=== PATIENT | female | born 1945 | race Caucasian/White ===

== ENCOUNTER 2023-08-28 12:57 | Outpatient (OUT) | payer MEDICARE, OTHER, SELFPAY ==
[2023-08-28 13:40] LABS: Basophils Absolute Auto 0.1 10^3/uL (0.0-0.1); Basophils Percent Auto 0.8 % (0.2-2.0); Eosinophils Absolute Auto 0.2 10^3/uL (0.0-0.7); Hematocrit 43.8 % (36.0-48.0); Hemoglobin 14.2 g/dL (12.0-16.0); Immature Granulocytes Abs Auto 0.03 10^3/uL (0.00-0.03); Immature Granulocytes Pct Auto 0.4 % (0.0-0.5); Lymphocytes Absolute Auto 1.8 10^3/uL (1.2-3.8); Lymphocytes Percent Auto 23.3 % (20.5-60.0); Mean Corpuscular HGB Conc 32.4 g/dL (29.9-35.2); Mean Corpuscular Volume 98.6 fL (81.0-99.0); Mean Platelet Volume 9.5 fL (9.5-13.5); Monocytes Absolute Auto 0.7 10^3/uL (0.3-0.8); Monocytes Percent Auto 9.4 % (1.7-12.0); Neutrophils Absolute Auto 4.8 10^3/uL (1.4-6.5); Neutrophils Percent Auto 63.1 % (43.0-75.0); Platelet Count 233 10^3/uL (150-450); Red Blood Count 4.44 10^6/uL (4.20-5.40); Red Cell Distribution Width 12.3 % (11.0-15.0); White Blood Count 7.6 10^3/uL (4.0-11.0)
[2023-08-28 13:59] LABS: Alanine Aminotransferase 23 U/L (14-59); Albumin Level 3.7 g/dL (3.4-5.0); Alkaline Phosphatase 91 U/L (46-116); Anion Gap 11.7; Aspartate Amino Transferase 18 U/L (15-37); Bilirubin Total 0.9 mg/dL (0.2-1.0); Calcium 8.9 mg/dL (8.5-10.1); Carbon Dioxide 28.6 mmol/L (21.0-32.0); Chloride 103 mmol/L (98-107); Estimated GFR (African America >60 (>=60); Estimated GFR (Non-African Ame >60 (>=60); Glucose 103 mg/dL (74-106); Potassium 4.3 mmol/L (3.5-5.1); Sodium 139 mmol/L (136-145)
[2023-08-28 14:00] LABS: Albumin Globulin Ratio 1.1; Globulin 3.3 g/dL
== END 2023-08-28 12:58 | disposition home or self-care (01) ==
PROVIDERS: Visit Provider Registered Nurse
DX: M15.0 Primary generalized (osteo)arthritis (principal); Z79.899 Other long term (current) drug therapy
CPT/HCPCS: 36415; 80053; 85025

== ENCOUNTER 2024-02-19 11:21 | Outpatient (OUT) | payer MEDICARE, OTHER, SELFPAY ==
[2024-02-19 12:10] LABS: Basophils Absolute Auto 0.1 10^3/uL (0.0-0.1); Basophils Percent Auto 0.7 % (0.2-2.0); Eosinophils Absolute Auto 0.3 10^3/uL (0.0-0.7); Eosinophils Percent Auto 4.6 % (0.9-7.0); Hematocrit 41.8 % (36.0-48.0); Hemoglobin 13.8 g/dL (12.0-16.0); Immature Granulocytes Abs Auto 0.03 10^3/uL (0.00-0.03); Immature Granulocytes Pct Auto 0.4 % (0.0-0.5); Lymphocytes Absolute Auto 1.3 10^3/uL (1.2-3.8); Mean Corpuscular Hemoglobin 32.5 pg (26.7-34.0); Mean Corpuscular Volume 98.6 fL (81.0-99.0); Mean Platelet Volume 9.3 fL (9.5-13.5); Monocytes Absolute Auto 0.6 10^3/uL (0.3-0.8); Monocytes Percent Auto 9.3 % (1.7-12.0); Neutrophils Absolute Auto 4.4 10^3/uL (1.4-6.5); Platelet Count 215 10^3/uL (150-450); Red Blood Count 4.24 10^6/uL (4.20-5.40); Red Cell Distribution Width 12.5 % (11.0-15.0); White Blood Count 6.7 10^3/uL (4.0-11.0)
[2024-02-19 13:09] LABS: Alanine Aminotransferase 23 U/L (14-59); Albumin Level 3.2 g/dL (3.4-5.0); Alkaline Phosphatase 83 U/L (46-116); Anion Gap 12.4; Aspartate Amino Transferase 17 U/L (15-37); Bilirubin Total 1.1 mg/dL (0.2-1.0); Calcium 8.9 mg/dL (8.5-10.1); Carbon Dioxide 28.5 mmol/L (21.0-32.0); Chloride 103 mmol/L (98-107); Estimated GFR (African America >60 (>=60); Estimated GFR (Non-African Ame >60 (>=60); Globulin 3.3 g/dL; Glucose 142 mg/dL (74-106); Potassium 3.9 mmol/L (3.5-5.1); Sodium 140 mmol/L (136-145); Total Protein 6.5 g/dL (6.4-8.2)
== END 2024-02-19 11:22 | disposition home or self-care (01) ==
LOC: LAB 11:22
PROVIDERS: PCP Family Medicine; Visit Provider Internal Medicine Rheumatology
DX: M15.0 Primary generalized (osteo)arthritis (principal); Z79.899 Other long term (current) drug therapy
CPT/HCPCS: 36415; 80053; 85025

== ENCOUNTER 2024-09-03 10:27 | Outpatient (OUT) | payer MEDICARE, OTHER, SELFPAY ==
--- OUTSIDE RECORDS SUMMARY | 2024-09-03 10:49 | XMS_ITS | CCD ---
Author Organization [facility] Care Team Providers Care Manager Of Customer Billing Name Role Phone MD Jason Khan Attending Provider REQUEST, NONE LISTED Attending Unavaila ble REQUEST, NONE LISTED Consulting Unavaila ble REQUEST, NONE LISTED Primary Care Unavaila ble REQUEST, NONE LISTED Admitting Unavaila ble Irving Clemens. Primary Care Physician SHAYAN GAMINO Attending Unavailable KUMAR HKAN Referring Unavailable IRVING CLEMENS Referring Unavailable Irving Clemens. Referring Unavailable Irving Clemens. Admitting Unavailable Irving Clemens. Attending Unavailable Irving Clemens. Admitting Unavailable Irving Clemens. Attending Unavailable Irving Clemens. Attending Unavailable Irving Clemens. Attending Unavailable Irving Clemens. Attending Unavailable Irving Clemens. Attending Unavailable Irving Clemens. Attending Unavailable Irving lCemens. Attending Unavailable Irving Clemens. Attending Unavailable Allergies Allergy Classification Reported Allergen(s) Allergy Type Date of Onset Reaction(s) Facility (2 sources) Codeine; Translations: [codeine] Drug Allergy [facility] (1 source) Sulfonamides (Antibiotic) Drug allergy (disorder) [facility] (2 sources) Codeine; Translations: [codeine] Drug Allergy [facility] (3 sources) Sulfonamides (Antibiotic); Translations: [sulfa drugs] Propensity to adverse reactions to drug [facility] Medications Current Medications Medication Drug Class(es) Dates Sig (Normalized) Sig (Original) citalopram 40 mg oral tablet (2 sources) Serotonin Reuptake Inhibitor Start: 05-12-2024 take 1 tablet by mouth once daily citalopram 40 mg Tab 40 mg = 1 tab(s), Oral, Daily, # 90 tab(s), Refills(s) 4, Pharmacy: [id number], 161, cm, 03/05/24 13:06:00 EDT, Height/Length Dosing, 88.6, kg, 03/05/24 13:06:00 EDT, Weight Dosing Start Date: 05/12/24 Status: Ordered Start: 11-14-2023 take 1 tablet by jake th once daily citalopram 40 mg Tab 40 mg = 1 tab(s), Oral, Daily, # 90 tab(s), Refills(s) 1, Pharmacy: [facility] #[id number], 159.5, cm, 11/14/23 13:11:00 EST, Height/Length Dosing, 90.2, kg, 11/14/23 13:11:00 EST, Weight Dosing Start Date: 11/14/23 Status: Ordered gabapentin 300 mg oral capsule (1 source) Anti-epileptic Agent Start: 11-14-2023 take 1 capsule by mouth in the morning, then take 2 capsules by mouth at bedtime gabapentin 300 mg Cap See Instructions, 1 orally in the am and 2 at bedtime, Refills(s) 0 Start Date: 11/14/23 Status: Ordered hydroCHLOROthiazide 25 mg oral tablet (2 sources) Thiazide Diuretic Start: 11-14-2023 take 1 tablet by mouth once daily hydrochlorothiazide 25 mg Tab 25 mg = 1 tab(s), Oral, Daily, # 90 tab(s), Refills(s) 1, Pharmacy: [facility] #[id number], 159.5, cm, 11/14/23 13:11:00 EST, Height/Length Dosing, 90.2, kg, 11/14/23 13:11:00 EST, Weight Dosing Start Date: 11/14/23 Status: Ordered pregabalin 75 mg oral capsule (1 source) Start: 07-29-2024 take 1 capsule by mouth twice daily Lyrica 75 mg Cap 75 mg = 1 cap(s), Oral, BID, # 60 cap(s), Refills(s) 0, Pharmacy: [id number], 161, cm, 07/29/24 12:54:00 EDT, Height/Length Dosing, 90.6, kg, 07/29/24 12:54:00 EDT, Weight Dosing Start Date: 07/29/24 Status: Ordered verapamil hydrochloride 240 mg extended release oral tablet (2 sources) Calcium Channel Hero Start: 05-12-2024 take 1 tablet by mouth once daily verapamil 240 mg ER Tab 240 mg = 1 tab(s), Oral, Daily, # 90 tab(s), Refills(s) 4, Pharmacy: [id number], 161, cm, 03/05/24 13:06:00 EDT, Height/Length Dosing, 88.6, kg, 03/05/24 13:06:00 EDT, Weight Dosing Start Date: 05/12/24 Status: Ordered Start: 11-14-2023 take 1 tablet by jake th once daily verapamil 240 mg ER Tab 240 mg = 1 tab(s), Oral, Daily, # 90 tab(s), Refills(s) 1, Pharmacy: [facility] #[id number], 159.5, cm, 11/14/23 13:11:00 EST, Height/Length Dosing, 90.2, kg, 11/14/23 13:11:00 EST, Weight Dosing Start Date: 11/14/23 Status: Ordered Completed/Discontinued Medications Medication Drug Class(es) Dates Sig (Normalized) Sig (Original) etodolac 500 mg oral tablet (1 source) Nonsteroidal Anti-inflammatory Drug Start: 02-12-2024 take 1 tablet by mouth twice daily etodolac 500 mg Tab 500 mg = 1 tab(s), Oral, BID, take 1 tablet by mouth twice a day Start Date: 02/12/24 Status: Ordered Problems Problem Classification Problem Date Documented Date Episodic/Chronic Anxiety disorders (2 sources) Anxiety 11-14-2023 Chronic Disorders of lipid metabolism (2 sources) Hyperlipidemia 11-14-2023 Chronic Essential hypertension (2 sources) Hypertensive disorder 11-14-2023 Chronic Osteoarthritis (4 sources) Primary generalized (osteo)arthritis; Translations: [PRIMARY GENERALIZED OSTEOARTHRITIS] Onset: 10-31-2022 Chronic Other aftercare (1 source) Other custodial (current) drug therapy; Translations: [[facility] CURRENT DRUG THERAPY] Onset: 11-03-2022 Episodic Other nervous system disorders (2 sources) Neuropathy 11-14-2023 Chronic Other nutritional; endocrine; and metabolic disorders (1 source) Body mass index 30+ - obesity 02-12-2024 Chronic Unclassified (2 sources) Statin not tolerated (context-dependent category) 11-14-2023 Results Test Name Value Interpretation Reference Range Beka mcmanus Family Medicine Office/Clini c Noteon 07-29-2024 Family Medicine Office/Clinic Note Family Medicine Office/Clinic Note Chief Complaint The patient presents with significant burning and numbness in the feet and ankles. HPI Staff Jose Manuel is an 79 year old female presenting for acute vist Acute: feet bothering her from the neuropathy night swollen and burning and couldn't sleep. On gabapentin and doesn't want to increase the dose due to side effects so would like to discuss changing them. If doesn't get changed will need a refill flu: declined History of Present Illness The patient is an 79-year-old female presenting with severe burning pain and numbness in the feet and ankles. The patient reports that the sensation feels similar to the sensation of her feet falling asleep. The condition has been severe enough to disturb her sleep, with the patient describing one episode on a night as particularly terrible. These symptoms have progressed over time, and she additionally mentions swelling?though the swelling is not pitting. This presentation has led to a presumed diagnosis of lymphedema, though the patient states that this irritation in her feet and ankles has not been an issue previously, with only neuropathy being documented historically. The patient expresses concerns about her current medication management, specifically gabapentin, which she believes may be contributing to the swelling of her ankles. Attempts to manage the symptoms with gabapentin have fostered discussions of potential side effects, but no immediate resolution of her symptoms. She is considering switching to Lyrica as an alternative to better manage her neuralgia. Peripheral artery disease has been ruled out through prior investigations which have returned normal results. The patient possesses a history of nicotine dependence but is now a former smoker. Her Ongoing health concerns include exogenous obesity and a BMI of 34.0-34.9. Her blood pressure is actively managed with daily blood pressure medication. Cardiovascular risks have been acknowledged due to her age, with particular heed given to coronary artery disease, congestive heart failure, and the potential for stroke. Review of Systems PHQ Score Initial Depression Screen Score: 0 SCORE Physical Exam Vitals & Measurements T: 36.9 ?C(Temporal Artery) HR: 66(Peripheral) RR: 16 BP: 132/78 SpO2: 96% HT: 63 in HT: 161 cm WT: 90.6 kg WT: 199.32 lb BMI: 34.95 General: alert, no acute distress ENMT: oral mucosa moist Cardiovascular:, normal peripheral perfusion Respiratory: respirations non labored Extremities: no deformity, no trauma, swelling in ankles noted, non-pitting edema observed Neurological: oriented x 4, level of consciousness appropriate for age, CN II-XII intact, motor strength equal & normal bilaterally, speech normal Assessment/Plan 1. BMI 34.0-34.9,adult (Z68.34: Body mass index [BMI] 34.0-34.9, adult) BMI education added Ordered: Body Mass Index (BMI) documented 3008F Current tobacco non-user 1036F Depression Screening Negative 3352F EMG Bilateral Lower Extremity (BLE) Influenza immunization status assessed 1030F Most recent diastolic blood pressure <80 mm Hg 3078F Patient screen for fall risk: no falls in last year or 1 fall with no injury in last year 1101F Systolic BP 130-139 mm Hg (Most Recent) 3075F 2. 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 Management includes continued monitoring of her BMI and exploration of weight-reduction strategies, emphasizing dietary management and physical activity suitable for her age and concurrent conditions. Ordered: Body Mass Index (BMI) documented 3008F Current tobacco non-user 1036F Depression Screening Negative 3352F EMG Bilateral Lower Extremity (BLE) Influenza immunization status assessed 1030F Most recent diastolic blood pressure <80 mm Hg 3078F Patient screen for fall risk: no falls in last year or 1 fall with no injury in last year 1101F Systolic BP 130-139 mm Hg (Most Recent) 3075F 3. Former smoker (Z87.891: Personal history of nicotine dependence) The patient's prior history of nicotine dependence poses a residual factor in elevated cardiovascular risks. While she is now a former smoker, emphasizing the cessation continuity and addressing any residual health impacts remain important within her preventative care strategy. Ordered: Body Mass Index (BMI) documented 3008F Current tobacco non-user 1036F Depression Screening Negative 3352F EMG Bilateral Lower Extremity (BLE) Influenza immunization status assessed 1030F Most recent diastolic blood pressure <80 mm Hg 3078F Patient screen for fall risk: no falls in last year or 1 fall with no injury in last year 1101F Systolic BP 130-139 mm Hg (Most Recent) 3075F 4. Polyneuropathy, unspecified (G62.9) The primary concern in this visit is the patient's neuropathy c (more content not included)... Normal [facility] Comment on above: Result Comment: Elec tronically Signed By: Irving Clemens MD\.br\Date and Time Signed: 07/29/24 13:42 EDT Ambulatory Visit Summaryon 0 03-05-2024 Ambulatory Visit Summary JOSE MANUEL CHICAS :1945 Visit Date:03/05/2024 Ambulatory Visit Instructions Your Diagnosis HTN (hypertension) BMI 34.0-34.9,adult Class 1 obesity due to excess calories in adult Nonsmoker Your Care Team Attending Physician - Irving Clemens MD Primary Care Physician - Irving Clemens MD This Is Your Medications List citalopram (citalopram 40 mg Tab) etodolac (etodolac 500 mg Tab) gabapentin (gabapentin 300 mg Cap) hydrochlorothiazide (hydrochlorothiazide 25 mg Tab) verapamil (verapamil 240 mg ER Tab) Procedures Performed Acoustic neuroma, Biopsy of breast, Hysterectomy. Discharge Vitals Temperature (Temporal Artery) 37.5 ?C Heart Rate (Peripheral) 72 Respiratory Rate 16 Blood Pressure 150/84 Height 161 cm Height 63 in Weight 88.6 kg Weight 194.92 lb BMI 34.18 What to do next Scheduled Follow-Up Appointments 2023 1:00 PM EST With: Irving Clemens MD Where: [facility] [address] [place] [address]- \.br\ Medications\.br\ What How Much When Instructions\.br\ Unchanged citalopram (citalopram 40 mg Tab) 1 Tablets By Mouth Every day\.br\ Unchanged etodolac (etodolac 500 mg Tab) 1 Tablets By Mouth 2 times a day take 1 tablet by mouth twice a day \.br\ Unchanged gabapentin (gabapentin 300 mg Cap) See instructions 1 orally in the am and 2 at bedtime \.br\ Unchanged hydrochlorothiazide (hydrochlorothiazide 25 mg Tab) 1 Tablets By Mouth Every day\.br\ Unchanged verapamil (verapamil 240 mg ER Tab) 1 Tablets By Mouth Every day\.br\ Allergies\.br\ codeine\.br\ sulfa drugs\.br\ Problems\.br\ Ongoing - Any problem that you are currently receiving treatment for.\.br\ Anxiety\.br\ BMI 34.0-34.9,adult\.br\ HLD (hyperlipidemia)\.br \ HTN (hypertension)\.br\ Neuropathy\.br\ Statin intolerance\.br\ Patient Survey\.br\ You may receive a survey via text or e-mail asking about your office visit. Please share your experience with us by completing your survey. We appreciate your feedback and thank you for choosing us for your care.\.br\ \.br\ [facility] Family Medicine Office/Clini c Noteon 03-05-2024 Family Medicine Office/Clinic Note HPI Staff Jose Manuel is a 78 year old female presenting for follow up htn Patient is here for follow up on hypertension. How often are you checking your blood pressure? Daily What are your average readings? all over the place, worse in the morning then after takes her pill it gets better _ Yearly BMP: 11/14/23 History of Present Illness - Here for follow up. - No issues at this time. - Reviewed Bp logs. - Elevated in the AM. Takes meds at noon and then improves with time. - NO other issues at this time. Review of Systems PHQ Score Initial Depression Screen Score: 0 SCORE Physical Exam Vitals & Measurements T: 37.5 ?C(Temporal Artery) HR: 72(Peripheral) RR: 16 BP: 138/88 SpO2: 95% HT: 63 in HT: 161 cm WT: 88.6 kg WT: 194.92 lb BMI: 34.18 General: alert, no acute distress ENMT: oral mucosa moist, Cardiovascular: regular rate and rhythm, normal peripheral perfusion Respiratory: Lungs CTA, respirations non labored Extremities: no deformity, no trauma Neurological: oriented x 4, LOC appropriate for age, CN II-XII intact, motor strength equal & normal bilaterally, speech normal Abdomen: Soft, Nontender, Non-distended, + BS Assessment/Plan 1. HTN (hypertension) (I10: Essential (primary) hypertension) - Bp improved on recheck. No issues at this time. 2. BMI 34.0-34.9,adult (Z68.34: Body mass index [BMI] 34.0-34.9, adult) - BMI education uploaded 3. Class 1 obesity due to excess calories in adult (E66.09: Other obesity due to excess calories) - Diet and exercise advised 4. Nonsmoker (Z78.9: Other specified health status) - Please continue to not smoke. Follow-up No qualifying data available Problem List/Past Medical History Ongoing Anxiety BMI 34.0-34.9,adult HLD (hyperlipidemia) HTN (hypertension) Neuropathy Statin intolerance Historical No qualifying data Procedure/Surgical History Acoustic neuroma, Biopsy of breast, Hysterectomy. Medications citalopram 40 mg Tab, 40 mg= 1 tab(s), Oral, Daily, 1 refills etodolac 500 mg Tab, 500 mg= 1 tab(s), Oral, BID gabapentin 300 mg Cap, See Instructions, 3 refills hydrochlorothiazide 25 mg Tab, 25 mg= 1 tab(s), Oral, Daily, 1 refills verapamil 240 mg ER Tab, 240 mg= 1 tab(s), Oral, Daily, 1 refills Allergies codeine sulfa drugs Social History Alcohol - Medium Risk, 02/12/2024 Current, Wine, 3-5 times per week, 1 drinks/episode average. 2.00 drinks/episode maximum. Previous treatment: None. Alcohol use interferes with work or home: No. Drinks more than intended: No. Others hurt by drinking: No. Ready to change: No. Household alcohol concerns: No., 02/12/2024 Substance Abuse - Denies Substance Abuse, 02/12/2024 Tobacco Former smoker, quit more than 30 days ago Tobacco Use:. Never Smokeless Tobacco Use:. Cigarettes, 0.25 per day. 31 year(s). Total pack years: 8. Started age 17.0 Years. Stopped age 49 Years., 03/05/2024 Family History Acute myocardial infarction: Father. Hypertension: Brother. Stroke: Mother. Immunizations Vaccine Date Status pneumococcal 13-valent vaccine 09/09/2021 Recorded influenza virus vaccine, inactivated 10/05/2019 Recorded pneumococcal 23-valent vaccine 08/26/2014 Recorded pneumococcal 23-valent vaccine 08/23/2001 Recorded Normal [facility] Comment on above: Result Comment: Elec tronically Signed By: Roberto Carlos MART, Irving Rutledge.br\Date and Time Signed: 03/05/24 13:36 EDT Living Will/POAon 03-05-2024 Living Will/POA [id number] #1.00TIFF Normal [facility] Family Medicine Office/Clini c Noteon 02-13-2024 Family Medicine Office/Clinic Note Chief Complaint Medicare Wellness Visit Subsequent History of Present Illness I was in the office and available for consultation and to provide direct supervision at the time of this visit. I have provided supervision of the care team and have reviewed this chart and office note and agree with the plan of care. Covid-19, MERS, Ebola Screen *Contact With Person With Highly Contagious Disease Like Ebola/MERS/COVID-19 AND Have One or More of the Symptoms Below : No *Travel to a Country With Wide-Spread Ebola/MERS/COVID-19 in the Past 21 Days AND Have One or More of the Symptoms Below : No Patient Reported Covid-19 Testing : No *Verify Droplet, Contact Precautions for Ebola (Reference for CDC) : N/A *Verify Airborne, Droplet Precautions for MERS/COVID-19 : N/A Marilyn Jose LPN L - 02/12/2024 12:58 EDT Medicare/Medicaid Summary Height/Length Measured : 161 cm(Converted to: 5 ft 3 in, 63.39 in) Weight Measured : 90.2 kg(Converted to: 198 lb 14 Ounces, 198.857 lb) Body Mass Index Measured : 34.8 kg/m2 Height in Inches : 63 in Weight in Pounds : 198.44 lb Systolic Blood Pressure : 170 mmHg (HI) Diastolic Blood Pressure : 100 mmHg (HI) Peripheral Pulse Rate : 58 bpm (LOW) Respiratory Rate : 16 br/min SpO2 : 96 % Jose MAKER UP FOLDINGMarilyn Ward L - 02/12/2024 14:22 EDT Chief Complaint : Medicare Wellness Visit Subsequent Damon KIANMarilyn L 02/12/2024 15:44 EDT Patient Counseled : Nutrition, Physical activity, Elevated BMI Blood Pressure Location : Right arm Blood Pressure Position : Sitting O2 Sat Resting/Exertion Alpha : Resting Pain Present : No actual or suspected pain Marilyn Jose LPN - 02/12/2024 12:58 EDT Hearing and Vision Screening FT FT Whisper Test Comments : 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 Vision Screen Comments : Wears glasses, follows up with [facility] for eye exams. Marilyn Jose LPN - 02/12/2024 14:22 EDT Advance Directive FT Advance Directive : Yes Patient Wishes to Receive Further Information on Advance Directives : No Organ Donation Consent : Yes Marilyn Jose LPN - 02/12/2024 14:22 EDT Procedures / Surgeries FT - Procedure History (As Of: 02/12/2024 15:46:17 EDT) Anesthesia Minutes: 0 ; Procedure Name: Acoustic neuroma ; Procedure Minutes: 0 ; Comments: 11/14/2023 13:07 Laly Velasquez LPN [facility] 1995 ; Last Reviewed Dt/Tm: 02/12/2024 15:45:32 EDT Anesthesia Minutes: 0 ; Procedure Name: Hysterectomy ; Procedure Minutes: 0 ; Last Reviewed Dt/Tm: 02/12/2024 15:45:32 EDT Anesthesia Minutes: 0 ; Procedure Name: Biopsy of breast ; Procedure Minutes: 0 ; Comments: 11/14/2023 13:08 Laly Velasquez LPN several biopsies, has dense breasts ; Last Reviewed Dt/Tm: 02/12/2024 15:45:32 EDT Family History Family History (As Of: 02/12/2024 15:46:17 EDT) Father: Relation: Father ; Gender: Male ; Nomenclature: Acute myocardial infarction ; Value: Positive Mother: Relation: Mother ; Gender: Female ; Nomenclature: Stroke ; Value: Positive Brother: Relation: Brother ; Gender: Male ; Nomenclature: Hypertension ; Value: Positive Medicare/Medicaid Social History FT Social History (As Of: 02/12/2024 15:46:17 EDT) Alcohol: Medium Risk Current, Wine, 3-5 times per week, 1 drinks/episode average. 2.00 drinks/episode maximum. Previous treatment: None. Alcohol use interferes with work or home: No. Drinks more than intended: No. Others hurt by drinking: No. Ready to change: No. Household alcohol concerns: No. (Last Updated: 02/12/2024 14:26:18 EDT by Marilyn Jose LPN) Tobacco: Former smoker, quit more than 30 days ago Tobacco Use:. Never Smokeless Tobacco Use:. Cigarettes, 0.25 per day. 32 year(s). Total pack years: 8. Started age 17.0 Years. Stopped age 49 Years. (Last Updated: 02/12/2024 14:26:56 EDT by Marilyn Jose LPN) Substance Abuse: Denies Substance Abuse (Last Updated: 02/12/2024 14:25:57 EDT by Marilyn Jose LPN ) Health Risk Assessment FT Overall mood for past four weeks : Pretty well General health rating : Very Good Someone avail. to help if needed? : Yes, as much as I wanted Phys. & emotional health limit social act? : Not at all Confident you control health problems : Very confident Difficulties driving your car? : No Seatbelts : I always fasten my seat belt Marilyn Jose LPN - 02/12/2024 14:22 EDT HRA little interest or pleasure? : No HRA down, depressed, or hopeless? : No Hazards in your house? : No Fall Risk Past Year : No Worried About Falling : No Use a Cane or Walker? : No Someone Helps You in the Morning : No Fallen or felt dizzy standing up? : No Assistance with personal care? : No Trouble taking meds correctly? : No HRA Pain Present : No Able to walk without help? : Yes Ability to shop w/out help : Yes Prepare your own meals? : Yes Housework without help? : Yes Handle money without help : (more content not included)... Normal [facility] Comment on above: Result Comment: Elec tronically Signed By: Irving Clemens MD\.br\Date and Time Signed: 02/13/24 08:33 EDT\.br\Electronically Co-Signed By: Marilyn Jose LPN\.br\Date and Time Co-Signed: 02/12/24 16:35 EDT [place] 02-13-2024 Screens [id number] #[id number] Normal [facility] Ambulatory Visit Summaryon 0 02-12-2024 Ambulatory Visit Summary JOSE MANUEL CHICAS :1945 Visit Date:02/12/2024 Ambulatory Visit Instructions Your Diagnosis Annual visit for general adult medical examination with abnormal findings Anxiety HLD (hyperlipidemia) HTN (hypertension) Neuropathy Obesity due to excess calories Your Care Team Attending Physician - Irving Clemens MD Primary Care Physician - Irving Clemens MD This Is Your Medications List citalopram (citalopram 40 mg Tab) etodolac (etodolac 500 mg Tab) gabapentin (gabapentin 300 mg Cap) hydrochlorothiazide (hydrochlorothiazide 25 mg Tab) verapamil (verapamil 240 mg ER Tab) Procedures Performed Acoustic neuroma, Biopsy of breast, Hysterectomy. Discharge Vitals Heart Rate (Peripheral) 58 Respiratory Rate 16 Blood Pressure 178/98 Height 63 in Height 161 cm Weight 198.44 lb Weight 90.2 kg BMI 34.8 What to do next Scheduled Follow-Up Appointments Monday 2:30 PM EDT With: Irving Clemens MD Where: [facility] Normal [address] [place] [address] \.br\ Medications\.br\ What How Much When Instructions\.br\ Unchanged citalopram (citalopram 40 mg Tab) 1 Tablets By Mouth Every day\.br\ Unchanged etodolac (etodolac 500 mg Tab) 1 Tablets By Mouth 2 times a day take 1 tablet by mouth twice a day \.br\ Unchanged gabapentin (gabapentin 300 mg Cap) See instructions 1 orally in the am and 2 at bedtime \.br\ Unchanged hydrochlorothiazide (hydrochlorothiazide 25 mg Tab) 1 Tablets By Mouth Every day\.br\ Unchanged verapamil (verapamil 240 mg ER Tab) 1 Tablets By Mouth Every day\.br\ Allergies\.br\ codeine\.br\ sulfa drugs\.br\ Problems\.br\ Ongoing - Any problem that you are currently receiving treatment for.\.br\ Anxiety\.br\ BMI 34.0-34.9,adult\.br\ HLD (hyperlipidemia)\.br \ HTN (hypertension)\.br\ Neuropathy\.br\ Statin intolerance\.br\ Patient Survey\.br\ You may receive a survey via text or e-mail asking about your office visit. Please share your experience with us by completing your survey. We appreciate your feedback and thank you for choosing us for your care.\.br\ Education Materials\.br\ Managing Anxiety, Adult\.br\ After being diagnosed with anxiety, you may be relieved to know why you have felt or behaved a certain way. You may also feel overwhelmed about the treatment ahead and what it will mean for your life. With care and support, you can manage this condition.\.br\ How to manage lifestyle changes\.br\ Managing stress and anxiety\.br\ \.br\ Stress is your body's reaction to life changes and events, both good and bad. Most stress will last just a few hours, but stress can be ongoing and can lead to more than just stress. Although stress can play a major role in anxiety, it is not the same as anxiety. Stress is usually caused by something external, such as a deadline, test, or competition. Stress normally passes after the triggering event has ended.\.br\ Anxiety is caused by something internal, such as imagining a terrible outcome or worrying that something will go wrong that will devastate you. Anxiety often does not go away even after the triggering event is over, and it can become long-term (chronic) worry. It is important to understand the differences between stress and anxiety and to manage your stress effectively so that it does not lead to an anxious response.\.br\ Talk with your health care provider or a counselor to learn more about reducing anxiety and stress. He or she may suggest tension reduction techniques, such as:\.br\ ? \.br\ Music therapy. Spend time creating or listening to music that you enjoy and that inspires you.\.br\ ? \.br\ Mindfulness-based meditation. Practice being aware of your normal breaths while not trying to control your breathing. It can be done while sitting or walking.\.br\ ? \.br\ Centering prayer. This involves focusing on a word, phrase, or sacred image that means something to you and brings you peace.\.br\ ? \.br\ Deep breathing. To do this, expand your stomach and inhale slowly through your nose. Hold your breath for 3?5 seconds. Then exhale slowly, letting your stomach muscles relax.\.br\ ? \.br\ Self-talk. Learn to notice and identify thought patterns that lead to anxiety reactions and change those patterns to thoughts that feel peaceful.\.br\ ? \.br\ Muscle relaxation. Taking time to tense muscles and then relax them.\.br\ Choose a tension reduction technique that fits your lifestyle and personality. These techniques take time and practice. Set aside 5?15 minutes a day to do them. Therapists can offer counseling and training in these techniques. The training to help with anxiety may be covered by some insurance plans.\.br\ Other things you can do to manage stress and anxiety include:\.br\ ? \.br\ Keeping a stress diary. This can help you learn what triggers your reaction and then learn ways to manage your response.\.br\ ? \.br\ Thinking about how you react to certain situations. You may not be able to control everything, but you can control your response.\.br\ ? \.br\ Making time for activities that help you relax and not feeling guilty about spending your time in this way.\.br\ ? \.br\ Doing visual imagery. This involves imagining or creating mental pictures to help you relax.\.br\ ? \.br\ Practicing yoga. Through yoga poses, you can lower tension and promote relaxation.\.br\ Medicines\.br\ Medicines can help ease symptoms. Medicines for anxiety include:\.br\ ? \.br\ Antidepressant medicines. These are usually prescribed for long-term daily control.\.br\ ? \.br\ Anti-anxiety medicines. These may be added in severe cases, especially when panic attacks occur.\.br\ Medicines will be prescribed by a health care provider. When used together, medicines, psychotherapy, and tension reduction techniques may be the most effective treatment.\.br\ Relationships\.br\ Relationships can play a big part in helping you recover. Try to spend more time connecting with trusted friends and family members.\.br\ ? \.br\ Consider going to couples counseling if you have a partner, taking family education classes, or going to family therapy.\.br\ ? \.br\ Therapy can help you and others better understand your condition.\.br\ How to recognize changes in your anxiety\.br\ Everyone responds differently to treatment for anxiety. Recovery from anxiety happens when symptoms decrease and stop interfering with your daily activities at home or work. This may mean that you will start to:\.br\ ? \.br\ Have better concentration and focus. Worry will interfere less in your daily thinking.\.br\ ? \.br\ Sleep better.\.br\ ? \.br\ Be less irritable.\.br\ ? \.br\ Have more energy.\.br\ ? \.br\ Have improved memory.\.br\ It is also important to recognize when your condition is getting worse. Contact your health care provider if your symptoms interfere with home or work and you feel like your condition is not improving.\.br\ Follow these instructions at home:\.br\ Activity\.br\ ? \.br\ Exercise. Adults should do the following:\.br\ ? \.br\ Exercise for at least 150 minutes each week. The exercise should increase your heart rate and make you sweat (moderate-intensity exercise).\.br\ ? \.br\ Strengthening exercises at least twice a week.\.br\ ? \.br\ Get the right amount and quality of sleep. Most adults need 7?9 hours of sleep each night.\.br\ Lifestyle\.br\ \.br\ ? \.br\ Eat a healthy diet that includes plenty of vegetables, fruits, whole grains, low-fat dairy products, and lean protein.\.br\ ? \.br\ Do not eat a lot of foods that are high in fats, added sugars, or salt (sodium).\.br\ ? \.br\ Make choices that simplify your life.\.br\ ? \.br\ Do not use any products that contain nicotine or tobacco. These products include cigarettes, chewing tobacco, and vaping devices, such as e-cigarettes. If you need help quitting, ask your health care provider.\.br\ ? \.br\ Avoid caffeine, alcohol, and certain cyeh-sbf-qplsxdy cold medicines. These may make you feel worse. Ask your pharmacist which medicines to avoid.\.br\ General instructions\.br\ ? \.br\ Take iubr-jpy-oyeqtsj and prescription medicines only as told by your health care provider.\.br\ ? \.br\ Keep all follow-up visits. This is important.\.br\ Where to find support\.br\ You can get help and support from these sources:\.br\ ? \.br\ Self-help groups.\.br\ ? \.br\ Online and community organizations.\.br\ ? \.br\ A trusted spiritual leader.\.br\ ? \.br\ [facility] Dexa Scanson 02-12-2025 Dexa Scans [phone] [id number] #1.00TIFF Normal [facility] Patient Educationon 02-12-20 Patient Education Cardiovascular Hypertension, Adult High blood pressure (hypertension) is when the force of blood pumping through the arteries is too strong. The arteries are the blood vessels that carry blood from the heart throughout the body. Hypertension forces the heart to work harder to pump blood and may cause arteries to become narrow or stiff. Untreated or uncontrolled hypertension can lead to a heart attack, heart failure, a stroke, kidney disease, and other problems. A blood pressure reading consists of a higher number over a lower number. Ideally, your blood pressure should be below 120/80. The first ( top ) number is called the systolic pressure. It is a measure of the pressure in your arteries as your heart beats. The second ( bottom ) number is called the diastolic pressure. It is a measure of the pressure in your arteries as the heart relaxes. What are the causes? The exact cause of this condition is not known. There are some conditions that result in high blood pressure. What increases the risk? Certain factors may make you more likely to develop high blood pressure. Some of these risk factors are under your control, including: ? Smoking. ? Not getting enough exercise or physical activity. ? Being overweight. ? Having too much fat, sugar, calories, or salt (sodium) in your diet. ? Drinking too much alcohol. Other risk factors include: ? Having a personal history of heart disease, diabetes, high cholesterol, or kidney disease. ? Stress. ? Having a family history of high blood pressure and high cholesterol. ? Having obstructive sleep apnea. ? Age. The risk increases with age. What are the signs or symptoms? High blood pressure may not cause symptoms. Very high blood pressure (hypertensive crisis) may cause: ? Headache. ? Fast or irregular heartbeats (palpitations). ? Shortness of breath. ? Nosebleed. ? Nausea and vomiting. ? Vision changes. ? Severe chest pain, dizziness, and seizures. How is this diagnosed? This condition is diagnosed by measuring your blood pressure while you are seated, with your arm resting on a flat surface, your legs uncrossed, and your feet flat on the floor. The cuff of the blood pressure monitor will be placed directly against the skin of your upper arm at the level of your heart. Blood pressure should be measured at least twice using the same arm. Certain conditions can cause a difference in blood pressure between your right and left arms. If you have a high blood pressure reading during one visit or you have normal blood pressure with other risk factors, you may be asked to: ? Return on a different day to have your blood pressure checked again. ? Monitor your blood pressure at home for 1 week or longer. If you are diagnosed with hypertension, you may have other blood or imaging tests to help your health care provider understand your overall risk for other conditions. How is this treated? This condition is treated by making healthy lifestyle changes, such as eating healthy foods, exercising more, and reducing your alcohol intake. You may be referred for counseling on a healthy diet and physical activity. Your health care provider may prescribe medicine if lifestyle changes are not enough to get your blood pressure under control and if: ? Your systolic blood pressure is above 130. ? Your diastolic blood pressure is above 80. Your personal target blood pressure may vary depending on your medical conditions, your age, and other factors. Follow these instructions at home: Eating and drinking ? Eat a diet that is high in fiber and potassium, and low in sodium, added sugar, and fat. An example of this eating plan is called the DASH diet. DASH stands for Dietary Approaches to Stop Hypertension. To eat this way: ? Eat plenty of fresh fruits and vegetables. Try to fill one half of your plate at each meal with fruits and vegetables. ? Eat whole grains, such as whole-wheat pasta, brown rice, or whole-grain bread. Fill about one fourth of your plate with whole grains. ? Eat or drink low-fat dairy products, such as skim milk or low-fat yogurt. ? Avoid fatty cuts of meat, processed or cured meats, and poultry with skin. Fill about one fourth of your plate with lean proteins, such as fish, chicken without skin, beans, eggs, or tofu. ? Avoid pre-made and processed foods. These tend to be higher in sodium, added sugar, and fat. ? Reduce your daily sodium intake. Many people with hypertension should eat less than 1,500 mg of sodium a day. ? Do not drink alcohol if: ? Your health care provider tells you not to drink. ? You are , may be , or are planning to become . ? If you drink alcohol: ? Limit how much you have to: ? 0?1 drink a day for women. ? 0?2 drinks a day for men. ? Know how much alcohol is in your drink. In the [place] one drink equals one 12 oz bottle of beer (355 mL), one 5 oz glass of wine (148 mL), or one 1? oz glass (more content not included)... [facility] Outside Mammographyon 2023 Outside Mammography [id number] #1.00TIFF Normal [facility] BI MAMMOGRAM SCREENING TOMOS YNTHESIS BILATERALon 01-04-2024 BI MAMMOGRAM SCREENING TOMOSYNTHESIS BILATERAL This is a summary report. The complete report is available in the patient's medical record. If you cannot access the medical record, please contact the sending organization for a detailed fax or copy. EXAMINATION: BI MAMMOGRAM SCREENING TOMOSYNTHESIS BILATERAL CLINICAL HISTORY:screening COMPARISON: December 01, 2022 . RESULT: Digital mammography and 3D tomosynthesis of bilateral breasts was performed. Density: Heterogeneously dense [3] There is no suspicious mass, asymmetry, architectural distortion, or calcification. Typically benign calcifications. Overall appearance stable. IMPRESSION: BIRADS 2 - Benign Follow-up: Routine Screening Mamm COMMENT: Given dense breast tissue, recommend close correlation with self-breast and clinical exam findings. If any new symptoms or signs present clinically, recommend ultrasound to complement mammography. Board Certified Radiologists. Accredited by the ACR and FDA. MAMMOGRAPHY IS VERY IMPORTANT TO YOUR HEALTH. THE [place] [employer] GUIDELINES RECOMMEND THAT WOMEN 40 YEARS OF AGE AND OLDER SHOULD HAVE A MAMMOGRAM EVERY YEAR. A REMINDER LETTER WILL BE SENT AT THE APPROPRIATE TIME. THIS FACILITY UTILIZES A REMINDER SYSTEM TO ENSURE ALL PATIENTS RECEIVE REMINDER NOTIFICATIONS AT THE APPROPRIATE TIME BASED ON THE RECOMMENDATIONS OF THIS EXAM. THIS INCLUDES REMINDERS FOR ROUTINE SCREENING MAMMOGRAMS, DIAGNOSTIC MAMMOGRAMS IN WHICH THE PATIENT IS ASKED TO RETURN FOR ADDITIONAL VIEWS, OR OTHER BREAST IMAGING INTERVENTIONS WHEN APPROPRIATE. THE PATIENT WILL BE PLACED IN THE APPROPRIATE REMINDER SYSTEM INCLUDING A REMINDER AT THE APPROPRIATE TIME FOR ANY PENDING ADDITIONAL VIEWS. TRANSCRIBED BY: ELECTRONICALLY SIGNED BY: Andrae Ewing MD Normal Not Available DEXA BONE DENSITYon 01-04-20 DEXA BONE DENSITY DEXA BONE DENSITY : 01/04/2024 1:01 PM CLINICAL HISTORY: Screening for Osteoporosis. COMPARISON: December 28, 2021 TECHNIQUE: The lumbar spine and both hips were scanned. FINDINGS: The mean bone mineral density from L1 through L4 is 1.173, and the T-score is 1.1, which is the standard deviation below the standard reference value for young adult. Densitometry trend: L1-L4: 0.8% BMD change versus previous. Bone mineral density of the left femoral neck is 0.593, and the T-score is -2.3, which is the standard deviation below the standard reference value for young adult. Bone mineral density of the right femoral neck is 0.641, and the T-score is -1.9, which is the standard deviation below the standard reference value for young adult. Densitometry trend: Total mean: -0.1% BMD change versus previous. These values meet WHO criteria for osteopenia. 10 year probability (FRAX) of major osteoporotic fracture based on the left femoral neck bone mineral density is: 29 %, and hip fracture 19 %. IMPRESSION: OSTEOPENIA. ELECTRONICALLY SIGNED BY: Silvia Lo DO Normal Not Available Ambulatory Visit Summaryon 0 11-14-2023 Ambulatory Visit Summary JOSE MANUEL CHICAS :1945 Visit Date:11/14/2023 Ambulatory Visit Instructions Your Diagnosis HTN (hypertension) HLD (hyperlipidemia) Neuropathy BMI 35.0-35.9,adult Class 1 obesity due to excess calories in adult Nonsmoker Anxiety Your Care Team Attending Physician - Irving Clemens MD Primary Care Physician - Irving Clemens MD This Is Your Medications List citalopram (citalopram 40 mg Tab) hydrochlorothiazide (hydrochlorothiazide 25 mg Tab) verapamil (verapamil 240 mg ER Tab) Contact prescribing physician if questions or concerns gabapentin (gabapentin 300 mg Cap) Procedures Performed Acoustic neuroma, Biopsy of breast, Hysterectomy. Discharge Vitals Temperature (Temporal Artery) 37.2 ?C Heart Rate (Peripheral) 58 Respiratory Rate 14 Blood Pressure 160/100 Height 63 in Height 159.5 cm Weight 198.44 lb Weight 90.2 kg BMI 35.46 Medications What How Much When Instructions Changed citalopram (citalopram 40 mg Tab) 1 Tablets By Mouth Every day Pickup at [facility] #[id number] Changed hydrochlorothiazide (hydrochlorothiazide 25 mg Tab) 1 Tablets By Mouth Every day Pickup at [facility] #[id number] Changed verapamil (verapamil 240 mg ER Tab) 1 Tablets By Mouth Every day Pickup at [facility] #[id number] Unchanged gabapentin (gabapentin 300 mg Cap) See instructions 1 orally in the am and 2 at bedtime Contact prescribing physician if questions or concerns Pharmacy Information [facility] #[id number]: [address] [place], [place] [id number] [phone] Allergies codeine sulfa drugs Problems Ongoing - Any problem that you are currently receiving treatment for. Anxiety HLD (hyperlipidemia) HTN (hypertension) Neuropathy Statin intolerance Patient Survey You may receive a survey via text or e-mail asking about your office visit. Please share your experience with us by completing your survey. We appreciate your feedback and thank you for choosing us for your care. Education Materials BMI for Adults What is BMI? Body mass index (BMI) is a number that is calculated from a person's weight and height. BMI can help estimate how much of a person's weight is composed of fat. BMI does not measure body fat directly. Rather, it is an alternative to procedures that directly measure body fat, which can be difficult and expensive. BMI can help identify people who may be at higher risk for certain medical problems. What are BMI measurements used for? BMI is used as a screening tool to identify possible weight problems. It helps determine whether a person is obese, overweight, a healthy weight, or underweight. BMI is useful for: ? Identifying a weight problem that may be related to a medical condition or may increase the risk for medical problems. ? Promoting changes, such as changes in diet and exercise, to help reach a healthy weight. BMI screening can be repeated to see if these changes are working. How is BMI calculated? BMI involves measuring your weight in relation to your height. Both height and weight are measured, and the BMI is calculated from those numbers. This can be done either in [place] or metric measurements. Note that charts and online BMI calculators are available to help you find your BMI quickly and easily without having to do these calculations yourself. To calculate your BMI in [place] measurements: 1. Measure your weight in pounds (lb). 2. Multiply the number of pounds by 703. ? For example, for a person who weighs 180 lb, multiply that number by 703, which equals 126,540. 3. Measure your height in inches. Then multiply that number by itself to get a measurement called inches squared. ? For example, for a person who is 70 inches tall, the inches squared measurement is 70 inches x 70 inches, which equals 4,900 inches squared. 4. Divide the total from step 2 (number of lb x 703) by the total from step 3 (inches squared): 126,540 ? 4,900 = 25.8. This is your BMI. To calculate your BMI in metric measurements: 1. Measure your weight in kilograms (kg). 2. Measure your height in meters (m). Then multiply that number by itself to get a measurement called meters squared. ? For example, for a person who is 1.75 m tall, the meters squared measurement is 1.75 m x 1.75 m, which is equal to 3.1 meters squared. 3. Divide the number of kilograms (your weight) by the meters squared number. In this example: 70 ? 3.1 = 22.6. This is your BMI. What do the results mean? BMI charts are used to identify whether you are underweight, normal weight, overweight, or obese. The following guidelines will be used: ? Underweight: BMI less than 18.5. ? Normal weight: BMI between 18.5 and 24.9. ? Overweight: BMI between 25 and 29.9. ? Obese: BMI of 30 or above. Keep these notes in mind: ? Weight includes both fat and muscle, so someone with a muscular build, such as an athle (more content not included)... Normal [facility] CBC w/ Auto Diffon 4 Basophil Absolute 0.0 E9/L Normal 0.0-0.2 [facility] Comment on above: Performed By: #### 2 [id number], [id number], 5737082, [id number] ####[place] [id number] Basophils/100 WBC (Bld) 0.5 % Normal 0.0-2.0 [facility] Comment on above: Performed By: #### 2 945611, 9068884, 3880312, [id number] ####[place] [id number] Eos Absolute 0.2 E9/L Normal 0.0-0.5 [facility] Comment on above: Performed By: #### 2 244469, 3200433, 7086231, [id number] ####[place] [address] Eosinophils/100 WBC (Bld) 3.6 % Normal 0.0-8.0 [facility] Comment on above: Performed By: #### 2 322976, 9411884, 7565895, [id number] ####[place] [address] Erythrocyte distribution width (RBC) [Ratio] 12.9 % Normal 10.9-14.2 [facility] Comment on above: Performed By: #### 2 135435, 0347345, 9067374, [id number] ####[place] [address] Hematocrit (Bld) [Volume fraction] 43.0 % Normal 34.0-46.0 [facility] Comment on above: Performed By: #### 2 175783, 4116302, 9145839, [id number] ####[place] [address] Hemoglobin (Bld) [Mass/Vol] 14.3 g/dL Normal 12.0-16.0 [facility] Comment on above: Performed By: #### 2 213200, 0547579, 2396002, [id number] ####[address] [place] [address] Lymph Absolute 1.6 E9/L Normal 1.0-4.0 [facility] Comment on above: Performed By: #### 2 486966, 2395322, 4239408, 67412644 ####[address] [address] Lymphocytes/100 WBC (Bld) 24.6 % Normal 14.0-50.0 [facility] Comment on above: Performed By: #### 2 268036, 1766849, 5859787, [id number] ####[address] [address] MCH (RBC) [Entitic mass] 32.2 pg Normal 27.0-34.0 [facility] Comment on above: Performed By: #### 2 293390, 7405719, 1816126, [id number] ####[place] [address] MCHC (RBC) [Mass/Vol] 33.3 g/dL Normal 31.4-36.0 [facility] Comment on above: Performed By: #### 2 131882, 3549260, 8236508, [id number] ####[address] [address] MCV (RBC) [Entitic vol] 96.7 fL Normal 80.0-100.0 [facility] Comment on above: Performed By: #### 2 949327, 5313718, 8400471, 10464960 ####[address] [address] Ward Absolute 0.7 E9/L Normal 0.2-1.0 [facility] Comment on above: Performed By: #### 2 957447, 2425459, 6801582, [id number] ####[address] [address] Monocytes/100 WBC (Bld) 10.8 % Normal 4.0-14.0 [facility] Comment on above: Performed By: #### 2 219758, 1452395, 5266931, [id number] ####[facility] [address] [place] [address] Neutro Absolute 3.9 E9/L Normal 2.0-7.5 [facility] Comment on above: Performed By: #### 2 341340, 1000501, 9062238, [id number] ####[facility] [address] [place] [address] Neutro Auto 60.5 % Normal 36.0-75.0 [facility] Comment on above: Performed By: #### 2 699369, 0682197, 1065062, [id number] ####[address] [address] Platelet 218.0 E9/L Normal 150.0-500.0 [facility] Comment on above: Performed By: #### 2 499463, 7920444, 4750459, 55175884 ####[facility] [address] [place] [address] Platelet mean volume (Bld) [Entitic vol] 8.4 fL Normal 6.4-10.8 [facility] Comment on above: Performed By: #### 2 573518, 8926256, 7656141, 84975041 ####[place] [address] [place] [address] RBC 4.4 E12/L Normal 4.3-5.9 [facility] Comment on above: Performed By: #### 2 389905, 8066990, 4703068, [id number] ####[facility] [address] [place] [address] WBC 6.4 E9/L Normal 4.0-11.0 [facility] Comment on above: Performed By: #### 2 439478, 2806316, 6194973, [id number] ####[facility] [address] [place] [address] CHEMISTRYOrdered By: SYSTEM SYSTEM on 11-14-2023 Albumin [Mass/Vol] 3.9 g/dL Normal 3.3 - 5.0 gm/dL R emisol Chem Albumin/Globulin [Mass ratio] 1.7 {ratio} Normal 1.1 - 2.2 Remisol Chem Alk Phos 72 [iU]/d Normal 21 - 98 Int._Unit/L Remis ol Chem ALT 19 [iU]/d Normal 6 - 46 Int._Unit/L Remiso l Chem Anion gap [Moles/Vol] 10 mmol/L Normal 6 - 16 mEq/L Remisol Chem AST 19 [iU]/d Normal 5 - 43 Int._Unit/L Remiso l Chem Bili Total 0.9 mg/dL Normal 0.0 - 1.1 mg/dL Remisol Chem Calcium [Mass/Vol] 8.6 mg/dL Low 8.9 - 11.1 mg/dL Remisol Chem Chloride [Moles/Vol] 106 mmol/L Normal 101 - 111 mmol/L Remisol Chem Cholesterol [Mass/Vol] 254 mg/dL High 120 - 200 mg/dL Remisol Chem Cholesterol in HDL [Mass/Vol] 57 mg/dL Invalid Interpretation Code Remisol Chem Comment on above: Result Comment: '>= 60 LOW RISK' '<= 40 HIGH RISK' Cholesterol in LDL [Mass/Vol] 176 mg/dL High <=129mg/dL Remisol Chem Cholesterol in VLDL [Mass/Vol] 32 mg/dL Normal 7 - 40 mg/dL Remisol Chem CO2 [Moles/Vol] 26 mmol/L Normal 21 - 31 mmol/L Remis ol Chem Creatinine [Mass/Vol] 0.8 mg/dL Normal 0.5 - 1.3 mg/dL Remisol Chem eGFR 75 mL/min/1.73 m2 Normal >=59mL/min/1.73 m2 Remisol Chem Globulin (S) [Mass/Vol] 2.3 g/dL Normal 1.4 - 4.0 gm/dL Remisol Chem Glucose [Mass/Vol] 98 mg/dL Normal 55 - 199 mg/dL Re misol Chem Potassium [Moles/Vol] 4.3 mmol/L Normal 3.5 - 5.3 mmol/L Remisol Chem Protein [Mass/Vol] 6.2 g/dL Normal 6.0 - 7.8 gm/dL R emisol Chem Sodium [Moles/Vol] 138 mmol/L Normal 135 - 145 mmol/L Remisol Chem Triglyceride [Mass/Vol] 162 mg/dL High <=149mg/dL Remisol Chem Urea nitrogen [Mass/Vol] 15 mg/dL Normal 5 - 21 mg/dL Remisol Chem Urea nitrogen/Creatinine [Mass ratio] 19 mg/mg Normal 10 - 20 Remisol Chem CMPon 11-14-2023 Albumin [Mass/Vol] 3.9 g/dL Normal 3.3-5.0 [facility] Comment on above: Performed By: #### 2 [id number], 8875041, 8738025, [id number] ####[facility] [address] [place] [address] Albumin/Globulin [Mass ratio] 1.7 {ratio} Normal 1.1-2.2 [facility] Comment on above: Performed By: #### 2 088151, 6824114, 4842139, [id number] ####[address] [address] Alk Phos 72 Int._Unit/L Normal 21-98 [facility] Comment on above: Performed By: #### 2 779851, 4565549, 3418485, [id number] ####[address] [place] [address] ALT 19 Int._Unit/L Normal 6-46 [facility] Comment on above: Performed By: #### 2 717561, 7978411, 5630996, [id number] ####[facility] [address] [place] [address] Anion gap [Moles/Vol] 10 mmol/L Normal 6-16 [facility] Comment on above: Performed By: #### 2 551717, 4477254, 6721718, [id number] ####[address] [place] [address] AST 19 Int._Unit/L Normal 5-43 [facility] Comment on above: Performed By: #### 2 941204, 0434190, 3639363, [id number] ####[facility] [address] [place] [address] Bili Total 0.9 mg/dL Normal 0.0-1.1 [facility] Comment on above: Performed By: #### 2 256409, 2402610, 3486848, 89534582 ####[facility] [address] [place] [address] BUN/Creat Ratio 19 No Units Normal 10-20 [facility] Comment on above: Performed By: #### 2 807800, 3142804, 5709558, [id number] ####[facility] [address] [place] [address] Calcium [Mass/Vol] 8.6 mg/dL Low 8.9-11.1 [facility] Comment on above: Performed By: #### 2 788448, 5675635, 5371356, [id number] ####[facility] [address] [place] [address] Chloride [Moles/Vol] 106 mmol/L Normal 101-111 [facility] Comment on above: Performed By: #### 2 688401, 0682750, 9752976, 81457799 ####[facility] [address] [place] [address] CO2 [Moles/Vol] 26 mmol/L Normal 21-31 [facility] Comment on above: Performed By: #### 2 274485, 4108800, 9249042, [id number] ####[facility] [address] [place] [address] Creatinine [Mass/Vol] 0.8 mg/dL Normal 0.5-1.3 [facility] Comment on above: Performed By: #### 2 332562, 2436087, 0588772, [id number] ####[facility] [address] [place] [address] Globulin (S) [Mass/Vol] 2.3 g/dL Normal 1.4-4.0 [facility] Comment on above: Performed By: #### 2 725812, 6394404, 1449058, [id number] ####[facility] [address] [place] [address] Glucose [Mass/Vol] 98 mg/dL Normal 55-199 [facility] Comment on above: Performed By: #### 2 212531, 4891501, 1477321, 24591763 ####[facility] [address] [facility] [place] [address] Potassium [Moles/Vol] 4.3 mmol/L Normal 3.5-5.3 [facility] Comment on above: Performed By: #### 2 982648, 9306246, 7210461, [id number] ####[facility] [address] [place] [address] Protein [Mass/Vol] 6.2 g/dL Normal 6.0-7.8 [facility] Comment on above: Performed By: #### 2 941922, 7727044, 4310837, 44550568 ####[facility] [address] [facility] [place] [address] Sodium [Moles/Vol] 138 mmol/L Normal 135-145 [facility] Comment on above: Performed By: #### 2 565869, 2766830, 1143947, 87129653 ####[facility] [address] [facility] [place] [address] Urea nitrogen [Mass/Vol] 15 mg/dL Normal 5-21 [facility] Comment on above: Performed By: #### 2 337477, 0151092, 2313550, 69180444 ####[facility] [address] [facility] [place] [address] Family Medicine Office/Clini c Noteon 11-14-2023 Family Medicine Office/Clinic Note HPI Staff Jose Manuel is a 78 year old female presenting to [facility] care Establish Care: History:HTN, anxiety, neuropathy Any previous diagnosis: History of seeing any specialist: Dr hKan ( rxs her gabapentin) When was your last doctors visit: 2019 Last provider: Dr Jhony Gamino ( [place], she moved on) and saw Dr Clemens when 1st in [place] Any recent labs: [facility] ( dr Khan) Aug 2023 and PCP did labs showing high cholesterol Health Maintenance UTD: Colonoscopy: has done cologard Mammogram: UTD due December 2023 Pelvic/Pap: no longer does these flu: refused Acute: Current issues/complaints: cannot take the rosuvastatin muscles hurt and then discuss her neuropathy that she gets the gabapentin for. History of Present Illness - Here to establish care. - No needs at this time other than refills. - No other issues. Review of Systems PHQ Score Initial Depression Screen Score: 1 SCORE Physical Exam Vitals & Measurements T: 37.2 ?C(Temporal Artery) HR: 58(Peripheral) RR: 14 BP: 160/100 SpO2: 95% HT: 63 in HT: 159.5 cm WT: 90.2 kg WT: 198.44 lb BMI: 35.46 General: alert, no acute distress ENMT: oral mucosa moist, Cardiovascular: regular rate and rhythm, normal peripheral perfusion Respiratory: Lungs CTA, respirations non labored Extremities: no deformity, no trauma Neurological: oriented x 4, LOC appropriate for age, CN II-XII intact, motor strength equal & normal bilaterally, speech normal Abdomen: Soft, Nontender, Non-distended, + BS Assessment/Plan 1. HTN (hypertension) (I10: Essential (primary) hypertension) - Not at goal. - Will recheck before adjusting meds. - Follow up in 1-2 months - Pt has not had uncontrolled BPs before. Ordered: CBC w/ Auto Diff Comprehensive Metabolic Panel Lipid Panel 2. HLD (hyperlipidemia) (E78.5: Hyperlipidemia, unspecified) Will hold on statins - Diet and exercise advised Ordered: CBC w/ Auto Diff Comprehensive Metabolic Panel Lipid Panel 3. Neuropathy (G62.9: Polyneuropathy, unspecified) - Continue seeing pain management Ordered: CBC w/ Auto Diff Comprehensive Metabolic Panel Lipid Panel 4. BMI 35.0-35.9,adult (Z68.35: Body mass index [BMI] 35.0-35.9, adult) - BMI education given Ordered: Body Mass Index (BMI) documented 3008F CBC w/ Auto Diff Comprehensive Metabolic Panel Current tobacco non-user 1036F Depression Screening Negative 3352F Influenza immunization status assessed 1030F Lipid Panel Most recent diastolic blood pressure 80-89 mm Hg 3079F Most recent systolic blood pressure >= 140 mm Hg 3077F Patient screen for fall risk: no falls in last year or 1 fall with no injury in last year 1101F 5. Class 1 obesity due to excess calories in adult (E66.09: Other obesity due to excess calories) - Diet and exercise advised Ordered: Body Mass Index (BMI) documented 3008F CBC w/ Auto Diff Comprehensive Metabolic Panel Current tobacco non-user 1036F Depression Screening Negative 3352F Influenza immunization status assessed 1030F Lipid Panel Most recent diastolic blood pressure 80-89 mm Hg 3079F Most recent systolic blood pressure >= 140 mm Hg 3077F Patient screen for fall risk: no falls in last year or 1 fall with no injury in last year 1101F 6. Nonsmoker (Z78.9: Other specified health status) - Please continue to not smoke Ordered: Body Mass Index (BMI) documented 3008F CBC w/ Auto Diff Comprehensive Metabolic Panel Current tobacco non-user 1036F Depression Screening Negative 3352F Influenza immunization status assessed 1030F Lipid Panel Most recent diastolic blood pressure 80-89 mm Hg 3079F Most recent systolic blood pressure >= 140 mm Hg 3077F Patient screen for fall risk: no falls in last year or 1 fall with no injury in last year 1101F 7. Anxiety (F41.9: Anxiety disorder, unspecified) - Continue on meds - Follow up PRN Ordered: CBC w/ Auto Diff Comprehensive Metabolic Panel Lipid Panel Orders: citalopram, 40 mg = 1 tab(s), Oral, Daily, # 90 tab(s), Refills(s) 1, Pharmacy: [facility] #[id number], 159.5, cm, 11/14/23 13:11:00 EST, Height/Length Dosing, 90.2, kg, 11/14/23 13:11:00 EST, Weight Dosing hydrochlorothiazide, 25 mg = 1 tab(s), Oral, Daily, # 90 tab(s), Refills(s) 1, Pharmacy: [facility] #[id number], 159.5, cm, 11/14/23 13:11:00 EST, Height/Length Dosing, 90.2, kg, 11/14/23 13:11:00 EST, Weight Dosing verapamil, 240 mg = 1 tab(s), Oral, Daily, # 90 tab(s), Refills(s) 1, Pharmacy: [facility] #[id number], 159.5, cm, 11/14/23 13:11:00 EST, Height/Length Dosing, 90.2, kg, 11/14/23 13:11:00 EST, Weight Dosing Follow-up No qualifying data available Patient Education BMI for Adults Problem List/Past Medical History Ongoing Anxiety HLD (hyperlipidemia) HTN (hypertension) Neuropathy Statin intolerance Historical No qualifying data Procedure/Surgical History Acoustic neuroma, Biopsy of breast, Hysterectomy. Medications citalopram 40 mg Tab, (more content not included)... Normal [facility] Comment on above: Result Comment: Elec tronically Signed By: Roberto Carlos MART, Irving Small\.br\Date and Time Signed: 11/14/23 14:06 EST HEMATOLOGYOrdered By: SYSTEM SYSTEM on 11-14-2023 Basophil Absolute 0.0 E9/L Normal 0.0 - 0.2 E9/L Rem isol Heme Basophils/100 WBC (Bld) 0.5 % Normal 0.0 - 2.0 % Remisol Heme Eos Absolute 0.2 E9/L Normal 0.0 - 0.5 E9/L Remisol Heme Eosinophils/100 WBC (Bld) 3.6 % Normal 0.0 - 8.0 % Remisol Heme Erythrocyte distribution width (RBC) [Ratio] 12.9 % Normal 10.9 - 14.2 % Remisol Heme Hematocrit (Bld) [Volume fraction] 43.0 % Normal 34.0 - 46.0 % Remisol Heme Hemoglobin (Bld) [Mass/Vol] 14.3 g/dL Normal 12.0 - 16.0 gm/dL Remisol Heme Lymph Absolute 1.6 E9/L Normal 1.0 - 4.0 E9/L Remiso l Heme Lymphocytes/100 WBC (Bld) 24.6 % Normal 14.0 - 50.0 % Remisol Heme MCH (RBC) [Entitic mass] 32.2 pg Normal 27.0 - 34.0 pg Remisol Heme MCHC (RBC) [Mass/Vol] 33.3 g/dL Normal 31.4 - 36.0 gm/dL Remisol Heme MCV (RBC) [Entitic vol] 96.7 fL Normal 80.0 - 100.0 fL Remisol Heme Ward Absolute 0.7 E9/L Normal 0.2 - 1.0 E9/L Remisol Heme Monocytes/100 WBC (Bld) 10.8 % Normal 4.0 - 14.0 % Remisol Heme Neutro Absolute 3.9 E9/L Normal 2.0 - 7.5 E9/L Remis ol Heme Neutro Auto 60.5 % Normal 36.0 - 75.0 % Remisol Heme Platelet 218.0 E9/L Normal 150.0 - 500.0 E9/L Remiso l Heme Platelet mean volume (Bld) [Entitic vol] 8.4 fL Normal 6.4 - 10.8 fL Remisol Heme RBC 4.4 E12/L Normal 4.3 - 5.9 E12/L Remisol Heme WBC 6.4 E9/L Normal 4.0 - 11.0 E9/L Remisol Heme Lipid Panelon 11-14-2023 Cholesterol [Mass/Vol] 254 mg/dL High 120-200 [facility] Comment on above: Performed By: #### 2 875892, 6041872, 6550018, [id number] ####[facility] [address] [facility] [place] [address] Cholesterol in HDL [Mass/Vol] 57 mg/dL Invalid Interpretation Code [facility] Comment on above: Result Comment: '>= 60 LOW RISK' '<= 40 HIGH RISK' Performed By: #### 2 654005, 5217637, 6226022, [id number] ####[facility] [address] [address] Cholesterol in LDL [Mass/Vol] 176 mg/dL High <=129 [facility] Comment on above: Performed By: #### 2 785518, 3288206, 5418573, 71241787 ####[facility] [address] [place] [address] Cholesterol in VLDL [Mass/Vol] 32 mg/dL Normal 7-40 [facility] Comment on above: Performed By: #### 2 050885, 7314353, 9377956, 67211638 ####[facility] [address] [place] [address] Triglyceride [Mass/Vol] 162 mg/dL High <=149 [facility] Comment on above: Performed By: #### 2 194291, 8273588, 8480472, 24341895 ####[facility] [address] [place] [address] Patient Educationon 11-14-19 Patient Education Nutrition BMI for Adults What is BMI? Body mass index (BMI) is a number that is calculated from a person's weight and height. BMI can help estimate how much of a person's weight is composed of fat. BMI does not measure body fat directly. Rather, it is an alternative to procedures that directly measure body fat, which can be difficult and expensive. BMI can help identify people who may be at higher risk for certain medical problems. What are BMI measurements used for? BMI is used as a screening tool to identify possible weight problems. It helps determine whether a person is obese, overweight, a healthy weight, or underweight. BMI is useful for: ? Identifying a weight problem that may be related to a medical condition or may increase the risk for medical problems. ? Promoting changes, such as changes in diet and exercise, to help reach a healthy weight. BMI screening can be repeated to see if these changes are working. How is BMI calculated? BMI involves measuring your weight in relation to your height. Both height and weight are measured, and the BMI is calculated from those numbers. This can be done either in [place] or metric measurements. Note that charts and online BMI calculators are available to help you find your BMI quickly and easily without having to do these calculations yourself. To calculate your BMI in [place] measurements: 1. Measure your weight in pounds (lb). 2. Multiply the number of pounds by 703. ? For example, for a person who weighs 180 lb, multiply that number by 703, which equals 126,540. 3. Measure your height in inches. Then multiply that number by itself to get a measurement called inches squared. ? For example, for a person who is 70 inches tall, the inches squared measurement is 70 inches x 70 inches, which equals 4,900 inches squared. 4. Divide the total from step 2 (number of lb x 703) by the total from step 3 (inches squared): 126,540 ? 4,900 = 25.8. This is your BMI. To calculate your BMI in metric measurements: 1. Measure your weight in kilograms (kg). 2. Measure your height in meters (m). Then multiply that number by itself to get a measurement called meters squared. ? For example, for a person who is 1.75 m tall, the meters squared measurement is 1.75 m x 1.75 m, which is equal to 3.1 meters squared. 3. Divide the number of kilograms (your weight) by the meters squared number. In this example: 70 ? 3.1 = 22.6. This is your BMI. What do the results mean? BMI charts are used to identify whether you are underweight, normal weight, overweight, or obese. The following guidelines will be used: ? Underweight: BMI less than 18.5. ? Normal weight: BMI between 18.5 and 24.9. ? Overweight: BMI between 25 and 29.9. ? Obese: BMI of 30 or above. Keep these notes in mind: ? Weight includes both fat and muscle, so someone with a muscular build, such as an athlete, may have a BMI that is higher than 24.9. In cases like these, BMI is not an accurate measure of body fat. ? To determine if excess body fat is the cause of a BMI of 25 or higher, further assessments may need to be done by a health care provider. ? BMI is usually interpreted in the same way for men and women. Where to find more information For more information about BMI, including tools to quickly calculate your BMI, go to these websites: ? Centers for Disease Control and Prevention: www.cdc.gov ? [place] [employer]: www.heart.org ? National Heart, Lung, and Blood [place]: www.nhlbi.nih.gov Summary ? Body mass index (BMI) is a number that is calculated from a person's weight and height. ? BMI may help estimate how much of a person's weight is composed of fat. BMI can help identify those who may be at higher risk for certain medical problems. ? BMI can be measured using [place] measurements or metric measurements. ? BMI charts are used to identify whether you are underweight, normal weight, overweight, or obese. This information is not intended to replace advice given to you by your health care provider. Make sure you discuss any questions you have with your health care provider. Document Revised: 07/01/2020 Document Reviewed: 05/08/2020 Elsevier Patient Education ? 2022 [employer] Normal [facility] eGFRon 11-14-2023 eGFR 75 mL/min/1.73 m2 Normal >=59 [facility] Comment on above: Order Comment: Order added by Discern Expert. Performed By: #### 2 474367, 0866813, 6591630, [id number] ####[facility] [address] [place] [address] CBC AUTO DIFFon 10-31-2022 BASO # 0.1 103/ul Normal 0.0-0.1 [facility] Comment on above: Performed By: #### C BC #### [facility] [address] [place] [address] Dr. Ernestina Peters Basophils/100 WBC (Bld) 0.8 % Normal 0.2-2.0 [facility] Comment on above: Performed By: #### C BC #### [facility] [address] [place] [address] Dr. Ernestina Peters EO # 0.3 103/ul Normal 0.0-0.7 [facility] Comment on above: Performed By: #### C BC #### [facility] [address] [place] [address] Dr. Ernestina Peters Eosinophils/100 WBC (Bld) 3.7 % Normal 0.9-7.0 [facility] Comment on above: Performed By: #### C BC #### [facility] [address] [place] [address] Dr. Ernestina Peters Erythrocyte distribution width (RBC) [Ratio] 12.3 % Normal 11.0-15.0 [facility] Comment on above: Performed By: #### C BC #### [facility] [address] [place] [address] Dr. Ernestina Peters Hematocrit (Bld) [Volume fraction] 41.8 % Normal 36.0-48.0 [facility] Comment on above: Performed By: #### C BC #### [facility] [address] [place] [address] Dr. Ernestina Peters Hemoglobin (Bld) [Mass/Vol] 14.9 g/dL Normal 12.0-16.0 [facility] Comment on above: Performed By: #### C BC #### [facility] [address] [place] [address] Dr. Ernestina Peters IG # 0.03 10e3/ul Normal 0.00-0.03 [facility] Comment on above: Performed By: #### C BC #### [facility] [address] [place] [address] Dr. Ernestina Peters IG % 0.4 % Normal 0.0-0.5 [facility] Comment on above: Performed By: #### C BC #### [facility] [address] [place] [address] Dr. Ernestina Peters LYMPH # 1.4 103/ul Normal 1.2-3.8 [facility] Comment on above: Performed By: #### C BC #### [facility] [address] [place] [address] Dr. Ernestina Peters Lymphocytes/100 WBC (Bld) 19.8 % Critically low 20.5-60.0 [facility] Comment on above: Performed By: #### C BC #### [facility] [address] [place] [address] Dr. Ernestina Peters MANUAL DIFF REQ NO Normal [facility] Comment on above: Performed By: #### C BC #### [facility] [address] [place] [address] Dr. rEnestina Peters MCH (RBC) [Entitic mass] 31.5 pg Normal 26.7-34.0 [facility] Comment on above: Performed By: #### C BC #### [facility] [address] [place] [address] Dr. Ernestina Peters MCHC (RBC) [Mass/Vol] 35.6 g/dL Critically high 29.9-35.2 [facility] Comment on above: Performed By: #### C BC #### [facility] [address] [place] [address] Dr. Ernestina Peters MCV (RBC) [Entitic vol] 88.4 fL Normal 81.0-99.0 [facility] Comment on above: Performed By: #### C BC #### [facility] [address] [place] [address] Dr. Ernestina Peters MONO # 0.6 103/ul Normal 0.3-0.8 [facility] Comment on above: Performed By: #### C BC #### [facility] [address] [place] [address] Dr. Ernestina Peters Monocytes/100 WBC (Bld) 8.1 % Normal 1.7-12.0 [facility] Comment on above: Performed By: #### C BC #### [facility] [address] [place] [address] Dr. Ernestina Peters NEUT # 4.8 103/ul Normal 1.4-6.5 [facility] Comment on above: Performed By: #### C BC #### [facility] [address] [place] [address] Dr. Ernestina Peters Neutrophils/100 WBC (Bld) 67.2 % Normal 43.0-75.0 [facility] Comment on above: Performed By: #### C BC #### [facility] [address] [place] [address] Dr. Ernestina Peters Platelet mean volume (Bld) [Entitic vol] 8.9 fL Critically low 9.5-13.5 [facility] Comment on above: Performed By: #### C BC #### [facility] [address] [place] [address] Dr. Ernestina Peters PLT 242 103/ul Normal 150-450 [facility] Comment on above: Performed By: #### C BC #### [facility] [address] [place] [address] Dr. Ernestina Peters RBC 4.73 106/ul Normal 4.20-5.40 [facility] Comment on above: Performed By: #### C BC #### [facility] [address] [place] [address] Dr. Ernestina Peters WBC 7.1 103/ul Normal 4.0-11.0 [facility] Comment on above: Performed By: #### C BC #### [facility] [address] [place] [address] Dr. Ernestina Peters PROF 14(COMP METB)on 023 Albumin [Mass/Vol] 3.5 g/dL Normal 3.4-5.0 [facility] Comment on above: Performed By: #### C MP #### [facility] [address] [place] [address] Dr. Ernestina Peters Albumin/Globulin [Mass ratio] 1.2 {ratio} Normal [facility] Comment on above: Performed By: #### C MP #### [facility] [address] [place] [address] Dr. Ernestina Peters ALP [Catalytic activity/Vol] 88 U/L Normal 46-116 [facility] Comment on above: Performed By: #### C MP #### [facility] [address] [place] [address] Dr. Ernestina Peters ALT [Catalytic activity/Vol] 19 U/L Normal 14-59 [facility] Comment on above: Performed By: #### C MP #### [facility] [address] [place] [address] Dr. Ernestina Peters Anion gap [Moles/Vol] 11.0 mmol/L Normal [facility] Comment on above: Performed By: #### C MP #### [facility] [address] [place] [address] Dr. Ernestina Peters AST [Catalytic activity/Vol] 18 U/L Normal 15-37 [facility] Comment on above: Performed By: #### C MP #### [facility] [address] [place] [address] Dr. Ernestina Peters Bilirubin [Mass/Vol] 1.0 mg/dL Normal 0.2-1.0 [facility] Comment on above: Performed By: #### C MP #### [facility] [address] [place] [address] Dr. Ernestina Peters Calcium [Mass/Vol] 9.2 mg/dL Normal 8.5-10.1 [facility] Comment on above: Performed By: #### C MP #### [facility] [address] [address] [address] Ernestina Peters Chloride [Moles/Vol] 104 mmol/L Normal 98-107 [facility] Comment on above: Performed By: #### C MP #### [facility] [address] [place] [address] Dr. Ernestina Peters CO2 [Moles/Vol] 30.0 mmol/L Normal 21.0-32.0 [facility] Comment on above: Performed By: #### C MP #### [facility] [address] [place] [address] Dr. Ernestina Peters Creatinine [Mass/Vol] 0.76 mg/dL Normal 0.55-1.02 [facility] Comment on above: Performed By: #### C MP #### [facility] [address] [place] [address] Dr. Ernestina Peters EGFR-AF VIETNAMESE >60 Normal >=60 [facility] Comment on above: Performed By: #### C MP #### [facility] [address] [place] [address] Dr. Ernestina Peters EGFR-NON AF VIETNAMESE >60 Normal >=60 [facility] Comment on above: Performed By: #### C MP #### [facility] [address] [place] [address] Dr. Ernestina Peters Globulin (S) [Mass/Vol] 3.0 g/dL Normal [facility] Comment on above: Performed By: #### C MP #### [facility] [address] [place] [address] Dr. Ernestina Peters Glucose [Mass/Vol] 133 mg/dL Critically high 74-106 T [facility] Comment on above: Performed By: #### C MP #### [facility] [address] [place] [address] Dr. Ernestina Peters Potassium [Moles/Vol] 4.0 mmol/L Normal 3.5-5.1 [facility] Comment on above: Performed By: #### C MP #### [facility] [address] [place] [address] Dr. Ernestina Peters Protein [Mass/Vol] 6.5 g/dL Normal 6.4-8.2 [facility] Comment on above: Performed By: #### C MP #### [facility] [address] [address] [address] Ernestina Peters Sodium [Moles/Vol] 141 mmol/L Normal 136-145 [facility] Comment on above: Performed By: #### C MP #### [facility] [address] [address] [address] Ernestina Peters Urea nitrogen [Mass/Vol] 17.0 mg/dL Normal 7.0-18.0 [facility] Comment on above: Performed By: #### C MP #### [facility] [address] [address] [address] Ernestina Peters Urea nitrogen/Creatinine [Mass ratio] 22.4 mg/mg Normal [facility] Comment on above: Performed By: #### C MP #### [facility] [address] [place] [address] Dr. Ernestina Peters SABRINA Antinuclear Antibodieson 01-31-2022 Antinuclear Abs, IFA Negative Normal . [facility] Comment on above: Result Comment: Nega tive <1:80 Borderline 1:80 Positive >1:80 ICAP nomenclature: AC-0 For more information about Hep-2 cell patterns use ANApatterns.org, the official website for the International Consensus on Antinuclear Antibody (SABRINA) Patterns (ICAP). Performed at: - [facility] [address] [id number] Interactive Media Director: Chu Dewey PhD, Phone: [phone] Performed By: #### T SH3, CBC, ESR, ADDONUAPLUS, CK, T4F, CRP, CMP, LDH, PTH #### [place] [address] [place] #### JEWEL,URINE, JEWEL SERUM, MYOG, SABRINA, UPE RAND, SPE #### [facility] , Albumin [Mass/volume] in Ser um or PlasmaOrdered By: Kumar Khan on 01-31-2022 Albumin [Mass/Vol] 4.2 g/dL 3.2-5.5 [facility] Aldolaseon 01-31-2022 Aldolase 3.8 U/L Normal 3.3-10.3 [facility] Comment on above: Result Comment: Perf ormed at: CB - [facility] [id number] [place], [place] [id number] Interactive Media Director: Chu Dewey PhD, Phone: [phone] PERFORMED BY: [place] [address] PATHOLOGIST SENIOR TAX ANALYST SAE GOMEZ M.D. Performed By: #### T SH3, CBC, ESR, ADDONUAPLUS, CK, T4F, CRP, CMP, LDH, PTH #### [address] #### JEWEL,URINE, JEWEL SERUM, MYOG, SABRINA, UPE RAND, SPE #### [facility] , Automated erythrocytes count in urine sediment (number/area)Ordered By: Kumar Khan on 01-31-2022 RBC Auto (Urine sed) [#/Area] None seen [HPF] [facility] Automated leukocytes count i n urine sediment (number/area)Ordered By: Kumar Khan on 01-31-2022 WBC Auto (Urine sed) [#/Area] 3-4 [HPF] [facility] Basophils Auto (Bld) [#/Vol] Ordered By: Kumar Khan on 01-31-2022 Basophils (Bld) [#/Vol] 0.1 10*3/uL 0.0-0.2 [facility] Basophils/100 WBC Auto (Bld) Ordered By: Kumar Khan on 01-31-2022 Basophils/100 WBC (Bld) 0.9 % [facility] Bilirubin Test strip Ql (U)O rdered By: Kumar Khan on 01-31-2022 Bilirubin Ql (U) Negative Negative [facility] Blood hemoglobin measurement (mass/volume)Ordered By: Kumar Khan on 01-31-2022 Hemoglobin (Bld) [Mass/Vol] 15.8 g/dL 11.8-15.4 [facility] Blood leukocytes automated c ount (number/volume)Ordered By: Kumar Khan on 01-31-2022 WBC (Bld) [#/Vol] 8.3 10*3/uL 4.5-11.0 [facility] C-Reactive Proteinon 022 C-Reactive Protein 0.8 mg/dL Normal 0.0-1.0 [facility] Comment on above: Performed By: #### T SH3, CBC, ESR, ADDONUAPLUS, CK, T4F, CRP, CMP, LDH, PTH #### [address] #### JEWEL,URINE, JEWEL SERUM, MYOG, SABRINA, UPE RAND, SPE #### [facility] , Color Auto (U)Ordered By: John jayedel Khan on 01-31-2022 Color (U) Dark yellow Yellow [facility] Complete Blood Count Auto Di ffon 01-31-2022 Basophils (Bld) [#/Vol] 0.1 10*3/uL Normal 0.0-0.2 [facility] Comment on above: Performed By: #### T SH3, CBC, ESR, ADDONUAPLUS, CK, T4F, CRP, CMP, LDH, PTH #### [facility] [address] [place] [address] #### JEWEL,URINE, JEWEL SERUM, MYOG, SABRINA, UPE RAND, SPE #### [facility] , Basophils/100 WBC (Bld) 0.9 % Normal . [facility] Comment on above: Performed By: #### T SH3, CBC, ESR, ADDONUAPLUS, CK, T4F, CRP, CMP, LDH, PTH #### [facility] [address] [place] [address] [place] #### JEWEL,URINE, JEWEL SERUM, MYOG, SABRINA, UPE RAND, SPE #### [facility] , Eosinophils (Bld) [#/Vol] 0.2 10*3/uL Normal 0.0-0.45 [facility] Comment on above: Performed By: #### T SH3, CBC, ESR, ADDONUAPLUS, CK, T4F, CRP, CMP, LDH, PTH #### [address] #### JEWEL,URINE, JEWEL SERUM, MYOG, SABRINA, UPE RAND, SPE #### [facility] , Eosinophils/100 WBC (Bld) 2.0 % Normal . [facility] Comment on above: Performed By: #### T SH3, CBC, ESR, ADDONUAPLUS, CK, T4F, CRP, CMP, LDH, PTH #### [address] #### JEWEL,URINE, JEWEL SERUM, MYOG, SABRINA, UPE RAND, SPE #### [facility] , Erythrocyte distribution width (RBC) [Ratio] 12.8 % Normal 11.9-15.3 [facility] Comment on above: Performed By: #### T SH3, CBC, ESR, ADDONUAPLUS, CK, T4F, CRP, CMP, LDH, PTH #### [address] #### JEWEL,URINE, JEWEL SERUM, MYOG, SABRINA, UPE RAND, SPE #### [facility] , Hematocrit (Bld) [Volume fraction] 46.2 % Normal 34.0-46.4 [facility] Comment on above: Performed By: #### T SH3, CBC, ESR, ADDONUAPLUS, CK, T4F, CRP, CMP, LDH, PTH #### [address] #### JEWEL,URINE, JEWEL SERUM, MYOG, SABRINA, UPE RAND, SPE #### [facility] , Hemoglobin (Bld) [Mass/Vol] 15.8 g/dL High 11.8-15.4 [facility] Comment on above: Performed By: #### T SH3, CBC, ESR, ADDONUAPLUS, CK, T4F, CRP, CMP, LDH, PTH #### [address] #### JEWEL,URINE, JEWEL SERUM, MYOG, SABRINA, UPE RAND, SPE #### [facility] , Lymphocytes (Bld) [#/Vol] 1.6 10*3/uL Normal 1.00-4.8 [facility] Comment on above: Performed By: #### T SH3, CBC, ESR, ADDONUAPLUS, CK, T4F, CRP, CMP, LDH, PTH #### [address] #### JEWEL,URINE, JEWEL SERUM, MYOG, SABRINA, UPE RAND, SPE #### [facility] , Lymphocytes/100 WBC (Bld) 19.6 % Normal . [facility] Comment on above: Performed By: #### T SH3, CBC, ESR, ADDONUAPLUS, CK, T4F, CRP, CMP, LDH, PTH #### [address] #### JEWEL,URINE, JEWEL SERUM, MYOG, SABRINA, UPE RAND, SPE #### [facility] , MCH (RBC) [Entitic mass] 32.4 pg Normal 24.7-34.3 [facility] Comment on above: Performed By: #### T SH3, CBC, ESR, ADDONUAPLUS, CK, T4F, CRP, CMP, LDH, PTH #### [place] [address] [place] #### JEWEL,URINE, JEWEL SERUM, MYOG, SABRINA, UPE RAND, SPE #### [facility] , MCV (RBC) [Entitic vol] 94.7 fL Normal 80-100 [facility] Comment on above: Performed By: #### T SH3, CBC, ESR, ADDONUAPLUS, CK, T4F, CRP, CMP, LDH, PTH #### [place] [address] [place] #### JEWEL,URINE, JEWEL SERUM, MYOG, SABRINA, UPE RAND, SPE #### [facility] , Mean Corpuscular HGB Conc 34.2 g/dL Normal 32.0-35.0 [facility] Comment on above: Performed By: #### T SH3, CBC, ESR, ADDONUAPLUS, CK, T4F, CRP, CMP, LDH, PTH #### [facility] [address] [place] [address] #### JEWEL,URINE, JEWEL SERUM, MYOG, SABRINA, UPE RAND, SPE #### [facility] , Monocytes (Bld) [#/Vol] 0.7 10*3/uL Normal 0.0-0.8 [facility] Comment on above: Performed By: #### T SH3, CBC, ESR, ADDONUAPLUS, CK, T4F, CRP, CMP, LDH, PTH #### [address] #### JEWEL,URINE, JEWEL SERUM, MYOG, SABRINA, UPE RAND, SPE #### [facility] , Monocytes/100 WBC (Bld) 8.9 % Normal . [facility] Comment on above: Performed By: #### T SH3, CBC, ESR, ADDONUAPLUS, CK, T4F, CRP, CMP, LDH, PTH #### [place] [address] [place] #### JEWEL,URINE, JEWEL SERUM, MYOG, SABRINA, UPE RAND, SPE #### [facility] , Neutrophils (Bld) [#/Vol] 5.7 10*3/uL Normal 1.8-7.7 [facility] Comment on above: Performed By: #### T SH3, CBC, ESR, ADDONUAPLUS, CK, T4F, CRP, CMP, LDH, PTH #### [address] #### JEWEL,URINE, JEWEL SERUM, MYOG, SABRINA, UPE RAND, SPE #### [facility] , Neutrophils/100 WBC (Bld) 68.6 % Normal . [facility] Comment on above: Performed By: #### T SH3, CBC, ESR, ADDONUAPLUS, CK, T4F, CRP, CMP, LDH, PTH #### [address] #### JEWEL,URINE, JEWEL SERUM, MYOG, SABRINA, UPE RAND, SPE #### [facility] , Nucleated RBC/100 WBC (Bld) [Ratio] 0.1 % Normal 0-0.5 [facility] Comment on above: Performed By: #### T SH3, CBC, ESR, ADDONUAPLUS, CK, T4F, CRP, CMP, LDH, PTH #### [address] #### JEWEL,URINE, JEWEL SERUM, MYOG, SABRINA, UPE RAND, SPE #### [facility] , Platelet mean volume (Bld) [Entitic vol] 8.0 fL Normal 6.3-10.7 [facility] Comment on above: Performed By: #### T SH3, CBC, ESR, ADDONUAPLUS, CK, T4F, CRP, CMP, LDH, PTH #### [address] #### JEWEL,URINE, JEWEL SERUM, MYOG, SABRINA, UPE RAND, SPE #### [facility] , Platelets (Bld) [#/Vol] 293 10*3/uL Normal 150-450 [facility] Comment on above: Performed By: #### T SH3, CBC, ESR, ADDONUAPLUS, CK, T4F, CRP, CMP, LDH, PTH #### [facility] [address] [place] [address] [place] #### JEWEL,URINE, JEWEL SERUM, MYOG, SABRINA, UPE RAND, SPE #### [facility] , RBC (Bld) [#/Vol] 4.88 10*6/uL Normal 3.60-5.00 [facility] Comment on above: Performed By: #### T SH3, CBC, ESR, ADDONUAPLUS, CK, T4F, CRP, CMP, LDH, PTH #### [address] #### JEWEL,URINE, JEWEL SERUM, MYOG, SABRINA, UPE RAND, SPE #### [facility] , WBC (Bld) [#/Vol] 8.3 10*3/uL Normal 4.5-11.0 [facility] Comment on above: Performed By: #### T SH3, CBC, ESR, ADDONUAPLUS, CK, T4F, CRP, CMP, LDH, PTH #### [address] #### JEWEL,URINE, JEWEL SERUM, MYOG, SABRINA, UPE RAND, SPE #### [facility] , Comprehensive Metabolic Pane anum 01-31-2022 Albumin [Mass/Vol] 4.2 g/dL Normal 3.2-5.5 [facility] Comment on above: Performed By: #### T SH3, CBC, ESR, ADDONUAPLUS, CK, T4F, CRP, CMP, LDH, PTH #### [address] #### JEWEL,URINE, JEWEL SERUM, MYOG, SABRINA, UPE RAND, SPE #### [facility] , Albumin/Globulin [Mass ratio] 1.8 {ratio} Normal [facility] Comment on above: Performed By: #### T SH3, CBC, ESR, ADDONUAPLUS, CK, T4F, CRP, CMP, LDH, PTH #### [facility] [address] [place] [address] [place] #### JEWEL,URINE, JEWEL SERUM, MYOG, SABRINA, UPE RAND, SPE #### [facility] , ALP [Catalytic activity/Vol] 75 U/L Normal 32-92 [facility] Comment on above: Performed By: #### T SH3, CBC, ESR, ADDONUAPLUS, CK, T4F, CRP, CMP, LDH, PTH #### [address] #### JEWEL,URINE, JEWEL SERUM, MYOG, SABRINA, UPE RAND, SPE #### [facility] , ALT [Catalytic activity/Vol] 27 U/L Normal 10-60 [facility] Comment on above: Performed By: #### T SH3, CBC, ESR, ADDONUAPLUS, CK, T4F, CRP, CMP, LDH, PTH #### [address] #### JEWEL,URINE, JEWEL SERUM, MYOG, SABRINA, UPE RAND, SPE #### [facility] , AST [Catalytic activity/Vol] 26 U/L Normal 10- [facility] Comment on above: Performed By: #### T SH3, CBC, ESR, ADDONUAPLUS, CK, T4F, CRP, CMP, LDH, PTH #### [address] #### JEWEL,URINE, JEWEL SERUM, MYOG, SABRINA, UPE RAND, SPE #### [facility] , Bilirubin [Mass/Vol] 0.9 mg/dL Normal 0.3-1.2 [facility] Comment on above: Performed By: #### T SH3, CBC, ESR, ADDONUAPLUS, CK, T4F, CRP, CMP, LDH, PTH #### [address] #### JEWEL,URINE, JEWEL SERUM, MYOG, SABRINA, UPE RAND, SPE #### [facility] , Calcium [Mass/Vol] 9.7 mg/dL Normal 8.2-10.2 [facility] Comment on above: Performed By: #### T SH3, CBC, ESR, ADDONUAPLUS, CK, T4F, CRP, CMP, LDH, PTH #### [address] #### JEWEL,URINE, JEWEL SERUM, MYOG, SABRINA, UPE RAND, SPE #### [facility] , Chloride [Moles/Vol] 101 mmol/L Normal 95-114 [facility] Comment on above: Performed By: #### T SH3, CBC, ESR, ADDONUAPLUS, CK, T4F, CRP, CMP, LDH, PTH #### [facility] [address] [place] [address] #### JEWEL,URINE, JEWEL SERUM, MYOG, SABRINA, UPE RAND, SPE #### [facility] , CO2 [Moles/Vol] 24.9 mmol/L Normal 22.0-30.0 [facility] Comment on above: Performed By: #### T SH3, CBC, ESR, ADDONUAPLUS, CK, T4F, CRP, CMP, LDH, PTH #### [address] #### JEWEL,URINE, JEWEL SERUM, MYOG, SABRINA, UPE RAND, SPE #### [facility] , Creatinine [Mass/Vol] 0.84 mg/dL Normal 0.44-1.03 [facility] Comment on above: Performed By: #### T SH3, CBC, ESR, ADDONUAPLUS, CK, T4F, CRP, CMP, LDH, PTH #### [address] #### JEWEL,URINE, JEWEL SERUM, MYOG, SABRINA, UPE RAND, SPE #### [facility] , Estimated GFR ( Manisha > 60 Normal [facility] Comment on above: Result Comment: GFR estimated reference range: According to KDOQI guidelines, <60 ml/min/1.73m2 is sufficient to diagnose a patient with chronic kidney disease. Performed By: #### T SH3, CBC, ESR, ADDONUAPLUS, CK, T4F, CRP, CMP, LDH, PTH #### [place] [address] [place] #### JEWEL,URINE, JEWEL SERUM, MYOG, SABRINA, UPE RAND, SPE #### [facility] , Estimated GFR (Non- Am > 60 Normal [facility] Comment on above: Performed By: #### T SH3, CBC, ESR, ADDONUAPLUS, CK, T4F, CRP, CMP, LDH, PTH #### [address] #### JEWEL,URINE, JEWEL SERUM, MYOG, SABRINA, UPE RAND, SPE #### [facility] , Globulin (S) [Mass/Vol] 2.4 g/dL Normal [facility] Comment on above: Performed By: #### T SH3, CBC, ESR, ADDONUAPLUS, CK, T4F, CRP, CMP, LDH, PTH #### [address] #### JEWEL,URINE, JEWEL SERUM, MYOG, SABRINA, UPE RAND, SPE #### [facility] , Glucose [Mass/Vol] 97 mg/dL Normal 70-100 [facility] Comment on above: Result Comment: [facility] [place] Glucose Reference Range is dependent on time and content of last meal. Glucose of more than 200 mg/dL in a nonstressed, ambulatory subject supports the diagnosis of Diabetes Mellitus. ADA recommended reference range Performed By: #### T SH3, CBC, ESR, ADDONUAPLUS, CK, T4F, CRP, CMP, LDH, PTH #### [place] [address] [place] #### JEWEL,URINE, JEWEL SERUM, MYOG, SABRINA, UPE RAND, SPE #### [facility] , Potassium [Moles/Vol] 4.0 mmol/L Normal 3.5-5.1 [facility] Comment on above: Performed By: #### T SH3, CBC, ESR, ADDONUAPLUS, CK, T4F, CRP, CMP, LDH, PTH #### [address] #### JEWEL,URINE, JEWEL SERUM, MYOG, SABRINA, UPE RAND, SPE #### [facility] , Protein [Mass/Vol] 6.6 g/dL Normal 6.1-7.9 [facility] Comment on above: Performed By: #### T SH3, CBC, ESR, ADDONUAPLUS, CK, T4F, CRP, CMP, LDH, PTH #### [address] #### JEWEL,URINE, JEWEL SERUM, MYOG, SABRINA, UPE RAND, SPE #### [facility] , Sodium [Moles/Vol] 137 mmol/L Normal 136-146 [facility] Comment on above: Performed By: #### T SH3, CBC, ESR, ADDONUAPLUS, CK, T4F, CRP, CMP, LDH, PTH #### [address] #### JEWEL,URINE, JEWEL SERUM, MYOG, SABRINA, UPE RAND, SPE #### [facility] , Urea nitrogen [Mass/Vol] 14 mg/dL Normal 9-23 [facility] Comment on above: Performed By: #### T SH3, CBC, ESR, ADDONUAPLUS, CK, T4F, CRP, CMP, LDH, PTH #### [address] #### JEWEL,URINE, JEWEL SERUM, MYOG, SABRINA, UPE RAND, SPE #### [facility] , Creatine Kinaseon 01-31-2022 CK [Catalytic activity/Vol] 26 U/L Normal 22-269 [facility] Comment on above: Result Comment: PERF ORMED BY: [place] [address] PATHOLOGIST SENIOR TAX ANALYST SAE GOMEZ M.D. Performed By: #### T SH3, CBC, ESR, ADDONUAPLUS, CK, T4F, CRP, CMP, LDH, PTH #### [facility] [address] [place] [address] [place] #### JEWEL,URINE, JEWEL SERUM, MYOG, SABRINA, UPE RAND, SPE #### [facility] , Creatine kinase [Enzymatic a ctivity/volume] in Serum or PlasmaOrdered By: Kumar Khan on 01-31-2022 CK [Catalytic activity/Vol] 26 U/L 22-269 [facility] Creatinine and Glomerular fi ltration rate.predicted panel (S/P/Bld)Ordered By: Kumar Khan on 01-31-2022 Creatinine [Mass/Vol] 0.84 mg/dL 0.44-1.03 [facility] Dipstick and Microscopicon 0 01-31-2022 Appearance (U) Clear Normal Clear [facility] Comment on above: Order Comment: Name Collection Type:: Clean-Voided Midstream Performed By: #### T SH3, CBC, ESR, ADDONUAPLUS, CK, T4F, CRP, CMP, LDH, PTH #### [address] #### JEWEL,URINE, JEWEL SERUM, MYOG, SABRINA, UPE RAND, SPE #### [facility] , Bacteria,Urine 2+ High None Seen [facility] Comment on above: Order Comment: Name Collection Type:: Clean-Voided Midstream Performed By: #### T SH3, CBC, ESR, ADDONUAPLUS, CK, T4F, CRP, CMP, LDH, PTH #### [address] #### JEWEL,URINE, JEWEL SERUM, MYOG, SABRINA, UPE RAND, SPE #### [facility] , Bilirubin,Urine Negative Normal Negative [facility] Comment on above: Order Comment: Name Collection Type:: Clean-Voided Midstream Performed By: #### T SH3, CBC, ESR, ADDONUAPLUS, CK, T4F, CRP, CMP, LDH, PTH #### [address] #### JEWEL,URINE, JEWEL SERUM, MYOG, SABRINA, UPE RAND, SPE #### [facility] , Color (U) Dark Yellow Critically abnormal Yellow [facility] Comment on above: Order Comment: Name Collection Type:: Clean-Voided Midstream Performed By: #### T SH3, CBC, ESR, ADDONUAPLUS, CK, T4F, CRP, CMP, LDH, PTH #### [address] #### JEWEL,URINE, JEWEL SERUM, MYOG, SABRINA, UPE RAND, SPE #### [facility] , Glucose Ql (U) Normal Normal Normal [facility] Comment on above: Order Comment: Name Collection Type:: Clean-Voided Midstream Performed By: #### T SH3, CBC, ESR, ADDONUAPLUS, CK, T4F, CRP, CMP, LDH, PTH #### [address] #### JEWEL,URINE, JEWEL SERUM, MYOG, SABRINA, UPE RAND, SPE #### [facility] , Hyaline Casts,Urine 0-8 Normal 0-8 [facility] Comment on above: Order Comment: Name Collection Type:: Clean-Voided Midstream Performed By: #### T SH3, CBC, ESR, ADDONUAPLUS, CK, T4F, CRP, CMP, LDH, PTH #### [address] #### JEWEL,URINE, JEWEL SERUM, MYOG, SABRINA, UPE RAND, SPE #### [facility] , Ketones Ql (U) Trace High Negative [facility] Comment on above: Order Comment: Name Collection Type:: Clean-Voided Midstream Performed By: #### T SH3, CBC, ESR, ADDONUAPLUS, CK, T4F, CRP, CMP, LDH, PTH #### [address] #### JEWEL,URINE, JEWEL SERUM, MYOG, SABRINA, UPE RAND, SPE #### [facility] , Leukocyte esterase Test strip Ql (U) 1+ High Negative [facility] Comment on above: Order Comment: Name Collection Type:: Clean-Voided Midstream Performed By: #### T SH3, CBC, ESR, ADDONUAPLUS, CK, T4F, CRP, CMP, LDH, PTH #### [facility] [address] [place] [address] #### JEWEL,URINE, JEWEL SERUM, MYOG, SABRINA, UPE RAND, SPE #### [facility] , Mucus,Urine 2+ Critically abnormal [facility] Comment on above: Order Comment: Name Collection Type:: Clean-Voided Midstream Result Comment: PERF ORMED BY: [place] [address] PATHOLOGIST SENIOR TAX ANALYST SAE GOMEZ M.D. Performed By: #### T SH3, CBC, ESR, ADDONUAPLUS, CK, T4F, CRP, CMP, LDH, PTH #### [address] #### JEWEL,URINE, JEWEL SERUM, MYOG, SABRINA, UPE RAND, SPE #### [facility] , Nitrite,Urine Negative Normal Negative [facility] Comment on above: Order Comment: Name Collection Type:: Clean-Voided Midstream Performed By: #### T SH3, CBC, ESR, ADDONUAPLUS, CK, T4F, CRP, CMP, LDH, PTH #### [address] #### JEWEL,URINE, JEWEL SERUM, MYOG, SABRINA, UPE RAND, SPE #### [facility] , Occult Blood,Urine Negative Normal Negative [facility] Comment on above: Order Comment: Name Collection Type:: Clean-Voided Midstream Performed By: #### T SH3, CBC, ESR, ADDONUAPLUS, CK, T4F, CRP, CMP, LDH, PTH #### [address] #### JEWEL,URINE, JEWEL SERUM, MYOG, SABRINA, UPE RAND, SPE #### [facility] , pH (U) 7.5 [pH] Normal 5.0-9.0 [facility] Comment on above: Order Comment: Name Collection Type:: Clean-Voided Midstream Performed By: #### T SH3, CBC, ESR, ADDONUAPLUS, CK, T4F, CRP, CMP, LDH, PTH #### [address] #### JEWEL,URINE, JEWEL SERUM, MYOG, SABRINA, UPE RAND, SPE #### [facility] , Protein,Urine Trace High Negative [facility] Comment on above: Order Comment: Name Collection Type:: Clean-Voided Midstream Performed By: #### T SH3, CBC, ESR, ADDONUAPLUS, CK, T4F, CRP, CMP, LDH, PTH #### [address] #### JEWEL,URINE, JEWEL SERUM, MYOG, SABRINA, UPE RAND, SPE #### [facility] , RBC,Urine None Seen Normal 0-4 [facility] Comment on above: Order Comment: Name Collection Type:: Clean-Voided Midstream Performed By: #### T SH3, CBC, ESR, ADDONUAPLUS, CK, T4F, CRP, CMP, LDH, PTH #### [address] #### JEWEL,URINE, JEWEL SERUM, MYOG, SABRINA, UPE RAND, SPE #### [facility] , Specificy Malott,Urine 1.024 Normal 1.001-1.030 [facility] Comment on above: Order Comment: Name Collection Type:: Clean-Voided Midstream Performed By: #### T SH3, CBC, ESR, ADDONUAPLUS, CK, T4F, CRP, CMP, LDH, PTH #### [address] #### JEWEL,URINE, JEWEL SERUM, MYOG, SABRINA, UPE RAND, SPE #### [facility] , Squamous Epithelial Cell,Urine 5-9 High 0-2 [facility] Comment on above: Order Comment: Name Collection Type:: Clean-Voided Midstream Performed By: #### T SH3, CBC, ESR, ADDONUAPLUS, CK, T4F, CRP, CMP, LDH, PTH #### [address] #### JEWEL,URINE, JEWEL SERUM, MYOG, SABRINA, UPE RAND, SPE #### [facility] , Urobilinogen,Urine Normal Normal Normal [facility] Comment on above: Order Comment: Name Collection Type:: Clean-Voided Midstream Performed By: #### T SH3, CBC, ESR, ADDONUAPLUS, CK, T4F, CRP, CMP, LDH, PTH #### [address] #### JEWEL,URINE, JEWEL SERUM, MYOG, SABRINA, UPE RAND, SPE #### [facility] , WBC,Urine 3-4 Normal 0-4 [facility] Comment on above: Order Comment: Name Collection Type:: Clean-Voided Midstream Performed By: #### T SH3, CBC, ESR, ADDONUAPLUS, CK, T4F, CRP, CMP, LDH, PTH #### [address] #### JEWEL,URINE, JEWEL SERUM, MYOG, SABRINA, UPE RAND, SPE #### [facility] , Eosinophils Auto (Bld) [#/Vo l]Ordered By: Kumar Khan on 01-31-2022 Eosinophils (Bld) [#/Vol] 0.2 10*3/uL 0.0-0.45 [facility] Eosinophils/100 WBC Auto (Bl d)Ordered By: Kumar Khan on 04-11-2022 Eosinophils/100 WBC (Bld) 2.0 % [facility] Erythrocyte Sedimentation Ra anthony 01-31-2022 ESR (Bld) [Velocity] 15 mm/h Normal 0-29 [facility] Comment on above: Result Comment: PERF ORMED BY: [place] [address] PATHOLOGIST [employer]IOR [employer] ANALYST SAE GOMEZ M.D. Performed By: #### T SH3, CBC, ESR, ADDONUAPLUS, CK, T4F, CRP, CMP, LDH, PTH #### [facility] [address] [place] [address] #### JEWEL,URINE, JEWEL SERUM, MYOG, SABRINA, UPE RAND, SPE #### [facility] , Erythrocyte distribution wid th Auto (RBC) [Ratio]Ordered By: Kumar Khan on 01-31-2022 Erythrocyte distribution width (RBC) [Ratio] 12.8 % 11.9-15.3 [facility] Erythrocyte sedimentation ra te by Photometric methodOrdered By: Kumar Khan on 01-31-2022 ESR Photometric method (Bld) [Velocity] 15 mm/hr 0-29 [facility] Estimated glomerular filtrat ion rate (GFR) non- AmericanOrdered By: Kumar Khan on 01-31-2022 GFR/1.73 sq M.predicted among non-blacks MDRD (S/P/Bld) [Vol rate/Area] > 60 mL/Min [facility] Free T4 (Free Thyroxine)on 0 01-31-2022 Free T4 [Mass/Vol] 0.87 ng/dL Normal 0.61-1.12 [facility] Comment on above: Performed By: #### T SH3, CBC, ESR, ADDONUAPLUS, CK, T4F, CRP, CMP, LDH, PTH #### [facility] [address] [place] [address] [place] #### JEWEL,URINE, JEWEL SERUM, MYOG, SABRINA, UPE RAND, SPE #### [facility] , Globulin Calc (S) [Mass/Vol] Ordered By: Kumar Khan on 01-31-2022 Globulin (S) [Mass/Vol] 2.4 g/dL [facility] Hematocrit Auto (Bld) [Volum e fraction]Ordered By: Kumar Khan on 01-31-2022 Hematocrit (Bld) [Volume fraction] 46.2 % 34.0-46.4 [facility] Immunofixation, (JEWEL), Urine on 01-31-2022 Immunofixation, (JEWEL), Urine Normal . [facility] Comment on above: Result Comment: No m onoclonality detected. Performed at: - [facility] [id number] Interactive Media Director: Chu Dewey PhD, Phone: [phone] Performed By: #### T SH3, CBC, ESR, ADDONUAPLUS, CK, T4F, CRP, CMP, LDH, PTH #### [address] #### JEWEL,URINE, JEWEL SERUM, MYOG, SABRINA, UPE RAND, SPE #### [facility] , Immunofixation,Serumon 01-31 Immunofixation, Serum Normal . [facility] Comment on above: Result Comment: No m onoclonality detected. Performed By: #### T SH3, CBC, ESR, ADDONUAPLUS, CK, T4F, CRP, CMP, LDH, PTH #### [facility] [address] [place] [address] [place] #### JEWEL,URINE, JEWEL SERUM, MYOG, SABRINA, UPE RAND, SPE #### [facility] , Immunoglobulin A, Serum 125 mg/dL Normal 64-422 [facility] Comment on above: Performed By: #### T SH3, CBC, ESR, ADDONUAPLUS, CK, T4F, CRP, CMP, LDH, PTH #### [facility] [address] [place] [address] [place] #### JEWEL,URINE, JEWEL SERUM, MYOG, SABRINA, UPE RAND, SPE #### [facility] , Immunoglobulin G 941 mg/dL Normal 586-1602 [facility] Comment on above: Performed By: #### T SH3, CBC, ESR, ADDONUAPLUS, CK, T4F, CRP, CMP, LDH, PTH #### [address] #### JEWEL,URINE, JEWEL SERUM, MYOG, SABRINA, UPE RAND, SPE #### [facility] , Immunoglobulin M, Serum 88 mg/dL Normal 26-217 [facility] Comment on above: Result Comment: Perf ormed at: - [facility] [address] [id number] Interactive Media Director: Chu Dewey PhD, Phone: [phone] Performed By: #### T SH3, CBC, ESR, ADDONUAPLUS, CK, T4F, CRP, CMP, LDH, PTH #### [place] [address] [place] #### JEWEL,URINE, JEWEL SERUM, MYOG, SABRINA, UPE RAND, SPE #### [facility] , Ketones Auto test strip (U) [Mass/Vol]Ordered By: Kumar Khan on 01-31-2022 Ketones (U) [Mass/Vol] Trace Negative [facility] LDH Lactate Dehydrogenaseon 01-31-2022 LDH Lactate Dehydrogenase 135 U/L Normal 45-190 [facility] Comment on above: Performed By: #### T SH3, CBC, ESR, ADDONUAPLUS, CK, T4F, CRP, CMP, LDH, PTH #### [address] #### JEWEL,URINE, JEWEL SERUM, MYOG, SABRINA, UPE RAND, SPE #### [facility] , Laboratory - Hematology and Cell countsOrdered By: Kumar Khan on 01-31-2022 Nucleated RBC/100 WBC (Bld) [Ratio] 0.1 % 0-0.5 [facility] Laboratory - UrinalysisOrder ed By: Kumar Khan on 04-11-2022 Hyaline casts LM Ql (Urine sed) 0-8 [LPF] [facility] Lactate dehydrogenase measur ement (enzymatic activity/volume)Ordered By: Kumar Khan on 01-31-2022 LDH (Unsp spec) [Catalytic activity/Vol] 135 U/L 45-190 [facility] Lymphocytes Auto (Bld) [#/Vo l]Ordered By: Kumar Khan on 01-31-2022 Lymphocytes (Bld) [#/Vol] 1.6 10*3/uL 1.00-4.8 [facility] Lymphocytes/100 WBC Auto (Bl d)Ordered By: Kumar Khan on 01-31-2022 Lymphocytes/100 WBC (Bld) 19.6 % [facility] MCH Auto (RBC) [Entitic mass ]Ordered By: Kumar Khan on 01-31-2022 MCH (RBC) [Entitic mass] 32.4 pg 24.7-34.3 [facility] MCHC Auto (RBC) [Mass/Vol]Or dered By: Kumar Khan on 01-31-2022 MCHC (RBC) [Mass/Vol] 34.2 g/dL 32.0-35.0 [facility] MCV Auto (RBC) [Entitic vol] Ordered By: Kumar Khan on 01-31-2022 MCV (RBC) [Entitic vol] 94.7 fL 80-100 [facility] Monocytes Auto (Bld) [#/Vol] Ordered By: Kumar Khan on 01-31-2022 Monocytes (Bld) [#/Vol] 0.7 10*3/uL 0.0-0.8 [facility] Monocytes/100 WBC Auto (Bld) Ordered By: Kumar Khan on 01-31-2022 Monocytes/100 WBC (Bld) 8.9 % [facility] Mucus LM Ql (Urine sed)Order ed By: Kumar Khan on 01-31-2022 Mucus Ql (Urine sed) 2+ [LPF] [facility] Myoglobinon 01-31-2022 Myoglobin [Mass/Vol] ng/mL Low 25-58 [facility] Comment on above: Result Comment: Perf ormed at: - [facility] [address] [id number] Interactive Media Director: Chu Dewey PhD, Phone: [phone] Performed By: #### T SH3, CBC, ESR, ADDONUAPLUS, CK, T4F, CRP, CMP, LDH, PTH #### [facility] [address] #### JEWEL,URINE, JEWEL SERUM, MYOG, SABRINA, UPE RAND, SPE #### [facility] , Neutrophils Auto (Bld) [#/Vo l]Ordered By: Kumar Khan on 01-31-2022 Neutrophils (Bld) [#/Vol] 5.7 10*3/uL 1.8-7.7 [facility] Neutrophils/100 WBC Auto (Bl d)Ordered By: Kumar Khan on 01-31-2022 Neutrophils/100 WBC (Bld) 68.6 % [facility] Nitrite Test strip Ql (U)Ord ered By: Kumar Khan on 01-31-2022 Nitrite Ql (U) Negative Negative [facility] No Panel InformationOrdered By: Kumar Khan on 01-31-2022 Estimated GFR () > 60 mL/Min [facility] Comment on above: GFR estimated refere nce range: According to KDOQI guidelines, <60 ml/min/1.73m2 is sufficient to diagnose a patient with chronic kidney disease. Pharmacy Creatinine Clearance (Chem N/A [facility] Parathyroid Hormone Intacton 01-31-2022 Parathyroid Hormone Intact 87.4 pg/mL Normal 12-88 [facility] Comment on above: Result Comment: PERF ORMED BY: [place] [address] PATHOLOGIST SENIOR TAX ANALYST SAE GOMEZ M.D. Performed By: #### T SH3, CBC, ESR, ADDONUAPLUS, CK, T4F, CRP, CMP, LDH, PTH #### [facility] [address] [place] [address] #### JEWEL,URINE, JEWEL SERUM, MYOG, SABRINA, UPE RAND, SPE #### [facility] , Platelet mean volume Auto (B ld) [Entitic vol]Ordered By: Kumar Khan on 01-31-2022 Platelet mean volume (Bld) [Entitic vol] 8.0 fL 6.3-10.7 [facility] Platelets Auto (Bld) [#/Vol] Ordered By: Kumar Khan on 01-31-2022 Platelets (Bld) [#/Vol] 293 10*3/uL 150-450 [facility] Protein Auto test strip (U) [Mass/Vol]Ordered By: Kumar Khan on 01-31-2022 Protein (U) [Mass/Vol] Trace mg/dL Negative [facility] Protein Electro, Random Urin abbey 01-31-2022 Albumin, Urine 29.3 % Normal . [facility] Comment on above: Performed By: #### T SH3, CBC, ESR, ADDONUAPLUS, CK, T4F, CRP, CMP, LDH, PTH #### [facility] [address] [place] [address] #### JEWEL,URINE, JEWEL SERUM, MYOG, SABRINA, UPE RAND, SPE #### [facility] , Hjwxl-8-Ozblwckk, Urine 4.8 % Normal . [facility] Comment on above: Performed By: #### T SH3, CBC, ESR, ADDONUAPLUS, CK, T4F, CRP, CMP, LDH, PTH #### [facility] [address] [place] [address] #### JEWEL,URINE, JEWEL SERUM, MYOG, SABRINA, UPE RAND, SPE #### [facility] , Osscd-8-Bjbrbfto, Urine 20.1 % Normal . [facility] Comment on above: Performed By: #### T SH3, CBC, ESR, ADDONUAPLUS, CK, T4F, CRP, CMP, LDH, PTH #### [facility] [address] [place] [address] [place] #### JEWEL,URINE, JEWEL SERUM, MYOG, SABRINA, UPE RAND, SPE #### [facility] , Beta Globulin, Urine 35.6 % Normal . [facility] Comment on above: Performed By: #### T SH3, CBC, ESR, ADDONUAPLUS, CK, T4F, CRP, CMP, LDH, PTH #### [address] #### JEWEL,URINE, JEWEL SERUM, MYOG, SABRINA, UPE RAND, SPE #### [facility] , Gamma Globulin, Urine 10.2 % Normal . [facility] Comment on above: Performed By: #### T SH3, CBC, ESR, ADDONUAPLUS, CK, T4F, CRP, CMP, LDH, PTH #### [address] #### JEWEL,URINE, JEWEL SERUM, MYOG, SABRINA, UPE RAND, SPE #### [facility] , M-Sonny % Not Observed Normal Not Observed [facility] Comment on above: Performed By: #### T SH3, CBC, ESR, ADDONUAPLUS, CK, T4F, CRP, CMP, LDH, PTH #### [address] #### JEWEL,URINE, JEWEL SERUM, MYOG, SABRINA, UPE RAND, SPE #### [facility] , Please Note: Normal . [facility] Comment on above: Result Comment: Prot ein electrophoresis scan will follow via computer, mail, or top edge beveler delivery. PERFORMED BY: [place] [address] PATHOLOGIST SENIOR TAX ANALYST SAE GOMEZ M.D. Performed By: #### T SH3, CBC, ESR, ADDONUAPLUS, CK, T4F, CRP, CMP, LDH, PTH #### [address] #### JEWEL,URINE, JEWEL SERUM, MYOG, SABRINA, UPE RAND, SPE #### [facility] , Protein (U) [Mass/Vol] 17.4 mg/dL Normal Not Estab. [facility] Comment on above: Performed By: #### T SH3, CBC, ESR, ADDONUAPLUS, CK, T4F, CRP, CMP, LDH, PTH #### [facility] [address] [place] [address] #### JEWEL,URINE, JEWEL SERUM, MYOG, SABRINA, UPE RAND, SPE #### [facility] , Protein Electrophoresis, Ser umon 01-31-2022 Albumin [Mass/Vol] 3.8 g/dL Normal 2.9-4.4 [facility] Comment on above: Performed By: #### T SH3, CBC, ESR, ADDONUAPLUS, CK, T4F, CRP, CMP, LDH, PTH #### [address] #### JEWEL,URINE, JEWEL SERUM, MYOG, SABRINA, UPE RAND, SPE #### [facility] , Albumin/Globulin [Mass ratio] 1.2 {ratio} Normal 0.7-1.7 [facility] Comment on above: Performed By: #### T SH3, CBC, ESR, ADDONUAPLUS, CK, T4F, CRP, CMP, LDH, PTH #### [address] #### JEWEL,URINE, JEWEL SERUM, MYOG, SABRINA, UPE RAND, SPE #### [facility] , Qpdug-2-Kavaocpb 0.3 g/dL Normal 0.0-0.4 [facility] Comment on above: Performed By: #### T SH3, CBC, ESR, ADDONUAPLUS, CK, T4F, CRP, CMP, LDH, PTH #### [facility] [address] [place] [address] #### JEWEL,URINE, JEWEL SERUM, MYOG, SABRINA, UPE RAND, SPE #### [facility] , Lpsch-1-Zwvujpwy 0.8 g/dL Normal 0.4-1.0 [facility] Comment on above: Performed By: #### T SH3, CBC, ESR, ADDONUAPLUS, CK, T4F, CRP, CMP, LDH, PTH #### [address] #### JEWEL,URINE, JEWEL SERUM, MYOG, SABRINA, UPE RAND, SPE #### [facility] , Beta Globulin 1.1 g/dL Normal 0.7-1.3 [facility] Comment on above: Performed By: #### T SH3, CBC, ESR, ADDONUAPLUS, CK, T4F, CRP, CMP, LDH, PTH #### [address] #### JEWEL,URINE, JEWEL SERUM, MYOG, SABRINA, UPE RAND, SPE #### [facility] , Gamma Globulin 0.9 g/dL Normal 0.4-1.8 [facility] Comment on above: Performed By: #### T SH3, CBC, ESR, ADDONUAPLUS, CK, T4F, CRP, CMP, LDH, PTH #### [address] #### JEWEL,URINE, JEWEL SERUM, MYOG, SABRINA, UPE RAND, SPE #### [facility] , Globulin (S) [Mass/Vol] 3.1 g/dL Normal 2.2-3.9 [facility] Comment on above: Performed By: #### T SH3, CBC, ESR, ADDONUAPLUS, CK, T4F, CRP, CMP, LDH, PTH #### [place] [address] [place] #### JEWEL,URINE, JEWEL SERUM, MYOG, SABRINA, UPE RAND, SPE #### [facility] , M-Sonny Not Observed Normal Not Observed [facility] Comment on above: Performed By: #### T SH3, CBC, ESR, ADDONUAPLUS, CK, T4F, CRP, CMP, LDH, PTH #### [place] [address] [place] #### JEWEL,URINE, JEWEL SERUM, MYOG, SABRINA, UPE RAND, SPE #### [facility] , Protein [Mass/Vol] 6.9 g/dL Normal 6.0-8.5 [facility] Comment on above: Performed By: #### T SH3, CBC, ESR, ADDONUAPLUS, CK, T4F, CRP, CMP, LDH, PTH #### [facility] [address] [place] [address] [place] #### JEWEL,URINE, JEWEL SERUM, MYOG, SABRINA, UPE RAND, SPE #### [facility] , SPE-Note Normal . [facility] Comment on above: Result Comment: Prot ein electrophoresis scan will follow via computer, mail, or top edge beveler delivery. PERFORMED BY: [place] [address] PATHOLOGIST SENIOR TAX ANALYST SAE GOMEZ M.D. Performed By: #### T SH3, CBC, ESR, ADDONUAPLUS, CK, T4F, CRP, CMP, LDH, PTH #### [facility] [address] [place] [address] #### JEWEL,URINE, JEWEL SERUM, MYOG, SABRINA, UPE RAND, SPE #### [facility] , Protein [Mass/volume] in Ser um or PlasmaOrdered By: Kumar Khan on 01-31-2022 Protein [Mass/Vol] 6.6 g/dL 6.1-7.9 [facility] RBC Auto (Bld) [#/Vol]Ordere d By: Kumar Khan on 01-31-2022 RBC (Bld) [#/Vol] 4.88 10*6/uL 3.60-5.00 [facility] Serum or plasma C reactive p rotein measurement (mass/volume)Ordered By: Kumar Khan on 01-31-2022 CRP [Mass/Vol] 0.8 mg/dL 0.0-1.0 [facility] Serum or plasma alanine meyers otransferase measurement without P-5'-P (enzymatic activiOrdered By: Kumar Khan on 01-31-2022 ALT No additional P-5'-P [Catalytic activity/Vol] 27 U/L 10-60 [facility] Serum or plasma albumin/glob ulin mass ratioOrdered By: Kumar Khan on 01-31-2022 Albumin/Globulin [Mass ratio] 1.8 {ratio} [facility] Serum or plasma alkaline milo sphatase measurement (enzymatic activity/volume)Ordered By: Kumar Khan on 01-31-2022 ALP [Catalytic activity/Vol] 75 U/L 32-92 [facility] Serum or plasma aspartate am inotransferase measurement (enzymatic activity/volume)Ordered By: Kumar Khan on 01-31-2022 AST [Catalytic activity/Vol] 26 U/L 10-42 [facility] Serum or plasma calcium miriam urement (mass/volume)Ordered By: Kumar Khan on 01-31-2022 Calcium [Mass/Vol] 9.7 mg/dL 8.2-10.2 [facility] Serum or plasma chloride ray surement (moles/volume)Ordered By: Kumar Khan on 01-31-2022 Chloride [Moles/Vol] 101 mmol/L 95-114 [facility] Serum or plasma glucose miriam urement (mass/volume)Ordered By: Kumar Khan on 01-31-2022 Glucose [Mass/Vol] 97 mg/dL 70-100 [facility] Comment on above: ADA recommended refe rence rangeRandom Glucose Reference Range is dependent on time and content of last meal. Glucose of more than 200 mg/dL in a nonstressed, ambulatory subject supports the diagnosis of Diabetes Mellitus. Serum or plasma intact parat hyroid hormone measurement (mass/volume)Ordered By: Kumar Khan on 01-31-2022 Parathyrin.intact [Mass/Vol] 87.4 pg/mL 12 [facility] Serum or plasma potassium me asurement (moles/volume)Ordered By: Kumar Khan on 01-31-2022 Potassium [Moles/Vol] 4.0 mmol/L 3.5-5.1 [facility] Serum or plasma sodium measu rement (moles/volume)Ordered By: Kumar Khan on 01-31-2022 Sodium [Moles/Vol] 137 mmol/L 136-146 [facility] Serum or plasma total biliru bin measurement (mass/volume)Ordered By: Kumar Juarezrow on 01-31-2022 Bilirubin [Mass/Vol] 0.9 mg/dL 0.3-1.2 [facility] Serum or plasma total carbon dioxide measurement (moles/volume)Ordered By: Kumar Juarezrow on 01-31-2022 CO2 [Moles/Vol] 24.9 mmol/L 22.0-30.0 [facility] Serum or plasma urea nitroge n measurement (mass/volume)Ordered By: Kumar Juarezrow on 01-31-2022 Urea nitrogen [Mass/Vol] 14 mg/dL 9- [facility] Specific gravity Auto test s trip (U) [Rel density]Ordered By: Kumar Juarezrow on 01-31-2022 Specific gravity (U) [Rel density] 1.024 1.001-1.030 [facility] Squamous epithelial cells de tection in urine sediment by light microscopyOrdered By: Kumar Juarezrow on 01-31-2022 Epithelial cells.squamous LM Ql (Urine sed) 5-9 [HPF] [facility] TSH DL <= 0.005 mIU/L QnOrde red By: Kumar Juarezrow on 01-31-2022 TSH Qn 2.89 m[IU]/L 0.45-5.33 [facility] Thyroid Stimulating Hormoneo n 01-31-2022 TSH Qn 2.89 m[IU]/L Normal 0.45-5.33 [facility] Comment on above: Performed By: #### T SH3, CBC, ESR, ADDONUAPLUS, CK, T4F, CRP, CMP, LDH, PTH #### [facility] [address] #### JEWEL,URINE, JEWEL SERUM, MYOG, SABRINA, UPE RAND, SPE #### [facility] , Thyroxine (T4) free [Mass/vo lume] in Serum or PlasmaOrdered By: Kumar Juarezrow on 01-31-2022 Free T4 [Mass/Vol] 0.87 ng/dL 0.61-1.12 [facility] Urine bacteria detection by automated methodOrdered By: Kumar Khan on 01-31-2022 Bacteria Auto Ql (U) 2+ None Seen [facility] Urine clarity by refractomet ry automatedOrdered By: Kumar Khan on 01-31-2022 Clarity Refractometry automated (U) Clear Clear [facility] Urine glucose measurement by automated test strip (mass/volume)Ordered By: Kumar Khan on 01-31-2022 Glucose Auto test strip (U) [Mass/Vol] Normal mg/dL Normal [facility] Urine hemoglobin detection b y automated test stripOrdered By: Kumar Khan on 01-31-2022 Hemoglobin Auto test strip Ql (U) Negative Negative [facility] Urine leukocyte esterase det ection by automated test stripOrdered By: Kumar Khan on 01-31-2022 Leukocyte esterase Auto test strip Ql (U) 1+ Negative [facility] Urobilinogen Auto test strip (U) [Mass/Vol]Ordered By: Kumar Khan on 01-31-2022 Urobilinogen (U) [Mass/Vol] Normal mg/dL Normal [facility] pH Auto test strip (U)Ordere d By: Kumar Khan on 01-31-2022 pH (U) 7.5 [pH] 5.0-9.0 [facility] XR Bone Density (DEXA)on XR Bone Density (DEXA) RegionBMDYoung-Adult Age-Matched Total(g/cm2)(%)T-Sco re(%)Z-Score Femur.12988-7.2990.0 Impression: The mean BMD and corresponding T-score indicated above indicate Low Bone Mass (Osteopenia) and places the patient at a mild to moderate increased risk for fracture. There may be a future risk of developing osteoporosis. Recommend follow-up exam in 1 year, sooner as clinically necessary. RegionBMDYoung-Adult Age-Matched Total(g/cm2)(%)T-Sco re(%)Z-Score L1-[id number]+1.1152 +3.6 Impression: The mean BMD and corresponding T-score indicated above indicate Normal Bone Mass and places the patient no significant risk for fracture. This information can serve as a baseline with which to compare future studies. Recommend follow-up exam in 2 years, sooner as clinically necessary. Comment: The T-score is the primary focus of the interpretation of a patient???s bone mineral density measurement. The T-score is the number of standard deviations an individual is above or below the mean value for a young female having normal bone mass. The WHO defines osteoporosis based on the T-score value??? +1.0 to ???0.9 : Normal bone mass -1.0 to -2.5 : Osteopenia and thus may be at future risk of fracture -2.6 to ???5 : Osteoporosis and ???at significantly increased risk of fracture??? A Z-Score of -2.0 or lower is defined as ???below the expected range for age??? and a Z-Score above -2.0 is ???within the expected range for age.??? Osteoporosis cannot be diagnosed in men under the age of 50 on the basis of BMD alone. Per 2019 ISCD guidelines, Z-Scores (not T-Scores) are preferred when reporting data in premenopausal females and males less than 50 years of age. Report reported and signed by Andrae Ewing on 12/28/2021 1342 Normal [facility] Specialist SCREENING MAMMOGRAM W/SUZI, BILATERAL*on 11-08-2021 SCREENING MAMMOGRAM W/SUZI, BILATERAL* CLINICAL HISTORY: Screening Mammogram COMPARISON: Dating back to October 08, 2020, October 21, 2019, September 03, 2018 TECHNIQUE: 2D and 3D Tomosynthesis of the right and left breasts was performed. FINDINGS: Breast composition demonstrates heterogeneously dense parenchyma. Typically benign calcifications. Overall appearance is stable. No suspicious microcalcifications, asymmetry, architectural distortion, or associated features are present. IMPRESSION: BIRADS 2: BENIGN MAMMOGRAM COMMENT: Given dense breast tissue, recommend close correlation with self-breast and clinical exam findings. If any new symptoms or signs present clinically, recommend ultrasound to complement mammography. Board Certified Radiologist. Accredited by the ACR and FDA. MAMMOGRAPHY IS VERY IMPORTANT TO YOUR HEALTH. THE CURRENT [place] [employer] GUIDELINES RECOMMENDS ANNUAL MAMMOGRAPHY BEGINNING AT AGE 40 THIS FACILITY USES A REMINDER SYSTEM TO ENSURE ALL PATIENTS RECEIVE REMINDER NOTIFICATIONS AT THE APPROPRIATE TIME BASED ON THE RECOMMENDATIONS OF THIS EXAM. 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 Encounter Date Encounter Type Care Provider Facility Start: 08-05-2024 End: 08-05-2024 ambulatory Irving CifuentesLucita Clemens [place] Start: 08-05-2024 End: 08-05-2024 Patient encounter procedure Irving Clemens [facility] Start: 07-29-2024 End: 07-29-2024 ambulatory Irving CifuentesLucita Clemens Facility:[facility] Start: 03-05-2024 End: 03-05-2024 ambulatory Irving Clemens Facility:[facility] Start: 02-12-2024 End: 02-12-2024 ambulatory Irving Clemens Facility: [facility] Start: 01-04-2024 End: 01-05-2024 ambulatory KUMAR KHAN Not Available Start: 11-14-2023 End: 11-14-2023 ambulatory Irving Clemens Facility[place] Start: 11-14-2023 End: 11-14-2023 Lab Drop off Irving VaneLucita Roberto Carlos [facility] Start: 11-14-2023 End: 11-14-2023 ambulatory Irving CifuentesLucita Clemens Facility:[facility] Holder Start: 10-24-2023 ambulatory Irving Clemens Facility :[facility] Start: 10-17-2023 ambulatory Irving Clemens Facility: [facility] Start: 09-05-2023 End: 09-05-2023 ambulatory SHAYAN GAMINO Not Available Start: 10-31-2022 End: 11-01-[address] NONE LISTED REQUEST Facility: Start: 01-31-2022 End: 01-31-2022 Patient encounter procedure MD Jason Khan Work Phone: [facility] [address] Procedures Date Procedure Procedure Detail Performing Clinician Acoustic neuroma (disorder) Irving Clemens Comment on above: [facility] 1994 Biopsy of breast Irving Clemens Comment on above: several biopsies, eaton s dense breasts Hysterectomy Irving Clemens Plan of Treatment Date Care Activity Detail Author Start: 02-17-2025 ambulatory Ambulatory Facility:[facility] [place] Start: 09-05-2024 ambulatory Ambulatory Facility:[facility] 24 hour urine measurement Fi relands [facility] Work Phone: Albumin [Mass/volume ] in Serum or Plasma [facility] Work Phone: Albumin/Globulin [facility] Work Phone: Aldolase measurement [facility] Work Phone: Electrophoresis: [id number] [facility] Work Phone: Electrophoresis: [id number] [facility] Work Phone: Electrophoresis: beta-globulin [facility] Work Phone: Electrophoresis: gamma globulin [facility] Work Phone: Globulin [Mass/volume] in Serum [facility] Work Phone: Homogenous nuclear A b pattern [Titer] in Serum [facility] Work Phone: IgA [Mass/volume] in Serum or Plasma [facility] Work Phone: IgG [Mass/volume] in Serum or Plasma [facility] Work Phone: IgM [Mass/volume] in Serum or Plasma [facility] [facility]tr Work Phone: Immunofixation for Urine [facility] Work Phone: Measurement of monoc lonal protein concentration [facility] Work Phone: Myoglobin [Mass/volu me] in Serum or Plasma [facility] Work Phone: Nuclear Ab [Titer] in Serum [facility] Work Phone: Protein [Mass/volume ] in Serum or Plasma [facility] Work Phone: Protein [Mass/volume] in Urine [facility] Work Phone: Serum immunofixation [facility] Work Phone: Immunizations Immunization Date Immunization Notes Care Provider Fa cili 09-09-2021 pneumococcal conjuga te vaccine, 13 valent Irving Clemens [facility] 10-05-2019 influenza virus vaccine, unspecified formulation Irving Clemens [facility] 08-26-2014 pneumococcal polysaccharide vaccine, 23 valent Irving Clemens [facility] 08-23-2001 pneumococcal polysaccharide vaccine, 23 valent Irving Roberto Carlos [facility] NEGATED: Highlighted row has not occurred!07-29-2024 influenza virus vaccine, unspecified formulation Irving Clemens [facility] Payers Date Payer Category Payer Unknown [id number] 1960 Medicare [id number] 1960 Unknown [id number] 1945 Unknown [id number] 2.16.84 [id number] 1945 Unknown [id number] 2.16.84 [id number] 1945 Unknown [id number] 2.16.84 0.1.633778.3.579.2.1259 1944 Unknown [id number] 2.16.840. 1.865850.3.579.2.1259 1944 Unknown [id number] 2.16.8 40.1.030357.3.579.2.727 1944 Unknown [id number] 2.16.8 40.1.174658.3.579.2.727 1944 Unknown [id number] 2.16.8 40.1.361233.3.579.2.727 1944 Unknown [id number] 2.16.8 40.1.715939.3.579.2.727 1944 Unknown [id number] 2.16.8 40.1.644089.3.579.2.72 1944 Unknown [id number] 2.16.8 40.1.613153.3.579.2.72 1944 Unknown [id number] 2.16.8 40.1.780155.3.579.2.727 1944 Unknown [id number] 2.16.8 40.1.726208.3.579.2.727 1945 Unknown [id number] 2.16.8 [id number] Self-pay Self Pay [id number] Social History Date Type Detail [facility] Work Phone: Start: 1945 Sex Assigned At Female Sherri [facility] Start: 11-14-2023 End: 07-29-2024 Tobacco smoking status Ex-smoker (finding) [facility] Tobacco smoking status Never [facility] Sex Assigned At Female [facility] Clinical Note 12-06-2021 Note Date & Type Note Facility 12-06-2021 Note HISTORY: Pain, lifti ng injury (several months) PROCEDURE: [employer] HDXT 1.5. Sagittal T1, T2, STIR and axial T1 and T2 contiguous and cone down images through the lumbar spine were performed without contrast administration. FINDINGS: Normal vertebral body alignment. Mild to moderate inferior compression fracture of T12 with edematous signal occupying the majority of the vertebral body. No extension into the pedicle or underlying mass. Epicenter is located within the anterior central aspect of the inferior end plate (Schmorl Node). Minimal arthritic signal intensity changes underlie this region, superior end plate of L1. Normal conus medullaris and filum terminale. Unremarkable paravertebral soft tissues. T11/12: Normal. T12/L1: Minimal central disc bulging, 2 mm retrolisthesis of the posterior inferior end plate of T12. No significant spinal canal or neural foraminal stenosis. Bilateral facet arthropathy. L1/2 - L3/4: Severe disc space loss (greatest involvement within the concavity of the curvature, right). Diffuse disc bulging into the spinal canal. Bilateral facet arthropathy and ligamentum flavum hypertrophy. No significant spinal canal or neural foraminal stenosis. L4/5: Normal disc volume. Mild disc bulging within both neural foraminal zones. Bilateral facet arthropathy. No spinal canal stenosis. Mild left mid neural foraminal stenosis. L5/S1: Moderate disc space loss. Mild disc bulging within the left neural foraminal zone. Bilateral facet arthropathy. No spinal canal or neural foraminal stenosis. IMPRESSION: 1. Subacute appearing T12 inferior plate compression fracture (Schmorl Node), likely osteoporotic insufficiency etiology. No underlying mass. 2. No significant spinal canal or neural foraminal stenosis. Report reported and signed by Andrae Ewing on 12/06/2021 [id number] [facility] Specialist Clinical Note 08-20-2021 Note Date & Type Note Facility 08-20-2021 Note Patient Education Ma terials Name: Jose Manuel Chicasan Current Date: 08/20/2021 14:09:26 [place] : 1945 The following sheet(s) are the Patient Education Leaflets for [facility] Breast Health: Breast Self-Awareness What is breast self-awareness? Breast self-awareness is knowing how your breasts normally look and feel. Your breasts change as you go through different stages of your life. So it's important to learn what is normal for your breasts. Breast self-awareness helps you notice any changes in your breasts right away. Report any changes to your healthcare provider. Why is breast self-awareness important? Many experts now say that women should focus on breast self-awareness instead of doing a breast self-examination (BSE). These experts include the [place] [employer], the U.[place]. Preventive Services Task Force, and the [place] [employer]. Some experts even advise not teaching women to do a BSE. That's because research hasn't shown a clear benefit to doing BSEs. Breast self-awareness is different than a BSE. Breast self-awareness isn't about following a certain method and schedule. It's about knowing what's normal for your breasts. That way you can notice even small changes right away. If you see any changes, report them to your healthcare provider. Changes to look for Call your healthcare provider if you find any changes in your breasts that concern you. These changes may include: ? A lump ? Nipple discharge other than breastmilk, especially a bloody discharge ? Swelling ? A change in size or shape ? Skin irritation, such as redness, thickening, or dimpling of the skin ? Swollen lymph nodes in the armpit ? Nipple problems, such as pain or redness If you find a lump Contact your provider if you find lumpiness in one breast, feel something different in the tissue, or feel a definite lump. Sometimes lumpiness may be due to menstrual changes. But there may be reason for concern. Your provider may want to see you right away if you have: ? Nipple discharge that is bloody ? Skin changes on your breast, such as dimpling or puckering It's normal to be upset if you find a lump. But it's important to contact your provider right away. Remember that most breast lumps are benign. This means they are not cancer. ? [id number] [employer]. [address] [place] [address], [place] [address]. All rights reserved. This information is not intended as a substitute for professional medical care. Always follow your healthcare professional's instructions. [facility] Evaluation + Plan note Note Date & Type Note Facility Evaluation + Plan note No data available for this section [facility] Evaluation + Plan note Note Date & Type Note Facility Evaluation + Plan note Future Appointments Appointment Date:09/05/2024 01:00:00 PM Scheduled Provider:Irving Clemens MD Location:[facility] Appointment Type:FM Open Appointment Date:02/17/2025 02:30:00 PM Scheduled Provider: Location:[facility] Appointment Type:FM Medicare Wellness Subsequent [facility] Evaluation note Note Date & Type Note Facility Evaluation note No assessment information availa [facility] Work Phone: Hospital Discharge instructions Note Date & Type Note Facility Hospital Discharge instructions No data available for this section [facility] Progress note Note Date & Type Note Facility Progress note No data available for this section [facility] Summary Purpose Family History No Family History Records FoundNo Family History Records FoundNo Family History Records FoundNo Family History Records Found No data available for this section No Family History Records Found No data available for this section No Family History Records Found Advance Directives No Advanced Directives Records FoundNo Advanced Directives Records FoundNo Advanced Directives Records FoundNo Advanced Directives Records FoundNo Advanced Directives Records FoundNo Advanced Directives Records Found Additional Source Comments INFORMATION SOURCE (unrecogn ized section and content) DATE CREATED AUTHOR 08/27/2021 [facility] DATE CREATED AUTHOR AUTHOR'S ORGANIZ ATION 12/30/2021 [facility] dical Specialist DATE CREATED AUTHOR AUTHOR'S ORGANIZ ATION 02/17/2022 [facility] DATE CREATED AUTHOR AUTHOR'S ORGANIZ ATION 11/03/2022 [facility] DATE CREATED AUTHOR AUTHOR'S ORGANIZ ATION 01/07/2024 [facility] d[facility] Specialists EPIC DATE CREATED AUTHOR AUTHOR'S ORGANIZ ATION 09/02/2024 [facility] Care Teams (unrecognized sec tion and content) Team Status: Inactive Member Role Status Dates Jason Khan MD Attending Provider Active Goals (unrecognized section and content) Goals may be documented in a n alternate section No data available for this section No data available for this section FOR RECORDS PERTAINING TO PATIENTS WHO ARE OR HAVE BEEN ENROLLED IN A CHEMICAL DEPENDENCY/SUBSTANCEABUSE PROGRAM, SOME INFORMATION MAY BE OMITTED. This clinical summary was aggregated from multiple sources. Caution should be exercised in using it in the provision of clinical care. This summary normalizes information from multiple sources, and as a consequence, information in this document may materially change the coding, format and clinical context of patient data. In addition, data may be omitted in some cases. CLINICAL DECISIONS SHOULD BE BASED ON THE PRIMARY CLINICAL RECORDS. [facility] [employer] [facility]. provides no warranty or guarantee of the accuracy or completeness of information in this document.
[2024-09-03 11:06] LABS: Basophils Absolute Auto 0.1 10^3/uL (0.0-0.1); Basophils Percent Auto 0.5 % (0.2-2.0); Eosinophils Absolute Auto 0.1 10^3/uL (0.0-0.7); Eosinophils Percent Auto 0.9 % (0.9-7.0); Hematocrit 47.2 % (36.0-48.0); Immature Granulocytes Abs Auto 0.05 10^3/uL (0.00-0.03); Immature Granulocytes Pct Auto 0.5 % (0.0-0.5); Lymphocytes Percent Auto 18.4 % (20.5-60.0); Mean Corpuscular HGB Conc 33.9 g/dL (29.9-35.2); Mean Corpuscular Hemoglobin 32.4 pg (26.7-34.0); Mean Corpuscular Volume 95.5 fL (81.0-99.0); Mean Platelet Volume 9.4 fL (9.5-13.5); Monocytes Percent Auto 8.8 % (1.7-12.0); Neutrophils Absolute Auto 7.8 10^3/uL (1.4-6.5); Neutrophils Percent Auto 70.9 % (43.0-75.0); Platelet Count 248 10^3/uL (150-450); Red Blood Count 4.94 10^6/uL (4.20-5.40); Red Cell Distribution Width 11.9 % (11.0-15.0)
[2024-09-03 11:51] LABS: Alanine Aminotransferase 28 U/L (14-59); Albumin Globulin Ratio 1.1; Albumin Level 3.8 g/dL (3.4-5.0); Alkaline Phosphatase 89 U/L (46-116); Anion Gap 17.8; Aspartate Amino Transferase 15 U/L (15-37); BUN Creatinine Ratio 13.7; Bilirubin Total 1.3 mg/dL (0.2-1.0); Calcium 9.5 mg/dL (8.5-10.1); Carbon Dioxide 24.7 mmol/L (21.0-32.0); Chloride 105 mmol/L (98-107); Estimated GFR (African America 54 (>=60 mL/min/1.73m^2); Estimated GFR (Non-African Ame 45 (>=60 mL/min/1.73m^2); Globulin 3.6 g/dL; Glucose 114 mg/dL (74-106); Potassium 3.5 mmol/L (3.5-5.1); Sodium 144 mmol/L (136-145); Total Protein 7.4 g/dL (6.4-8.2)
== END 2024-09-03 10:28 | disposition home or self-care (01) ==
LOC: LAB 10:27
PROVIDERS: PCP Family Medicine; Visit Provider Internal Medicine Rheumatology
DX: M15.0 Primary generalized (osteo)arthritis (principal); Z79.899 Other long term (current) drug therapy
CPT/HCPCS: 36415; 80053; 85025

== ENCOUNTER 2024-10-20 12:09 | Emergency (ER) | payer MEDICARE, OTHER, SELFPAY ==
[2024-10-20 12:17] VITALS: BP 168/100; PULSE 64; TEMP 36.7; O2SAT 96; BMI 31.5
--- OUTSIDE RECORDS SUMMARY | 2024-10-20 12:22 | XMS_ITS | CCD ---
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 Primary Care Physician SHAYAN GAMINO Attending Unavailable KUMAR KHAN Referring Unavailable IRVING CLEMENS Referring Unavailable Irving Clemens Attending Unavailable Irving Clemens. Attending Unavailable Irving Clemens. Attending Unavailable Irving Clemens. Attending Unavailable Irving Clemens. Attending Unavailable Irving Clemens. Attending Unavailable Irving Clemens. Attending Unavailable Irving Clemens. Attending Unavailable Irving Clemens. Referring Unavailable Irving Clemens. Admitting Unavailable Irving Clemens. Attending Unavailable Irving Clemens Admitting Unavailable Irving Clemens Attending Unavailable Allergies Allergy Classification Reported Allergen(s) Allergy Type Date of Onset Reaction(s) Facility (2 sources) Codeine; Translations: [codeine] Drug Allergy [facility] (1 source) Sulfonamides (Antibiotic) Drug allergy (disorder) [facility] (2 sources) Codeine; Translations: [codeine] Drug Allergy [facility] (3 sources) Sulfonamides (Antibiotic); Translations: [sulfa drugs] Propensity to adverse reactions to drug [facility] Medications Current Medications Medication Drug Class(es) Dates Sig (Normalized) Sig (Original) citalopram 40 mg oral tablet (2 sources) Serotonin Reuptake Inhibitor Start: 05-12-2024 take 1 tablet by mouth once daily citalopram 40 mg Tab 40 mg = 1 tab(s), Oral, Daily, # 90 tab(s), Refills(s) 4, Pharmacy: [facility], 161, cm, 03/05/24 13:06:00 EDT, Height/Length Dosing, 88.6, kg, 03/05/24 13:06:00 EDT, Weight Dosing Start Date: 05/12/24 Status: Ordered Start: 11-14-2023 take 1 tablet by [facility] once daily citalopram 40 mg Tab 40 mg = 1 tab(s), Oral, Daily, # 90 tab(s), Refills(s) 1, Pharmacy: [facility] #[id number], 159.5, cm, 11/14/23 13:11:00 EST, Height/Length Dosing, [...] Daily, # 90 tab(s), Refills(s) 1, Pharmacy: [facility] #[id number], 159.5, cm, 11/14/23 13:11:00 EST, Height/Length Dosing, 90.2, kg, 11/14/23 13:11:00 EST, Weight Dosing Start Date: 11/14/23 Status: Ordered pregabalin 75 mg oral capsule (1 source) Start: 07-29-2024 take 1 capsule by mouth twice daily Lyrica 75 mg Cap 75 mg = 1 cap(s), Oral, BID, # 60 cap(s), Refills(s) 0, Pharmacy: [facility], 161, cm, 07/29/24 12:54:00 EDT, Height/Length Dosing, 90.6, kg, 07/29/24 12:54:00 EDT, Weight Dosing Start Date: 07/29/24 Status: Ordered verapamil hydrochloride 240 mg extended release oral tablet (2 sources) Calcium Channel Hero Start: 05-12-2024 take 1 tablet by mouth once daily verapamil 240 mg ER Tab 240 mg = 1 tab(s), Oral, Daily, # 90 tab(s), Refills(s) 4, Pharmacy: [facility], 161, cm, 03/05/24 13:06:00 EDT, Height/Length Dosing, 88.6, kg, 03/05/24 13:06:00 EDT, Weight Dosing Start Date: 05/12/24 Status: Ordered Start: 11-14-2023 take 1 tablet by jake th once daily verapamil 240 mg ER Tab 240 mg = 1 tab(s), Oral, Daily, # 90 tab(s), Refills(s) 1, Pharmacy: [facility] #[id number], 159.5, cm, 11/14/23 13:11:00 EST, Height/Length Dosing, [...] 10-31-2022 Chronic Other aftercare (1 source) Other halfway (current) drug therapy; Translations: [OTH GROUP HOME CURRENT DRUG THERAPY] Onset: 11-03-2022 Episodic Other nervous system disorders (2 sources) Neuropathy 11-14-2023 Chronic Other nutritional; endocrine; and metabolic disorders (1 source) Body mass index 30+ - obesity 02-12-2024 Chronic Unclassified (2 sources) Statin not tolerated (context-dependent category) 11-14-2023 Results Test Name Value Interpretation Reference Range Facil ity Ambulatory Visit Summaryon 1 11-05-2023 Ambulatory Visit Summary Ambulatory Visit Summary JOSE MANUEL CHICAS :1945 Visit Date:09/05/2024 Ambulatory Visit Instructions Your Diagnosis Anxiety Neuropathy HTN (hypertension) BMI 34.0-34.9,adult Nonsmoker Obesity due to excess calories Your Care Team Attending Physician - Irving Clemens MD Primary Care Physician - Irving Clemens MD This Is Your Medications List citalopram (citalopram 40 mg Tab) etodolac (etodolac 500 mg Tab) hydrochlorothiazide (hydrochlorothiazide 25 mg Tab) pregabalin (Lyrica 75 mg Cap) pregabalin (Lyrica 75 mg Cap) verapamil (verapamil 240 mg ER Tab) Procedures Performed Acoustic neuroma, Biopsy of breast, Hysterectomy. Discharge Vitals Temperature (Oral) 36.7 ???C Heart Rate (Peripheral) 63 Respiratory Rate 18 Blood Pressure 130/78 Height 161 cm Height 63 in Weight 89.1 kg Weight 196.432 lb BMI 34.37 What to do next Scheduled Follow-Up Appointments Monday 1:15 PM EDT With: Irving Clemens MD Where: [address] [address]- Monday 2:30 PM EDT With: Where: [address] [id number]- Medications What How Much When Instructions Unchanged citalopram (citalopram 40 mg Tab) 1 Tablets By Mouth Every day Unchanged etodolac (etodolac 500 mg Tab) 1 Tablets By Mouth 2 times a day take 1 tablet by mouth twice a day Unchanged hydrochlorothiazide (hydrochlorothiazide 25 mg Tab) 1 Tablets By Mouth Every day Unchanged pregabalin (Lyrica 75 mg Cap) 1 Capsules By Mouth 2 times a day Unchanged pregabalin (Lyrica 75 mg Cap) 1 Capsules By Mouth 2 times a day Unchanged verapamil (verapamil 240 mg ER Tab) 1 Tablets By Mouth Every day Allergies codeine sulfa drugs Problems Ongoing - Any problem that you are currently receiving treatment for. Anxiety BMI 34.0-34.9,adult HLD (hyperlipidemia) HTN (hypertension) Neuropathy Statin intolerance Patient Survey You may receive a survey via text or e-mail asking about your office visit. Please share your experience with us by completing your survey. We appreciate your feedback and thank you for choosing us for your care. Normal [facility] Family Medicine Office/Clini c Noteon 09-05-2024 Family Medicine Office/Clinic Note Family Medicine Office/Clinic Note Chief Complaint 6m follow up to HTN Concerns of burning and tingling sensations in the feet and anxiety management. HPI Staff Jose Manuel is an 79 year old female presenting for 6 month follow up htn, anxiety Patient is here for follow up on hypertension. How often are you checking your blood pressure? Couple times a week What are your average readings? _130/80 Yearly BMP:11/14/23_ FANNY: 6 History of Present Illness The patient is an 79-year-old female presenting with neuropathy. She reports burning and tingling sensations in the feet, which could indicate the onset of neuropathy. The symptoms were discussed, and it was noted they are potentially nerve-related. The use of Lyrica has been instituted to manage nerve pain symptoms. The patient also presents with anxiety, which appears to be well-managed currently. Review of Systems PHQ Score Initial Depression Screen Score: 0 SCORE - Neurological: Reports burning and tingling sensations in feet. Physical Exam Vitals & Measurements T: 36.7 ???C(Oral) HR: 63(Peripheral) RR: 18 BP: 130/78 SpO2: 96% HT: 63 in HT: 161 cm WT: 89.1 kg WT: 196.432 lb BMI: 34.37 General: alert, no acute distress ENMT: oral mucosa moist Cardiovascular: Regular rate and rhythm, normal peripheral perfusion Respiratory: Lungs clear to auscultation, respirations non labored Extremities: no deformity, no trauma Neurological: oriented x 4, level of consciousness appropriate for age, CN II-XII intact, motor strength equal & normal bilaterally, speech normal Abdomen: Soft, Non-tender, Non-distended, + Bowel sounds Assessment/Plan 1. Anxiety (F41.9: Anxiety disorder, unspecified) Anxiety management is ongoing, and the patient reports it as stable. No additional medication changes are needed at this time, and regular monitoring will continue. 2. Neuropathy (G62.9: Polyneuropathy, unspecified) The symptoms described suggest the onset of neuropathy. Lyrica has been prescribed to help manage the nerve pain, as it is effective for nerve-related conditions. The effectiveness of Lyrica in managing these symptoms will be evaluated, and the patient has been scheduled for follow-up visits every six months to monitor progress. 3. HTN (hypertension) (I10: Essential (primary) hypertension) Patient's blood pressure is reportedly stable, and current management seems satisfactory. Continue monitoring blood pressure readings regularly. 4. BMI 34.0-34.9,adult (Z68.34: Body mass index [BMI] 34.0-34.9, adult) BMI education given 5. Nonsmoker (Z78.9: Other specified health status) Please continue not to smoke 6. Obesity due to excess calories (E66.09: Other obesity due to excess calories) Encourage lifestyle modifications and dietary changes to help manage weight. Regular follow-up will be important to monitor progress and provide additional support if necessary. Orders: pregabalin, 75 mg = 1 cap(s), Oral, BID, # 180 cap(s), Refills(s) 1, Pharmacy: [facility], 161, cm, 09/05/24 13:07:00 EST, Height/Length Dosing, 89.1, kg, 09/05/24 13:07:00 EST, Weight Dosing 79-year-old female with history of neuropathy and anxiety, presenting with symptoms of neuropathic pain characterized by burning and tingling sensations in her feet. Follow-up No qualifying data available Problem List/Past Medical History Ongoing Anxiety BMI 34.0-34.9,adult HLD (hyperlipidemia) HTN (hypertension) Neuropathy Statin intolerance Historical No qualifying data Procedure/Surgical History Acoustic neuroma, Biopsy of breast, Hysterectomy. Medications citalopram 40 mg Tab, 40 mg= 1 tab(s), Oral, Daily, 4 refills etodolac 500 mg Tab, 500 mg= 1 tab(s), Oral, BID hydrochlorothiazide 25 mg Tab, 25 mg= 1 tab(s), Oral, Daily, 1 refills Lyrica 75 mg Cap, 75 mg= 1 cap(s), Oral, BID, 1 refills verapamil 240 mg ER Tab, 240 mg= 1 tab(s), Oral, Daily, 4 refills Allergies codeine sulfa drugs Social History Alcohol - Medium Risk, 02/12/2024 Current. Wine. 3-5 times per week., 08/31/2024 Substance Abuse - Denies Substance Abuse, 02/12/2024 Never., 08/31/2024 Tobacco Former smoker, quit more than 30 days ago Tobacco Use:. Never Smokeless Tobacco Use:., 09/05/2024 Family History Acute myocardial infarction: Father. Hypertension: Brother. Stroke: Mother. Immunizations Vaccine Date Status Comments influenza virus vaccine, inactivated - Not Given Patient Refuses pneumococcal 13-valent vaccine 09/09/2021 Recorded influenza virus vaccine, inactivated 10/05/2019 Recorded pneumococcal 23-valent vaccine 08/26/2014 Recorded pneumococcal 23-valent vaccine 08/23/2001 Recorded Normal [facility] Comment on above: Result Comment: Elec tronically Signed By: Roberto Carlos MART, Irving Rutledge.br\Date and Time Signed: 09/05/24 13:55 EST Family Medicine Office/Clini c Noteon 07-29-2024 Family [...] neuropathy c (more content not included)... Normal [facility] Comment on above: Result Comment: Elec tronically Signed By: Irvnig Clemens MD\.br\Date and Time Signed: 07/29/24 13:42 [...] Follow-Up Appointments 2023 1:00 PM EST With: Roberto Carlos MART, Irving Small Where: [facility] Medicine [place] Normal [address] [id number]- \.br\ Medications\.br\ What How Much When Instructions\.br\ [...] for choosing us for your care.\.br\ \.br\ [facility] Family Medicine Office/Clini c Noteon [...] Recorded pneumococcal 23-valent vaccine 08/23/2001 Recorded Normal [facility] Comment on above: Result Comment: Elec tronically Signed By: Roberto Carlos MART, Irving Small\.br\Date and Time Signed: 03/05/24 13:36 EDT Living Will/Navdeep 03-05-2024 Living Will/ANITA [id number] #1.00TIFF Normal [facility] Family Medicine Office/Clini c Noteon [...] for MERS/COVID-19 : N/A Marilyn Jose LPN - 02/12/2024 12:58 EDT Medicare/Medicaid Summary Height/Length [...] : 16 br/min SpO2 : 96 % Marilyn Jose LPN - 02/12/2024 14:22 EDT Chief Complaint : Medicare Wellness Visit Subsequent Marilyn Jose LPN - 02/12/2024 15:44 EDT Patient Counseled : Nutrition, [...] ; Comments: 11/14/2023 13:07 Laly Velasquez LPN [facility] 1995 ; Last Reviewed Dt/Tm: 02/12/2024 [...] help : (more content not included)... Normal [facility] Comment on above: Result Comment: Elec tronically Signed By: Irving Clemens MD\.br\Date and Time Signed: 02/13/24 08:33 EDT\.br\Electronically Co-Signed By: Marilyn Jose LPN\.br\Date and Time Co-Signed: 02/12/24 16:35 EDT [place] 02-13-2024 Screens [id number] #1.00TIFF Normal [facility] Ambulatory Visit Summaryon 0 02-12-2024 [...] PM EDT With: Irving Clemens MD Where: [facility] [place] Normal [address] [place] [address]- \.br\ Medications\.br\ What How Much When Instructions\.br\ [...] ? \.br\ Avoid caffeine, alcohol, and certain cigq-gzw-cweztid cold medicines. These may make you feel worse. Ask your pharmacist which medicines to avoid.\.br\ General instructions\.br\ ? \.br\ Take gevg-yyl-qmivrvv and prescription medicines only as told by your health care provider.\.br\ ? \.br\ Keep all follow-up visits. This is important.\.br\ Where to find support\.br\ You can get help and support from these sources:\.br\ ? \.br\ Self-help groups.\.br\ ? \.br\ Online and community organizations.\.br\ ? \.br\ A trusted spiritual leader.\.br\ ? \.br\ [facility] Dexa Scanson 02-12-2024 Dexa Scans [id number] #1.00TIFF Normal [facility] Patient Educationon 02-12-20 24 Patient Education Cardiovascular Hypertension, Adult High blood [...] 1? oz glass (more content not included)... Normal [facility] Outside Mammographyon 2023 Outside Mammography [id number] #1.00TIFF Normal [facility] BI MAMMOGRAM SCREENING TOMOS YNTHESIS [...] IS VERY IMPORTANT TO YOUR HEALTH. THE [employer] GUIDELINES RECOMMEND THAT WOMEN 40 [...] VIEWS. TRANSCRIBED BY: ELECTRONICALLY SIGNED BY: Andrae Ewign MD Normal Not Available DEXA BONE DENSITYon [...] Care Team Attending Physician - Irving Clemens MD. Primary Care Physician - Irving Clemens MD. This Is Your Medications List citalopram (citalopram [...] Mouth Every day Pickup at [facility] #[id number] Changed hydrochlorothiazide (hydrochlorothiazide 25 mg Tab) 1 Tablets By Mouth Every day Pickup at [facility] #[id number] Changed verapamil (verapamil 240 mg ER Tab) 1 Tablets By Mouth Every day Pickup at [facility] #[id number] Unchanged gabapentin (gabapentin 300 mg Cap) See instructions 1 orally in the am and 2 at bedtime Contact prescribing physician if questions or concerns Pharmacy Information [facility] #[id number]: [address], [place] [id number] [phone] Allergies codeine sulfa drugs Problems Ongoing - [...] numbers. This can be done either in [place] ([place] or metric measurements. Note that charts and online BMI calculators are available to help you find your BMI quickly and easily without having to do these calculations yourself. To calculate your BMI in [place] ([place] measurements: 1. Measure your weight in [...] an athle (more content not included)... Normal [facility] CBC w/ Auto Diffon 4 Basophil Absolute 0.0 E9/L Normal 0.0-0.2 [facility] Comment on above: Performed By: #### 2 822322, 5170790, 7223528, [id number] ####[facility] [address] [place] [address] Basophils/100 WBC (Bld) 0.5 % Normal 0.0-2.0 [facility] Comment on above: Performed By: #### 2 631190, 4722283, 4911651, 05276672 ####[facility] [address] [place] [address] Eos Absolute 0.2 E9/L Normal 0.0-0.5 [facility] Comment on above: Performed By: #### 2 298027, 6342721, 2343339, 81701969 ####[address] [place] [address] Eosinophils/100 WBC (Bld) 3.6 % Normal 0.0-8.0 [facility] Comment on above: Performed By: #### 2 002574, 1524919, 0424027, [id number] ####[address] [address] Erythrocyte distribution width (RBC) [Ratio] 12.9 % Normal 10.9-14.2 [facility] Comment on above: Performed By: #### 2 482288, 8383645, 6396055, 42866764 ####[address] [address] Hematocrit (Bld) [Volume fraction] 43.0 % Normal 34.0-46.0 [facility] Comment on above: Performed By: #### 2 817628, 6073662, 1441336, 85522366 ####[address] [address] Hemoglobin (Bld) [Mass/Vol] 14.3 g/dL Normal 12.0-16.0 [facility] Comment on above: Performed By: #### 2 846377, 9444573, 3623021, 08633045 ####[address] [address] Lymph Absolute 1.6 E9/L Normal 1.0-4.0 [facility] Comment on above: Performed By: #### 2 407538, 3117818, 1784054, 81104126 ####[address] [address] Lymphocytes/100 WBC (Bld) 24.6 % Normal 14.0-50.0 [facility] Comment on above: Performed By: #### 2 013773, 6077866, 5828065, 76331585 ####[address] [address] MCH (RBC) [Entitic mass] 32.2 pg Normal 27.0-34.0 [facility] Comment on above: Performed By: #### 2 774693, 3704748, 2065587, 51986054 ####[address] [address] MCHC (RBC) [Mass/Vol] 33.3 g/dL Normal 31.4-36.0 [facility] Comment on above: Performed By: #### 2 973151, 0130214, 9967523, 17527672 ####[address] [address] MCV (RBC) [Entitic vol] 96.7 fL Normal 80.0-100.0 [facility] Comment on above: Performed By: #### 2 481709, 4874951, 7620992, 15913817 ####[address] [address] Gallia Absolute 0.7 E9/L Normal 0.2-1.0 [facility] Comment on above: Performed By: #### 2 620592, 8091745, 3666099, 55885892 ####[address] [address] Monocytes/100 WBC (Bld) 10.8 % Normal 4.0-14.0 [facility] Comment on above: Performed By: #### 2 293891, 6143052, 4240344, 17025513 ####[address] [address] Neutro Absolute 3.9 E9/L Normal 2.0-7.5 [facility] Comment on above: Performed By: #### 2 657922, 1180504, 2949005, 88977144 ####[address] [address] Neutro Auto 60.5 % Normal 36.0-75.0 [facility] Comment on above: Performed By: #### 2 755276, 5012414, 3878719, 60918129 ####[address] [address] Platelet 218.0 E9/L Normal 150.0-500.0 [facility] Comment on above: Performed By: #### 2 841734, 8758102, 7455992, 97103441 ####[address] [address] Platelet mean volume (Bld) [Entitic vol] 8.4 fL Normal 6.4-10.8 [facility] Comment on above: Performed By: #### 2 334005, 4237697, 0609298, 23683675 ####[facility] [address] [place] [address] RBC 4.4 E12/L Normal 4.3-5.9 [facility] Comment on above: Performed By: #### 2 759260, 7952051, 4693123, 16754789 ####[facility] [address] [place] [address] WBC 6.4 E9/L Normal 4.0-11.0 [facility] Comment on above: Performed By: #### 2 772854, 7990086, 9633454, 98563950 ####[facility] [address] [place] [address] CHEMISTRYOrdered By: SYSTEM SYSTEM on 11-14-2023 Albumin [...] 11-14-2023 Albumin [Mass/Vol] 3.9 g/dL Normal 3.3-5.0 [facility] Comment on above: Performed By: #### 2 513668, 3682932, 3854571, 22831992 ####[facility] [address] [place] [address] Albumin/Globulin [Mass ratio] 1.7 {ratio} Normal 1.1-2.2 [facility] Comment on above: Performed By: #### 2 836762, 1571874, 2004176, 42732968 ####[facility] [address] [place] [address] Alk Phos 72 Int._Unit/L Normal 21-98 [facility] Comment on above: Performed By: #### 2 103476, 8684213, 1537957, 85001385 ####[facility] [address] [place] [address] ALT 19 Int._Unit/L Normal 6-46 [facility] Comment on above: Performed By: #### 2 812212, 6976249, 5084323, 82942238 ####[facility] [address] [place] [address] Anion gap [Moles/Vol] 10 mmol/L Normal 6-16 [facility] Comment on above: Performed By: #### 2 113348, 3235785, 3612008, 40562437 ####[address] [address] AST 19 Int._Unit/L Normal 5-43 [facility] Comment on above: Performed By: #### 2 074368, 5284554, 4007229, 02547499 ####[facility] [address] [place] [address] Bili Total 0.9 mg/dL Normal 0.0-1.1 [facility] Comment on above: Performed By: #### 2 401715, 7089988, 1323960, 26134721 ####[facility] [address] [place] [address] BUN/Creat Ratio 19 No Units Normal 10-20 [facility] Comment on above: Performed By: #### 2 458898, 1114612, 2970649, 33871548 ####[facility] [address] [place] [address] Calcium [Mass/Vol] 8.6 mg/dL Low 8.9-11.1 [facility] Comment on above: Performed By: #### 2 609784, 3392535, 4143032, 13029645 ####[facility] [address] [place] [address] Chloride [Moles/Vol] 106 mmol/L Normal 101-111 [facility] Comment on above: Performed By: #### 2 131662, 8513139, 0840602, 49727598 ####[facility] [address] [place] [address] CO2 [Moles/Vol] 26 mmol/L Normal 21-31 [facility] Comment on above: Performed By: #### 2 586772, 4710549, 0378791, 43952848 ####[facility] [address] [place] [address] Creatinine [Mass/Vol] 0.8 mg/dL Normal 0.5-1.3 [facility] Comment on above: Performed By: #### 2 135363, 7895711, 5772633, 14939985 ####[facility] [address] [place] [address] Globulin (S) [Mass/Vol] 2.3 g/dL Normal 1.4-4.0 [facility] Comment on above: Performed By: #### 2 614609, 7977318, 6518490, 50523975 ####[facility] [address] [place] [address] Glucose [Mass/Vol] 98 mg/dL Normal 55-199 [facility] Comment on above: Performed By: #### 2 605914, 7534189, 9260258, 70113307 ####[facility] [address] [place] [address] Potassium [Moles/Vol] 4.3 mmol/L Normal 3.5-5.3 [facility] Comment on above: Performed By: #### 2 111799, 0915050, 3516482, 09379259 ####[facility] [address] [place] [address] Protein [Mass/Vol] 6.2 g/dL Normal 6.0-7.8 [facility] Comment on above: Performed By: #### 2 101707, 4228510, 0335390, 36703212 ####[facility] [address] [place] [address] Sodium [Moles/Vol] 138 mmol/L Normal 135-145 [facility] Comment on above: Performed By: #### 2 399863, 5441207, 8470291, 53211013 ####[facility] [address] [place] [address] Urea nitrogen [Mass/Vol] 15 mg/dL Normal 5-21 [facility] Comment on above: Performed By: #### 2 917438, 8176856, 4283555, 85027974 ####[facility] [id number] [place] [address] Family Medicine Office/Clini c Noteon 11-14-2023 Family Medicine Office/Clinic Note HPI Staff Jose Manuel is a 78 year old female presenting to re-establish care Establish Care: History:HTN, anxiety, neuropathy Any previous diagnosis: History of seeing any specialist: Dr Khan ( rxs her gabapentin) When was your last doctors visit: 2019 Last provider: Dr Jhony Gamino ( gravel switch, she moved on) and saw Dr Clemens when 1st in [place] Any recent labs: [facility] ( dr Khan) Aug 2023 and PCP [...] 90 tab(s), Refills(s) 1, Pharmacy: [facility] #[id number], 159.5, cm, 11/14/23 13:11:00 EST, Height/Length Dosing, 90.2, kg, 11/14/23 13:11:00 EST, Weight Dosing hydrochlorothiazide, 25 mg = 1 tab(s), Oral, Daily, # 90 tab(s), Refills(s) 1, Pharmacy: [facility] #[id number], 159.5, cm, 11/14/23 13:11:00 EST, Height/Length Dosing, 90.2, kg, 11/14/23 13:11:00 EST, Weight Dosing verapamil, 240 mg = 1 tab(s), Oral, Daily, # 90 tab(s), Refills(s) 1, Pharmacy: [facility] #[id number], 159.5, cm, 11/14/23 13:11:00 EST, Height/Length Dosing, 90.2, kg, 11/14/23 13:11:00 EST, Weight Dosing Follow-up No qualifying data available Patient Education BMI for Adults Problem List/Past Medical History Ongoing Anxiety HLD (hyperlipidemia) HTN (hypertension) Neuropathy Statin intolerance Historical No qualifying data Procedure/Surgical History Acoustic neuroma, Biopsy of breast, Hysterectomy. Medications citalopram 40 mg Tab, (more content not included)... Normal [facility] Comment on above: Result Comment: Elec tronically Signed By: Roberto Carlos MART, Irving Rutledge.br\Date and Time Signed: 11/14/23 14:06 EST HEMATOLOGYOrdered [...] Normal 80.0 - 100.0 fL Remisol Heme Gallia Absolute 0.7 E9/L Normal 0.2 - 1.0 [...] 11-14-2023 Cholesterol [Mass/Vol] 254 mg/dL High 120-200 [facility] Comment on above: Performed By: #### 2 [id number], [id number], [id number], [id number] ####[facility] [address] [place] [address] Cholesterol in HDL [Mass/Vol] 57 mg/dL Invalid Interpretation Code [facility] Comment on above: Result Comment: '>= 60 LOW RISK' '<= 40 HIGH RISK' Performed By: #### 2 [id number], [id number], [id number], [id number] ####[facility] [address] [place] [address] Cholesterol in LDL [Mass/Vol] 176 mg/dL High <=129 [facility] Comment on above: Performed By: #### 2 [id number], [id number], [id number], [id number] ####[facility] [address] [place] [address] Cholesterol in VLDL [Mass/Vol] 32 mg/dL Normal 7-40 [facility] Comment on above: Performed By: #### 2 [id number], [id number], [id number], [id number] ####[facility] [address] [place] [address] Triglyceride [Mass/Vol] 162 mg/dL High <=149 [facility] Comment on above: Performed By: #### 2 [id number], [id number], [id number], [id number] ####[facility] [address] [place] [address] Patient Educationon 11-14-19 Patient Education Nutrition BMI [...] numbers. This can be done either in [place] ([place] or metric measurements. Note that charts and online BMI calculators are available to help you find your BMI quickly and easily without having to do these calculations yourself. To calculate your BMI in Romanian (U.S.) measurements: 1. Measure your weight in [...] for Disease Control and Prevention: www.cdc.gov ? [place] [employer]: www.heart.org ? National Heart, Lung, and Blood [place]: www.nhlbi.nih.gov Summary ? Body mass index (BMI) is a number that is calculated from a person's weight and height. ? BMI may help estimate how much of a person's weight is composed of fat. BMI can help identify those who may be at higher risk for certain medical problems. ? BMI can be measured using Romanian measurements or metric measurements. ? BMI charts are used to identify whether you are underweight, normal weight, overweight, or obese. This information is not intended to replace advice given to you by your health care provider. Make sure you discuss any questions you have with your health care provider. Document Revised: 07/01/2020 Document Reviewed: 05/08/2020 [employer] Patient Education ? 2022 [employer] Normal [facility] eGFRon 11-14-2023 eGFR 75 mL/min/1.73 m2 Normal >=59 [facility] Comment on above: Order Comment: Order added by Discern Expert. Performed By: #### 2 [id number], [id number], [id number], [id number] ####[facility] [address] [place] [address] CBC AUTO DIFFon 10-31-2022 BASO # 0.1 103/ul Normal 0.0-0.1 [facility] Comment on above: Performed By: #### C BC #### [facility] [address] [place], [place] [address] Dr. Ernestina Peters Basophils/100 WBC (Bld) 0.8 % Normal 0.2-2.0 [facility] Comment on above: Performed By: #### C BC #### [facility] [address] [place] [address] [address] Ernestina Peters EO # 0.3 103/ul Normal 0.0-0.7 [facility] Comment on above: Performed By: #### C BC #### [facility] [address] [place] [address] Dr. Ernestina Peters Eosinophils/100 WBC (Bld) 3.7 % Normal 0.9-7.0 [facility] Comment on above: Performed By: #### C BC #### [facility] [address] [place] [address] Dr. Ernestina Peters Erythrocyte distribution width (RBC) [Ratio] 12.3 % Normal 11.0-15.0 [facility] Comment on above: Performed By: #### C BC #### [facility] [address] [place] [address] Dr. Ernestina Peters Hematocrit (Bld) [Volume fraction] 41.8 % Normal 36.0-48.0 [facility] Comment on above: Performed By: #### C BC #### [facility] [address] [place] [address] Dr. Ernestina Peters Hemoglobin (Bld) [Mass/Vol] 14.9 g/dL Normal 12.0-16.0 [facility] Comment on above: Performed By: #### C BC #### [facility] [address] [place] [address] Dr. Ernestina Peters IG # 0.03 10e3/ul Normal 0.00-0.03 [facility] Comment on above: Performed By: #### C BC #### [facility] [address] [place] [address] Dr. Ernestina Peters IG % 0.4 % Normal 0.0-0.5 [facility] Comment on above: Performed By: #### C BC #### [facility] [address] [place] [address] Dr. Ernestina Peters LYMPH # 1.4 103/ul Normal 1.2-3.8 [facility] Comment on above: Performed By: #### C BC #### [facility] [address] [place] [address] Dr. Ernestina Peters Lymphocytes/100 WBC (Bld) 19.8 % Critically low 20.5-60.0 [facility] Comment on above: Performed By: #### C BC #### [facility] [address] [place] [address] Dr. Ernestina Peters MANUAL DIFF REQ NO Normal [facility] Comment on above: Performed By: #### C BC #### [facility] [address] [place] [address] Dr. Ernestina Peters MCH (RBC) [Entitic mass] 31.5 pg Normal 26.7-34.0 [facility] Comment on above: Performed By: #### C BC #### [facility] [address] [place] [address] Dr. Ernestina Peters MCHC (RBC) [Mass/Vol] 35.6 g/dL Critically high 29.9-35.2 [facility] Comment on above: Performed By: #### C BC #### [facility] [address] [place] [address] Dr. Ernestina Peters MCV (RBC) [Entitic vol] 88.4 fL Normal 81.0-99.0 [facility] Comment on above: Performed By: #### C BC #### [facility] [address] [place] [address] Dr. Ernestina Peters MONO # 0.6 103/ul Normal 0.3-0.8 [facility] Comment on above: Performed By: #### C BC #### [facility] [address] [place] [address] Dr. Ernestina Peters Monocytes/100 WBC (Bld) 8.1 % Normal 1.7-12.0 [facility] Comment on above: Performed By: #### C BC #### [facility] [address] [place] [address] Dr. Ernestina Peters NEUT # 4.8 103/ul Normal 1.4-6.5 [facility] Comment on above: Performed By: #### C BC #### [facility] [address] [place] [address] Dr. Ernestina Peters Neutrophils/100 WBC (Bld) 67.2 % Normal 43.0-75.0 [facility] Comment on above: Performed By: #### C BC #### [facility] [address] [place] [address] [address] Ernestina Peters Platelet mean volume (Bld) [Entitic vol] 8.9 fL Critically low 9.5-13.5 [facility] Comment on above: Performed By: #### C BC #### [facility] [address] [place] [address] Dr. Ernestina Peters PLT 242 103/ul Normal 150-450 [facility] Comment on above: Performed By: #### C BC #### [facility] [address] [place] [address] Dr. Ernestina Peters RBC 4.73 106/ul Normal 4.20-5.40 [facility] Comment on above: Performed By: #### C BC #### [facility] [address] [place] [address] Dr. Ernestina Peters WBC 7.1 103/ul Normal 4.0-11.0 [facility] Comment on above: Performed By: #### C BC #### [facility] [address] [place] [address] Dr. Ernestina Peters PROF 14(COMP METB)on 023 Albumin [Mass/Vol] 3.5 g/dL Normal 3.4-5.0 [facility] Comment on above: Performed By: #### C MP #### [facility] [address] [place] [address] Dr. Ernestina Peters Albumin/Globulin [Mass ratio] 1.2 {ratio} Normal [facility] Comment on above: Performed By: #### C MP #### [facility] [address] [place] [address] Dr. Ernestina Peters ALP [Catalytic activity/Vol] 88 U/L Normal 46-116 [facility] Comment on above: Performed By: #### C MP #### [facility] [address] [place] [address] Dr. Ernestina Peters ALT [Catalytic activity/Vol] 19 U/L Normal 14-59 [facility] Comment on above: Performed By: #### C MP #### [facility] [address] [place] [address] [address] Ernestina Peters Anion gap [Moles/Vol] 11.0 mmol/L Normal [facility] Comment on above: Performed By: #### C MP #### [facility] [address] [place] [address] Dr. Ernestina Peters AST [Catalytic activity/Vol] 18 U/L Normal 15-37 [facility] Comment on above: Performed By: #### C MP #### [facility] [address] [place] [address] Dr. Ernestina Peters Bilirubin [Mass/Vol] 1.0 mg/dL Normal 0.2-1.0 [facility] Comment on above: Performed By: #### C MP #### [facility] [address] [place] [address] Dr. Ernestina Peters Calcium [Mass/Vol] 9.2 mg/dL Normal 8.5-10.1 [facility] Comment on above: Performed By: #### C MP #### [facility] [address] [place] [address] Dr. Ernestina Peters Chloride [Moles/Vol] 104 mmol/L Normal 98-107 [facility] Comment on above: Performed By: #### C MP #### [facility] [address] [place] [address] Dr. Ernestina Peters CO2 [Moles/Vol] 30.0 mmol/L Normal 21.0-32.0 [facility] Comment on above: Performed By: #### C MP #### [facility] [address] [place] [address] Dr. Ernestina Peters Creatinine [Mass/Vol] 0.76 mg/dL Normal 0.55-1.02 [facility] Comment on above: Performed By: #### C MP #### [facility] [address] [place] [address] Dr. Ernestina Peters EGFR-AF FAROESE >60 Normal >=60 [facility] Comment on above: Performed By: #### C MP #### [facility] [address] [place] [address] Dr. Ernestina Peters EGFR-NON AF FAROESE >60 Normal >=60 [facility] Comment on above: Performed By: #### C MP #### [facility] [address] [place] [address] Dr. Ernestina Peters Globulin (S) [Mass/Vol] 3.0 g/dL Normal [facility] Comment on above: Performed By: #### C MP #### [facility] [address] [place] [address] [address] Ernestina Peters Glucose [Mass/Vol] 133 mg/dL Critically high 74-106 [facility] Comment on above: Performed By: #### C MP #### [facility] [address] [place] [address] [address] Ernestina Peters Potassium [Moles/Vol] 4.0 mmol/L Normal 3.5-5.1 [facility] Comment on above: Performed By: #### C MP #### [facility] [address] [place] [address] Dr. Ernestina Peters Protein [Mass/Vol] 6.5 g/dL Normal 6.4-8.2 [facility] Comment on above: Performed By: #### C MP #### [facility] [address] [place] [address] Dr. Ernestina Peters Sodium [Moles/Vol] 141 mmol/L Normal 136-145 [facility] Comment on above: Performed By: #### C MP #### [facility] [address] [place] [address] [address] Ernestina Peters Urea nitrogen [Mass/Vol] 17.0 mg/dL Normal 7.0-18.0 [facility] Comment on above: Performed By: #### C MP #### [facility] [address] [place] [address] [address] Ernestina Peters Urea nitrogen/Creatinine [Mass ratio] 22.4 mg/mg Normal [facility] Comment on above: Performed By: #### C MP #### [facility] [address] [place] [address] Dr. Ernestina Peters SABRINA Antinuclear Antibodieson 01-31-2022 Antinuclear Abs, IFA Negative Normal . [facility] Comment on above: Result Comment: Nega tive <1:80 Borderline 1:80 Positive >1:80 ICAP nomenclature: AC-0 For more information about Hep-2 cell patterns use ANApatterns.org, the official website for the International Consensus on Antinuclear Antibody (SABRINA) Patterns (ICAP). Performed at: [address] [id number] [employer]: Chu Dewey PhD, Phone: [phone] Performed By: #### T SH3, CBC, ESR, ADDONUAPLUS, CK, T4F, CRP, CMP, LDH, PTH #### [address] #### JEWEL,URINE, JEWEL SERUM, MYOG, SABRINA, UPE RAND, SPE #### [facility] , Albumin [Mass/volume] in Ser um or PlasmaOrdered By: Kumar Khan on 01-31-2022 Albumin [Mass/Vol] 4.2 g/dL 3.2-5.5 [facility] Aldolaseon 01-31-2022 Aldolase 3.8 U/L Normal 3.3-10.3 [facility] Comment on above: Result Comment: Perf ormed at: [place] [id number] [employer]: Chu Dewey PhD, Phone: [phone] PERFORMED BY: [address] [place] [address] PATHOLOGIST [employer] JOURNEYMAN SAE GOMEZ M.D. Performed By: #### T SH3, CBC, ESR, ADDONUAPLUS, CK, T4F, CRP, CMP, LDH, PTH #### [address] #### JEWEL,URINE, JEWEL SERUM, MYOG, SABRINA, UPE RAND, SPE #### [facility] , Automated erythrocytes count in urine sediment (number/area)Ordered By: Kumar Khan on 01-31-2022 RBC Auto (Urine sed) [#/Area] None seen [HPF] [facility] Automated leukocytes count i n urine sediment (number/area)Ordered By: Kumar Khan on 01-31-2022 WBC Auto (Urine sed) [#/Area] 3-4 [HPF] [facility] Basophils Auto (Bld) [#/Vol] Ordered By: Kumar Juarezrow on 01-31-2022 Basophils (Bld) [#/Vol] 0.1 10*3/uL 0.0-0.2 [facility] Basophils/100 WBC Auto (Bld) Ordered By: Kumar Juarezrow on 01-31-2022 Basophils/100 WBC (Bld) 0.9 % [facility] Bilirubin Test strip Ql (U)O rdered By: Kumar Juarezrow on 01-31-2022 Bilirubin Ql (U) Negative Negative [facility] Blood hemoglobin measurement (mass/volume)Ordered By: Kumar Juarezrow on 01-31-2022 Hemoglobin (Bld) [Mass/Vol] 15.8 g/dL 11.8-15.4 [facility] Blood leukocytes automated c ount (number/volume)Ordered By: Kumar Juarezrow on 01-31-2022 WBC (Bld) [#/Vol] 8.3 10*3/uL 4.5-11.0 [facility] C-Reactive Proteinon 022 C-Reactive Protein 0.8 mg/dL Normal 0.0-1.0 [facility] Comment on above: Performed By: #### T SH3, CBC, ESR, ADDONUAPLUS, CK, T4F, CRP, CMP, LDH, PTH #### [facility] [address] #### JEWEL,URINE, JEWEL SERUM, MYOG, SABRINA, UPE RAND, SPE #### [facility] , Color Auto (U)Ordered By: John Khan on 01-31-2022 Color (U) Dark yellow Yellow [facility] Complete Blood Count Auto Di ffon 01-31-2022 Basophils (Bld) [#/Vol] 0.1 10*3/uL Normal 0.0-0.2 [facility] Comment on above: Performed By: #### T SH3, CBC, ESR, ADDONUAPLUS, CK, T4F, CRP, CMP, LDH, PTH #### [facility] [address] [place] [address] #### JEWEL,URINE, JEWEL SERUM, MYOG, SABRINA, UPE RAND, SPE #### [facility] , Basophils/100 WBC (Bld) 0.9 % Normal . [facility] Comment on above: Performed By: #### T SH3, CBC, ESR, ADDONUAPLUS, CK, T4F, CRP, CMP, LDH, PTH #### [facility] [address] [place] [address] #### JEWEL,URINE, JEWEL SERUM, MYOG, SABRINA, UPE RAND, SPE #### [facility] , Eosinophils (Bld) [#/Vol] 0.2 10*3/uL Normal 0.0-0.45 [facility] Comment on above: Performed By: #### T SH3, CBC, ESR, ADDONUAPLUS, CK, T4F, CRP, CMP, LDH, PTH #### [address] #### JEWEL,URINE, JEWEL SERUM, MYOG, SABRINA, UPE RAND, SPE #### [facility] , Eosinophils/100 WBC (Bld) 2.0 % Normal . [facility] Comment on above: Performed By: #### T SH3, CBC, ESR, ADDONUAPLUS, CK, T4F, CRP, CMP, LDH, PTH #### [facility] [address] [place] [address] #### JEWEL,URINE, JEWEL SERUM, MYOG, SABRINA, UPE RAND, SPE #### [facility] , Erythrocyte distribution width (RBC) [Ratio] 12.8 % Normal 11.9-15.3 [facility] Comment on above: Performed By: #### T SH3, CBC, ESR, ADDONUAPLUS, CK, T4F, CRP, CMP, LDH, PTH #### [address] #### JEWEL,URINE, JEWEL SERUM, MYOG, SABRINA, UPE RAND, SPE #### [facility] , Hematocrit (Bld) [Volume fraction] 46.2 % Normal 34.0-46.4 [facility] Comment on above: Performed By: #### T SH3, CBC, ESR, ADDONUAPLUS, CK, T4F, CRP, CMP, LDH, PTH #### [address] #### JEWEL,URINE, JEWEL SERUM, MYOG, SABRINA, UPE RAND, SPE #### [facility] , Hemoglobin (Bld) [Mass/Vol] 15.8 g/dL High 11.8-15.4 [facility] Comment on above: Performed By: #### T SH3, CBC, ESR, ADDONUAPLUS, CK, T4F, CRP, CMP, LDH, PTH #### [address] #### JEWEL,URINE, JEWEL SERUM, MYOG, SABRINA, UPE RAND, SPE #### [facility] , Lymphocytes (Bld) [#/Vol] 1.6 10*3/uL Normal 1.00-4.8 [facility] Comment on above: Performed By: #### T SH3, CBC, ESR, ADDONUAPLUS, CK, T4F, CRP, CMP, LDH, PTH #### [place] [address] [place] #### JEWEL,URINE, JEWEL SERUM, MYOG, SABRINA, UPE RAND, SPE #### [facility] , Lymphocytes/100 WBC (Bld) 19.6 % Normal . [facility] Comment on above: Performed By: #### T SH3, CBC, ESR, ADDONUAPLUS, CK, T4F, CRP, CMP, LDH, PTH #### [place] [address] [place] #### JEWEL,URINE, JEWEL SERUM, MYOG, SABRINA, UPE RAND, SPE #### [facility] , MCH (RBC) [Entitic mass] 32.4 pg Normal 24.7-34.3 [facility] Comment on above: Performed By: #### T SH3, CBC, ESR, ADDONUAPLUS, CK, T4F, CRP, CMP, LDH, PTH #### [address] #### JEWEL,URINE, JEWEL SERUM, MYOG, SABRINA, UPE RAND, SPE #### [facility] , MCV (RBC) [Entitic vol] 94.7 fL Normal 80-100 [facility] Comment on above: Performed By: #### T SH3, CBC, ESR, ADDONUAPLUS, CK, T4F, CRP, CMP, LDH, PTH #### [address] #### JEWEL,URINE, JEWEL SERUM, MYOG, SABRINA, UPE RAND, SPE #### [facility] , Mean Corpuscular HGB Conc 34.2 g/dL Normal 32.0-35.0 [facility] Comment on above: Performed By: #### T SH3, CBC, ESR, ADDONUAPLUS, CK, T4F, CRP, CMP, LDH, PTH #### [address] #### JEWEL,URINE, JEWEL SERUM, MYOG, SABRINA, UPE RAND, SPE #### [facility] , Monocytes (Bld) [#/Vol] 0.7 10*3/uL Normal 0.0-0.8 [facility] Comment on above: Performed By: #### T SH3, CBC, ESR, ADDONUAPLUS, CK, T4F, CRP, CMP, LDH, PTH #### [address] #### JEWEL,URINE, JEWEL SERUM, MYOG, SABRINA, UPE RAND, SPE #### [facility] , Monocytes/100 WBC (Bld) 8.9 % Normal . [facility] Comment on above: Performed By: #### T SH3, CBC, ESR, ADDONUAPLUS, CK, T4F, CRP, CMP, LDH, PTH #### [facility] [address] [place] [address] #### JEWEL,URINE, JEWEL SERUM, MYOG, SABRINA, UPE RAND, SPE #### [facility] , Neutrophils (Bld) [#/Vol] 5.7 10*3/uL Normal 1.8-7.7 [facility] Comment on above: Performed By: #### T SH3, CBC, ESR, ADDONUAPLUS, CK, T4F, CRP, CMP, LDH, PTH #### [facility] [address] [place] [address] #### JEWEL,URINE, JEWEL SERUM, MYOG, SABRINA, UPE RAND, SPE #### [facility] , Neutrophils/100 WBC (Bld) 68.6 % Normal . [facility] Comment on above: Performed By: #### T SH3, CBC, ESR, ADDONUAPLUS, CK, T4F, CRP, CMP, LDH, PTH #### [facility] [address] [place] [address] #### JEWEL,URINE, JEWEL SERUM, MYOG, SABRINA, UPE RAND, SPE #### [facility] , Nucleated RBC/100 WBC (Bld) [Ratio] 0.1 % Normal 0-0.5 [facility] Comment on above: Performed By: #### T SH3, CBC, ESR, ADDONUAPLUS, CK, T4F, CRP, CMP, LDH, PTH #### [facility] [address] [place] [address] [place] #### JEWEL,URINE, JEWEL SERUM, MYOG, SABRINA, UPE RAND, SPE #### [facility] , Platelet mean volume (Bld) [Entitic vol] 8.0 fL Normal 6.3-10.7 [facility] Comment on above: Performed By: #### T SH3, CBC, ESR, ADDONUAPLUS, CK, T4F, CRP, CMP, LDH, PTH #### [facility] [address] [place] [address] #### JEWEL,URINE, JEWEL SERUM, MYOG, SABRINA, UPE RAND, SPE #### [facility] , Platelets (Bld) [#/Vol] 293 10*3/uL Normal 150-450 [facility] Comment on above: Performed By: #### T SH3, CBC, ESR, ADDONUAPLUS, CK, T4F, CRP, CMP, LDH, PTH #### [address] #### JEWEL,URINE, JEWEL SERUM, MYOG, SABRINA, UPE RAND, SPE #### [facility] , RBC (Bld) [#/Vol] 4.88 10*6/uL Normal 3.60-5.00 [facility] Comment on above: Performed By: #### T SH3, CBC, ESR, ADDONUAPLUS, CK, T4F, CRP, CMP, LDH, PTH #### [address] #### JEWEL,URINE, JEWEL SERUM, MYOG, SABRINA, UPE RAND, SPE #### [facility] , WBC (Bld) [#/Vol] 8.3 10*3/uL Normal 4.5-11.0 [facility] Comment on above: Performed By: #### T SH3, CBC, ESR, ADDONUAPLUS, CK, T4F, CRP, CMP, LDH, PTH #### [facility] [address] [place] [address] [place] #### JEWEL,URINE, JEWEL SERUM, MYOG, SABRINA, UPE RAND, SPE #### [facility] , Comprehensive Metabolic Pane anum 01-31-2022 Albumin [Mass/Vol] 4.2 g/dL Normal 3.2-5.5 [facility] Comment on above: Performed By: #### T SH3, CBC, ESR, ADDONUAPLUS, CK, T4F, CRP, CMP, LDH, PTH #### [address] #### JEWEL,URINE, JEWEL SERUM, MYOG, SABRINA, UPE RAND, SPE #### [facility] , Albumin/Globulin [Mass ratio] 1.8 {ratio} Normal [facility] Comment on above: Performed By: #### T SH3, CBC, ESR, ADDONUAPLUS, CK, T4F, CRP, CMP, LDH, PTH #### [address] #### JEWEL,URINE, JEWEL SERUM, MYOG, SABRINA, UPE RAND, SPE #### [facility] , ALP [Catalytic activity/Vol] 75 U/L Normal 32-92 [facility] Comment on above: Performed By: #### T SH3, CBC, ESR, ADDONUAPLUS, CK, T4F, CRP, CMP, LDH, PTH #### [facility] [address] [place] [address] #### JEWEL,URINE, JEWEL SERUM, MYOG, SABRINA, UPE RAND, SPE #### [facility] , ALT [Catalytic activity/Vol] 27 U/L Normal 10-60 [facility] Comment on above: Performed By: #### T SH3, CBC, ESR, ADDONUAPLUS, CK, T4F, CRP, CMP, LDH, PTH #### [address] #### JEWEL,URINE, JEWEL SERUM, MYOG, SABRINA, UPE RAND, SPE #### [facility] , AST [Catalytic activity/Vol] 26 U/L Normal 10-42 [facility] Comment on above: Performed By: #### T SH3, CBC, ESR, ADDONUAPLUS, CK, T4F, CRP, CMP, LDH, PTH #### [address] #### JEWEL,URINE, JEWEL SERUM, MYOG, SABRINA, UPE RAND, SPE #### [facility] , Bilirubin [Mass/Vol] 0.9 mg/dL Normal 0.3-1.2 [facility] Comment on above: Performed By: #### T SH3, CBC, ESR, ADDONUAPLUS, CK, T4F, CRP, CMP, LDH, PTH #### [address] #### JEWEL,URINE, JEWEL SERUM, MYOG, SABRINA, UPE RAND, SPE #### [facility] , Calcium [Mass/Vol] 9.7 mg/dL Normal 8.2-10.2 [facility] Comment on above: Performed By: #### T SH3, CBC, ESR, ADDONUAPLUS, CK, T4F, CRP, CMP, LDH, PTH #### [address] #### JEWEL,URINE, JEWEL SERUM, MYOG, SABRINA, UPE RAND, SPE #### [facility] , Chloride [Moles/Vol] 101 mmol/L Normal 95-114 [facility] Comment on above: Performed By: #### T SH3, CBC, ESR, ADDONUAPLUS, CK, T4F, CRP, CMP, LDH, PTH #### [place] [address] [place] #### JEWEL,URINE, JEWEL SERUM, MYOG, SABRINA, UPE RAND, SPE #### [facility] , CO2 [Moles/Vol] 24.9 mmol/L Normal 22.0-30.0 [facility] Comment on above: Performed By: #### T SH3, CBC, ESR, ADDONUAPLUS, CK, T4F, CRP, CMP, LDH, PTH #### [place] [address] [place] #### JEWEL,URINE, JEWEL SERUM, MYOG, SABRINA, UPE RAND, SPE #### [facility] , Creatinine [Mass/Vol] 0.84 mg/dL Normal 0.44-1.03 [facility] Comment on above: Performed By: #### T SH3, CBC, ESR, ADDONUAPLUS, CK, T4F, CRP, CMP, LDH, PTH #### [address] #### JEWEL,URINE, JEWEL SERUM, MYOG, SABRINA, UPE RAND, SPE #### [facility] , Estimated GFR ( Manisha > 60 Normal [facility] Comment on above: Result Comment: GFR estimated reference range: According to KDOQI guidelines, <60 ml/min/1.73m2 is sufficient to diagnose a patient with chronic kidney disease. Performed By: #### T SH3, CBC, ESR, ADDONUAPLUS, CK, T4F, CRP, CMP, LDH, PTH #### [place] [address] [place] #### JEWEL,URINE, JEWEL SERUM, MYOG, SABRINA, UPE RAND, SPE #### [facility] , Estimated GFR (Non- Am > 60 Normal [facility] Comment on above: Performed By: #### T SH3, CBC, ESR, ADDONUAPLUS, CK, T4F, CRP, CMP, LDH, PTH #### [place] [address] [place] #### JEWEL,URINE, JEWEL SERUM, MYOG, SABRINA, UPE RAND, SPE #### [facility] , Globulin (S) [Mass/Vol] 2.4 g/dL Normal [facility] Comment on above: Performed By: #### T SH3, CBC, ESR, ADDONUAPLUS, CK, T4F, CRP, CMP, LDH, PTH #### [address] #### JEWEL,URINE, JEWEL SERUM, MYOG, SABRINA, UPE RAND, SPE #### [facility] , Glucose [Mass/Vol] 97 mg/dL Normal 70-100 [facility] Comment on above: Result Comment: [facility] Glucose Reference Range is dependent on time and content of last meal. Glucose of more than 200 mg/dL in a nonstressed, ambulatory subject supports the diagnosis of Diabetes Mellitus. ADA recommended reference range Performed By: #### T SH3, CBC, ESR, ADDONUAPLUS, CK, T4F, CRP, CMP, LDH, PTH #### [facility] [address] [place] [address] #### JEWEL,URINE, JEWEL SERUM, MYOG, SABRINA, UPE RAND, SPE #### [facility] , Potassium [Moles/Vol] 4.0 mmol/L Normal 3.5-5.1 [facility] Comment on above: Performed By: #### T SH3, CBC, ESR, ADDONUAPLUS, CK, T4F, CRP, CMP, LDH, PTH #### [place] [address] [place] #### JEWEL,URINE, JEWEL SERUM, MYOG, SABRINA, UPE RAND, SPE #### [facility] , Protein [Mass/Vol] 6.6 g/dL Normal 6.1-7.9 [facility] Comment on above: Performed By: #### T SH3, CBC, ESR, ADDONUAPLUS, CK, T4F, CRP, CMP, LDH, PTH #### [place] [address] [place] #### JEWEL,URINE, JEWEL SERUM, MYOG, SABRINA, UPE RAND, SPE #### [facility] , Sodium [Moles/Vol] 137 mmol/L Normal 136-146 [facility] Comment on above: Performed By: #### T SH3, CBC, ESR, ADDONUAPLUS, CK, T4F, CRP, CMP, LDH, PTH #### [place] [address] [place] #### JEWEL,URINE, JEWEL SERUM, MYOG, SABRINA, UPE RAND, SPE #### [facility] , Urea nitrogen [Mass/Vol] 14 mg/dL Normal 9-23 [facility] Comment on above: Performed By: #### T SH3, CBC, ESR, ADDONUAPLUS, CK, T4F, CRP, CMP, LDH, PTH #### [facility] [address] [place] [address] #### JEWEL,URINE, JEWEL SERUM, MYOG, SABRINA, UPE RAND, SPE #### [facility] , Creatine Kinaseon 01-31-2022 CK [Catalytic activity/Vol] 26 U/L Normal 22 [facility] Comment on above: Result Comment: PERF ORMED BY: [place] [address] PATHOLOGIST [employer] JOURNEYMAN SAE GOMEZ M.D. Performed By: #### T SH3, CBC, ESR, ADDONUAPLUS, CK, T4F, CRP, CMP, LDH, PTH #### [address] #### JEWEL,URINE, JEWEL SERUM, MYOG, SABRINA, UPE RAND, SPE #### [facility] , Creatine kinase [Enzymatic a ctivity/volume] in Serum or PlasmaOrdered By: Kumar Khan on 01-31-2022 CK [Catalytic activity/Vol] 26 U/L [facility] Creatinine and Glomerular fi ltration rate.predicted panel (S/P/Bld)Ordered By: Kumar Khan on 01-31-2022 Creatinine [Mass/Vol] 0.84 mg/dL 0.44-1.03 [facility] Dipstick and Microscopicon 0 01-31-2022 Appearance (U) Clear Normal Clear [facility] Comment on above: Order Comment: Name Collection Type:: Clean-Voided Midstream Performed By: #### T SH3, CBC, ESR, ADDONUAPLUS, CK, T4F, CRP, CMP, LDH, PTH #### [address] #### JEWEL,URINE, JEWEL SERUM, MYOG, SABRINA, UPE RAND, SPE #### [facility] , Bacteria,Urine 2+ High None Seen [facility] Comment on above: Order Comment: Name Collection Type:: Clean-Voided Midstream Performed By: #### T SH3, CBC, ESR, ADDONUAPLUS, CK, T4F, CRP, CMP, LDH, PTH #### [address] #### JEWEL,URINE, JEWEL SERUM, MYOG, SABRINA, UPE RAND, SPE #### [facility] , Bilirubin,Urine Negative Normal Negative [facility] Comment on above: Order Comment: Name Collection Type:: Clean-Voided Midstream Performed By: #### T SH3, CBC, ESR, ADDONUAPLUS, CK, T4F, CRP, CMP, LDH, PTH #### [address] #### JEWEL,URINE, JEWEL SERUM, MYOG, SABRINA, UPE RAND, SPE #### [facility] , Color (U) Dark Yellow Critically abnormal Yellow [facility] Comment on above: Order Comment: Name Collection Type:: Clean-Voided Midstream Performed By: #### T SH3, CBC, ESR, ADDONUAPLUS, CK, T4F, CRP, CMP, LDH, PTH #### [address] #### JEWEL,URINE, JEWEL SERUM, MYOG, SABRINA, UPE RAND, SPE #### [facility] , Glucose Ql (U) Normal Normal Normal [facility] Comment on above: Order Comment: Name Collection Type:: Clean-Voided Midstream Performed By: #### T SH3, CBC, ESR, ADDONUAPLUS, CK, T4F, CRP, CMP, LDH, PTH #### [address] #### JEWEL,URINE, JEWEL SERUM, MYOG, SABRINA, UPE RAND, SPE #### [facility] , Hyaline Casts,Urine 0-8 Normal 0-8 [facility] Comment on above: Order Comment: Name Collection Type:: Clean-Voided Midstream Performed By: #### T SH3, CBC, ESR, ADDONUAPLUS, CK, T4F, CRP, CMP, LDH, PTH #### [facility] [address] #### JEWEL,URINE, JEWEL SERUM, MYOG, SABRINA, UPE RAND, SPE #### [facility] , Ketones Ql (U) Trace High Negative [facility] Comment on above: Order Comment: Name Collection Type:: Clean-Voided Midstream Performed By: #### T SH3, CBC, ESR, ADDONUAPLUS, CK, T4F, CRP, CMP, LDH, PTH #### [address] #### JEWEL,URINE, JEWEL SERUM, MYOG, SABRINA, UPE RAND, SPE #### [facility] , Leukocyte esterase Test strip Ql (U) 1+ High Negative [facility] Comment on above: Order Comment: Name Collection Type:: Clean-Voided Midstream Performed By: #### T SH3, CBC, ESR, ADDONUAPLUS, CK, T4F, CRP, CMP, LDH, PTH #### [facility] [address] [place] [address] #### JEWEL,URINE, JEWEL SERUM, MYOG, SABRINA, UPE RAND, SPE #### [facility] , Mucus,Urine 2+ Critically abnormal [facility] Comment on above: Order Comment: Name Collection Type:: Clean-Voided Midstream Result Comment: PERF ORMED BY: [place] [address] PATHOLOGIST [employer] JOURNEYMAN SAE GOMEZ M.D. Performed By: #### T SH3, CBC, ESR, ADDONUAPLUS, CK, T4F, CRP, CMP, LDH, PTH #### [address] #### JEWEL,URINE, JEWEL SERUM, MYOG, SABRINA, UPE RAND, SPE #### [facility] , Nitrite,Urine Negative Normal Negative [facility] Comment on above: Order Comment: Name Collection Type:: Clean-Voided Midstream Performed By: #### T SH3, CBC, ESR, ADDONUAPLUS, CK, T4F, CRP, CMP, LDH, PTH #### [address] #### JEWEL,URINE, JEWEL SERUM, MYOG, SABRINA, UPE RAND, SPE #### [facility] , Occult Blood,Urine Negative Normal Negative [facility] Comment on above: Order Comment: Name Collection Type:: Clean-Voided Midstream Performed By: #### T SH3, CBC, ESR, ADDONUAPLUS, CK, T4F, CRP, CMP, LDH, PTH #### [address] #### JEWEL,URINE, JEWEL SERUM, MYOG, SABRINA, UPE RAND, SPE #### [facility] , pH (U) 7.5 [pH] Normal 5.0-9.0 [facility] Comment on above: Order Comment: Name Collection Type:: Clean-Voided Midstream Performed By: #### T SH3, CBC, ESR, ADDONUAPLUS, CK, T4F, CRP, CMP, LDH, PTH #### [address] #### JEWEL,URINE, JEWEL SERUM, MYOG, SABRINA, UPE RAND, SPE #### [facility] , Protein,Urine Trace High Negative [facility] Comment on above: Order Comment: Name Collection Type:: Clean-Voided Midstream Performed By: #### T SH3, CBC, ESR, ADDONUAPLUS, CK, T4F, CRP, CMP, LDH, PTH #### [place] [address] [place] #### JEWEL,URINE, JEWEL SERUM, MYOG, SABRINA, UPE RAND, SPE #### [facility] , RBC,Urine None Seen Normal 0-4 [facility] Comment on above: Order Comment: Name Collection Type:: Clean-Voided Midstream Performed By: #### T SH3, CBC, ESR, ADDONUAPLUS, CK, T4F, CRP, CMP, LDH, PTH #### [address] #### JEWEL,URINE, JEWEL SERUM, MYOG, SABRINA, UPE RAND, SPE #### [facility] , Specificy [place],Urine 1.024 Normal 1.001-1.030 [facility] Comment on above: Order Comment: Name Collection Type:: Clean-Voided Midstream Performed By: #### T SH3, CBC, ESR, ADDONUAPLUS, CK, T4F, CRP, CMP, LDH, PTH #### [address] #### JEWEL,URINE, JEWEL SERUM, MYOG, SABRINA, UPE RAND, SPE #### [facility] , Squamous Epithelial Cell,Urine 5-9 High 0-2 [facility] Comment on above: Order Comment: Name Collection Type:: Clean-Voided Midstream Performed By: #### T SH3, CBC, ESR, ADDONUAPLUS, CK, T4F, CRP, CMP, LDH, PTH #### [address] #### JEWEL,URINE, JEWEL SERUM, MYOG, SABRINA, UPE RAND, SPE #### [facility] , Urobilinogen,Urine Normal Normal Normal [facility] Comment on above: Order Comment: Name Collection Type:: Clean-Voided Midstream Performed By: #### T SH3, CBC, ESR, ADDONUAPLUS, CK, T4F, CRP, CMP, LDH, PTH #### [place] [address] [place] #### JEWEL,URINE, JEWEL SERUM, MYOG, SABRINA, UPE RAND, SPE #### [facility] , WBC,Urine 3-4 Normal 0-4 [facility] Comment on above: Order Comment: Name Collection Type:: Clean-Voided Midstream Performed By: #### T SH3, CBC, ESR, ADDONUAPLUS, CK, T4F, CRP, CMP, LDH, PTH #### [address] #### JEWEL,URINE, JEWEL SERUM, MYOG, SABRINA, UPE RAND, SPE #### [facility] , Eosinophils Auto (Bld) [#/Vo l]Ordered By: Kumar Khan on 01-31-2022 Eosinophils (Bld) [#/Vol] 0.2 10*3/uL 0.0-0.45 [facility] Eosinophils/100 WBC Auto (Bl d)Ordered By: Kumar Khan on 01-31-2022 Eosinophils/100 WBC (Bld) 2.0 % [facility] Erythrocyte Sedimentation Ra anthony 01-31-2022 ESR (Bld) [Velocity] 15 mm/h Normal 0-29 [facility] Comment on above: Result Comment: PERF ORMED BY: [place] [address] PATHOLOGIST [employer] JOURNEYMAN SAE GOMEZ M.D. Performed By: #### T SH3, CBC, ESR, ADDONUAPLUS, CK, T4F, CRP, CMP, LDH, PTH #### [address] #### JEWEL,URINE, JEWEL SERUM, MYOG, SABRINA, UPE RAND, SPE #### [facility] , Erythrocyte distribution wid th Auto (RBC) [Ratio]Ordered By: Kumar Khan on 01-31-2022 Erythrocyte distribution width (RBC) [Ratio] 12.8 % 11.9-15.3 [facility] Erythrocyte sedimentation ra te by Photometric methodOrdered By: Kumar Khan on 01-31-2022 ESR Photometric method (Bld) [Velocity] 15 mm/hr 0-29 [facility] Estimated glomerular filtrat ion rate (GFR) non- AmericanOrdered By: Kumar Khan on 01-31-2022 GFR/1.73 sq M.predicted among non-blacks MDRD (S/P/Bld) [Vol rate/Area] > 60 mL/Min [facility] Free T4 (Free Thyroxine)on 0 01-31-2022 Free T4 [Mass/Vol] 0.87 ng/dL Normal 0.61-1.12 [facility] Comment on above: Performed By: #### T SH3, CBC, ESR, ADDONUAPLUS, CK, T4F, CRP, CMP, LDH, PTH #### [facility] [address] [place] [address] #### JEWEL,URINE, JEWEL SERUM, MYOG, SABRINA, UPE RAND, SPE #### [facility] , Globulin Calc (S) [Mass/Vol] Ordered By: Kumar Khan on 01-31-2022 Globulin (S) [Mass/Vol] 2.4 g/dL [facility] Hematocrit Auto (Bld) [Volum e fraction]Ordered By: Kumar Khan on 01-31-2022 Hematocrit (Bld) [Volume fraction] 46.2 % 34.0-46.4 [facility] Immunofixation, (JEWEL), Urine on 01-31-2022 Immunofixation, (JEWEL), Urine Normal . [facility] Comment on above: Result Comment: No m onoclonality detected. Performed at: - [facility] [address] [id number] [employer]: Chu Dewey PhD, Phone: [phone] Performed By: #### T SH3, CBC, ESR, ADDONUAPLUS, CK, T4F, CRP, CMP, LDH, PTH #### [facility] [address] [place] [address] [place] #### JEWEL,URINE, JEWEL SERUM, MYOG, SABRINA, UPE RAND, SPE #### [facility] , Immunofixation,Serumon 01-31 Immunofixation, Serum Normal . [facility] Comment on above: Result Comment: No m onoclonality detected. Performed By: #### T SH3, CBC, ESR, ADDONUAPLUS, CK, T4F, CRP, CMP, LDH, PTH #### [address] #### JEWEL,URINE, JEWEL SERUM, MYOG, SABRINA, UPE RAND, SPE #### [facility] , Immunoglobulin A, Serum 125 mg/dL Normal 64-422 [facility] Comment on above: Performed By: #### T SH3, CBC, ESR, ADDONUAPLUS, CK, T4F, CRP, CMP, LDH, PTH #### [address] #### JEWEL,URINE, JEWEL SERUM, MYOG, SABRINA, UPE RAND, SPE #### [facility] , Immunoglobulin G 941 mg/dL Normal 586-1602 [facility] Comment on above: Performed By: #### T SH3, CBC, ESR, ADDONUAPLUS, CK, T4F, CRP, CMP, LDH, PTH #### [address] #### JEWEL,URINE, JEWEL SERUM, MYOG, SABRINA, UPE RAND, SPE #### [facility] , Immunoglobulin M, Serum 88 mg/dL Normal 26-217 [facility] Comment on above: Result Comment: Perf ormed at: - [facility] [address] [id number] [employer]: Chu Dewey PhD, Phone: [phone] Performed By: #### T SH3, CBC, ESR, ADDONUAPLUS, CK, T4F, CRP, CMP, LDH, PTH #### [place] [address] [place] #### JEWEL,URINE, JEWEL SERUM, MYOG, SABRINA, UPE RAND, SPE #### [facility] , Ketones Auto test strip (U) [Mass/Vol]Ordered By: Kumar Khan on 01-31-2022 Ketones (U) [Mass/Vol] Trace Negative [facility] LDH Lactate Dehydrogenaseon 01-31-2022 LDH Lactate Dehydrogenase 135 U/L Normal 45-190 [facility] Comment on above: Performed By: #### T SH3, CBC, ESR, ADDONUAPLUS, CK, T4F, CRP, CMP, LDH, PTH #### [facility] [address] #### JEWEL,URINE, JEWEL SERUM, MYOG, SABRINA, UPE RAND, SPE #### [facility] , Laboratory - Hematology and Cell countsOrdered By: Kumar Khan on 01-31-2022 Nucleated RBC/100 WBC (Bld) [Ratio] 0.1 % 0-0.5 [facility] Laboratory - UrinalysisOrder ed By: Kumar Khan on 01-31-2022 Hyaline casts LM Ql (Urine sed) 0-8 [LPF] [facility] Lactate dehydrogenase measur ement (enzymatic activity/volume)Ordered By: Kumar Khan on 01-31-2022 LDH (Unsp spec) [Catalytic activity/Vol] 135 U/L 45-190 [facility] Lymphocytes Auto (Bld) [#/Vo l]Ordered By: Kumar Khan on 01-31-2022 Lymphocytes (Bld) [#/Vol] 1.6 10*3/uL 1.00-4.8 [facility] Lymphocytes/100 WBC Auto (Bl d)Ordered By: Kumar Khan on 01-31-2022 Lymphocytes/100 WBC (Bld) 19.6 % [facility] MCH Auto (RBC) [Entitic mass ]Ordered By: Kumar Khan on 01-31-2022 MCH (RBC) [Entitic mass] 32.4 pg 24.7-34.3 [facility] MCHC Auto (RBC) [Mass/Vol]Or dered By: Kumar Khan on 01-31-2022 MCHC (RBC) [Mass/Vol] 34.2 g/dL 32.0-35.0 [facility] MCV Auto (RBC) [Entitic vol] Ordered By: Kumar Khan on 01-31-2022 MCV (RBC) [Entitic vol] 94.7 fL 80-100 [facility] Monocytes Auto (Bld) [#/Vol] Ordered By: Kumar Khan on 01-31-2022 Monocytes (Bld) [#/Vol] 0.7 10*3/uL 0.0-0.8 [facility] Monocytes/100 WBC Auto (Bld) Ordered By: Kumar Khan on 01-31-2022 Monocytes/100 WBC (Bld) 8.9 % [facility] Mucus LM Ql (Urine sed)Order ed By: Kumar Khan on 01-31-2022 Mucus Ql (Urine sed) 2+ [LPF] [facility] Myoglobinon 01-31-2022 Myoglobin [Mass/Vol] ng/mL Low 25-58 [facility] Comment on above: Result Comment: Perf ormed at: CB - [facility] [place] [address] [employer]: Chu Dewey PhD, Phone: [phone] Performed By: #### T SH3, CBC, ESR, ADDONUAPLUS, CK, T4F, CRP, CMP, LDH, PTH #### [facility] [address] [place] [address] #### JEWEL,URINE, JEWEL SERUM, MYOG, SABRINA, UPE RAND, SPE #### [facility] , Neutrophils Auto (Bld) [#/Vo l]Ordered By: Kumar Khan on 01-31-2022 Neutrophils (Bld) [#/Vol] 5.7 10*3/uL 1.8-7.7 [facility] Neutrophils/100 WBC Auto (Bl d)Ordered By: Kumar Khan on 01-31-2022 Neutrophils/100 WBC (Bld) 68.6 % [facility] Nitrite Test strip Ql (U)Ord ered By: Kumar Khan on 01-31-2022 Nitrite Ql (U) Negative Negative [facility] No Panel InformationOrdered By: Kumar Kahn on 01-31-2022 Estimated GFR () > 60 mL/Min [facility] Comment on above: GFR estimated refere nce range: According to KDOQI guidelines, <60 ml/min/1.73m2 is sufficient to diagnose a patient with chronic kidney disease. Pharmacy Creatinine Clearance (Chem N/A [facility] Parathyroid Hormone Intacton 01-31-2022 Parathyroid Hormone Intact 87.4 pg/mL Normal 12-88 [facility] Comment on above: Result Comment: PERF ORMED BY: [place] [address] PATHOLOGIST [employer] JOURNEYMAN SAE GOMEZ M.D. Performed By: #### T SH3, CBC, ESR, ADDONUAPLUS, CK, T4F, CRP, CMP, LDH, PTH #### [facility] [address] [place] [address] #### JEWEL,URINE, JEWEL SERUM, MYOG, SABRINA, UPE RAND, SPE #### [facility] , Platelet mean volume Auto (B ld) [Entitic vol]Ordered By: Kumar Khan on 01-31-2022 Platelet mean volume (Bld) [Entitic vol] 8.0 fL 6.3-10.7 [facility] Platelets Auto (Bld) [#/Vol] Ordered By: Kumar Khan on 01-31-2022 Platelets (Bld) [#/Vol] 293 10*3/uL 150-450 [facility] Protein Auto test strip (U) [Mass/Vol]Ordered By: Kumar Juarezrow on 01-31-2022 Protein (U) [Mass/Vol] Trace mg/dL Negative [facility] Protein Electro, Random Urin abbey 01-31-2022 Albumin, Urine 29.3 % Normal . [facility] Comment on above: Performed By: #### T SH3, CBC, ESR, ADDONUAPLUS, CK, T4F, CRP, CMP, LDH, PTH #### [facility] [address] [place] [address] [place] #### JEWEL,URINE, JEWEL SERUM, MYOG, SABRINA, UPE RAND, SPE #### [facility] , [id number], Urine 4.8 % Normal . [facility] Comment on above: Performed By: #### T SH3, CBC, ESR, ADDONUAPLUS, CK, T4F, CRP, CMP, LDH, PTH #### [address] #### JEWEL,URINE, JEWEL SERUM, MYOG, SABRINA, UPE RAND, SPE #### [facility] , [id number], Urine 20.1 % Normal . [facility] Comment on above: Performed By: #### T SH3, CBC, ESR, ADDONUAPLUS, CK, T4F, CRP, CMP, LDH, PTH #### [address] #### JEWEL,URINE, JEWEL SERUM, MYOG, SABRINA, UPE RAND, SPE #### [facility] , Beta Globulin, Urine 35.6 % Normal . [facility] Comment on above: Performed By: #### T SH3, CBC, ESR, ADDONUAPLUS, CK, T4F, CRP, CMP, LDH, PTH #### [address] #### JEWEL,URINE, JEWEL SERUM, MYOG, SABRINA, UPE RAND, SPE #### [facility] , Gamma Globulin, Urine 10.2 % Normal . [facility] Comment on above: Performed By: #### T SH3, CBC, ESR, ADDONUAPLUS, CK, T4F, CRP, CMP, LDH, PTH #### [place] [address] [place] #### JEWEL,URINE, JEWEL SERUM, MYOG, SABRINA, UPE RAND, SPE #### [facility] , M-Sonny % Not Observed Normal Not Observed [facility] Comment on above: Performed By: #### T SH3, CBC, ESR, ADDONUAPLUS, CK, T4F, CRP, CMP, LDH, PTH #### [address] #### JEWEL,URINE, JEWEL SERUM, MYOG, SABRINA, UPE RAND, SPE #### [facility] , Please Note: Normal . [facility] Comment on above: Result Comment: Prot ein electrophoresis scan will follow via computer, mail, or boatwright delivery. PERFORMED BY: [place] [address] PATHOLOGIST [employer] JOURNEYMAN SAE GOMEZ M.D. Performed By: #### T SH3, CBC, ESR, ADDONUAPLUS, CK, T4F, CRP, CMP, LDH, PTH #### [address] #### JEWEL,URINE, JEWEL SERUM, MYOG, SABRINA, UPE RAND, SPE #### [facility] , Protein (U) [Mass/Vol] 17.4 mg/dL Normal Not Estab. [facility] Comment on above: Performed By: #### T SH3, CBC, ESR, ADDONUAPLUS, CK, T4F, CRP, CMP, LDH, PTH #### [address] #### JEWEL,URINE, JEWEL SERUM, MYOG, SABRINA, UPE RAND, SPE #### [facility] , Protein Electrophoresis, Ser umon 01-31-2022 Albumin [Mass/Vol] 3.8 g/dL Normal 2.9-4.4 [facility] Comment on above: Performed By: #### T SH3, CBC, ESR, ADDONUAPLUS, CK, T4F, CRP, CMP, LDH, PTH #### [address] #### JEWEL,URINE, JEWEL SERUM, MYOG, SABRINA, UPE RAND, SPE #### [facility] , Albumin/Globulin [Mass ratio] 1.2 {ratio} Normal 0.7-1.7 [facility] Comment on above: Performed By: #### T SH3, CBC, ESR, ADDONUAPLUS, CK, T4F, CRP, CMP, LDH, PTH #### [facility] [address] [place] [address] #### JEWEL,URINE, JEWEL SERUM, MYOG, SABRINA, UPE RAND, SPE #### [facility] , Pdwaj-7-Bmqpiybs 0.3 g/dL Normal 0.0-0.4 [facility] Comment on above: Performed By: #### T SH3, CBC, ESR, ADDONUAPLUS, CK, T4F, CRP, CMP, LDH, PTH #### [facility] [address] [place] [address] #### JEWEL,URINE, JEWEL SERUM, MYOG, SABRINA, UPE RAND, SPE #### [facility] , Rxtdi-7-Nglygmji 0.8 g/dL Normal 0.4-1.0 [facility] Comment on above: Performed By: #### T SH3, CBC, ESR, ADDONUAPLUS, CK, T4F, CRP, CMP, LDH, PTH #### [facility] [address] [place] [address] #### JEWEL,URINE, JEWEL SERUM, MYOG, SABRINA, UPE RAND, SPE #### [facility] , Beta Globulin 1.1 g/dL Normal 0.7-1.3 [facility] Comment on above: Performed By: #### T SH3, CBC, ESR, ADDONUAPLUS, CK, T4F, CRP, CMP, LDH, PTH #### [facility] [address] [place] [address] #### JEWEL,URINE, JEWEL SERUM, MYOG, SABRINA, UPE RAND, SPE #### [facility] , Gamma Globulin 0.9 g/dL Normal 0.4-1.8 [facility] [place] Comment on above: Performed By: #### T SH3, CBC, ESR, ADDONUAPLUS, CK, T4F, CRP, CMP, LDH, PTH #### [address] #### JEWEL,URINE, JEWEL SERUM, MYOG, SABRINA, UPE RAND, SPE #### [facility] , Globulin (S) [Mass/Vol] 3.1 g/dL Normal 2.2-3.9 [facility] [place] Comment on above: Performed By: #### T SH3, CBC, ESR, ADDONUAPLUS, CK, T4F, CRP, CMP, LDH, PTH #### [address] #### JEWEL,URINE, JEWEL SERUM, MYOG, SABRINA, UPE RAND, SPE #### [facility] , M-Sonny Not Observed Normal Not Observed [facility] [place] Comment on above: Performed By: #### T SH3, CBC, ESR, ADDONUAPLUS, CK, T4F, CRP, CMP, LDH, PTH #### [address] #### JEWEL,URINE, JEWEL SERUM, MYOG, SABRINA, UPE RAND, SPE #### [facility] , Protein [Mass/Vol] 6.9 g/dL Normal 6.0-8.5 [facility] Comment on above: Performed By: #### T SH3, CBC, ESR, ADDONUAPLUS, CK, T4F, CRP, CMP, LDH, PTH #### [address] #### JEWEL,URINE, JEWEL SERUM, MYOG, SABRINA, UPE RAND, SPE #### [facility] , SPE-Note Normal . [facility] [place] Comment on above: Result Comment: Prot ein electrophoresis scan will follow via computer, mail, or boatwright delivery. PERFORMED BY: [place] [address] PATHOLOGIST [employer] JOURNEYMAN SAE GOMEZ M.D. Performed By: #### T SH3, CBC, ESR, ADDONUAPLUS, CK, T4F, CRP, CMP, LDH, PTH #### [facility] [address] #### JEWEL,URINE, JEWEL SERUM, MYOG, SABRINA, UPE RAND, SPE #### [facility] , Protein [Mass/volume] in Ser um or PlasmaOrdered By: Kumar Khan on 01-31-2022 Protein [Mass/Vol] 6.6 g/dL 6.1-7.9 [facility] RBC Auto (Bld) [#/Vol]Ordere d By: Kumar Khan on 01-31-2022 RBC (Bld) [#/Vol] 4.88 10*6/uL 3.60-5.00 [facility] Serum or plasma C reactive p rotein measurement (mass/volume)Ordered By: Kumar Khan on 01-31-2022 CRP [Mass/Vol] 0.8 mg/dL 0.0-1.0 [facility] [place] Serum or plasma alanine meyers otransferase measurement without P-5'-P (enzymatic activiOrdered By: Kumar Khan on 01-31-2022 ALT No additional P-5'-P [Catalytic activity/Vol] 27 U/L 10-60 [facility] [place] Serum or plasma albumin/glob ulin mass ratioOrdered By: Kumar Khan on 01-31-2022 Albumin/Globulin [Mass ratio] 1.8 {ratio} [facility] [place] Serum or plasma alkaline milo sphatase measurement (enzymatic activity/volume)Ordered By: Kumar Khan on 01-31-2022 ALP [Catalytic activity/Vol] 75 U/L 32-92 [facility] [place] Serum or plasma aspartate am inotransferase measurement (enzymatic activity/volume)Ordered By: Kumar Khan on 01-31-2022 AST [Catalytic activity/Vol] 26 U/L 10-42 [facility] [place] Serum or plasma calcium miriam urement (mass/volume)Ordered By: Kumar Khan on 01-31-2022 Calcium [Mass/Vol] 9.7 mg/dL 8.2-10.2 [facility] Serum or plasma chloride ray surement (moles/volume)Ordered By: Kumar Khan on 01-31-2022 Chloride [Moles/Vol] 101 mmol/L 95-114 [facility] [place] Serum or plasma glucose miriam urement (mass/volume)Ordered By: Kumar Khan on 01-31-2022 Glucose [Mass/Vol] 97 mg/dL 70-100 [facility] Comment on above: ADA recommended refe rence rangeRandom Glucose Reference Range is dependent on time and content of last meal. Glucose of more than 200 mg/dL in a nonstressed, ambulatory subject supports the diagnosis of Diabetes Mellitus. Serum or plasma intact parat hyroid hormone measurement (mass/volume)Ordered By: Kumar Khan on 01-31-2022 Parathyrin.intact [Mass/Vol] 87.4 pg/mL [facility] [place] Serum or plasma potassium me asurement (moles/volume)Ordered By: Kumar Khan on 01-31-2022 Potassium [Moles/Vol] 4.0 mmol/L 3.5-5.1 [facility] [place] Serum or plasma sodium measu rement (moles/volume)Ordered By: Kumar Khan on 01-31-2022 Sodium [Moles/Vol] 137 mmol/L 136-146 [facility] Serum or plasma total biliru bin measurement (mass/volume)Ordered By: Kumar Khan on 01-31-2022 Bilirubin [Mass/Vol] 0.9 mg/dL 0.3-1.2 [facility] [place] Serum or plasma total carbon dioxide measurement (moles/volume)Ordered By: Kumar Khan on 01-31-2022 CO2 [Moles/Vol] 24.9 mmol/L 22.0-30.0 [facility] Serum or plasma urea nitroge n measurement (mass/volume)Ordered By: Kumar Khan on 01-31-2022 Urea nitrogen [Mass/Vol] 14 mg/dL 9-23 [facility] [place] Specific gravity Auto test s trip (U) [Rel density]Ordered By: Kumar Khan on 01-31-2022 Specific gravity (U) [Rel density] 1.024 1.001-1.030 [facility] [place] Squamous epithelial cells de tection in urine sediment by light microscopyOrdered By: Kumar Khan on 04-11-2022 Epithelial cells.squamous LM Ql (Urine sed) 5-9 [HPF] [facility] [place] TSH DL <= 0.005 mIU/L QnOrde red By: Kumar Khan on 01-31-2022 TSH Qn 2.89 m[IU]/L 0.45-5.33 [facility] [place] Thyroid Stimulating Hormoneo n 01-31-2022 TSH Qn 2.89 m[IU]/L Normal 0.45-5.33 [facility] [place] Comment on above: Performed By: #### T SH3, CBC, ESR, ADDONUAPLUS, CK, T4F, CRP, CMP, LDH, PTH #### [facility] [address] #### JEWEL,URINE, JEWEL SERUM, MYOG, SABRINA, UPE RAND, SPE #### [facility] , Thyroxine (T4) free [Mass/vo lume] in Serum or PlasmaOrdered By: Kumar Khan on 01-31-2022 Free T4 [Mass/Vol] 0.87 ng/dL 0.61-1.12 [facility] Urine bacteria detection by automated methodOrdered By: Kumar Khan on 01-31-2022 Bacteria Auto Ql (U) 2+ None Seen [facility] [place] Urine clarity by refractomet ry automatedOrdered By: Kumar Khan on 01-31-2022 Clarity Refractometry automated (U) Clear Clear [facility] [place] Urine glucose measurement by automated test strip (mass/volume)Ordered By: Kumar Khan on 01-31-2022 Glucose Auto test strip (U) [Mass/Vol] Normal mg/dL Normal [facility] [place] Urine hemoglobin detection b y automated test stripOrdered By: Kumar Khan on 01-31-2022 Hemoglobin Auto test strip Ql (U) Negative Negative [facility] [place] Urine leukocyte esterase det ection by automated test stripOrdered By: Kumar Khan on 01-31-2022 Leukocyte esterase Auto test strip Ql (U) 1+ Negative [facility] [place] Urobilinogen Auto test strip (U) [Mass/Vol]Ordered By: Kumar Khan on 01-31-2022 Urobilinogen (U) [Mass/Vol] Normal mg/dL Normal [facility] [place] pH Auto test strip (U)Ordere d By: Kumar Khan on 01-31-2022 pH (U) 7.5 [pH] 5.0-9.0 [facility] [place] XR Bone Density (DEXA)on XR Bone Density (DEXA) RegionBMDYoung-Adult Age-Matched Total(g/cm2)(%)T-Sco re(%)Z-Score Femur.40124-0.2990.0 Impression: The mean BMD and corresponding T-score indicated above indicate Low Bone Mass (Osteopenia) and places the patient at a mild to moderate increased risk for fracture. There may be a future risk of developing osteoporosis. Recommend follow-up exam in 1 year, sooner as clinically necessary. RegionBMDYoung-Adult Age-Matched Total(g/cm2)(%)T-Sco re(%)Z-Score L1-L41.878009+1.1152 +3.6 Impression: The mean BMD and corresponding [...] by Andrae Ewing on 12/28/[address] [facility] SCREENING MAMMOGRAM W/SUZI, BILATERAL*on 11-08-2021 SCREENING MAMMOGRAM [...] VERY IMPORTANT TO YOUR HEALTH. THE CURRENT [place] [employer]WORK GUIDELINES RECOMMENDS ANNUAL MAMMOGRAPHY BEGINNING AT AGE 40 THIS FACILITY USES A REMINDER SYSTEM TO ENSURE ALL PATIENTS RECEIVE REMINDER NOTIFICATIONS AT THE APPROPRIATE TIME BASED ON THE RECOMMENDATIONS OF THIS EXAM. Report reported and signed by Andrae Ewing on 11/08/[address] [facility] Encounters Encounter Date Encounter Type Care Provider Facility Start: 02-17-2025 ambulatory Irving Clemens Facility :[facility] [place] Start: 02-17-2025 ambulatory Irving Clemens Facility :[facility] [place] Start: 09-05-2024 End: 09-05-2024 ambulatory Irving Clemens Facility:[facility] [place] Start: 08-05-2024 End: 08-05-2024 ambulatory [place] [place]: 08-05-2024 End: 08-05-2024 Patient encounter procedure Irving Clemens [facility] Start: 07-29-2024 End: 07-29-2024 ambulatory Irving Clemens Facility:[facility] [place] Start: 03-05-2024 End: 03-05-2024 ambulatory Irving Clemens Facility:[facility] [place] Start: 02-12-2024 End: 02-12-2024 ambulatory Irving Clemens Facility:[facility] [place] Start: 01-04-2024 End: 01-05-2024 ambulatory KUMAR KHAN Not Available Start: 11-14-2023 End: 11-14-2023 ambulatory Irving ELucita Clemens [place] Start: 11-14-2023 End: 11-14-2023 Lab Drop off Irving Clemens [facility] Start: 11-14-2023 End: 11-14-2023 ambulatory Irving CifuentesLucita Roberto Carlos Facility: [facility] [place] Start: 10-24-2023 ambulatory Irving CifuentesuLcita Roberto Carlos Facility : [facility] [place] Start: 10-17-2023 ambulatory Irving Clemens Facility:[facility] [place] Start: 09-05-2023 End: 09-05-2023 ambulatory SHAYAN GAMINO Not Available Start: 10-31-2022 End: 11-01-[address] NONE LISTED REQUEST Facility: Start: 01-31-2022 End: 01-31-2022 Patient encounter procedure MD Jason Khan Work Phone: [facility] [address] Procedures Date Procedure Procedure Detail Performing Clinician Acoustic neuroma (disorder) Irvingmarta Clemens Comment on above: [facility] Biopsy of breast Irving Clemens Comment on above: several biopsies, [place] dense breasts Hysterectomy Irving Clemens Plan of Treatment Date Care Activity Detail Author 24 hour urine measurement [facility] Work Phone: Albumin [Mass/volume] in Serum or Plasma [facility] Work Phone: Albumin/Globulin ratio [facility] Work Phone: Aldolase measurement [facility] Work Phone: Electrophoresis: [id number] [facility] Work Phone: Electrophoresis: [id number] [facility] Work Phone: Electrophoresis: beta-globulin [facility] Work Phone: Electrophoresis: gamma globulin [facility] Work Phone: Globulin [Mass/volume] in Serum [facility] Work Phone: Homogenous nuclear A b pattern [Titer] in Serum [facility] Work Phone: IgA [Mass/volume] in Serum or Plasma [facility] Work Phone: IgG [Mass/volume] in Serum or Plasma [facility] Work Phone: IgM [Mass/volume] in Serum or Plasma [facility] Work Phone: Immunofixation for Urine [facility] Work Phone: Measurement of monoc lonal protein concentration [facility] tr Work Phone: Myoglobin [Mass/volume] in Serum or Plasm a [facility] Work Phone: Nuclear Ab [Titer] in Serum [facility] Work Phone: Protein [Mass/volume] in Serum or Plasma [facility] Work Phone: Protein [Mass/volume] in Urine [facility] Work Phone: Serum immunofixation [facility] Work Phone: Immunizations Immunization Date Immunization Notes Care Provider [facility] 09-09-2021 pneumococcal conjuga te vaccine, 13 valent Irving Clemens [facility] 10-05-2019 influenza virus vaccine, unspecified formulation Irving Clemens [facility] 08-26-2014 pneumococcal polysaccharide vaccine, 23 valdakotah Clemens [facility] 08-23-2001 pneumococcal polysaccharide vaccine, 23 valdakotah Clemens [facility] NEGATED: Highlighted row has not occurred!07-29-2024 influenza virus vaccine, unspecified formulation Irving Clemens [facility] Payers Date Payer Category Payer Unknown [id number] 1960 Medicare [id number] 1960 Unknown [id number] 1945 Unknown [id number] 2.16.84 [id number] 1945 Unknown [id number] 2.16.84 [id number] 1945 Unknown [id number] 2.16.84 [id number] 1945 Unknown [id number] 2.16.840. [id number] 1945 Unknown [id number] 2.16.8 [id number] 1945 Unknown [id number] 2.16.8 [id number] 1945 Unknown [id number] 2.16.8 [id number] 1945 Unknown [id number] 2.16.8 [id number] 1945 Unknown [id number] 2.16.8 [id number] 1945 Unknown [id number] 2.16.8 [id number] 1944 Unknown [id number] 2.16.8 [id number] 1944 Unknown [id number] 2.16.8 [id number] 1945 Unknown [id number] 2.16.8 [id number] 1945 Unknown [id number] 2.16.8 [id number] Self-pay Self Pay [id number] Social History Date Type Detail Facility Tobacco smoking stat [facility] Unknown if ever smoked [facility] Work Phone: Start: 1945 Sex Assigned At Female Sherri [facility] Start: 11-14-2023 End: 07-29-2024 Tobacco smoking status Ex-smoker (finding) [facility] Sex Assigned At Female [facility] Clinical Note 12-06-2021 Note Date & Type Note Facility 12-06-2021 Note HISTORY: Pain, lifti ng injury (several months) PROCEDURE: [employer] HDXT 1.5. Sagittal T1, T2, STIR and [...] signed by Andrae Ewing on 12/06/[address] [facility] Clinical Note 08-20-2021 Note Date & Type Note Facility 08-20-2021 Note Patient Education Ma terials Name: Jose Manuel Chicas Current Date: 08/20/2021 14:09:26 [facility] : 1945 The following sheet(s) are the Patient Education Leaflets for Jose Manuel Chicas Oncology Breast Health: Breast Self-Awareness What is [...] breast self-examination (BSE). These experts include the [employer], the U.S. Preventive Services Task Force, and the [place] [employer] of Obstetricians and Gynecologists. Some experts [...] This means they are not cancer. ? [id number] [employer]. [address] [place] [address]. All rights reserved. This information is not intended as a substitute for professional medical care. Always follow your healthcare professional's instructions. [facility] Evaluation + Plan note Note Date & Type Note Facility Evaluation + Plan note No data available for this section [facility] Evaluation + Plan note Note Date & Type Note Facility Evaluation + Plan note Future Appointments Appointment Date:09/05/2024 01:00:00 PM Scheduled Provider:Irving Clemens MD Location:[facility] Appointment Type: Open Appointment Date:02/17/2025 02:30:00 PM Scheduled Provider: Location:[facility] Appointment Type:FM Medicare Wellness Subsequent [facility] Evaluation note Note Date & Type Note Facility Evaluation note No assessment information availa [facility] Work Phone: Hospital Discharge instructions Note Date & Type Note Facility Hospital Discharge instructions No data available for this section [facility] Progress note Note Date & Type Note Facility Progress note No data available for this section [facility] Summary Purpose Family History No Family History [...] section and content) DATE CREATED AUTHOR 08/27/2021 [facility] DATE CREATED AUTHOR AUTHOR'S ORGANIZ ATION 12/30/2021 [facility] dical Specialist DATE CREATED AUTHOR AUTHOR'S ORGANIZ ATION 02/17/[address] [facility] DATE CREATED AUTHOR AUTHOR'S ORGANIZ ATION 11/03/2022 [facility] DATE CREATED AUTHOR AUTHOR'S ORGANIZ ATION 01/07/2024 [facility] dical Specialists EPIC DATE CREATED AUTHOR AUTHOR'S ORGANIZ ATION 09/07/2024 [facility] Care Teams (unrecognized sec tion and content) [...] BE BASED ON THE PRIMARY CLINICAL RECORDS. [facility] [employer] [facility]. provides no warranty or guarantee of the accuracy or completeness of information in this document.
[2024-10-20 12:40] VITALS: O2SAT 96
--- NOTE | 2024-10-20 12:50 | XR_ITS ---
The [address] [address] Patient Name: JOSE MANUEL CHICAS MRN: [id number] date: 1945 Sex: F Assigned Patient Location: ER Current Patient Location: Accession/Order Number: [id number] Exam Date: 10/20/2024 13:10 Report Date: 10/20/2024 15:10 At the request of: MU NASCIMENTO Procedure: XR ribs LT 2V EXAM: XR ribs LT 2V HISTORY: pain after fall COMPARISON: None. TECHNIQUE: Upright PA chest. AP oblique views left RIBS. FINDINGS: Chest x-ray demonstrates cardiomegaly. Minimal linear scar left lung no consolidation or contusion or other acute process. No pleural effusion or pneumothorax. No displaced fracture seen. Left rib films demonstrate multiple size ribs. Cortical margins are intact with no displaced fracture. Normal mineralization without focal bone lesion. XR/XR ribs LT 2V IMPRESSION: 1. Chest x-ray demonstrates cardiomegaly. No lung injury or acute process. 2. Left ribs unremarkable without fracture or focal bone lesion. Electronically authenticated by: MIRIAN CHAN Date: 10/20/2024 15:10
--- NOTE | 2024-10-20 13:02 | ED_ITS ---
HPI HPI - Fall General Chief Complaint: Fall Stated Complaint: RIB PAIN - FALL 10/18 Time Seen by Provider: 10/20/24 13:02 Source: patient Mode of arrival: walk-in History of Present Illness HPI Narrative: This patient drove herself here for dilation of left posterior rib pain. She states a couple days ago she fell while getting in the tub. She also hit her left tricep area on the hamper. She did not hit her head or neck and has no discomfort in those areas. There is no loss of consciousness. She is not on any blood thinners or aspirin products. She says it hurts to take a deep breath. She came here by herself and in fact drove. Is not have any other complaints or discomfort in her abdomen middle of her back or lower extremities. She was seen by x-ray with imaging ordered. Related Data Home Medications ?Medication ?Instructions ?Recorded ?Confirmed citalopram 40 mg tablet 40 mg PO DAILY 10/20/24 10/20/24 etodolac 300 mg capsule 300 mg PO BID 10/20/24 10/20/24 pregabalin 75 mg capsule 75 mg PO BID 10/20/24 10/20/24 verapamil 240 mg tablet,extended 240 mg PO DAILY 10/20/24 10/20/24 release Allergies Allergy/AdvReac Type Severity Reaction Status Date / Time codeine Allergy Severe Nausea Verified 10/20/24 12:25 Sulfa (Sulfonamide Allergy Severe Nausea Verified 10/20/24 12:25 Antibiotics) Opioid HPI Opioid Management Most Recent Pain and Opioid Data: Last Pain Scale 6 10/20/24 12:40 10/20/24 Exam Narrative Exam Narrative: Awake alert pleasant here alone. Vital signs are stable. She moves about with discomfort. Examining the back there is no tenderness to palpation in the midline. Her only discomfort is over the area medial scapula ribs 4 5 and 6 were tender. There is no subcutaneous emphysema or open wound. She has minor bruising to the tricep area but no pain in the shoulder joint the elbow forearm or wrist are all completely normal. She has no abdominal pain she has no restriction of cervical range of motion and her cognition and mental status are normal. I agree with imaging to the chest only at this time and were awaiting imaging studies Constitutional Vital Signs, click to edit/add: Last Vital Signs Temp 98.1 F 10/20/24 12:17 Pulse 57 L 10/20/24 14:10 Resp 14 10/20/24 14:10 BP 210/92 H 10/20/24 14:10 Pulse Ox 92 L 10/20/24 14:10 O2 Del Method Room Air 10/20/24 14:10 Course Vital Signs Vital signs: Vital Signs Temperature 98.1 F 10/20/24 12:17 Pulse Rate 64 10/20/24 12:17 Respiratory Rate 18 10/20/24 12:17 Blood Pressure 168/100 H 10/20/24 12:17 Pulse Oximetry 96 10/20/24 12:17 Oxygen Delivery Method Room Air 10/20/24 12:17 Temperature 98.1 F 10/20/24 12:17 Pulse Rate 57 L 10/20/24 14:10 Respiratory Rate 14 10/20/24 14:10 Blood Pressure 210/92 H 10/20/24 14:10 Pulse Oximetry 92 L 10/20/24 14:10 Oxygen Delivery Method Room Air 10/20/24 14:10 MDM - Fall MDM Narrative Medical decision making narrative: X-rays of the left ribs were done and evaluated by myself. I do not see a pneumothorax evidence of hemothorax or obvious displaced rib fracture. It will be read by the radiologist. I will treat her symptomatically for pain relief. Discharge Plan Discharge Chief Complaint: Fall Clinical Impression: Chest wall contusion Patient Disposition: Home, Self-Care Time of Disposition Decision: 14:15 Prescriptions / Home Meds: No Action citalopram 40 mg tablet 40 mg PO DAILY etodolac 300 mg capsule 300 mg PO BID pregabalin 75 mg capsule 75 mg PO BID verapamil 240 mg tablet extended release 240 mg PO DAILY Print Language: Chinese Additional Instructions: [place] at nighttime as needed Referrals: IRVING CLEMENS [Primary Care Provider] - 1 week
[2024-10-20 14:10] VITALS: BP 210/92; PULSE 57; O2SAT 92
[2024-10-20] MEDS: KETOROLAC TROMETHAMINE 10 MG TABLET PO (14:29)
[2024-10-20 14:32] VITALS: BP 194/81; PULSE 57; O2SAT 92
== END 2024-10-20 14:35 | disposition home or self-care (01) ==
PROVIDERS: Emergency Provider Emergency Medicine Emergency Medical Services; PCP Family Medicine
DX: S20.212A Contusion of left front wall of thorax, initial encounter (principal); W18.2XXA Fall in (into) shower or empty bathtub, initial encounter
CPT/HCPCS: 71100; 99283

== ENCOUNTER 2025-01-21 15:18 | Outpatient (OUT) | payer MEDICARE, OTHER, SELFPAY ==
[2025-01-21 15:34] LABS: Basophils Absolute Auto 0.1 10^3/uL (0.0-0.1); Basophils Percent Auto 0.7 % (0.2-2.0); Eosinophils Absolute Auto 0.3 10^3/uL (0.0-0.7); Eosinophils Percent Auto 3.5 % (0.9-7.0); Hematocrit 43.2 % (36.0-48.0); Hemoglobin 14.5 g/dL (12.0-16.0); Immature Granulocytes Abs Auto 0.03 10^3/uL (0.00-0.03); Immature Granulocytes Pct Auto 0.4 % (0.0-0.5); Lymphocytes Absolute Auto 1.8 10^3/uL (1.2-3.8); Mean Corpuscular HGB Conc 33.6 g/dL (29.9-35.2); Mean Corpuscular Hemoglobin 32.5 pg (26.7-34.0); Mean Corpuscular Volume 96.9 fL (81.0-99.0); Mean Platelet Volume 9.4 fL (9.5-13.5); Monocytes Absolute Auto 0.8 10^3/uL (0.3-0.8); Monocytes Percent Auto 10.4 % (1.7-12.0); Neutrophils Absolute Auto 4.4 10^3/uL (1.4-6.5); Platelet Count 217 10^3/uL (150-450); Red Blood Count 4.46 10^6/uL (4.20-5.40); Red Cell Distribution Width 12.5 % (11.0-15.0); White Blood Count 7.2 10^3/uL (4.0-11.0)
--- OUTSIDE RECORDS SUMMARY | 2025-01-21 15:40 | XMS_ITS | CCD ---
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 Primary Care Physician [phone] SHAYAN GAMINO Attending Unavailable KUMAR KHAN Referring Unavailable IRVING CLEMENS Referring Unavailable Irving Clemens Attending Unavailable Irving Clemens. Attending Unavailable Irving Clemens. Attending Unavailable Irving Clemens. Attending Unavailable Irving Clemens Attending Unavailable Irving Clemens. Attending Unavailable Johanna Mata Attending Unavailable Irving Clemens Attending Unavailable Irving Clemens Referring Unavailable Irving Clemens Admitting Unavailable Irving Clemens Attending Unavailable Irving Clemens Admitting Unavailable Irvign Clemens Attending Unavailable Allergies Allergy Classification Reported Allergen(s) Allergy Type Date of Onset Reaction(s) Facility (2 sources) Codeine; Translations: [codeine] Drug Allergy [facility] (1 source) Sulfonamides (Antibiotic) Drug allergy (disorder) [facility] (2 sources) Codeine; Translations: [codeine] Drug Allergy [facility] (3 sources) Sulfonamides (Antibiotic); Translations: [sulfa drugs] Propensity to adverse reactions to drug [facility] Medications Current Medications Medication Drug Class(es) Dates Sig (Normalized) Sig (Original) citalopram 40 mg oral tablet (2 sources) Serotonin Reuptake Inhibitor Start: 05-12-2024 take 1 tablet by mouth once daily citalopram 40 mg Tab 40 mg = 1 tab(s), Oral, Daily, # 90 tab(s), Refills(s) 4, Pharmacy: [facility] #[facility], 161, cm, 03/05/24 13:06:00 EDT, Height/Length Dosing, 88.6, kg, 03/05/24 13:06:00 EDT, Weight Dosing Start Date: 05/12/24 Status: Ordered Start: 11-14-2023 take 1 tablet by [facility] once daily citalopram 40 mg Tab 40 mg = 1 tab(s), Oral, Daily, # 90 tab(s), Refills(s) 1, Pharmacy: [facility] #[id number], 159.5, cm, 11/14/23 13:11:00 EST, Height/Length Dosing, [...] Daily, # 90 tab(s), Refills(s) 1, Pharmacy: [facility] #[id number], 159.5, cm, 11/14/23 13:11:00 EST, Height/Length Dosing, 90.2, kg, 11/14/23 13:11:00 EST, Weight Dosing Start Date: 11/14/23 Status: Ordered pregabalin 75 mg oral capsule (1 source) Start: 07-29-2024 take 1 capsule by mouth twice daily Lyrica 75 mg Cap 75 mg = 1 cap(s), Oral, BID, # 60 cap(s), Refills(s) 0, Pharmacy: [facility] #[facility], 161, cm, 07/29/24 12:54:00 EDT, Height/Length Dosing, 90.6, kg, 07/29/24 12:54:00 EDT, Weight Dosing Start Date: 07/29/24 Status: Ordered verapamil hydrochloride 240 mg extended release oral tablet (2 sources) Calcium Channel Hero Start: 05-12-2024 take 1 tablet by mouth once daily verapamil 240 mg ER Tab 240 mg = 1 tab(s), Oral, Daily, # 90 tab(s), Refills(s) 4, Pharmacy: [facility] #72, 161, cm, 03/05/24 13:06:00 EDT, Height/Length Dosing, 88.6, kg, 03/05/24 13:06:00 EDT, Weight Dosing Start Date: 05/12/24 Status: Ordered Start: 11-14-2023 take 1 tablet by jake th once daily verapamil 240 mg ER Tab 240 mg = 1 tab(s), Oral, Daily, # 90 tab(s), Refills(s) 1, Pharmacy: [facility] #[id number], 159.5, cm, 11/14/23 13:11:00 EST, Height/Length Dosing, [...] 10-31-2022 Chronic Other aftercare (1 source) Other jail (current) drug therapy; Translations: [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] Onset: 11-03-2022 Episodic Other nervous system disorders (2 sources) Neuropathy 11-14-2023 Chronic Other nutritional; endocrine; and metabolic disorders (1 source) Body mass index 30+ - obesity 02-12-2024 Chronic Unclassified (2 sources) Statin not tolerated (context-dependent category) 11-14-2023 Results Test Name Value Interpretation Reference Range Facil ity Ambulatory Visit Summaryon 0 10-24-2024 Ambulatory Visit Summary Ambulatory Visit Summary JOSE MANUEL CHICAS :1945 Visit Date:10/24/2024 Ambulatory Visit Instructions Your Diagnosis Former smoker BMI 34.0-34.9,adult Exogenous obesity Your Care Team Attending Physician - Johanna Floyd Primary Care Physician - Roberto Carlos MART, Irving Small This Is Your Medications List citalopram (citalopram 40 mg Tab) etodolac (etodolac 500 mg Tab) hydrochlorothiazide (hydrochlorothiazide 25 mg Tab) pregabalin (Lyrica 75 mg Cap) verapamil (verapamil 240 mg ER Tab) Procedures Performed Acoustic neuroma, Biopsy of breast, Hysterectomy. Discharge Vitals Temperature (Oral) 37.1 ???C Heart Rate (Peripheral) 64 Respiratory Rate 20 Blood Pressure 144/88 Height 161.0 cm Height 63 in Weight 89.9 kg Weight 198.195 lb BMI 34.68 What to do next Scheduled Follow-Up Appointments Monday 1:15 PM EDT With: Irving Clemens MD Where: [address] [id number]- Monday 2:30 PM EDT With: Where: [address] [address]- Medications What How Much When Instructions Unchanged [...] choosing us for your care. Normal [facility] Family Medicine Office/Clini c Noteon 10-24-2024 Family Medicine Office/Clinic Note Family Medicine Office/Clinic Note HPI Staff Jose Manuel is a 79 year old female presenting with ER followup: Hospital: [facility] Visit date: 10/20/24 Symptoms the patient presented with: fall at home Current concerns: Hydrocodone from ER- she got very sick of these so she only took 1 She said she is feeling a lot better than when it was, she still has to hold on to a pillow on her stomach when she sneezes or coughs, this helps her a lot History of Present Illness pt presents today for ER follow up Review of Systems PHQ Score Initial Depression Screen Score: 0 SCORE Physical Exam Vitals & Measurements T: 37.1 ???C(Oral) HR: 64(Peripheral) RR: 20 BP: 144/88 SpO2: 95% HT: 63 in HT: 161.0 cm WT: 89.9 kg WT: 198.195 lb BMI: 34.68 General: alert, no acute distress ENMT: oral mucosa moist, no pharyngeal erythema or exudate Cardiovascular: regular rate and rhythm, normal peripheral perfusion Respiratory: Lungs CTA, respirations non labored Extremities: no deformity, no trauma Neurological: oriented x 4, LOC appropriate for age, CN II-XII intact, motor strength equal & normal bilaterally, speech normal left rib bruising, left upper arm bruising Assessment/Plan 1. Hospital discharge follow-up (Z09: Encounter for follow-up examination after completed treatment for conditions other than malignant neoplasm) pt presents today for ER follow up. Fell a week ago went to ER a couple days after fall. x rays were negative. was given narcotic for pain but it made her sick. will order 800mg ibuprofen. pt states she is feeling much better. the pain gets a little less with each day. but when she coughs or sneezes, it hurts really bad. she has been using a pillow to support her when she coughs. RTC as needed Ordered: ibuprofen, 800 mg = 1 tab(s), Oral, q8hr, # 30 tab(s), Refills(s) 0, Pharmacy: [facility], 161, cm, 10/24/24 10:46:00 EST, Height/Length Dosing, 89.9, kg, 10/24/24 10:46:00 EST, Weight Dosing 2. History of recent fall (Z91.81: History of falling) see above Ordered: ibuprofen, 800 mg = 1 tab(s), Oral, q8hr, # 30 tab(s), Refills(s) 0, Pharmacy: [facility], 161, cm, 10/24/24 10:46:00 EST, Height/Length Dosing, 89.9, kg, 10/24/24 10:46:00 EST, Weight Dosing 3. Rib pain on left side (R07.81: Pleurodynia) see above Ordered: ibuprofen, 800 mg = 1 tab(s), Oral, q8hr, # 30 tab(s), Refills(s) 0, Pharmacy: [facility] #[facility], 161, cm, 10/24/24 10:46:00 EST, Height/Length Dosing, 89.9, kg, 10/24/24 10:46:00 EST, Weight Dosing 4. Former smoker (Z87.891: Personal history of nicotine dependence) consider not smoking Ordered: ibuprofen, 800 mg = 1 tab(s), Oral, q8hr, # 30 tab(s), Refills(s) 0, Pharmacy: [facility], 161, cm, 10/24/24 10:46:00 EST, Height/Length Dosing, 89.9, kg, 10/24/24 10:46:00 EST, Weight Dosing 5. BMI 34.0-34.9,adult (Z68.34: Body mass index [BMI] 34.0-34.9, adult) BMI education given Ordered: ibuprofen, 800 mg = 1 tab(s), Oral, q8hr, # 30 tab(s), Refills(s) 0, Pharmacy: [facility] #[facility], 161, cm, 10/24/24 10:46:00 EST, Height/Length Dosing, 89.9, kg, 10/24/24 10:46:00 EST, Weight Dosing 6. Exogenous obesity (E66.09: Other obesity due to excess calories) see above Ordered: ibuprofen, 800 mg = 1 tab(s), Oral, q8hr, # 30 tab(s), Refills(s) 0, Pharmacy: [facility], 161, cm, 10/24/24 10:46:00 EST, Height/Length Dosing, 89.9, kg, 10/24/24 10:46:00 EST, Weight Dosing Follow-up No qualifying data available Problem List/Past Medical History Ongoing Anxiety BMI 34.0-34.9,adult History of recent fall HLD (hyperlipidemia) Hospital discharge follow-up HTN (hypertension) Neuropathy Rib pain on left side Statin intolerance Historical No qualifying data Procedure/Surgical History Acoustic neuroma, Biopsy of breast, Hysterectomy. Medications citalopram 40 mg Tab, 40 mg= 1 tab(s), Oral, Daily, 4 refills etodolac 500 mg Tab, 500 mg= 1 tab(s), Oral, BID hydrochlorothiazide 25 mg Tab, 25 mg= 1 tab(s), Oral, Daily, 1 refills ibuprofen 800 mg Tab, 800 mg= 1 tab(s), Oral, q8hr Lyrica 75 mg Cap, 75 mg= 1 [...] ago Tobacco Use:. Never Smokeless Tobacco Use:., 10/24/2024 Family History Acute myocardial infarction: Father. Hypertension: Brother. Stroke: Mother. Immunizations Vaccine Date Status Comments influenza virus vaccine, inactivated - Not Given Patient Refuses pneumococcal 13-valent vaccine 09/09/2021 Recorded influenza virus vaccine, inactivated 10/05/2019 Recorded pneumococcal 23-valent vaccine 08/26/2014 Recorded pneumococcal 23-ju (more content not included)... Normal [facility] Comment on above: Result Comment: Elec tronically Signed By: Johanna Floyd\.kingston\Date and Time Signed: 10/24/24 10:59 EST Ambulatory Visit Summaryon 1 11-05-2023 Ambulatory Visit [...] PM EDT With: Irving Clemens MD Where: [address] [address]- Monday 2:30 PM EDT With: Where: [address] [address]- Medications What How Much When Instructions Unchanged [...] choosing us for your care. Normal [facility] Family Medicine Office/Clini c Noteon 09-05-2024 Family [...] BID, # 180 cap(s), Refills(s) 1, Pharmacy: [facility], 161, cm, 09/05/24 13:07:00 EST, Height/Length [...] Recorded pneumococcal 23-valent vaccine 08/23/2001 Recorded Normal [facility] Comment on above: Result Comment: Elec tronically [...] neuropathy c (more content not included)... Normal [facility] Comment on above: Result Comment: Elec tronically [...] With: Roberto Carlos MART, Irving Small Where: [facility] Medicine Hundred Normal [address] [id number]- \.br\ Medications\.br\ What How Much When Instructions\.br\ [...] for choosing us for your care.\.br\ \.br\ [facility] Family Medicine Office/Clini c Noteon 03-05-2024 Family [...] Recorded pneumococcal 23-valent vaccine 08/23/2001 Recorded Normal [facility] Comment on above: Result Comment: Elec tronically Signed By: Roberto Carlos MART, Irving Small\.br\Date and Time Signed: 03/05/24 13:36 EDT Living Will/POColt 03-05-2024 Living Will/POCarmella [id number] #1.00TIFF Normal [facility] Family Medicine Office/Clini c Noteon 02-13-2024 Family [...] ; Comments: 11/14/2023 13:07 Laly Velasquez LPN [facility] 1995 ; Last Reviewed Dt/Tm: 02/12/2024 [...] help : (more content not included)... Normal [facility] Comment on above: Result Comment: Elec tronically Signed By: Irving Clemens MD\.br\Date and Time Signed: 02/13/24 08:33 EDT\.br\Electronically Co-Signed By: Marilyn Jsoe LPN\.br\Date and Time Co-Signed: 02/12/24 16:35 EDT [place] 02-13-2024 Screens [id number] #1.00TIFF [facility] Ambulatory Visit Summaryon 0 02-12-2024 Ambulatory Visit [...] PM EDT With: Irving Clemens MD Where: [facility] Normal [address] [place] [address]- \.br\ Medications\.br\ What How Much When Instructions\.br\ [...] ? \.br\ Avoid caffeine, alcohol, and certain waut-xai-qhfivug cold medicines. These may make you feel worse. Ask your pharmacist which medicines to avoid.\.br\ General instructions\.br\ ? \.br\ Take xoig-nun-ylxiumu and prescription medicines only as told by your health care provider.\.br\ ? \.br\ Keep all follow-up visits. This is important.\.br\ Where to find support\.br\ You can get help and support from these sources:\.br\ ? \.br\ Self-help groups.\.br\ ? \.br\ Online and community organizations.\.br\ ? \.br\ A trusted spiritual leader.\.br\ ? \.br\ [facility] Dexa Scanson 02-12-2024 Dexa Scans [id number] #1.00TIFF Normal [facility] Patient Educationon 02-12-20 24 Patient Education Cardiovascular [...] oz glass (more content not included)... Normal [facility] Outside Mammographyon 2023 Outside Mammography [id number] #1.00TIFF Normal [facility] BI MAMMOGRAM SCREENING TOMOS YNTHESIS BILATERALon 01-04-2024 [...] IS VERY IMPORTANT TO YOUR HEALTH. THE [employer] GUIDELINES RECOMMEND THAT WOMEN 40 [...] Anxiety Your Care Team Attending Physician - Irvnig Clemens MD. Primary Care Physician - Irving [...] Mouth Every day Pickup at [facility] #[id number] Changed hydrochlorothiazide (hydrochlorothiazide 25 mg Tab) 1 Tablets By Mouth Every day Pickup at [facility] #[id number] Changed verapamil (verapamil 240 mg ER Tab) 1 Tablets By Mouth Every day Pickup at [facility] #[id number] Unchanged gabapentin (gabapentin 300 mg Cap) See instructions 1 orally in the am and 2 at bedtime Contact prescribing physician if questions or concerns Pharmacy Information [facility] #[id number]: [address], [place] [id number] [phone] Allergies codeine sulfa drugs Problems Ongoing - [...] numbers. This can be done either in [place] ([place] or metric measurements. Note that charts and online BMI calculators are available to help you find your BMI quickly and easily without having to do these calculations yourself. To calculate your BMI in [place] ([place] measurements: 1. Measure your weight in [...] an athle (more content not included)... Normal [facility] CBC w/ Auto Diffon 4 Basophil Absolute 0.0 E9/L Normal 0.0-0.2 [facility] Comment on above: Performed By: #### 2 096372, 1158566, 8454878, [id number] ####[facility] [address] [place] [address] Basophils/100 WBC (Bld) 0.5 % Normal 0.0-2.0 [facility] Comment on above: Performed By: #### 2 646246, 7034540, 9072547, 10382481 ####[facility] [address] [place] [address] Eos Absolute 0.2 E9/L Normal 0.0-0.5 [facility] Comment on above: Performed By: #### 2 612673, 6440530, 8541304, 24999276 ####[address] [place] [address] Eosinophils/100 WBC (Bld) 3.6 % Normal 0.0-8.0 [facility] Comment on above: Performed By: #### 2 544707, 5678156, 4609581, 44830388 ####[address] [address] Erythrocyte distribution width (RBC) [Ratio] 12.9 % Normal 10.9-14.2 [facility] Comment on above: Performed By: #### 2 116951, 7537115, 5310240, 56449010 ####[address] [address] Hematocrit (Bld) [Volume fraction] 43.0 % Normal 34.0-46.0 [facility] Comment on above: Performed By: #### 2 034272, 7363026, 6906015, 81145923 ####[address] [address] Hemoglobin (Bld) [Mass/Vol] 14.3 g/dL Normal 12.0-16.0 [facility] Comment on above: Performed By: #### 2 820112, 3637854, 3681794, 67318287 ####[address] [address] Lymph Absolute 1.6 E9/L Normal 1.0-4.0 [facility] Comment on above: Performed By: #### 2 641990, 1845832, 6055028, 17316895 ####[address] [address] Lymphocytes/100 WBC (Bld) 24.6 % Normal 14.0-50.0 [facility] Comment on above: Performed By: #### 2 661648, 9825266, 3298698, 11888915 ####[address] [address] MCH (RBC) [Entitic mass] 32.2 pg Normal 27.0-34.0 [facility] Comment on above: Performed By: #### 2 569329, 1274358, 7305366, 36222605 ####[address] [address] MCHC (RBC) [Mass/Vol] 33.3 g/dL Normal 31.4-36.0 [facility] Comment on above: Performed By: #### 2 873847, 7594369, 6471728, 28684985 ####[address] [address] MCV (RBC) [Entitic vol] 96.7 fL Normal 80.0-100.0 [facility] Comment on above: Performed By: #### 2 808999, 1178642, 6120407, 62749924 ####[address] [address] Wright Absolute 0.7 E9/L Normal 0.2-1.0 [facility] Comment on above: Performed By: #### 2 986267, 4355447, 5468323, 63790348 ####[address] [address] Monocytes/100 WBC (Bld) 10.8 % Normal 4.0-14.0 [facility] Comment on above: Performed By: #### 2 533105, 6371631, 7498313, 18273183 ####[address] [address] Neutro Absolute 3.9 E9/L Normal 2.0-7.5 [facility] Comment on above: Performed By: #### 2 779825, 4235562, 3831163, 94352583 ####[address] [address] Neutro Auto 60.5 % Normal 36.0-75.0 [facility] Comment on above: Performed By: #### 2 288851, 9095093, 5153274, 65278476 ####[address] [address] Platelet 218.0 E9/L Normal 150.0-500.0 [facility] Comment on above: Performed By: #### 2 286938, 1080279, 1556496, 39726566 ####[address] [address] Platelet mean volume (Bld) [Entitic vol] 8.4 fL Normal 6.4-10.8 [facility] Comment on above: Performed By: #### 2 194891, 3277268, 5914054, 06155579 ####[facility] [address] [place] [address] RBC 4.4 E12/L Normal 4.3-5.9 [facility] Comment on above: Performed By: #### 2 122758, 9348850, 1472488, 54365012 ####[facility] [address] [place] [address] WBC 6.4 E9/L Normal 4.0-11.0 [facility] Comment on above: Performed By: #### 2 851357, 3292577, 3740345, 66070993 ####[facility] [address] [place] [address] CHEMISTRYOrdered By: SYSTEM SYSTEM on 11-14-2023 Albumin [...] 11-14-2023 Albumin [Mass/Vol] 3.9 g/dL Normal 3.3-5.0 [facility] Comment on above: Performed By: #### 2 337697, 4682821, 8834284, 84488376 ####[facility] [address] [place] [address] Albumin/Globulin [Mass ratio] 1.7 {ratio} Normal 1.1-2.2 [facility] Comment on above: Performed By: #### 2 037999, 9536919, 0509126, 10006192 ####[facility] [address] [place] [address] Alk Phos 72 Int._Unit/L Normal 21-98 [facility] Comment on above: Performed By: #### 2 890634, 7726244, 9641831, 51342321 ####[facility] [address] [place] [address] ALT 19 Int._Unit/L Normal 6-46 [facility] Comment on above: Performed By: #### 2 725515, 3173164, 4787543, 89058389 ####[facility] [address] [place] [address] Anion gap [Moles/Vol] 10 mmol/L Normal 6-16 [facility] Comment on above: Performed By: #### 2 871963, 2703393, 6957694, 62014550 ####[facility] [address] [place] [address] AST 19 Int._Unit/L Normal 5-43 [facility] Comment on above: Performed By: #### 2 801274, 4915873, 1377422, 85015098 ####[facility] [address] [place] [address] Bili Total 0.9 mg/dL Normal 0.0-1.1 [facility] Comment on above: Performed By: #### 2 051006, 0490761, 9233856, 93710250 ####[facility] [address] [place] [address] BUN/Creat Ratio 19 No Units Normal 10-20 [facility] Comment on above: Performed By: #### 2 355345, 3597224, 0968790, 05334170 ####[facility] [address] [place] [address] Calcium [Mass/Vol] 8.6 mg/dL Low 8.9-11.1 [facility] Comment on above: Performed By: #### 2 729932, 1932518, 2000318, 08676387 ####[facility] [address] [place] [address] Chloride [Moles/Vol] 106 mmol/L Normal 101-111 [facility] Comment on above: Performed By: #### 2 080604, 5030585, 6658226, 80956271 ####[facility] [address] [place] [address] CO2 [Moles/Vol] 26 mmol/L Normal 21-31 [facility] Comment on above: Performed By: #### 2 128941, 0308469, 7767860, 87694870 ####[facility] [address] [place] [address] Creatinine [Mass/Vol] 0.8 mg/dL Normal 0.5-1.3 [facility] Comment on above: Performed By: #### 2 521355, 0105383, 9269795, 50139899 ####[facility] [address] [place] [address] Globulin (S) [Mass/Vol] 2.3 g/dL Normal 1.4-4.0 [facility] Comment on above: Performed By: #### 2 315611, 7019656, 4159207, 51976658 ####[facility] [address] [place] [address] Glucose [Mass/Vol] 98 mg/dL Normal 55-199 [facility] Comment on above: Performed By: #### 2 166692, 1741973, 6146705, 59818913 ####[facility] [address] [place] [address] Potassium [Moles/Vol] 4.3 mmol/L Normal 3.5-5.3 [facility] Comment on above: Performed By: #### 2 736682, 7965570, 3669753, 57923296 ####[facility] [address] [place] [address] Protein [Mass/Vol] 6.2 g/dL Normal 6.0-7.8 [facility] Comment on above: Performed By: #### 2 994153, 6075747, 4713396, 93813784 ####[facility] [address] [place] [address] Sodium [Moles/Vol] 138 mmol/L Normal 135-145 [facility] Comment on above: Performed By: #### 2 013008, 0281534, 3700507, 63432775 ####[facility] [address] [place] [address] Urea nitrogen [Mass/Vol] 15 mg/dL Normal 5-21 [facility] Comment on above: Performed By: #### 2 195770, 6671649, 1870484, 88213290 ####[facility] [address] [place] [address] Family Medicine Office/Clini c Noteon 11-14-2023 Family Medicine Office/Clinic Note HPI Staff Jose Manuel is a 78 year old female presenting to re-establish care Establish Care: History:HTN, anxiety, neuropathy Any previous diagnosis: History of seeing any specialist: Dr Khan ( rxs her gabapentin) When was your last doctors visit: 2019 Last provider: Dr Jhony Gamino ( [place], she moved on) and saw Dr Clemens when 1st in [place] Any recent labs: [facility] ( dr Kahn) Aug 2023 and PCP did labs showing [...] 90 tab(s), Refills(s) 1, Pharmacy: [facility] #[id number], 159.5, cm, 11/14/23 13:11:00 EST, Height/Length Dosing, 90.2, kg, 11/14/23 13:11:00 EST, Weight Dosing hydrochlorothiazide, 25 mg = 1 tab(s), Oral, Daily, # 90 tab(s), Refills(s) 1, Pharmacy: [facility] #[id number], 159.5, cm, 11/14/23 13:11:00 EST, Height/Length Dosing, 90.2, kg, 11/14/23 13:11:00 EST, Weight Dosing verapamil, 240 mg = 1 tab(s), Oral, Daily, # 90 tab(s), Refills(s) 1, Pharmacy: [facility] #[id number], 159.5, cm, 11/14/23 13:11:00 EST, Height/Length Dosing, 90.2, kg, 11/14/23 13:11:00 EST, Weight Dosing Follow-up No qualifying data available Patient Education BMI for Adults Problem List/Past Medical History Ongoing Anxiety HLD (hyperlipidemia) HTN (hypertension) Neuropathy Statin intolerance Historical No qualifying data Procedure/Surgical History Acoustic neuroma, Biopsy of breast, Hysterectomy. Medications citalopram 40 mg Tab, (more content not included)... Normal [facility] Comment on above: Result Comment: Elec tronically [...] Normal 80.0 - 100.0 fL Remisol Heme Wright Absolute 0.7 E9/L Normal 0.2 - 1.0 [...] 11-14-2023 Cholesterol [Mass/Vol] 254 mg/dL High 120-200 [facility] Comment on above: Performed By: #### 2 191079, 5777603, 9649132, 47757890 ####[facility] [address] [place] [address] Cholesterol in HDL [Mass/Vol] 57 mg/dL Invalid Interpretation Code [facility] Comment on above: Result Comment: '>= 60 LOW RISK' '<= 40 HIGH RISK' Performed By: #### 2 894706, 3140636, 6272946, [id number] ####[facility] [id number] [place] [address] Cholesterol in LDL [Mass/Vol] 176 mg/dL High <=129 [facility] Comment on above: Performed By: #### 2 [id number], [id number], [id number], [id number] ####[facility] [address] [place] [address] Cholesterol in VLDL [Mass/Vol] 32 mg/dL Normal 7-40 [facility] Comment on above: Performed By: #### 2 [id number], [id number], [id number], [id number] ####[facility] [address] [place] [address] Triglyceride [Mass/Vol] 162 mg/dL High <=149 [facility] Comment on above: Performed By: #### 2 [id number], [id number], [id number], [id number] ####[facility] [id number] [place] [address] Patient Educationon 11-14-19 Patient Education Nutrition BMI [...] numbers. This can be done either in [place] ([place] or metric measurements. Note that charts and online BMI calculators are available to help you find your BMI quickly and easily without having to do these calculations yourself. To calculate your BMI in [place] ([place] measurements: 1. Measure your weight in [...] for Disease Control and Prevention: www.cdc.gov ? [place] Heart Association: www.heart.org ? National Heart, Lung, and Blood [place]: www.nhlbi.nih.gov Summary ? Body mass index (BMI) is a number that is calculated from a person's weight and height. ? BMI may help estimate how much of a person's weight is composed of fat. BMI can help identify those who may be at higher risk for certain medical problems. ? BMI can be measured using Guatemalan measurements or metric measurements. ? BMI charts are used to identify whether you are underweight, normal weight, overweight, or obese. This information is not intended to replace advice given to you by your health care provider. Make sure you discuss any questions you have with your health care provider. Document Revised: 07/01/2020 Document Reviewed: 05/08/2020 [employer] Patient Education ? 2022 [employer] Normal [facility] eGFRon 11-14-2023 eGFR 75 mL/min/1.73 m2 Normal >=59 [facility] Comment on above: Order Comment: Order added by Discern Expert. Performed By: #### 2 [id number], [id number], [id number], [id number] ####[facility] [address] [place] [address] CBC AUTO DIFFon 10-31-2022 BASO # 0.1 103/ul Normal 0.0-0.1 Comment on above: Performed By: #### C BC #### [facility] [address] [address] [address] Ernestina Peters Basophils/100 WBC (Bld) 0.8 % Normal 0.2-2.0 Comment on above: Performed By: #### C BC #### [facility] [address] [address] [address] Ernestina Peters EO # 0.3 103/ul Normal 0.0-0.7 Comment on above: Performed By: #### C BC #### [facility] [address] [place] [address] Dr. Ernestina Peters Eosinophils/100 WBC (Bld) 3.7 % Normal 0.9-7.0 Comment on above: Performed By: #### C BC #### [facility] [address] [place] [address] Dr. Ernestina Peters Erythrocyte distribution width (RBC) [Ratio] 12.3 % Normal 11.0-15.0 Comment on above: Performed By: #### C BC #### [facility] [address] [place] [address] Dr. Ernestina Peters Hematocrit (Bld) [Volume fraction] 41.8 % Normal 36.0-48.0 Comment on above: Performed By: #### C BC #### [facility] [address] [place] [address] Dr. Ernestina Peters Hemoglobin (Bld) [Mass/Vol] 14.9 g/dL Normal 12.0-16.0 Comment on above: Performed By: #### C BC #### [facility] [address] [place] [address] Dr. Ernestina Peters IG # 0.03 10e3/ul Normal 0.00-0.03 Comment on above: Performed By: #### C BC #### [facility] [address] [place] [address] Dr. Ernestina Peters IG % 0.4 % Normal 0.0-0.5 Comment on above: Performed By: #### C BC #### [facility] [address] [place] [address] Dr. Ernestina Peters LYMPH # 1.4 103/ul Normal 1.2-3.8 [facility] Comment on above: Performed By: #### C BC #### [facility] [address] [place] [address] Dr. Ernestina Peters Lymphocytes/100 WBC (Bld) 19.8 % Critically low 20.5-60.0 Comment on above: Performed By: #### C BC #### [facility] [address] [place] [address] Dr. Ernestina Peters MANUAL DIFF REQ NO Normal Comment on above: Performed By: #### C BC #### [facility] [address] [place] [address] Dr. Ernestina Peters MCH (RBC) [Entitic mass] 31.5 pg Normal 26.7-34.0 Comment on above: Performed By: #### C BC #### [facility] [address] [place] [address] Dr. Ernestina Peters MCHC (RBC) [Mass/Vol] 35.6 g/dL Critically high 29.9-35.2 Comment on above: Performed By: #### C BC #### [facility] [address] [place] [address] Dr. Ernestina Peters MCV (RBC) [Entitic vol] 88.4 fL Normal 81.0-99.0 Comment on above: Performed By: #### C BC #### [facility] [address] [place] [address] Dr. Ernestina Peters MONO # 0.6 103/ul Normal 0.3-0.8 Comment on above: Performed By: #### C BC #### [facility] [address] [place] [address] Dr. Ernestina Peters Monocytes/100 WBC (Bld) 8.1 % Normal 1.7-12.0 Comment on above: Performed By: #### C BC #### [facility] [address] [place] [address] Dr. Ernestina Peters NEUT # 4.8 103/ul Normal 1.4-6.5 [facility] Comment on above: Performed By: #### C BC #### [facility] [address] [place] [address] Dr. Ernestina Peters Neutrophils/100 WBC (Bld) 67.2 % Normal 43.0-75.0 Comment on above: Performed By: #### C BC #### [facility] [address] [address] [address] Ernestina Peters Platelet mean volume (Bld) [Entitic vol] 8.9 fL Critically low 9.5-13.5 Comment on above: Performed By: #### C BC #### [facility] [address] [address] [address] Ernestina Peters PLT 242 103/ul Normal 150-450 [facility] Comment on above: Performed By: #### C BC #### [facility] [address] [address] [address] Ernestina Peters RBC 4.73 106/ul Normal 4.20-5.40 Comment on above: Performed By: #### C BC #### [facility] [address] [place] [address] Dr. Ernestina Peters WBC 7.1 103/ul Normal 4.0-11.0 [facility] Comment on above: Performed By: #### C BC #### [facility] [address] [place] [address] Dr. Ernestina Peters PROF 14(COMP METB)on 023 Albumin [Mass/Vol] 3.5 g/dL Normal 3.4-5.0 Comment on above: Performed By: #### C MP #### [facility] [address] [place] [address] Dr. Ernestina Peters Albumin/Globulin [Mass ratio] 1.2 {ratio} Normal [facility] Comment on above: Performed By: #### C MP #### [facility] [address] [place] [address] Dr. Ernestina Peters ALP [Catalytic activity/Vol] 88 U/L Normal 46-116 [facility] Comment on above: Performed By: #### C MP #### [facility] [address] [place] [address] Dr. Ernestina Peters ALT [Catalytic activity/Vol] 19 U/L Normal 14-59 [facility] Comment on above: Performed By: #### C MP #### [facility] [address] [address] [address] Ernestina Peters Anion gap [Moles/Vol] 11.0 mmol/L Normal Comment on above: Performed By: #### C MP #### [facility] [address] [place] [address] Dr. Ernestina Peters AST [Catalytic activity/Vol] 18 U/L Normal 15-37 [facility] Comment on above: Performed By: #### C MP #### [facility] [address] [place] [address] Dr. Ernestina Peters Bilirubin [Mass/Vol] 1.0 mg/dL Normal 0.2-1.0 [facility] Comment on above: Performed By: #### C MP #### [facility] [address] [place] [address] Dr. Ernestina Peters Calcium [Mass/Vol] 9.2 mg/dL Normal 8.5-10.1 [facility] Comment on above: Performed By: #### C MP #### [facility] [address] [place] [address] Dr. Ernetsina Peters Chloride [Moles/Vol] 104 mmol/L Normal 98-107 [facility] Comment on above: Performed By: #### C MP #### [facility] [address] [place] [address] Dr. Ernestina Peters CO2 [Moles/Vol] 30.0 mmol/L Normal 21.0-32.0 [facility] Comment on above: Performed By: #### C MP #### [facility] [address] [place] [address] Dr. Ernestina Peters Creatinine [Mass/Vol] 0.76 mg/dL Normal 0.55-1.02 [facility] Comment on above: Performed By: #### C MP #### [facility] [address] [place] [address] Dr. Ernestina Peters EGFR-AF GABONESE >60 Normal >=60 [facility] Comment on above: Performed By: #### C MP #### [facility] [address] [place] [address] Dr. Ernestina Peters EGFR-NON AF GABONESE >60 Normal >=60 Comment on above: Performed By: #### C MP #### [facility] [address] [place] [address] Dr. Ernestina Peters Globulin (S) [Mass/Vol] 3.0 g/dL Normal Comment on above: Performed By: #### C MP #### [facility] [address] [address] [address] Ernestina Peters Glucose [Mass/Vol] 133 mg/dL Critically high 74-106 [facility] Comment on above: Performed By: #### C MP #### [facility] [address] [address] [address] Ernestina Peters Potassium [Moles/Vol] 4.0 mmol/L Normal 3.5-5.1 Comment on above: Performed By: #### C MP #### [facility] [address] [place] [address] Dr. Ernestina Peters Protein [Mass/Vol] 6.5 g/dL Normal 6.4-8.2 Comment on above: Performed By: #### C MP #### [facility] [address] [place] [address] Dr. Ernestina Peters Sodium [Moles/Vol] 141 mmol/L Normal 136-145 Comment on above: Performed By: #### C MP #### [facility] [address] [place] [address] Dr. Ernestina Peters Urea nitrogen [Mass/Vol] 17.0 mg/dL Normal 7.0-18.0 Comment on above: Performed By: #### C MP #### [facility] [address] [address] [address] Ernestina Peters Urea nitrogen/Creatinine [Mass ratio] 22.4 mg/mg Normal Comment on above: Performed By: #### C MP #### [facility] [address] [place] [address] Dr. Ernestina Peters SABRINA Antinuclear Antibodieson 01-31-2022 Antinuclear Abs, IFA Negative Normal . [facility] Comment on above: Result Comment: Nega tive <1:80 Borderline 1:80 Positive >1:80 ICAP nomenclature: AC-0 For more information about Hep-2 cell patterns use ANApatterns.org, the official website for the International Consensus on Antinuclear Antibody (SABRINA) Patterns (ICAP). Performed at: [address] [id number] Solution Engineer: Chu Dewey PhD, Phone: [phone] Performed By: #### T SH3, CBC, ESR, ADDONUAPLUS, CK, T4F, CRP, CMP, LDH, PTH #### [address] #### JEWEL,URINE, JEWEL SERUM, MYOG, SABRINA, UPE RAND, SPE #### [facility] , Albumin [Mass/volume] in Ser um or PlasmaOrdered By: Kumar Khan on 01-31-2022 Albumin [Mass/Vol] 4.2 g/dL 3.2-5.5 [facility] Aldolaseon 01-31-2022 Aldolase 3.8 U/L Normal 3.3-10.3 [facility] Comment on above: Result Comment: Perf ormed at: [address] [place] [address] Solution Engineer: Chu Dewey PhD, Phone: [phone] PERFORMED BY: [address] [place] [address] PATHOLOGIST BIT TAPPER SAE GOMEZ M.D. Performed By: #### T SH3, CBC, ESR, ADDONUAPLUS, CK, T4F, CRP, CMP, LDH, PTH #### [address] #### JEWEL,URINE, JEWEL SERUM, MYOG, SABRINA, UPE RAND, SPE #### [facility] , Automated erythrocytes count in urine sediment (number/area)Ordered By: Kumar Khan on 01-31-2022 RBC Auto (Urine sed) [#/Area] None seen [HPF] [facility] Automated leukocytes count i n urine sediment (number/area)Ordered By: Kumar Khan on 01-31-2022 WBC Auto (Urine sed) [#/Area] 3-4 [HPF] [facility] Basophils Auto (Bld) [#/Vol] Ordered By: Kumar Juarezrow on 01-31-2022 Basophils (Bld) [#/Vol] 0.1 10*3/uL 0.0-0.2 [facility] Basophils/100 WBC Auto (Bld) Ordered By: Kumar Juarezrow on 01-31-2022 Basophils/100 WBC (Bld) 0.9 % [facility] Bilirubin Test strip Ql (U)O rdered By: Kumar Juarezrow on 01-31-2022 Bilirubin Ql (U) Negative Negative [facility] Blood hemoglobin measurement (mass/volume)Ordered By: Kumar Juarezrow on 01-31-2022 Hemoglobin (Bld) [Mass/Vol] 15.8 g/dL 11.8-15.4 [facility] Blood leukocytes automated c ount (number/volume)Ordered By: Kumar Khan on 01-31-2022 WBC (Bld) [#/Vol] 8.3 10*3/uL 4.5-11.0 [facility] C-Reactive Proteinon 022 C-Reactive Protein 0.8 mg/dL Normal 0.0-1.0 [facility] Comment on above: Performed By: #### T SH3, CBC, ESR, ADDONUAPLUS, CK, T4F, CRP, CMP, LDH, PTH #### [facility] [address] #### JEWEL,URINE, JEWEL SERUM, MYOG, SABRINA, UPE RAND, SPE #### [facility] , Color Auto (U)Ordered By: John Khan on 01-31-2022 Color (U) Dark yellow Yellow [facility] Complete Blood Count Auto Di ffon 01-31-2022 Basophils (Bld) [#/Vol] 0.1 10*3/uL Normal 0.0-0.2 [facility] Comment on above: Performed By: #### T SH3, CBC, ESR, ADDONUAPLUS, CK, T4F, CRP, CMP, LDH, PTH #### [facility] [address] [place] [address] #### JEWEL,URINE, JEWEL SERUM, MYOG, SABRINA, UPE RAND, SPE #### [facility] , Basophils/100 WBC (Bld) 0.9 % Normal . [facility] Comment on above: Performed By: #### T SH3, CBC, ESR, ADDONUAPLUS, CK, T4F, CRP, CMP, LDH, PTH #### [address] #### JEWEL,URINE, JEWEL SERUM, MYOG, SABRINA, UPE RAND, SPE #### [facility] , Eosinophils (Bld) [#/Vol] 0.2 10*3/uL Normal 0.0-0.45 [facility] Comment on above: Performed By: #### T SH3, CBC, ESR, ADDONUAPLUS, CK, T4F, CRP, CMP, LDH, PTH #### [address] #### JEWEL,URINE, JEWEL SERUM, MYOG, SABRINA, UPE RAND, SPE #### [facility] , Eosinophils/100 WBC (Bld) 2.0 % Normal . [facility] Comment on above: Performed By: #### T SH3, CBC, ESR, ADDONUAPLUS, CK, T4F, CRP, CMP, LDH, PTH #### [address] #### JEWEL,URINE, JEWEL SERUM, MYOG, SABRINA, UPE RAND, SPE #### [facility] , Erythrocyte distribution width (RBC) [Ratio] 12.8 % Normal 11.9-15.3 [facility] Comment on above: Performed By: #### T SH3, CBC, ESR, ADDONUAPLUS, CK, T4F, CRP, CMP, LDH, PTH #### [address] #### JEWEL,URINE, JEWEL SERUM, MYOG, SABRINA, UPE RAND, SPE #### [facility] , Hematocrit (Bld) [Volume fraction] 46.2 % Normal 34.0-46.4 [facility] Comment on above: Performed By: #### T SH3, CBC, ESR, ADDONUAPLUS, CK, T4F, CRP, CMP, LDH, PTH #### [address] #### JEWEL,URINE, JEWEL SERUM, MYOG, SABRINA, UPE RAND, SPE #### [facility] , Hemoglobin (Bld) [Mass/Vol] 15.8 g/dL High 11.8-15.4 [facility] Comment on above: Performed By: #### T SH3, CBC, ESR, ADDONUAPLUS, CK, T4F, CRP, CMP, LDH, PTH #### [address] #### JEWEL,URINE, JEWEL SERUM, MYOG, SABRINA, UPE RAND, SPE #### [facility] , Lymphocytes (Bld) [#/Vol] 1.6 10*3/uL Normal 1.00-4.8 [facility] Comment on above: Performed By: #### T SH3, CBC, ESR, ADDONUAPLUS, CK, T4F, CRP, CMP, LDH, PTH #### [place] [address] [place] #### JEWEL,URINE, JEWEL SERUM, MYOG, SABRINA, UPE RAND, SPE #### [facility] , Lymphocytes/100 WBC (Bld) 19.6 % Normal . [facility] Comment on above: Performed By: #### T SH3, CBC, ESR, ADDONUAPLUS, CK, T4F, CRP, CMP, LDH, PTH #### [place] [address] [place] #### JEWEL,URINE, JEWEL SERUM, MYOG, SABRINA, UPE RAND, SPE #### [facility] , MCH (RBC) [Entitic mass] 32.4 pg Normal 24.7-34.3 [facility] Comment on above: Performed By: #### T SH3, CBC, ESR, ADDONUAPLUS, CK, T4F, CRP, CMP, LDH, PTH #### [address] #### JEWEL,URINE, JEWEL SERUM, MYOG, SABRINA, UPE RAND, SPE #### [facility] , MCV (RBC) [Entitic vol] 94.7 fL Normal 80-100 [facility] Comment on above: Performed By: #### T SH3, CBC, ESR, ADDONUAPLUS, CK, T4F, CRP, CMP, LDH, PTH #### [address] #### JEWEL,URINE, JEWEL SERUM, MYOG, SABRINA, UPE RAND, SPE #### [facility] , Mean Corpuscular HGB Conc 34.2 g/dL Normal 32.0-35.0 [facility] Comment on above: Performed By: #### T SH3, CBC, ESR, ADDONUAPLUS, CK, T4F, CRP, CMP, LDH, PTH #### [address] #### JEWEL,URINE, JEWEL SERUM, MYOG, SABRINA, UPE RAND, SPE #### [facility] , Monocytes (Bld) [#/Vol] 0.7 10*3/uL Normal 0.0-0.8 [facility] Comment on above: Performed By: #### T SH3, CBC, ESR, ADDONUAPLUS, CK, T4F, CRP, CMP, LDH, PTH #### [address] #### JEWEL,URINE, JEWEL SERUM, MYOG, SABRINA, UPE RAND, SPE #### [facility] , Monocytes/100 WBC (Bld) 8.9 % Normal . [facility] Comment on above: Performed By: #### T SH3, CBC, ESR, ADDONUAPLUS, CK, T4F, CRP, CMP, LDH, PTH #### [facility] [address] [place] [address] #### JEWEL,URINE, JEWEL SERUM, MYOG, SABRINA, UPE RAND, SPE #### [facility] , Neutrophils (Bld) [#/Vol] 5.7 10*3/uL Normal 1.8-7.7 [facility] Comment on above: Performed By: #### T SH3, CBC, ESR, ADDONUAPLUS, CK, T4F, CRP, CMP, LDH, PTH #### [address] #### JEWEL,URINE, JEWEL SERUM, MYOG, SABRINA, UPE RAND, SPE #### [facility] , Neutrophils/100 WBC (Bld) 68.6 % Normal . [facility] Comment on above: Performed By: #### T SH3, CBC, ESR, ADDONUAPLUS, CK, T4F, CRP, CMP, LDH, PTH #### [address] #### JEWEL,URINE, JEWEL SERUM, MYOG, SABRINA, UPE RAND, SPE #### [facility] , Nucleated RBC/100 WBC (Bld) [Ratio] 0.1 % Normal 0-0.5 [facility] Comment on above: Performed By: #### T SH3, CBC, ESR, ADDONUAPLUS, CK, T4F, CRP, CMP, LDH, PTH #### [facility] [address] [place] [address] [place] #### JEWEL,URINE, JEWEL SERUM, MYOG, SABRINA, UPE RAND, SPE #### [facility] , Platelet mean volume (Bld) [Entitic vol] 8.0 fL Normal 6.3-10.7 [facility] Comment on above: Performed By: #### T SH3, CBC, ESR, ADDONUAPLUS, CK, T4F, CRP, CMP, LDH, PTH #### [facility] [address] [place] [address] #### JEWEL,URINE, JEWEL SERUM, MYOG, SABRINA, UPE RAND, SPE #### [facility] , Platelets (Bld) [#/Vol] 293 10*3/uL Normal 150-450 [facility] Comment on above: Performed By: #### T SH3, CBC, ESR, ADDONUAPLUS, CK, T4F, CRP, CMP, LDH, PTH #### [address] #### JEWEL,URINE, JEWEL SERUM, MYOG, SABRINA, UPE RAND, SPE #### [facility] , RBC (Bld) [#/Vol] 4.88 10*6/uL Normal 3.60-5.00 [facility] Comment on above: Performed By: #### T SH3, CBC, ESR, ADDONUAPLUS, CK, T4F, CRP, CMP, LDH, PTH #### [address] #### JEWEL,URINE, JEWEL SERUM, MYOG, SABRINA, UPE RAND, SPE #### [facility] , WBC (Bld) [#/Vol] 8.3 10*3/uL Normal 4.5-11.0 [facility] Comment on above: Performed By: #### T SH3, CBC, ESR, ADDONUAPLUS, CK, T4F, CRP, CMP, LDH, PTH #### [place] [address] [place] #### JEWEL,URINE, JEWEL SERUM, MYOG, SABRINA, UPE RAND, SPE #### [facility] , Comprehensive Metabolic Pane anum 01-31-2022 Albumin [Mass/Vol] 4.2 g/dL Normal 3.2-5.5 [facility] Comment on above: Performed By: #### T SH3, CBC, ESR, ADDONUAPLUS, CK, T4F, CRP, CMP, LDH, PTH #### [facility] [address] [place] [address] #### JEWEL,URINE, JEWEL SERUM, MYOG, SABRINA, UPE RAND, SPE #### [facility] , Albumin/Globulin [Mass ratio] 1.8 {ratio} Normal [facility] Comment on above: Performed By: #### T SH3, CBC, ESR, ADDONUAPLUS, CK, T4F, CRP, CMP, LDH, PTH #### [facility] [address] [place] [address] #### JEWEL,URINE, JEWEL SERUM, MYOG, SABRINA, UPE RAND, SPE #### [facility] , ALP [Catalytic activity/Vol] 75 U/L Normal 32-92 [facility] Comment on above: Performed By: #### T SH3, CBC, ESR, ADDONUAPLUS, CK, T4F, CRP, CMP, LDH, PTH #### [facility] [address] [place] [address] #### JEWEL,URINE, JEWEL SERUM, MYOG, SABRINA, UPE RAND, SPE #### [facility] , ALT [Catalytic activity/Vol] 27 U/L Normal 10-60 [facility] Comment on above: Performed By: #### T SH3, CBC, ESR, ADDONUAPLUS, CK, T4F, CRP, CMP, LDH, PTH #### [facility] [address] [place] [address] #### JEWEL,URINE, JEWEL SERUM, MYOG, SABRINA, UPE RAND, SPE #### [facility] , AST [Catalytic activity/Vol] 26 U/L Normal 10-42 [facility] Comment on above: Performed By: #### T SH3, CBC, ESR, ADDONUAPLUS, CK, T4F, CRP, CMP, LDH, PTH #### [address] #### JEWEL,URINE, JEWEL SERUM, MYOG, SABRINA, UPE RAND, SPE #### [facility] , Bilirubin [Mass/Vol] 0.9 mg/dL Normal 0.3-1.2 [facility] Comment on above: Performed By: #### T SH3, CBC, ESR, ADDONUAPLUS, CK, T4F, CRP, CMP, LDH, PTH #### [address] #### JEWEL,URINE, JEWEL SERUM, MYOG, SABRINA, UPE RAND, SPE #### [facility] , Calcium [Mass/Vol] 9.7 mg/dL Normal 8.2-10.2 [facility] Comment on above: Performed By: #### T SH3, CBC, ESR, ADDONUAPLUS, CK, T4F, CRP, CMP, LDH, PTH #### [address] #### JEWEL,URINE, JEWEL SERUM, MYOG, SABRINA, UPE RAND, SPE #### [facility] , Chloride [Moles/Vol] 101 mmol/L Normal 95-114 [facility] Comment on above: Performed By: #### T SH3, CBC, ESR, ADDONUAPLUS, CK, T4F, CRP, CMP, LDH, PTH #### [place] [address] [place] #### JEWEL,URINE, JEWEL SERUM, MYOG, SABRINA, UPE RAND, SPE #### [facility] , CO2 [Moles/Vol] 24.9 mmol/L Normal 22.0-30.0 [facility] Comment on above: Performed By: #### T SH3, CBC, ESR, ADDONUAPLUS, CK, T4F, CRP, CMP, LDH, PTH #### [place] [address] [place] #### JEWEL,URINE, JEWEL SERUM, MYOG, SABRINA, UPE RAND, SPE #### [facility] , Creatinine [Mass/Vol] 0.84 mg/dL Normal 0.44-1.03 [facility] Comment on above: Performed By: #### T SH3, CBC, ESR, ADDONUAPLUS, CK, T4F, CRP, CMP, LDH, PTH #### [address] #### JEWEL,URINE, JEWEL SERUM, MYOG, SABRINA, UPE RAND, SPE #### [facility] , Estimated GFR ( Manisha > 60 Normal [facility] Comment on above: Result Comment: GFR estimated reference range: According to KDOQI guidelines, <60 ml/min/1.73m2 is sufficient to diagnose a patient with chronic kidney disease. Performed By: #### T SH3, CBC, ESR, ADDONUAPLUS, CK, T4F, CRP, CMP, LDH, PTH #### [place] [address] [place] #### JEWEL,URINE, JEWEL SERUM, MYOG, SABRINA, UPE RAND, SPE #### [facility] , Estimated GFR (Non- Am > 60 Normal [facility] Comment on above: Performed By: #### T SH3, CBC, ESR, ADDONUAPLUS, CK, T4F, CRP, CMP, LDH, PTH #### [place] [address] [place] #### JEWEL,URINE, JEWEL SERUM, MYOG, SABRINA, UPE RAND, SPE #### [facility] , Globulin (S) [Mass/Vol] 2.4 g/dL Normal [facility] Comment on above: Performed By: #### T SH3, CBC, ESR, ADDONUAPLUS, CK, T4F, CRP, CMP, LDH, PTH #### [address] #### JEWEL,URINE, JEWEL SERUM, MYOG, SABRINA, UPE RAND, SPE #### [facility] , Glucose [Mass/Vol] 97 mg/dL Normal 70-100 [facility] Comment on above: Result Comment: [facility] Glucose Reference Range is dependent on time and content of last meal. Glucose of more than 200 mg/dL in a nonstressed, ambulatory subject supports the diagnosis of Diabetes Mellitus. ADA recommended reference range Performed By: #### T SH3, CBC, ESR, ADDONUAPLUS, CK, T4F, CRP, CMP, LDH, PTH #### [address] #### JEWEL,URINE, JEWEL SERUM, MYOG, SABRINA, UPE RAND, SPE #### [facility] , Potassium [Moles/Vol] 4.0 mmol/L Normal 3.5-5.1 [facility] Comment on above: Performed By: #### T SH3, CBC, ESR, ADDONUAPLUS, CK, T4F, CRP, CMP, LDH, PTH #### [place] [address] [place] #### JEWEL,URINE, JEWEL SERUM, MYOG, SABRINA, UPE RAND, SPE #### [facility] , Protein [Mass/Vol] 6.6 g/dL Normal 6.1-7.9 [facility] Comment on above: Performed By: #### T SH3, CBC, ESR, ADDONUAPLUS, CK, T4F, CRP, CMP, LDH, PTH #### [place] [address] [place] #### JEWEL,URINE, JEWEL SERUM, MYOG, SABRINA, UPE RAND, SPE #### [facility] , Sodium [Moles/Vol] 137 mmol/L Normal 136-146 [facility] Comment on above: Performed By: #### T SH3, CBC, ESR, ADDONUAPLUS, CK, T4F, CRP, CMP, LDH, PTH #### [place] [address] [place] #### JEWEL,URINE, JEWEL SERUM, MYOG, SABRINA, UPE RAND, SPE #### [facility] , Urea nitrogen [Mass/Vol] 14 mg/dL Normal 9-23 [facility] Comment on above: Performed By: #### T SH3, CBC, ESR, ADDONUAPLUS, CK, T4F, CRP, CMP, LDH, PTH #### [facility] [address] [place] [address] #### JEWEL,URINE, JEWEL SERUM, MYOG, SABRINA, UPE RAND, SPE #### [facility] , Creatine Kinaseon 01-31-2022 CK [Catalytic activity/Vol] 26 U/L Normal 22- [facility] Comment on above: Result Comment: PERF ORMED BY: [place] [address] PATHOLOGIST BIT TAPPER SAE GOMEZ M.D. Performed By: #### T SH3, CBC, ESR, ADDONUAPLUS, CK, T4F, CRP, CMP, LDH, PTH #### [address] #### JEWEL,URINE, JEWEL SERUM, MYOG, SABRINA, UPE RAND, SPE #### [facility] , Creatine kinase [Enzymatic a ctivity/volume] in Serum or PlasmaOrdered By: Kumar Khan on 01-31-2022 CK [Catalytic activity/Vol] 26 U/L 22 [facility] Creatinine and Glomerular fi ltration rate.predicted panel (S/P/Bld)Ordered By: Kumar Khan on 01-31-2022 Creatinine [Mass/Vol] 0.84 mg/dL 0.44-1.03 [facility] Dipstick and Microscopicon 0 01-31-2022 Appearance (U) Clear Normal Clear [facility] Comment on above: Order Comment: Name Collection Type:: Clean-Voided Midstream Performed By: #### T SH3, CBC, ESR, ADDONUAPLUS, CK, T4F, CRP, CMP, LDH, PTH #### [address] #### JEWEL,URINE, JEWEL SERUM, MYOG, SABRINA, UPE RAND, SPE #### [facility] , Bacteria,Urine 2+ High None Seen [facility] Comment on above: Order Comment: Name Collection Type:: Clean-Voided Midstream Performed By: #### T SH3, CBC, ESR, ADDONUAPLUS, CK, T4F, CRP, CMP, LDH, PTH #### [address] #### JEWEL,URINE, JEWEL SERUM, MYOG, SABRINA, UPE RAND, SPE #### [facility] , Bilirubin,Urine Negative Normal Negative [facility] Comment on above: Order Comment: Name Collection Type:: Clean-Voided Midstream Performed By: #### T SH3, CBC, ESR, ADDONUAPLUS, CK, T4F, CRP, CMP, LDH, PTH #### [address] #### JEWEL,URINE, JEWEL SERUM, MYOG, SABRINA, UPE RAND, SPE #### [facility] , Color (U) Dark Yellow Critically abnormal Yellow [facility] Comment on above: Order Comment: Name Collection Type:: Clean-Voided Midstream Performed By: #### T SH3, CBC, ESR, ADDONUAPLUS, CK, T4F, CRP, CMP, LDH, PTH #### [facility] [address] [place] [address] #### JEWEL,URINE, JEWEL SERUM, MYOG, SABRINA, UPE RAND, SPE #### [facility] , Glucose Ql (U) Normal Normal Normal [facility] Comment on above: Order Comment: Name Collection Type:: Clean-Voided Midstream Performed By: #### T SH3, CBC, ESR, ADDONUAPLUS, CK, T4F, CRP, CMP, LDH, PTH #### [address] #### JEWEL,URINE, JEWEL SERUM, MYOG, SABRINA, UPE RAND, SPE #### [facility] , Hyaline Casts,Urine 0-8 Normal 0-8 [facility] Comment on above: Order Comment: Name Collection Type:: Clean-Voided Midstream Performed By: #### T SH3, CBC, ESR, ADDONUAPLUS, CK, T4F, CRP, CMP, LDH, PTH #### [facility] [address] [place] [address] #### JEWEL,URINE, JEWEL SERUM, MYOG, SABRINA, UPE RAND, SPE #### [facility] , Ketones Ql (U) Trace High Negative [facility] Comment on above: Order Comment: Name Collection Type:: Clean-Voided Midstream Performed By: #### T SH3, CBC, ESR, ADDONUAPLUS, CK, T4F, CRP, CMP, LDH, PTH #### [facility] [address] [place] [address] #### JEWEL,URINE, JEWEL SERUM, MYOG, SABRINA, UPE RAND, SPE #### [facility] , Leukocyte esterase Test strip Ql (U) 1+ High Negative [facility] Comment on above: Order Comment: Name Collection Type:: Clean-Voided Midstream Performed By: #### T SH3, CBC, ESR, ADDONUAPLUS, CK, T4F, CRP, CMP, LDH, PTH #### [facility] [address] [place] [address] #### JEWEL,URINE, JEWEL SERUM, MYOG, SABRINA, UPE RAND, SPE #### [facility] , Mucus,Urine 2+ Critically abnormal [facility] Comment on above: Order Comment: Name Collection Type:: Clean-Voided Midstream Result Comment: PERF ORMED BY: [place] [address] PATHOLOGIST BIT TAPPER SAE GOMEZ M.D. Performed By: #### T SH3, CBC, ESR, ADDONUAPLUS, CK, T4F, CRP, CMP, LDH, PTH #### [address] #### JEWEL,URINE, JEWEL SERUM, MYOG, SABRINA, UPE RAND, SPE #### [facility] , Nitrite,Urine Negative Normal Negative [facility] Comment on above: Order Comment: Name Collection Type:: Clean-Voided Midstream Performed By: #### T SH3, CBC, ESR, ADDONUAPLUS, CK, T4F, CRP, CMP, LDH, PTH #### [address] #### JEWEL,URINE, JEWEL SERUM, MYOG, SABRINA, UPE RAND, SPE #### [facility] , Occult Blood,Urine Negative Normal Negative [facility] Comment on above: Order Comment: Name Collection Type:: Clean-Voided Midstream Performed By: #### T SH3, CBC, ESR, ADDONUAPLUS, CK, T4F, CRP, CMP, LDH, PTH #### [address] #### JEWEL,URINE, JEWEL SERUM, MYOG, SABRINA, UPE RAND, SPE #### [facility] , pH (U) 7.5 [pH] Normal 5.0-9.0 [facility] Comment on above: Order Comment: Name Collection Type:: Clean-Voided Midstream Performed By: #### T SH3, CBC, ESR, ADDONUAPLUS, CK, T4F, CRP, CMP, LDH, PTH #### [address] #### JEWEL,URINE, JEWEL SERUM, MYOG, SABRINA, UPE RAND, SPE #### [facility] , Protein,Urine Trace High Negative [facility] Comment on above: Order Comment: Name Collection Type:: Clean-Voided Midstream Performed By: #### T SH3, CBC, ESR, ADDONUAPLUS, CK, T4F, CRP, CMP, LDH, PTH #### [address] #### JEWEL,URINE, JEWEL SERUM, MYOG, SABRINA, UPE RAND, SPE #### [facility] , RBC,Urine None Seen Normal 0-4 [facility] Comment on above: Order Comment: Name Collection Type:: Clean-Voided Midstream Performed By: #### T SH3, CBC, ESR, ADDONUAPLUS, CK, T4F, CRP, CMP, LDH, PTH #### [address] #### JEWEL,URINE, JEWEL SERUM, MYOG, SABRINA, UPE RAND, SPE #### [facility] , Specificy Benedict[place],Urine 1.024 Normal 1.001-1.030 [facility] Comment on above: Order Comment: Name Collection Type:: Clean-Voided Midstream Performed By: #### T SH3, CBC, ESR, ADDONUAPLUS, CK, T4F, CRP, CMP, LDH, PTH #### [address] #### JEWEL,URINE, JEWEL SERUM, MYOG, SABRINA, UPE RAND, SPE #### [facility] , Squamous Epithelial Cell,Urine 5-9 High 0-2 [facility] Comment on above: Order Comment: Name Collection Type:: Clean-Voided Midstream Performed By: #### T SH3, CBC, ESR, ADDONUAPLUS, CK, T4F, CRP, CMP, LDH, PTH #### [address] #### JEWEL,URINE, JEWEL SERUM, MYOG, SABRINA, UPE RAND, SPE #### [facility] , Urobilinogen,Urine Normal Normal Normal [facility] Comment on above: Order Comment: Name Collection Type:: Clean-Voided Midstream Performed By: #### T SH3, CBC, ESR, ADDONUAPLUS, CK, T4F, CRP, CMP, LDH, PTH #### [place] [address] [place] #### JEWEL,URINE, JEWEL SERUM, MYOG, SABRINA, UPE RAND, SPE #### [facility] , WBC,Urine 3-4 Normal 0-4 [facility] Comment on above: Order Comment: Name Collection Type:: Clean-Voided Midstream Performed By: #### T SH3, CBC, ESR, ADDONUAPLUS, CK, T4F, CRP, CMP, LDH, PTH #### [address] #### JEWEL,URINE, JEWEL SERUM, MYOG, SABRINA, UPE RAND, SPE #### [facility] , Eosinophils Auto (Bld) [#/Vo l]Ordered By: Kumar Khan on 01-31-2022 Eosinophils (Bld) [#/Vol] 0.2 10*3/uL 0.0-0.45 [facility] Eosinophils/100 WBC Auto (Bl d)Ordered By: Kumar Khan on 01-31-2022 Eosinophils/100 WBC (Bld) 2.0 % [facility] Erythrocyte Sedimentation Ra anthony 01-31-2022 ESR (Bld) [Velocity] 15 mm/h Normal 0-29 [facility] Comment on above: Result Comment: PERF ORMED BY: [place] [address] PATHOLOGIST BIT TAPPER SAE GOMEZ M.D. Performed By: #### T SH3, CBC, ESR, ADDONUAPLUS, CK, T4F, CRP, CMP, LDH, PTH #### [address] #### JEWEL,URINE, JEWEL SERUM, MYOG, SABRINA, UPE RAND, SPE #### [facility] , Erythrocyte distribution wid th Auto (RBC) [Ratio]Ordered By: Kumar Khan on 01-31-2022 Erythrocyte distribution width (RBC) [Ratio] 12.8 % 11.9-15.3 [facility] Erythrocyte sedimentation ra te by Photometric methodOrdered By: Kumar Khan on 01-31-2022 ESR Photometric method (Bld) [Velocity] 15 mm/hr 0-29 [facility] Estimated glomerular filtrat ion rate (GFR) non- AmericanOrdered By: Kumar Khan on 01-31-2022 GFR/1.73 sq M.predicted among non-blacks MDRD (S/P/Bld) [Vol rate/Area] > 60 mL/Min [facility] Free T4 (Free Thyroxine)on 0 01-31-2022 Free T4 [Mass/Vol] 0.87 ng/dL Normal 0.61-1.12 [facility] Comment on above: Performed By: #### T SH3, CBC, ESR, ADDONUAPLUS, CK, T4F, CRP, CMP, LDH, PTH #### [facility] [address] [place] [address] #### JEWEL,URINE, JEWEL SERUM, MYOG, SABRINA, UPE RAND, SPE #### [facility] , Globulin Calc (S) [Mass/Vol] Ordered By: Kumar Khan on 01-31-2022 Globulin (S) [Mass/Vol] 2.4 g/dL [facility] Hematocrit Auto (Bld) [Volum e fraction]Ordered By: Kumar Khan on 01-31-2022 Hematocrit (Bld) [Volume fraction] 46.2 % 34.0-46.4 [facility] Immunofixation, (JEWEL), Urine on 01-31-2022 Immunofixation, (JEWEL), Urine Normal . [facility] Comment on above: Result Comment: No m onoclonality detected. Performed at: - [facility] [address] [id number] Solution Engineer: Chu Dewey PhD, Phone: [phone] Performed By: #### T SH3, CBC, ESR, ADDONUAPLUS, CK, T4F, CRP, CMP, LDH, PTH #### [facility] [address] [place] [address] [place] #### JEWEL,URINE, JEWEL SERUM, MYOG, SABRINA, UPE RAND, SPE #### [facility] , Immunofixation,Serumon 01-31 Immunofixation, Serum Normal . [facility] Comment on above: Result Comment: No m onoclonality detected. Performed By: #### T SH3, CBC, ESR, ADDONUAPLUS, CK, T4F, CRP, CMP, LDH, PTH #### [address] #### JEWEL,URINE, JEWEL SERUM, MYOG, SABRINA, UPE RAND, SPE #### [facility] , Immunoglobulin A, Serum 125 mg/dL Normal 64-422 [facility] Comment on above: Performed By: #### T SH3, CBC, ESR, ADDONUAPLUS, CK, T4F, CRP, CMP, LDH, PTH #### [address] #### JEWEL,URINE, JEWEL SERUM, MYOG, SABRINA, UPE RAND, SPE #### [facility] , Immunoglobulin G 941 mg/dL Normal 586-1602 [facility] Comment on above: Performed By: #### T SH3, CBC, ESR, ADDONUAPLUS, CK, T4F, CRP, CMP, LDH, PTH #### [address] #### JEWEL,URINE, JEWEL SERUM, MYOG, SABRINA, UPE RAND, SPE #### [facility] , Immunoglobulin M, Serum 88 mg/dL Normal 26-217 [facility] Comment on above: Result Comment: Perf ormed at: - [facility] [address] [id number] Solution Engineer: Chu Dewey PhD, Phone: [phone] Performed By: #### T SH3, CBC, ESR, ADDONUAPLUS, CK, T4F, CRP, CMP, LDH, PTH #### [place] [address] [place] #### JEWEL,URINE, JEWEL SERUM, MYOG, SABRINA, UPE RAND, SPE #### [facility] , Ketones Auto test strip (U) [Mass/Vol]Ordered By: Kumar Khan on 01-31-2022 Ketones (U) [Mass/Vol] Trace Negative [facility] LDH Lactate Dehydrogenaseon 01-31-2022 LDH Lactate Dehydrogenase 135 U/L Normal 45-190 [facility] Comment on above: Performed By: #### T SH3, CBC, ESR, ADDONUAPLUS, CK, T4F, CRP, CMP, LDH, PTH #### [facility] [address] #### JEWEL,URINE, JEWEL SERUM, MYOG, SABRINA, UPE RAND, SPE #### [facility] , Laboratory - Hematology and Cell countsOrdered By: Kumar Khan on 01-31-2022 Nucleated RBC/100 WBC (Bld) [Ratio] 0.1 % 0-0.5 [facility] Laboratory - UrinalysisOrder ed By: Kumar Khan on 01-31-2022 Hyaline casts LM Ql (Urine sed) 0-8 [LPF] [facility] Lactate dehydrogenase measur ement (enzymatic activity/volume)Ordered By: Kumar Khan on 01-31-2022 LDH (Unsp spec) [Catalytic activity/Vol] 135 U/L 45-190 [facility] Lymphocytes Auto (Bld) [#/Vo l]Ordered By: Kumar Khan on 01-31-2022 Lymphocytes (Bld) [#/Vol] 1.6 10*3/uL 1.00-4.8 [facility] Lymphocytes/100 WBC Auto (Bl d)Ordered By: Kumar Khan on 01-31-2022 Lymphocytes/100 WBC (Bld) 19.6 % [facility] MCH Auto (RBC) [Entitic mass ]Ordered By: Kumar Khan on 01-31-2022 MCH (RBC) [Entitic mass] 32.4 pg 24.7-34.3 [facility] MCHC Auto (RBC) [Mass/Vol]Or dered By: Kumar Khan on 01-31-2022 MCHC (RBC) [Mass/Vol] 34.2 g/dL 32.0-35.0 [facility] MCV Auto (RBC) [Entitic vol] Ordered By: Kumar Khan on 01-31-2022 MCV (RBC) [Entitic vol] 94.7 fL 80-100 [facility] Monocytes Auto (Bld) [#/Vol] Ordered By: Kumar Khan on 01-31-2022 Monocytes (Bld) [#/Vol] 0.7 10*3/uL 0.0-0.8 [facility] Monocytes/100 WBC Auto (Bld) Ordered By: Kumar Khan on 01-31-2022 Monocytes/100 WBC (Bld) 8.9 % [facility] Mucus LM Ql (Urine sed)Order ed By: Kumar Khan on 01-31-2022 Mucus Ql (Urine sed) 2+ [LPF] [facility] Myoglobinon 01-31-2022 Myoglobin [Mass/Vol] ng/mL Low 25-58 [facility] Comment on above: Result Comment: Perf ormed at: - [facility] [place] [id number] Solution Engineer: Chu Dewey PhD, Phone: [phone] Performed By: #### T SH3, CBC, ESR, ADDONUAPLUS, CK, T4F, CRP, CMP, LDH, PTH #### [facility] [address] [place] [address] #### JEWEL,URINE, JEWEL SERUM, MYOG, SABRINA, UPE RAND, SPE #### [facility] , Neutrophils Auto (Bld) [#/Vo l]Ordered By: Kumar Khan on 01-31-2022 Neutrophils (Bld) [#/Vol] 5.7 10*3/uL 1.8-7.7 [facility] Neutrophils/100 WBC Auto (Bl d)Ordered By: Kumar Khan on 01-31-2022 Neutrophils/100 WBC (Bld) 68.6 % [facility] Nitrite Test strip Ql (U)Ord ered By: Kumar Khan on 01-31-2022 Nitrite Ql (U) Negative Negative [facility] No Panel InformationOrdered By: Kumar Khan on 01-31-2022 Estimated GFR () > 60 mL/Min [facility] Comment on above: GFR estimated refere nce range: According to KDOQI guidelines, <60 ml/min/1.73m2 is sufficient to diagnose a patient with chronic kidney disease. Pharmacy Creatinine Clearance (Chem N/A [facility] Parathyroid Hormone Intacton 01-31-2022 Parathyroid Hormone Intact 87.4 pg/mL Normal 12-88 [facility] Comment on above: Result Comment: PERF ORMED BY: [place] [address] PATHOLOGIST BIT TAPPER SAE GOMEZ M.D. Performed By: #### T SH3, CBC, ESR, ADDONUAPLUS, CK, T4F, CRP, CMP, LDH, PTH #### [facility] [address] [place] [address] #### JEWEL,URINE, JEWEL SERUM, MYOG, SABRINA, UPE RAND, SPE #### [facility] , Platelet mean volume Auto (B ld) [Entitic vol]Ordered By: Kumar Khan on 01-31-2022 Platelet mean volume (Bld) [Entitic vol] 8.0 fL 6.3-10.7 [facility] Platelets Auto (Bld) [#/Vol] Ordered By: Kumar Khan on 01-31-2022 Platelets (Bld) [#/Vol] 293 10*3/uL 150-450 [facility] Protein Auto test strip (U) [Mass/Vol]Ordered By: Kumar Khan on 01-31-2022 Protein (U) [Mass/Vol] Trace mg/dL Negative [facility] Protein Electro, Random Urin abbey 01-31-2022 Albumin, Urine 29.3 % Normal . [facility] Comment on above: Performed By: #### T SH3, CBC, ESR, ADDONUAPLUS, CK, T4F, CRP, CMP, LDH, PTH #### [facility] [address] [place] [address] #### JEWEL,URINE, JEWEL SERUM, MYOG, SABRINA, UPE RAND, SPE #### [facility] , Xmxfh-9-Ntinxsza, Urine 4.8 % Normal . [facility] Comment on above: Performed By: #### T SH3, CBC, ESR, ADDONUAPLUS, CK, T4F, CRP, CMP, LDH, PTH #### [address] #### JEWEL,URINE, JEWEL SERUM, MYOG, SABRINA, UPE RAND, SPE #### [facility] , Arues-7-Emwekbis, Urine 20.1 % Normal . [facility] Comment on above: Performed By: #### T SH3, CBC, ESR, ADDONUAPLUS, CK, T4F, CRP, CMP, LDH, PTH #### [address] #### JEWEL,URINE, JEWEL SERUM, MYOG, SABRINA, UPE RAND, SPE #### [facility] , Beta Globulin, Urine 35.6 % Normal . [facility] Comment on above: Performed By: #### T SH3, CBC, ESR, ADDONUAPLUS, CK, T4F, CRP, CMP, LDH, PTH #### [address] #### JEWEL,URINE, JEWEL SERUM, MYOG, SABRINA, UPE RAND, SPE #### [facility] , Gamma Globulin, Urine 10.2 % Normal . [facility] Comment on above: Performed By: #### T SH3, CBC, ESR, ADDONUAPLUS, CK, T4F, CRP, CMP, LDH, PTH #### [facility] [address] [place] [address] [place] #### JEWEL,URINE, JEWEL SERUM, MYOG, SABRINA, UPE RAND, SPE #### [facility] , M-Sonny % Not Observed Normal Not Observed [facility] Comment on above: Performed By: #### T SH3, CBC, ESR, ADDONUAPLUS, CK, T4F, CRP, CMP, LDH, PTH #### [address] #### JEWEL,URINE, JEWEL SERUM, MYOG, SABRINA, UPE RAND, SPE #### [facility] , Please Note: Normal . [facility] Comment on above: Result Comment: Prot ein electrophoresis scan will follow via computer, mail, or delphi programmer delivery. PERFORMED BY: [place] [address] PATHOLOGIST BIT TAPPER SAE GOMEZ M.D. Performed By: #### T SH3, CBC, ESR, ADDONUAPLUS, CK, T4F, CRP, CMP, LDH, PTH #### [address] #### JEWEL,URINE, JEWEL SERUM, MYOG, SABRINA, UPE RAND, SPE #### [facility] , Protein (U) [Mass/Vol] 17.4 mg/dL Normal Not Estab. [facility] Comment on above: Performed By: #### T SH3, CBC, ESR, ADDONUAPLUS, CK, T4F, CRP, CMP, LDH, PTH #### [address] #### JEWEL,URINE, JEWEL SERUM, MYOG, SABRINA, UPE RAND, SPE #### [facility] , Protein Electrophoresis, Ser umon 01-31-2022 Albumin [Mass/Vol] 3.8 g/dL Normal 2.9-4.4 [facility] Comment on above: Performed By: #### T SH3, CBC, ESR, ADDONUAPLUS, CK, T4F, CRP, CMP, LDH, PTH #### [address] #### JEWEL,URINE, JEWEL SERUM, MYOG, SABRINA, UPE RAND, SPE #### [facility] , Albumin/Globulin [Mass ratio] 1.2 {ratio} Normal 0.7-1.7 [facility] Comment on above: Performed By: #### T SH3, CBC, ESR, ADDONUAPLUS, CK, T4F, CRP, CMP, LDH, PTH #### [facility] [address] [place] [address] #### JEWEL,URINE, JEWEL SERUM, MYOG, SABRINA, UPE RAND, SPE #### [facility] , Pcbnk-5-Eqavwfeh 0.3 g/dL Normal 0.0-0.4 [facility] Comment on above: Performed By: #### T SH3, CBC, ESR, ADDONUAPLUS, CK, T4F, CRP, CMP, LDH, PTH #### [facility] [address] [place] [address] #### JEWEL,URINE, JEWEL SERUM, MYOG, SABRINA, UPE RAND, SPE #### [facility] , Btrhi-5-Iormjuga 0.8 g/dL Normal 0.4-1.0 [facility] Comment on above: Performed By: #### T SH3, CBC, ESR, ADDONUAPLUS, CK, T4F, CRP, CMP, LDH, PTH #### [facility] [address] [place] [address] #### JEWEL,URINE, JEWEL SERUM, MYOG, SABRINA, UPE RAND, SPE #### [facility] , Beta Globulin 1.1 g/dL Normal 0.7-1.3 [facility] Comment on above: Performed By: #### T SH3, CBC, ESR, ADDONUAPLUS, CK, T4F, CRP, CMP, LDH, PTH #### [address] #### JEWEL,URINE, JEWEL SERUM, MYOG, SABRINA, UPE RAND, SPE #### [facility] , Gamma Globulin 0.9 g/dL Normal 0.4-1.8 [facility] Comment on above: Performed By: #### T SH3, CBC, ESR, ADDONUAPLUS, CK, T4F, CRP, CMP, LDH, PTH #### [address] #### JEWEL,URINE, JEWEL SERUM, MYOG, SABRINA, UPE RAND, SPE #### [facility] , Globulin (S) [Mass/Vol] 3.1 g/dL Normal 2.2-3.9 [facility] Comment on above: Performed By: #### T SH3, CBC, ESR, ADDONUAPLUS, CK, T4F, CRP, CMP, LDH, PTH #### [address] #### JEWEL,URINE, JEWEL SERUM, MYOG, SABRINA, UPE RAND, SPE #### [facility] , M-Sonny Not Observed Normal Not Observed [facility] Comment on above: Performed By: #### T SH3, CBC, ESR, ADDONUAPLUS, CK, T4F, CRP, CMP, LDH, PTH #### [address] #### JEWEL,URINE, JEWEL SERUM, MYOG, SABRINA, UPE RAND, SPE #### [facility] , Protein [Mass/Vol] 6.9 g/dL Normal 6.0-8.5 [facility] Comment on above: Performed By: #### T SH3, CBC, ESR, ADDONUAPLUS, CK, T4F, CRP, CMP, LDH, PTH #### [address] #### JEWEL,URINE, JEWEL SERUM, MYOG, SABRINA, UPE RAND, SPE #### [facility] , SPE-Note Normal . [facility] Comment on above: Result Comment: Prot ein electrophoresis scan will follow via computer, mail, or delphi programmer delivery. PERFORMED BY: [place] [address] PATHOLOGIST BIT TAPPER SAE GOMEZ M.D. Performed By: #### T SH3, CBC, ESR, ADDONUAPLUS, CK, T4F, CRP, CMP, LDH, PTH #### [facility] [address] [place] [id number] [facility] #### JEWEL,URINE, JEWEL SERUM, MYOG, SABRINA, UPE RAND, SPE #### [facility] , Protein [Mass/volume] in Ser um or PlasmaOrdered By: Kumar Khan on 01-31-2022 Protein [Mass/Vol] 6.6 g/dL 6.1-7.9 [facility] RBC Auto (Bld) [#/Vol]Ordere d By: Kumar Khan on 01-31-2022 RBC (Bld) [#/Vol] 4.88 10*6/uL 3.60-5.00 [facility] Serum or plasma C reactive p rotein measurement (mass/volume)Ordered By: Kumar Khan on 01-31-2022 CRP [Mass/Vol] 0.8 mg/dL 0.0-1.0 [facility] Serum or plasma alanine meyers otransferase measurement without P-5'-P (enzymatic activiOrdered By: Kumar Khan on 01-31-2022 ALT No additional P-5'-P [Catalytic activity/Vol] 27 U/L 10-60 [facility] Serum or plasma albumin/glob ulin mass ratioOrdered By: Kumar Khan on 01-31-2022 Albumin/Globulin [Mass ratio] 1.8 {ratio} [facility] Serum or plasma alkaline milo sphatase measurement (enzymatic activity/volume)Ordered By: Kumar Khan on 01-31-2022 ALP [Catalytic activity/Vol] 75 U/L 32-92 [facility] Serum or plasma aspartate am inotransferase measurement (enzymatic activity/volume)Ordered By: Kumar Khan on 01-31-2022 AST [Catalytic activity/Vol] 26 U/L 10-42 [facility] Serum or plasma calcium miriam urement (mass/volume)Ordered By: Kumar Khan on 01-31-2022 Calcium [Mass/Vol] 9.7 mg/dL 8.2-10.2 [facility] Serum or plasma chloride ray surement (moles/volume)Ordered By: Kumar Khan on 01-31-2022 Chloride [Moles/Vol] 101 mmol/L 95-114 [facility] Serum or plasma glucose miriam urement (mass/volume)Ordered By: Kumar Khan on 01-31-2022 Glucose [Mass/Vol] 97 mg/dL 70-100 [facility] Comment on above: ADA recommended refe rence rangeRandom Glucose Reference Range is dependent on time and content of last meal. Glucose of more than 200 mg/dL in a nonstressed, ambulatory subject supports the diagnosis of Diabetes Mellitus. Serum or plasma intact parat hyroid hormone measurement (mass/volume)Ordered By: Kumar Khan on 01-31-2022 Parathyrin.intact [Mass/Vol] 87.4 pg/mL 12- [facility] Serum or plasma potassium me asurement (moles/volume)Ordered By: Kumar Khan on 01-31-2022 Potassium [Moles/Vol] 4.0 mmol/L 3.5-5.1 [facility] Serum or plasma sodium measu rement (moles/volume)Ordered By: Kumar Khan on 01-31-2022 Sodium [Moles/Vol] 137 mmol/L 136-146 [facility] Serum or plasma total biliru bin measurement (mass/volume)Ordered By: Kumar Khan on 01-31-2022 Bilirubin [Mass/Vol] 0.9 mg/dL 0.3-1.2 [facility] Serum or plasma total carbon dioxide measurement (moles/volume)Ordered By: Kumar Khan on 01-31-2022 CO2 [Moles/Vol] 24.9 mmol/L 22.0-30.0 [facility] Serum or plasma urea nitroge n measurement (mass/volume)Ordered By: Kumar Khan on 01-31-2022 Urea nitrogen [Mass/Vol] 14 mg/dL 9-23 [facility] Specific gravity Auto test s trip (U) [Rel density]Ordered By: Kumar Khan on 01-31-2022 Specific gravity (U) [Rel density] 1.024 1.001-1.030 [facility] Squamous epithelial cells de tection in urine sediment by light microscopyOrdered By: Kumar Khan on 01-31-2022 Epithelial cells.squamous LM Ql (Urine sed) 5-9 [HPF] [facility] TSH DL <= 0.005 mIU/L QnOrde red By: Kumar Khan on 01-31-2022 TSH Qn 2.89 m[IU]/L 0.45-5.33 [facility] Thyroid Stimulating Hormoneo n 01-31-2022 TSH Qn 2.89 m[IU]/L Normal 0.45-5.33 [facility] Comment on above: Performed By: #### T SH3, CBC, ESR, ADDONUAPLUS, CK, T4F, CRP, CMP, LDH, PTH #### [facility] [address] #### JEWEL,URINE, JEWEL SERUM, MYOG, SABRINA, UPE RAND, SPE #### [facility] , Thyroxine (T4) free [Mass/vo lume] in Serum or PlasmaOrdered By: Kumar Khan on 01-31-2022 Free T4 [Mass/Vol] 0.87 ng/dL 0.61-1.12 [facility] Urine bacteria detection by automated methodOrdered By: Kumar Khan on 01-31-2022 Bacteria Auto Ql (U) 2+ None Seen [facility] Urine clarity by refractomet ry automatedOrdered By: Kumar Khan on 01-31-2022 Clarity Refractometry automated (U) Clear Clear [facility] Urine glucose measurement by automated test strip (mass/volume)Ordered By: Kumar Khan on 01-31-2022 Glucose Auto test strip (U) [Mass/Vol] Normal mg/dL Normal [facility] Urine hemoglobin detection b y automated test stripOrdered By: Kumar Khan on 01-31-2022 Hemoglobin Auto test strip Ql (U) Negative Negative [facility] Urine leukocyte esterase det ection by automated test stripOrdered By: Kumar Khan on 01-31-2022 Leukocyte esterase Auto test strip Ql (U) 1+ Negative [facility] Urobilinogen Auto test strip (U) [Mass/Vol]Ordered By: Kumar Khan on 01-31-2022 Urobilinogen (U) [Mass/Vol] Normal mg/dL Normal [facility] pH Auto test strip (U)Ordere d By: Kumar Khan on 01-31-2022 pH (U) 7.5 [pH] 5.0-9.0 [facility] XR Bone Density (DEXA)on XR Bone Density (DEXA) RegionBMDYoung-Adult Age-Matched Total(g/cm2)(%)T-Sco re(%)Z-Score Femur.83562-6.2990.0 Impression: The mean BMD and corresponding T-score indicated above indicate Low Bone Mass (Osteopenia) and places the patient at a mild to moderate increased risk for fracture. There may be a future risk of developing osteoporosis. Recommend follow-up exam in 1 year, sooner as clinically necessary. RegionBMDYoung-Adult Age-Matched Total(g/cm2)(%)T-Sco re(%)Z-Score L1-L41.805994+1.1152 +3.6 Impression: The mean BMD and corresponding [...] by Andrae Ewing on 12/28/2021 1342 Normal [facility] Record Clerk SCREENING MAMMOGRAM W/SUZI, BILATERAL*on 11-08-2021 SCREENING MAMMOGRAM [...] VERY IMPORTANT TO YOUR HEALTH. THE CURRENT [employer] GUIDELINES RECOMMENDS ANNUAL MAMMOGRAPHY BEGINNING AT AGE 40 THIS FACILITY USES A REMINDER SYSTEM TO ENSURE ALL PATIENTS RECEIVE REMINDER NOTIFICATIONS AT THE APPROPRIATE TIME BASED ON THE RECOMMENDATIONS OF THIS EXAM. Report reported and signed by Andrae Ewing on 11/08/2021 1643 Normal [facility] Record Clerk Encounters Encounter Date Encounter Type Care Provider Facility Start: 02-17-2025 ambulatory Irving Clemens Facility :[facility] Start: 02-17-2025 ambulatory Irving Clemens Facility :[facility] Start: 10-24-2024 End: 10-24-2024 ambulatory Johanna Mata Facility:[facility] Start: 09-05-2024 End: 09-05-2024 ambulatory [facility] Start: 08-05-2024 End: 08-05-2024 ambulatory Irving Clemens Facility[facility] Start: 08-05-2024 End: 08-05-2024 Patient encounter procedure Irving Clemens [facility] Start: 07-29-2024 End: 07-29-2024 ambulatory Irving Clemens Facility:[facility] Start: 03-05-2024 End: 03-05-2024 ambulatory Irving Clemens Facility:[facility] Start: 02-12-2024 End: 02-12-2024 ambulatory Irving Clemens Facility:[facility] Start: 01-04-2024 End: 01-05-2024 ambulatory KUMAR KHAN Not Available Start: 11-14-2023 End: 11-14-2023 ambulatory Irving Clemens Facility:[facility] Start: 11-14-2023 End: 11-14-2023 Lab Drop off Irving Clemens [facility] Start: 11-14-2023 End: 11-14-2023 ambulatory [facility] Clem[facility] Start: 09-05-2023 End: 09-05-2023 ambulatory SHAYAN GAMINO Not Available Start: 10-31-2022 End: 11-01-[address] NONE LISTED REQUEST Facility: Start: 01-31-2022 End: 01-31-2022 Patient encounter procedure MD Jason Khan Work Phone: [facility] [address] Procedures Date Procedure Procedure Detail Performing Clinician Acoustic neuroma (disorder) Irving Clemens Comment on above: [facility] an 1994 Biopsy of breast Irving Clemens Comment on above: several biopsies, eaton s dense breasts Hysterectomy Irving Clemens Plan of Treatment Date Care Activity Detail Author 24 hour urine measurement [facility] Work Phone: Albumin [Mass/volume] in Serum or Plasma [facility] Work Phone: Albumin/Globulin ratio [facility] Work Phone: Aldolase measurement [facility] Work Phone: Electrophoresis: [id number] [facility] Work Phone: Electrophoresis: [id number] [facility] Work Phone: Electrophoresis: beta-globulin [facility] Work Phone: Electrophoresis: gamma globulin [facility] Work Phone: Globulin [Mass/volume] in Serum [facility] Work Phone: Homogenous nuclear A b pattern [Titer] in Serum [facility] Work Phone: IgA [Mass/volume] in Serum or Plasma [facility] Work Phone: IgG [Mass/volume] in Serum or Plasma [facility] Work Phone: IgM [Mass/volume] in Serum or Plasma [facility] Work Phone: Immunofixation for Urine [facility] Work Phone: Measurement of monoc lonal protein concentration [facility] Work Phone: Myoglobin [Mass/volume] in Serum or Plasm a [facility] Work Phone: Nuclear Ab [Titer] in Serum [facility] Work Phone: Protein [Mass/volume] in Serum or Plasma [facility] Work Phone: Protein [Mass/volume] in Urine [facility] Work Phone: Serum immunofixation [facility] Work Phone: Immunizations Immunization Date Immunization Notes Care Provider Meryl seals 09-09-2021 pneumococcal conjuga te vaccine, 13 valent Irving Clemens [facility] 10-05-2019 influenza virus vaccine, unspecified formulation Irving Clemens [facility] 08-26-2014 pneumococcal polysaccharide vaccine, 23 valdakotah Clemens [facility] 08-23-2001 pneumococcal polysaccharide vaccine, 23 valent Irving Clemens [facility] NEGATED: Highlighted row has not occurred!07-29-2024 influenza virus vaccine, unspecified formulation Irving Clemens [facility] Payers Date Payer Category Payer Medicare [id number] 1960 Medicare [id number] 1960 Unknown [id number] 1945 Unknown [id number] 2.16.84 [id number] 1945 Unknown [id number] 2.16.84 0.1.153420.3.579.2.1259 1945 Unknown [id number] 2.16.84 0.1.293941.3.579.2.1259 1944 Unknown [id number] 2.16.840. 1.224119.3.579.2.1259 1944 Unknown [id number] 2.16.8 40.1.874714.3.579.2.727 1944 Unknown [id number] 2.16.8 40.1.763908.3.579.2.727 1944 Unknown [id number] 2.16.8 40.1.380794.3.579.2.727 1944 Unknown [id number] 2.16.8 40.1.975441.3.579.2.727 1944 Unknown [id number] 2.16.8 40.1.067622.3.579.2.727 1944 Unknown [id number] 2.16.8 40.1.603113.3.579.2.727 1944 Unknown [id number] 2.16.8 40.1.172266.3.579.2.727 1944 Unknown [id number] 2.16.8 40.1.352919.3.579.2.727 1944 Unknown [id number] 2.16.8 40.1.892106.3.579.2.727 1944 Unknown [id number] 2.16.8 40.1.393022.3.579.2.727 1945 Unknown [id number] 2.16.8 40.1.383684.3.579.2.727 Self-pay Self Pay [id number] Social History Date Type Detail Facility Tobacco smoking stat [facility] Unknown if ever smoked [facility] Work Phone: Start: 1945 Sex Assigned At Female Sherri [facility] Start: 11-14-2023 End: 07-29-2024 Tobacco smoking status Ex-smoker (finding) [facility] Tobacco smoking status Never [facility] Sex Assigned At Female [facility] Clinical Note 12-06-2021 Note Date & Type Note Facility 12-06-2021 Note HISTORY: Pain, lifti ng injury (several months) PROCEDURE: [employer] HDXT 1.5. Sagittal T1, T2, STIR [...] signed by Andrae Ewing on 12/06/2021 1515 [facility] Record Clerk Clinical Note 08-20-2021 Note Date & Type Note Facility 08-20-2021 Note Patient Education Ma terials Name: Jose Manuel Chicas Current Date: 08/20/2021 14:09:26 Man[facility] : 1945 The following sheet(s) are the Patient Education Leaflets for CruzNoheliaJose Manuel Jean Oncology Breast Health: Breast Self-Awareness What is [...] breast self-examination (BSE). These experts include the [place] [employer], the U.S. Preventive Services Task Force, and the [place] [employer] Gynec[employer]. Some experts [...] This means they are not cancer. ? [id number] [employer]. [address] [place] [address]. All rights reserved. This information is not intended as a substitute for professional medical care. Always follow your healthcare professional's instructions. [facility] Evaluation + Plan note Note Date & Type Note Facility Evaluation + Plan note No data available for this section [facility] Evaluation + Plan note Note Date & Type Note Facility Evaluation + Plan note Future Appointments Appointment Date:09/05/2024 01:00:00 PM Scheduled Provider:Irving Clemens MD [facility] Appointment Type: Open Appointment Date:02/17/2025 02:30:00 PM Scheduled Provider: Location:[facility] Appointment Type:FM Medicare Wellness Subsequent [facility] Evaluation note Note Date & Type Note Facility Evaluation note No assessment [facility] Hospital Discharge instructions Note Date & Type Note Facility Hospital Discharge instructions No data available for this section [facility] Progress note Note Date & Type Note Facility Progress note No data available for this section [facility] Summary Purpose Family History No [...] section and content) DATE CREATED AUTHOR 08/27/2021 [facility] DATE CREATED AUTHOR AUTHOR'S ORGANIZ ATION 12/30/2021 [facility] dical Specialist DATE CREATED AUTHOR AUTHOR'S ORGANIZ ATION 02/17/2022 [facility] DATE CREATED AUTHOR AUTHOR'S ORGANIZ ATION 11/03/2022 [facility] DATE CREATED AUTHOR AUTHOR'S ORGANIZ ATION 01/07/2024 [facility] dical Specialists EPIC DATE CREATED AUTHOR AUTHOR'S ORGANIZ ATION 11/11/2024 [facility] Care Teams (unrecognized sec tion and content) [...] BE BASED ON THE PRIMARY CLINICAL RECORDS. [employer] [facility]. provides no warranty or guarantee of the accuracy or completeness of information in this document.
[2025-01-21 16:11] LABS: Alanine Aminotransferase 26 U/L (14-59); Albumin Level 3.4 g/dL (3.4-5.0); Alkaline Phosphatase 95 U/L (46-116); Anion Gap 12.3; Aspartate Amino Transferase 17 U/L (15-37); BUN Creatinine Ratio 20.8; Calcium 8.6 mg/dL (8.5-10.1); Carbon Dioxide 27.8 mmol/L (21.0-32.0); Chloride 104 mmol/L (98-107); Estimated GFR (African America >60 (>=60 mL/min/1.73m^2); Estimated GFR (Non-African Ame 53 (>=60 mL/min/1.73m^2); Globulin 3.3 g/dL; Glucose 86 mg/dL (74-106); Potassium 4.1 mmol/L (3.5-5.1); Sodium 140 mmol/L (136-145); Total Protein 6.7 g/dL (6.4-8.2)
== END 2025-01-21 15:19 | disposition home or self-care (01) ==
LOC: LAB 15:18
PROVIDERS: PCP Family Medicine; Visit Provider Internal Medicine Rheumatology
DX: M15.0 Primary generalized (osteo)arthritis (principal); Z79.899 Other long term (current) drug therapy
CPT/HCPCS: 36415; 80053; 85025

== ENCOUNTER 2025-04-28 12:53 | Outpatient (OUT) | payer MEDICARE, OTHER, SELFPAY ==
--- OUTSIDE RECORDS SUMMARY | 2025-03-03 12:18 | XMS_ITS ---
Author Name Auto Generated Organization OH[facility] Care Team Providers Care Gr[employer] 7 And 8 Teacher Name Role Phone IRVING CLEMENS E Referring Unavailable Ross, Irving E. Attending Unavailable Ross, Irving E. Admitting Unavailable Ross, Irving E. Admitting Unavailable Ross, Irving E. Attending Unavailable Ross, Irving E. Attending Unavailable Ross, Irving E. Attending Unavailable Ross, Irving E. Attending Unavailable Ross, Irving E. Attending Unavailable Ross, Irving E. Attending Unavailable Ross, Irving E. Attending Unavailable Esperanza, Johanna L Attending Unavailable Ross, Irving E. Referring Unavailable Ross, Irving E. Attending Unavailable Ross, Irving E. Admitting Unavailable PROBLEMS No Problem Records Found PROCEDURES No Procedure Records Found RESULTS BI MAMMOGRAM SCREENING TOMOSYNTHESIS BILATERAL Observed: 03/03/2025 12:18 PM Status: F Source: [facility] This is a summary report. Th e complete report is available in the patient's medical record. If you cannot access the medical record, please contact the sending organization for a detailed fax or copy. Examination: BI MAMMOGRAM SCREENING TOMOSYNTHESIS BILATERAL Clinical History: screening Technique: Screening digital mammography study of both breasts was performed with 2-D and 3-D tomosynthesis imaging. Study was compared to the prior exam dated 01/04/2024. Findings: There is no evidence of interval dominant spiculated mass, grouped microcalcifications, or skin thickening which would be suggestive of malignancy. Mild scattered benign-appearing calcifications are noted bilaterally. Mild architectural distortion on the right similar to the prior study and compatible with postprocedural fibrosis. IMPRESSION: Impression: No specific evidence of malignancy seen in either breast. BIRADS 2 - Benign Findings DENSITY: The breasts are heterogeneously dense, which may obscure small masses. FOLLOW-UP: Routine Screening Mammogram ELECTRONICALLY SIGNED BY: Chau Sage M.D. EGFR Collected: 9:08 AM Status: F Source: [facility] TYPE CODE TESTS RESULT OUT OF RANGE REFERENCE UNITS LAB [id number]([facility]) eGFR 50 Low >=59 mL/min/1 .7 3 m2 Performed By: #### [id number] #### [facility] [address] [place] [address] CMP Collected: 02/24/2025 9:08 AM Status: F Source: [facility] TYPE CODE TESTS RESULT OUT OF RANGE REFERENCE UNITS LAB 2345-7([facility]) GLUCOSE:MCNC:P T:SER/PLAS:QN: 117 Normal 55-199 mg/dL LAB 3094-0([facility]) UREA NITROGEN:MCNC: PT:SER/PLAS:QN : 29 High 5-21 mg/dL LAB 2160-0([facility]) CREATININE:MCN C:PT:SER/PLAS: QN: 1.1 Normal 0.5-1.3 mg/dL LAB 38301-5([facility]) CALCIUM:MCNC:P T:SER/PLAS:QN: 8.9 Normal 8.9-11.1 mg/dL LAB 2951-2([facility]) SODIUM:SCNC:PT :SER/PLAS:QN: 140 Normal 135-145 mmol/L LAB 2823-3([facility]) POTASSIUM:SCNC :PT:SER/PLAS:Q N: 4.5 Normal 3.5-5.3 mmol/L LAB 2075-0([facility]) CHLORIDE:SCNC: PT:SER/PLAS:QN : 107 Normal 101-111 mmol/L LAB 2028-9([facility]) CARBON DIOXIDE:SCNC:P T:SER/PLAS:QN: 28 Normal 21-31 mmol/L LAB 6768-6([facility]) ALKALINE PHOSPHATASE:CC NC:PT:SER/PLAS :QN: 74 Normal 21-98 Int._Unit /L LAB 1975-2([facility]) BILIRUBIN:MCNC :PT:SER/PLAS:Q N: 0.7 Normal 0.0-1.1 mg/dL LAB 1751-7([facility]) ALBUMIN:MCNC:P T:SER/PLAS:QN: 4.0 Normal 3.3-5.0 gm/dL LAB 2885-2([facility]) PROTEIN:MCNC:P T:SER/PLAS:QN: 6.3 Normal 6.0-7.8 gm/dL LAB 1744-2([facility]) ALANINE AMINOTRANSFERA SE:CCNC:PT:SER /PLAS:QN:NO ADDITION OF P-5'-P 19 Normal 6-46 Int._Unit /L LAB 1920-8([facility]) ASPARTATE AMINOTRANSFERA SE:CCNC:PT:SER /PLAS:QN: 19 Normal 5-43 Int._Unit /L LAB 3097-3([facility]) UREA NITROGEN/CREAT ININE:MRTO:PT: SER/PLAS:QN: 26 High 10-20 No Units LAB 23745-3([facility]) ANION GAP:SCNC:PT:SE R/PLAS:QN:CALC ULATED 10 Normal 6-16 mEq/L LAB 63589-3([facility]) GLOBULIN:MCNC: PT:SER:QN:CALC ULATED 2.3 Normal 1.4-4.0 gm/dL LAB 25445-2([facility]) ALBUMIN/GLOBUL IN:MCRTO:PT:SE R:QN: 1.7 Normal 1.1-2.2 Performed By: #### [id number] # ### [facility] [address] [place] [id number] LIPID PANEL Collected: 02/24/2025 9:08 AM Status: F Source: [facility] TYPE CODE TESTS RESULT OUT OF RANGE REFERENCE UNITS LAB 2092-12([facility]) CHOLESTEROL:M CNC:PT:SER/PL :QN: 248 High 120-200 mg/dL LAB 2085-06([facility]) CHOLESTEROL.I N HDL:MCNC:PT:S ER/PLAS:QN: 51 Unknown mg/dL Result Comment: '>= 60 LOW R ISK' '<= 40 HIGH RISK' LAB 2088-10([facility]) CHOLESTEROL.I N LDL:MCNC:PT:S ER/PLAS:QN: 169 High <=129 mg/dL LAB 2571-8([facility]) TRIGLYCERIDE: MCNC:PT:SER/P LAS:QN: 145 Normal <=149 mg/dL LAB 45838-1([facility]) CHOLESTEROL.I N VLDL:MCNC:PT: SER/PLAS:QN:C ALCULATED 29 Normal 7-40 mg/dL Performed By: #### [id number] # ### [facility] [address] [place] [address] NURSE CONSULTATION NOTE Observed: 2024 8:17 AM Status: F Source: [facility] Nurse Consultation Note Reason for Visit patient came IO for lab draw Assessment/Plan 1. HLD (hyperlipidemia) (E78.5: Hyperlipidemia, unspecified) Medications citalopram 40 mg Tab, 40 mg= 1 tab(s), Oral, Daily, 4 refills etodolac 500 mg Tab, 500 mg= 1 tab(s), Oral, BID hydrochlorothiazide 25 mg Tab, 25 mg= 1 tab(s), Oral, Daily, 1 refills Lyrica 75 mg Cap, 75 mg= 1 cap(s), Oral, BID, 1 refills verapamil 240 mg ER Tab, 240 mg= 1 tab(s), Oral, Daily, 4 refills Allergies codeine statins (Stomach ache) sulfa drugs Immunizations Vaccine Date Status Comments influenza virus vaccine, inactivated - Not Given Patient Refuses pneumococcal 13-valent vaccine 09/09/2021 Recorded influenza virus vaccine, inactivated 10/05/2019 Recorded pneumococcal 23-valent vaccine 08/26/2014 Recorded pneumococcal 23-valent vaccine 08/23/2001 Recorded PATIENT EDUCATION Observed: 02/17/2025 4:28 PM Status: C Source: [facility] Patient Education Emergency Medicine Heart Attack A heart attack occurs when blood and oxygen supply to the heart is cut off. A heart attack can cause damage to the heart that cannot be fixed. A heart attack is also called a myocardial infarction, or OH. If you think you are having a heart attack, do not wait to see if the symptoms will go away. Get medical help right away. What are the causes? This condition may be caused by: ??? A fatty substance (plaque) in the blood vessels (arteries). This can block the flow of blood to the heart. ??? A blood clot in the blood vessels that go to the heart. The blood clot blocks blood flow. ??? An abnormal heartbeat. ??? Some diseases, such as problems in red blood cells (anemia)orproblems in breathing (respiratory failure). ??? Tightening (spasm) of a blood vessel that cuts off blood to the heart. ??? A tear in a blood vessel of the heart. Other causes may include: ??? Using drugs such as cocaine or methamphetamine. ??? Low blood pressure. What increases the risk? Aging. The risk gets higher as you get older. ??? Having a personal or family history of chest pain, heart attack, stroke, or narrowing of the arteries in the legs, arms, head, or stomach (peripheral vascular disease). ??? Having taken chemotherapy or immune-suppressing medicines. ??? Being male. ??? Being overweight or obese. ??? Having any of these conditions: ? High blood pressure. ? High cholesterol. ? Diabetes. ??? Making lifestyle choices such as: ? Drinking too much alcohol. ? Not getting regular exercise. ? Smoking. What are the signs or symptoms? Chest pain. It may feel like: ? Crushing or squeezing. ? Tightness, pressure, fullness, or heaviness. ??? Pain in the arm, neck, jaw, back, or upper body. ??? Heartburn. ??? Upset stomach (indigestion). ??? Shortness of breath. ??? Feeling like you may vomit (nauseous). ??? Cold sweats. ??? Sudden light-headedness, dizziness, or passing out. ??? Feeling tired. How is this treated? A heart attack must be treated as soon as possible. Treatment may include: ??? Medicines to: ? Break up or dissolve blood clots. ? Thin your blood and help prevent blood clots. ? Treat blood pressure. ? Improve blood flow to the heart. ? Reduce pain. ? Reduce cholesterol. ??? Procedures to widen a blocked artery and keep it open. ??? Open heart surgery. ??? Making your heart strong again (cardiac rehabilitation) through exercise, education, and counseling. Follow these instructions at home: Medicines ??? Take uouj-jmq-cjwsikb and prescription medicines only as told by your doctor. ??? Do not take these medicines unless your doctor says it is okay: ? NSAIDs, such as ibuprofen, naproxen, or celecoxib. ? Any vitamins or supplements. ? Hormone replacement therapy that has estrogen with or without progestin. ??? If you are taking blood thinners: ? Talk with your doctor before taking any medicines that have aspirin or NSAIDs, such as ibuprofen. ? Take medicines exactly as told. Take them at the same time each day. ? Avoid doing things that could hurt or bruise you. Take action to prevent falls. ? Wear an alert bracelet or carry a card that shows you are taking blood thinners. Lifestyle ??? Do not smoke or use any products that contain nicotine or tobacco. If you need help quitting, ask your doctor. ??? Avoid secondhand smoke. ??? Exercise regularly. Ask your doctor about a cardiac rehab program. ??? Eat heart-healthy foods. Your doctor will tell you what foods to eat. ??? Stay at a healthy weight. ??? Learn ways to lower your stress level. ??? Do not use illegal drugs. Alcohol use ??? Do not drink alcohol if: ? Your doctor tells you not to drink. ? You are , may be , or are planning to become . ??? If you drink alcohol: ? Limit how much you have to: ? 0?1 drink a day for women. ? 0?2 drinks a day for men. ? Know how much alcohol is in your drink. In the [place] one drink equals one 12 oz bottle of beer (355 mL), one 5 oz glass of wine (148 mL), or one 1? oz glass of hard liquor (44 mL). General instructions ??? Work with your doctor to treat other problems you may have, such as diabetes or high blood pressure. ??? Get screened for depression. Get treatment if needed. ??? Keep your vaccines up to date. Get the flu shot (influenza vaccine) every year. ??? Keep all follow-up visits. Contact a doctor if: ??? You feel very sad. ??? You have trouble doing your daily activities. ??? You get light-headed or dizzy. Get help right away if: ??? You have sudden, unexplained discomfort in your chest, arms, back, neck, jaw, or upper body. ??? You have shortness of breath. ??? You have sudden sweating or clammy skin. ??? You feel like you may vomit or you vomit. ??? You feel tired or weak. ??? You feel your heart beating fast. ??? You feel your heart skipping beats. ??? You have blood pressure that is higher than 180/120. These symptoms may be an emergency. Get help right away. Call your local emergency services (911 in the [place] ??? Do not wait to see if the symptoms will go away. ??? Do not drive yourself to the hospital. Summary ??? A heart attack occurs when blood and oxygen supply to the heart is cut off. ??? Do not take NSAIDs unless your doctor says it is okay. ??? Do not smoke. Avoid secondhand smoke. ??? Exercise regularly. Ask your doctor about a cardiac rehab program. This information is not intended to replace advice given to you by your health care provider. Make sure you discuss any questions you have with your health care provider. Document Revised: 03/31/2022 Document Reviewed: 03/31/2022 [employer] Patient Education ? 2023 [employer].Mental and Behavioral Health Managing Anxiety, Adult After being diagnosed with anxiety, you may be relieved to know why you have felt or behaved a certain way. You may also feel overwhelmed about the treatment ahead and what it will mean for your life. With care and support, you can manage your anxiety. How to manage lifestyle changes Understanding the difference between stress and anxiety Although stress can play a role in anxiety, it is not the same as anxiety. Stress is your body's reaction to life changes and events, both good and bad. Stress is often caused by something external, such as a deadline, test, or competition. It normally goes away after the event has ended and will last just a few hours. But, stress can be ongoing and can lead to more than just stress. Anxiety is caused by something internal, such as imagining a terrible outcome or worrying that something will go wrong that will greatly upset you. Anxiety often does not go away even after the event is over, and it can become a long-term (chronic) worry. Lowering stress and anxiety Talk with your health care provider or a counselor to learn more about lowering anxiety and stress. They may suggest tension-reduction techniques, such as: ??? Music. Spend time creating or listening to music that you enjoy and that inspires you. ??? Mindfulness-based meditation. Practice being aware of your normal breaths while not trying to control your breathing. It can be done while sitting or walking. ??? Centering prayer. Focus on a word, phrase, or sacred image that means something to you and brings you peace. ??? Deep breathing. Expand your stomach and inhale slowly through your nose. Hold your breath for 3?5 seconds. Then breathe out slowly, letting your stomach muscles relax. ??? Self-talk. Learn to notice and spot thought patterns that lead to anxiety reactions. Change those patterns to thoughts that feel peaceful. ??? Muscle relaxation. Take time to tense muscles and then relax them. Choose a tension-reduction technique that fits your lifestyle and personality. These techniques take time and practice. Set aside 5?15 minutes a day to do them. Specialized therapists can offer counseling and training in these techniques. The training to help with anxiety may be covered by some insurance plans. Other things you can do to manage stress and anxiety include: ??? Keeping a stress diary. This can help you learn what triggers your reaction and then learn ways to manage your response. ??? Thinking about how you react to certain situations. You may not be able to control everything, but you can control your response. ??? Making time for activities that help you relax and not feeling guilty about spending your time in this way. ??? Doing visual imagery. This involves imagining or creating mental pictures to help you relax. ??? Practicing yoga. Through yoga poses, you can lower tension and relax. Medicines Medicines for anxiety include: ??? Antidepressant medicines. These are usually prescribed for long-term daily control. ??? Anti-anxiety medicines. These may be added in severe cases, especially when panic attacks occur. When used together, medicines, psychotherapy, and tension-reduction techniques may be the most effective treatment. Relationships Relationships can play a big part in helping you recover. Spend more time connecting with trusted friends and family members. Think about going to couples counseling if you have a partner, taking family education classes, or going to family therapy. Therapy can help you and others better understand your anxiety. How to recognize changes in your anxiety Everyone responds differently to treatment for anxiety. Recovery from anxiety happens when symptoms lessen and stop interfering with your daily life at home or work. This may mean that you will start to: ??? Have better concentration and focus. Worry will interfere less in your daily thinking. ??? Sleep better. ??? Be less irritable. ??? Have more energy. ??? Have improved memory. Try to recognize when your condition is getting worse. Contact your provider if your symptoms interfere with home or work and you feel like your condition is not improving. Follow these instructions at home: Activity ??? Exercise. Adults should: ? Exercise for at least 150 minutes each week. The exercise should increase your heart rate and make you sweat (moderate-intensity exercise). ? Do strengthening exercises at least twice a week. ??? Get the right amount and quality of sleep. Most adults need 7?9 hours of sleep each night. Lifestyle ??? Eat a healthy diet that includes plenty of vegetables, fruits, whole grains, low-fat dairy products, and lean protein. ? Do not eat a lot of foods that are high in fats, added sugars, or salt (sodium). ??? Make choices that simplify your life. ??? Do not use any products that contain nicotine or tobacco. These products include cigarettes, chewing tobacco, and vaping devices, such as e-cigarettes. If you need help quitting, ask your provider. ??? Avoid caffeine, alcohol, and certain jkee-nyh-qwooras cold medicines. These may make you feel worse. Ask your pharmacist which medicines to avoid. General instructions ??? Take vsch-hom-yvvtkzn and prescription medicines only as told by your provider. ??? Keep all follow-up visits. This is to make sure you are managing your anxiety well or if you need more support. Where to find support You can get help and support from: ??? Self-help groups. ??? Online and community organizations. ??? A trusted spiritual leader. ??? Couples counseling. ??? Family education classes. ??? Family therapy. Where to find more information You may find that joining a support group helps you deal with your anxiety. The following sources can help you find counselors or support groups near you: ??? Mental Health [place]: mentalhealthamerica.net ??? Anxiety and Depression Association of [place] (ADAA): adaa.org ??? National [place] on Mental Illness (ELVIS): elvis.org Contact a health care provider if: ??? You have a hard time staying focused or finishing tasks. ??? You spend many hours a day feeling worried about everyday life. ??? You are very tired because you cannot stop worrying. ??? You start to have headaches or often feel tense. ??? You have chronic nausea or diarrhea. Get help right away if: ??? Your heart feels like it is racing. ??? You have shortness of breath. ??? You have thoughts of hurting yourself or others. Get help right away if you feel like you may hurt yourself or others, or have thoughts about taking your own life. Go to your nearest emergency room or: ??? Call 911. ??? Call the National Suicide Prevention Lifeline at or 337. This is open 24 hours a day. ??? Text the Crisis Text Line at 059539. This information is not intended to replace advice given to you by your health care provider. Make sure you discuss any questions you have with your health care provider. Document Revised: 07/18/2023 Document Reviewed: 01/30/2022 [employer] Patient Education ? 2023 [employer].Nutrition High Cholesterol High cholesterol is a condition in which the blood has high levels of a white, waxy substance similar to fat (cholesterol). The liver makes all the cholesterol that the body needs. The human body needs small amounts of cholesterol to help build cells. A person gets extra or excess cholesterol from the food that he or she eats. The blood carries cholesterol from the liver to the rest of the body. If you have high cholesterol, deposits (plaques) may build up on the zuniga of your arteries. Arteries are the blood vessels that carry blood away from your heart. These plaques make the arteries narrow and stiff. Cholesterol plaques increase your risk for heart attack and stroke. Work with your health care provider to keep your cholesterol levels in a healthy range. What increases the risk? The following factors may make you more likely to develop this condition: ??? Eating foods that are high in animal fat (saturated fat) or cholesterol. ??? Being overweight. ??? Not getting enough exercise. ??? A family history of high cholesterol (familial hypercholesterolemia). ??? Use of tobacco products. ??? Having diabetes. What are the signs or symptoms? In most cases, high cholesterol does not usually cause any symptoms. In severe cases, very high cholesterol levels can cause: ??? Fatty bumps under the skin (xanthomas). ??? A white or redman ring around the black center (pupil) of the eye. How is this diagnosed? This condition may be diagnosed based on the results of a blood test. ??? If you are older than 20 years of age, your health care provider may check your cholesterol levels every 4?6 years. ??? You may be checked more often if you have high cholesterol or other risk factors for heart disease. The blood test for cholesterol measures: ??? Bad cholesterol, or LDL cholesterol. This is the main type of cholesterol that causes heart disease. The desired level is less than 100 mg/dL (2.59 mmol/L). ??? Good cholesterol, or HDL cholesterol. HDL helps protect against heart disease by cleaning the arteries and carrying the LDL to the liver for processing. The desired level for HDL is 60 mg/dL (1.55 mmol/L) or higher. ??? Triglycerides. These are fats that your body can store or burn for energy. The desired level is less than 150 mg/dL (1.69 mmol/L). ??? Total cholesterol. This measures the total amount of cholesterol in your blood and includes LDL, HDL, and triglycerides. The desired level is less than 200 mg/dL (5.17 mmol/L). How is this treated? Treatment for high cholesterol starts with lifestyle changes, such as diet and exercise. ??? Diet changes. You may be asked to eat foods that have more fiber and less saturated fats or added sugar. ??? Lifestyle changes. These may include regular exercise, maintaining a healthy weight, and quitting use of tobacco products. ??? Medicines. These are given when diet and lifestyle changes have not worked. You may be prescribed a statin medicine to help lower your cholesterol levels. Follow these instructions at home: Eating and drinking ??? Eat a healthy, balanced diet. This diet includes: ? Daily servings of a variety of fresh, frozen, or canned fruits and vegetables. ? Daily servings of whole grain foods that are rich in fiber. ? Foods that are low in saturated fats and trans fats. These include poultry and fish without skin, lean cuts of meat, and low-fat dairy products. ? A variety of fish, especially oily fish that contain omega-3 fatty acids. Aim to eat fish at least 2 times a week. ??? Avoid foods and drinks that have added sugar. ??? Use healthy cooking methods, such as roasting, grilling, broiling, baking, poaching, steaming, and stir-frying. Do not burks your food except for stir- frying. ??? If you drink alcohol: ? Limit how much you have to: ? 0?1 drink a day for women who are not . ? 0?2 drinks a day for men. ? Know how much alcohol is in a drink. In the [place] one drink equals one 12 oz bottle of beer (355 mL), one 5 oz glass of wine (148 mL), or one 1? oz glass of hard liquor (44 mL). Lifestyle ??? Get regular exercise. Aim to exercise for a total of 150 minutes a week. Increase your activity level by doing activities such as gardening, walking, and taking the stairs. ??? Do not use any products that contain nicotine or tobacco. These products include cigarettes, chewing tobacco, and vaping devices, such as e-cigarettes. If you need help quitting, ask your health care provider. General instructions ??? Take lgis-lqz-kuvqnpm and prescription medicines only as told by your health care provider. ??? Keep all follow-up visits. This is important. Where to find more information ??? [place] [employer] Heart Association: www.heart.org ??? National Heart, Lung, and Blood [place]: www.nhlbi.nih.gov Contact a health care provider if: ??? You have trouble achieving or maintaining a healthy diet or weight. ??? You are starting an exercise program. ??? You are unable to stop smoking. Get help right away if: ??? You have chest pain. ??? You have trouble breathing. ??? You have discomfort or pain in your jaw, neck, back, shoulder, or arm. ??? You have any symptoms of a stroke. BE FAST is an easy way to remember the main warning signs of a stroke: ? B - Balance. Signs are dizziness, sudden trouble walking, or loss of balance. ? E - Eyes. Signs are trouble seeing or a sudden change in vision. ? F - Face. Signs are sudden weakness or numbness of the face, or the face or eyelid drooping on one side. ? A - Arms. Signs are weakness or numbness in an arm. This happens suddenly and usually on one side of the body. ? S - Speech. Signs are sudden trouble speaking, slurred speech, or trouble understanding what people say. ? T - Time. Time to call emergency services. Write down what time symptoms started. ??? You have other signs of a stroke, such as: ? A sudden, severe headache with no known cause. ? Nausea or vomiting. ? Seizure. These symptoms may represent a serious problem that is an emergency. Do not wait to see if the symptoms will go away. Get medical help right away. Call your local emergency services (911 in the [place] Do not drive yourself to the hospital. Summary ??? Cholesterol plaques increase your risk for heart attack and stroke. Work with your health care provider to keep your cholesterol levels in a healthy range. ??? Eat a healthy, balanced diet, get regular exercise, and maintain a healthy weight. ??? Do not use any products that contain nicotine or tobacco. These products include cigarettes, chewing tobacco, and vaping devices, such as e-cigarettes. ??? Get help right away if you have any symptoms of a stroke. This information is not intended to replace advice given to you by your health care provider. Make sure you discuss any questions you have with your health care provider. Document Revised: 05/12/2023 Document Reviewed: 12/13/2021 [employer] Patient Education ? 2023 [employer]DASH Eating Plan DASH stands for Dietary Approaches to Stop Hypertension. The DASH eating plan is a healthy eating plan that has been shown to: ??? Lower high blood pressure (hypertension). ??? Reduce your risk for type 2 diabetes, heart disease, and stroke. ??? Help with weight loss. What are tips for following this plan? Reading food labels ??? Check food labels for the amount of salt (sodium) per serving. Choose foods with less than 5 percent of the Daily Value (DV) of sodium. In general, foods with less than 300 milligrams (mg) of sodium per serving fit into this eating plan. ??? To find whole grains, look for the word whole as the first word in the ingredient list. Shopping ??? Buy products labeled as low-sodium or no salt added. ??? Buy fresh foods. Avoid canned foods and pre-made or frozen meals. Cooking ??? Try not to add salt when you cook. Use salt-free seasonings or herbs instead of table salt or sea salt. Check with your health care provider or pharmacist before using salt substitutes. ??? Do not burks foods. Cook foods in healthy ways, such as baking, boiling, grilling, roasting, or broiling. ??? Cook using oils that are good for your heart. These include olive, canola, avocado, soybean, and sunflower oil. Meal planning ??? Eat a balanced diet. This should include: ? 4 or more servings of fruits and 4 or more servings of vegetables each day. Try to fill half of your plate with fruits and vegetables. ? 6?8 servings of whole grains each day. ? 6 or less servings of lean meat, poultry, or fish each day. 1 oz is 1 serving. A 3 oz (85 g) serving of meat is about the same size as the palm of your hand. One egg is 1 oz (28 g). ? 2?3 servings of low-fat dairy each day. One serving is 1 cup (237 mL). ? 1 serving of nuts, seeds, or beans 5 times each week. ? 2?3 servings of heart-healthy fats. Healthy fats called omega-3 fatty acids are found in foods such as walnuts, flaxseeds, fortified milks, and eggs. These fats are also found in cold-water fish, such as sardines, salmon, and mackerel. ??? Limit how much you eat of: ? Canned or prepackaged foods. ? Food that is high in trans fat, such as fried foods. ? Food that is high in saturated fat, such as fatty meat. ? Desserts and other sweets, sugary drinks, and other foods with added sugar. ? Full-fat dairy products. ??? Do not salt foods before eating. ??? Do not eat more than 4 egg yolks a week. ??? Try to eat at least 2 vegetarian meals a week. ??? Eat more home-cooked food and less restaurant, buffet, and fast food. Lifestyle ??? When eating at a restaurant, ask if your food can be made with less salt or no salt. ??? If you drink alcohol: ? Limit how much you have to: ? 0?1 drink a day if you are female. ? 0?2 drinks a day if you are male. ? Know how much alcohol is in your drink. In the [place] one drink is one 12 oz bottle of beer (355 mL), one 5 oz glass of wine (148 mL), or one 1? oz glass of hard liquor (44 mL). General information ??? Avoid eating more than 2,300 mg of salt a day. If you have hypertension, you may need to reduce your sodium intake to 1,500 mg a day. ??? Work with your provider to stay at a healthy body weight or lose weight. Ask what the best weight range is for you. ??? On most days of the week, get at least 30 minutes of exercise that causes your heart to beat faster. This may include walking, swimming, or biking. ??? Work with your provider or dietitian to adjust your eating plan to meet your specific calorie needs. What foods should I eat? Fruits All fresh, dried, or frozen fruit. Canned fruits that are in their natural juice and do not have sugar added to them. Vegetables Fresh or frozen vegetables that are raw, steamed, roasted, or grilled. Low- sodium or reduced-sodium tomato and vegetable juice. Low-sodium or reduced-sodium tomato sauce and tomato paste. Low-sodium or reduced-sodium canned vegetables. Grains Whole-grain or whole-wheat bread. Whole-grain or whole-wheat pasta. Brown rice. Oatmeal. Quinoa. Bulgur. Whole-grain and low-sodium cereals. Jesika bread. Low- fat, low-sodium crackers. Whole-wheat flour tortillas. Meats and other proteins Skinless chicken or turkey. Ground chicken or turkey. Pork with fat trimmed off. Fish and seafood. Egg whites. Dried beans, peas, or lentils. Unsalted nuts, nut butters, and seeds. Unsalted canned beans. Lean cuts of beef with fat trimmed off. Low- sodium, lean precooked or cured meat, such as sausages or meat loaves. Dairy Low-fat (1%) or fat-free (skim) milk. Reduced-fat, low-fat, or fat-free cheeses. Nonfat, low-sodium ricotta or cottage cheese. Low-fat or nonfat yogurt. Low-fat, low-sodium cheese. Fats and oils Soft margarine without trans fats. Vegetable oil. Reduced-fat, low-fat, or light mayonnaise and salad dressings (reduced-sodium). Canola, safflower, olive, avocado, soybean, and sunflower oils. Avocado. Seasonings and condiments Herbs. Spices. Seasoning mixes without salt. Other foods Unsalted popcorn and pretzels. Fat-free sweets. The items listed above may not be all the foods and drinks you can have. Talk to a dietitian to learn more. What foods should I avoid? Fruits Canned fruit in a light or heavy syrup. Fried fruit. Fruit in cream or butter sauce. Vegetables Creamed or fried vegetables. Vegetables in a cheese sauce. Regular canned vegetables that are not marked as low-sodium or reduced-sodium. Regular canned tomato sauce and paste that are not marked as low-sodium or reduced-sodium. Regular tomato and vegetable juices that are not marked as low-sodium or reduced-sodium. Pickles. Olives. Grains Baked goods made with fat, such as croissants, muffins, or some breads. Dry pasta or rice meal packs. Meats and other proteins Fatty cuts of meat. Ribs. Fried meat. Hernandez. Bologna, salami, and other precooked or cured meats, such as sausages or meat loaves, that are not lean and low in sodium. Fat from the back of a pig (fatback). Bratwurst. Salted nuts and seeds. Canned beans with added salt. Canned or smoked fish. Whole eggs or egg yolks. Chicken or turkey with skin. Dairy Whole or 2% milk, cream, and [id number]. Whole or full-fat cream cheese. Whole-fat or sweetened yogurt. Full-fat cheese. Nondairy creamers. Whipped toppings. Processed cheese and cheese spreads. Fats and oils Butter. Stick margarine. Lard. Shortening. Ghee. Hernandez fat. Tropical oils, such as coconut, palm kernel, or palm oil. Seasonings and condiments Onion salt, garlic salt, seasoned salt, table salt, and sea salt. Worcestershire sauce. Tartar sauce. Barbecue sauce. Teriyaki sauce. Soy sauce, including reduced-sodium soy sauce. Steak sauce. Canned and packaged gravies. Fish sauce. Oyster sauce. Cocktail sauce. Store-bought horseradish. Ketchup. Mustard. Meat flavorings and tenderizers. Bouillon cubes. Hot sauces. Pre-made or packaged marinades. Pre-made or packaged taco seasonings. Relishes. Regular salad dressings. Other foods Salted popcorn and pretzels. The items listed above may not be all the foods and drinks you should avoid. Talk to a dietitian to learn more. Where to find more information ??? National Heart, Lung, and Blood [place] (NHLBI): nhlbi.nih.gov ??? [place] Heart Association (AHA): heart.org ??? Academy of Nutrition and Dietetics: eatright.org ??? National Kidney Foundation (NKF): kidney.org This information is not intended to replace advice given to you by your health care provider. Make sure you discuss any questions you have with your health care provider. Document Revised: 10/26/2023 Document Reviewed: 10/26/2023 [employer] Patient Education ? 2023 [employer]BMI for Adults Body mass index (BMI) is a number found using a person's weight and height. BMI can help tell how much of a person's weight is made up of fat. BMI does not measure body fat directly. It is used instead of tests that directly measure body fat, which can be difficult and expensive. What are BMI measurements used for? BMI is useful to: ??? Find out if your weight puts you at higher risk for medical problems. ??? Help recommend changes, such as in diet and exercise. This can help you reach a healthy weight. BMI screening can be done again to see if these changes are working. How is BMI calculated? Your height and weight are measured. The BMI is found from those numbers. This can be done with [place] or metric measurements. Note that charts and online BMI calculators are available to help you find your BMI quickly and easily without doing these calculations. To calculate your BMI in [place] measurements: 1. Measure your weight in pounds (lb). 2. Multiply the number of pounds by 703. ??? So, for an adult who weighs 150 lb, multiply that number by 703: 150 x 703, which equals 105,450. 3. Measure your height in inches. Then multiply that number by itself to get a measurement called inches squared. ??? So, for an adult who is 70 inches tall, the inches squared measurement is 70 inches x 70 inches, which equals 4,900 inches squared. 4. Divide the total from step 2 (number of lb x 703) by the total from step 3 (inches squared): 105,450 ? 4,900 = 21.5. This is your BMI. To calculate your BMI in metric measurements: 1. Measure your weight in kilograms (kg). ??? For this example, the weight is 70 kg. 2. Measure your height in meters (m). Then multiply that number by itself to get a measurement called meters squared. ??? So, for an adult who is 1.75 m tall, the meters squared measurement is 1.75 m x 1.75 m, which equals 3.1 meters squared. 3. Divide the number of kilograms (your weight) by the meters squared number. In this example: 70 ? 3.1 = 22.6. This is your BMI. What do the results mean? BMI charts are used to see if you are underweight, normal weight, overweight, or obese. The following guidelines will be used: ??? Underweight: BMI less than 18.5. ??? Normal weight: BMI between 18.5 and 24.9. ??? Overweight: BMI between 25 and 29.9. ??? Obese: BMI of 30 or above. BMI is a tool and cannot diagnose a condition. Talk with your health care provider about what your BMI means for you. Keep these notes in mind: ??? Weight includes fat and muscle. Someone with a muscular build, such as an athlete, may have a BMI that is higher than 24.9. In cases like these, BMI is not a correct measure of body fat. ??? If you have a BMI of 25 or higher, your provider may need to do more testing to find out if excess body fat is the cause. ??? BMI is measured the same way for males and females. Females usually have more body fat than males of the same height and weight. Where to find more information For more information about BMI, including tools to quickly find your BMI, go to: ??? Centers for Disease Control and Prevention: cdc.gov ??? [place] [employer] Heart Association: heart.org ??? National Heart, Lung, and Blood [place]: nhlbi.nih.gov This information is not intended to replace advice given to you by your health care provider. Make sure you discuss any questions you have with your health care provider. Document Revised: 06/29/2023 Document Reviewed: 06/22/2023 [employer] Patient Education ? 2023 [employer]. FAMILY MEDICINE OFFICE/CLINI C NOTE Observed: 02/17/2025 1:30 PM Status: F Source: [facility] Family Medicine Office/Clini c Note Chief Complaint Subsequent Medicare Wellness History of Present Illness Covid-19, MERS, Ebola Screen *Contact With Person [...] Airborne, Droplet Precautions for MERS/COVID-19 : N/A Catherine Rivera - 02/17/2025 14:14 EDT Medicare/Medicaid Summary Chief Complaint : Subsequent Medicare Wellness Patient Counseled : Nutrition, Physical activity, Elevated BMI Height/Length Measured : 161 cm(Converted to: 5 ft 3 in, 63.39 in) Weight Measured : 92.6 kg(Converted to: 204 lb 2 Ounces, 204.148 lb) Body Mass Index Measured : 35.72 kg/m2 Height in Inches : 63 in Weight in Pounds : 204.148 lb Systolic Blood Pressure : 136 mmHg Diastolic Blood Pressure : 78 mmHg Blood Pressure Position : Sitting O2 Sat Resting/Exertion Alpha : Resting Peripheral Pulse Rate : 70 bpm SpO2 : 94 % Pain Present : No actual or suspected pain Numeric Rating Pain Score : 5 Catherine Rivera - 02/17/2025 14:14 EDT Hearing and Vision Screening FT FT Whisper Test Comments : no hearing in right ear. Vision Screen Comments : wears glasses. 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 [facility] 1994 ; Last Reviewed Dt/Tm: 02/17/2025 14:17:09 EDT Anesthesia Minutes: 0 ; Procedure Name: Hysterectomy ; Procedure Minutes: 0 ; Last Reviewed Dt/Tm: 02/17/2025 14:17:09 EDT Anesthesia Minutes: 0 ; Procedure Name: Biopsy of breast ; Procedure Minutes: 0 ; Comments: 11/14/2023 13:08 Laly Velasquez LPN several biopsies, has dense breasts ; Last Reviewed Dt/Tm: 02/17/2025 14:17:09 EDT Family History Family History (As Of: 02/17/2025 14:26:25 EDT) Father: Relation: Father ; Gender: Male ; Nomenclature: Acute myocardial infarction ; Value: Positive Mother: Relation: Mother ; Gender: Female ; Nomenclature: Stroke ; Value: Positive Brother: Relation: Brother ; Gender: Male ; Nomenclature: Hypertension ; Value: Positive Health Risk Assessment FT HRA little interest or pleasure? : Yes HRA down, depressed, or hopeless? : No Hazards in your house? : No Fall Risk Past Year : Yes Worried About Falling : No Use a Cane or Walker? : No Someone Helps You in the Morning : No Fallen or felt dizzy standing up? : No Assistance with personal care? : No Trouble taking meds correctly? : No HRA Pain Present : Yes Primary Pain Location : Knee (Comment: knees, elbows, and ankles. [Catherine Rivera 02/17/2025 14:14 EDT] ) Numeric Rating Pain Scale : 5 = Moderate pain Numeric Rating Pain Score : 5 Able to walk without help? : Yes Ability to shop w/out help : Yes Prepare your own meals? : Yes Housework without help? : Yes Handle money without help : Yes Track own medications without help? : Yes Overall mood for past four weeks : Pretty well General health rating : Very Good Someone avail. to help if needed? : Yes, as much as I wanted Phys. & emotional health limit social act? : Not at all Catherine Rivera 02/17/2025 14:14 EDT Misc Health Risks Grid Sexual problems : Sometimes Trouble eating well : Never Teeth or denture problems : Never Problems using the telephone : Never Catherine Rivera 02/17/2025 14:14 EDT Confident you control health problems : Very confident Difficulties driving your car? : No Seatbelts : I always fasten my seat belt Catherine Rivera 02/17/2025 14:14 EDT Depression Screening Little Interest, Pleasure in Activities (ref) : Several days Feeling Down, Depressed, Hopeless : Not at all Thoughts of Harming Self or Others : No Initial Depression Screening Score : 1 SCORE Depression Screening Result : Negative Catherine Rivera 02/17/2025 14:14 EDT Social Determinants (PRAPARE) Only Required Garcia highlighed in yellow need to be filled out and will trigger a referral to the Chronic Care Navigators : Vincentian What is your housing situation today? : I have housing You or Family Gone Without Household Needs Past Year : No, I choose not to answer this question No Transport to Med Appts/Meetings/Work/Meds/Necessities : I choose not to answer this question Currently Live in Physical and Emotional Safety : Yes Social Determinants (PRAPARE) Info RTF : Social Determinants (PRAPARE) Housing Situation Today: I have housing (02/12/25) Gone Without Household Needs Past Year: I choose not to answer this question (02/12/25) Live in Physical and Emotional Safety: Yes (02/12/25) No Transport Med Appt/Med/Work/Necessity: I choose not to answer this question (02/12/25) Catherine Rivera 02/17/2025 14:14 EDT Mini-Cog FT CDT(Clock Drawing Test) score : Normal # of Recalled Words : 3 Catherine Rivera 02/17/2025 14:14 EDT Home Safety Screen FT Emergency Numbers Kept/Updated : Yes Aware of Smoking Dangers : Yes Smoke Alarms/Fire Extinguisher Available : Yes Household Members Fire Safety Knowledge : Yes Firearms Unloaded and Secure : Yes Floor Rugs Removed or Fastened : Yes Mats in Bathtub/Shower : Yes Stairway Rails or Banisters : Yes Outdoor Clutter Safety : Yes Indoor Clutter Safety : Yes Electrical Cord Safety : Yes Catherine Rivera 02/17/2025 14:14 EDT Medicare/Medicaid Boyd Fall Risk History of Fall in Last 3 Months Boyd : Yes Presence of Secondary Diagnosis Boyd : No Use of Ambulatory Aid Boyd : None, bedrest, wheelchair, nurse IV/Heparin Lock Fall Risk Boyd : No Gait Weak or Impaired Fall Risk Boyd : Normal, bedrest, immobile Mental Status Fall Risk Boyd : Oriented to own ability Boyd Fall Risk Score : 25 Catherine Rivera Sonu 02/17/2025 14:14 EDT Functional Assessment FT Functional ADL Evaluation Index EBN Grid Bathing : Independent (2) Dressing : Independent (2) Toileting : Independent (2) Transferring Bed or Chair : Independent (2) Continence : Independent (2) Feeding : Independent (2) Catherine Rivera Sonu 02/17/2025 14:14 EDT ADL Index Score : 12 Catherine Rivera 02/17/2025 14:14 EDT IADL FT IADL Grid FT Meal Prep IADL : Independent FT Writig IADL : Independent FT Keyboarding IADL : Independent FT Phone Use IADL : Independent FT Money Management IADL : Independent FT Grocery Shopping IADL : Independent FT Clothing Care IADL : Independent FT Light Cleaning IADL : Independent FT Heavy Cleaning IADL : Independent FT Transportation IADL : Independent FT Community Mobility, Safety IADL : Independent FT Care of Others IADL : Independent FT Medication Management IADL : Independent FT Other IADL : Independent Catherine Rivera - 02/17/2025 14:14 EDT AUDIT Screening FT AUDIT Frequency of Drinks Containing Alcohol : 2 to 3 times a week AUDIT Anyone Injured Due to Drinking : No AUDIT Number Alcohol Drinks If Drinking : 1 or 2 AUDIT Past Year Freq Failure of Previous Night Memory : Never AUDIT Freq of Six or More Drinks on One Occasion : Less than monthly AUDIT Past Year Freq Need Drink in AM After Heavy Drinking : Never AUDIT Past Year Freq Cannot Stop Drinking Once Started : Never AUDIT Past Year Freq Feeling Guilt, Remorse After Drinking : Never AUDIT Past Year Freq Fail to do as Expected Due to Drinking : Never AUDIT Anyone Worried w- Drinking : No AUDIT Score : 4 Catherine Rivera - 02/17/2025 14:14 EDT Diabetes Risk Test FT FT Pre DM Age : 2 FT Pre DM Gender : 0 FT Pre DM Gestational : 0 FT Pre DM Family : 0 FT Pre DM BP : 1 FT Pre DM Physical Activity : 0 FT Pre DM Weight : 2 FT Pre DM Score : 6 Catherine Rivera - 02/17/2025 14:14 EDT Medication History Medication History Progress Note : n/a Manages Home Medication Administration : Independently Medication History Source : Self Verbalizes Home Medications : Accurately Catherine Rivera - 02/17/2025 14:14 EDT Medication List (As Of: 02/17/2025 14:26:25 EDT) Image 2 - Images currently included in the form version of this document have not been included in the text rendition version of the form. Review of Systems PHQ Score Initial Depression Screen Score: 1 SCORE Physical Exam Vitals & Measurements HR: 70(Peripheral) BP: 136/78 SpO2: 94% HT: 161 cm HT: 63 in WT: 204.148 lb WT: 92.6 kg BMI: 35.72 Assessment/Plan 1. Encounter for subsequent annual wellness visit (AWV) in Medicare patient (Z00.00: Encounter for general adult medical examination without abnormal findings) The patient was given a customized and personalized print out of all the current AHRQ USPSTF???s recommendations for preventative services and all current CDC recommended immunizations, relevant risk recommendations and the following patient brochures were given. Reviewed Medicare Prevention Services checklist. CDC-Falls Prevention and home safety screening reviewed. Patient reports one fall in last 12 months, voices no worry about falling. Exhibits no problems with sitting, standing or ambulation. Patient aware with keeping walk way area free of clutter to prevent tripping and/or falling. [place] Advance Directives reviewed. Documents present in chart. Patient denies any problems with ADL???s and Instrumental ADL???s. Cognitive screening completed with memory and clock face drawing. No deficits noted. Immunization record reviewed, discussed Shingrix vaccine with educational handout and availability. No COVID vaccines. Allergies and medications reviewed and up to date. No concerns with taking medication as prescribed. Reviewed OTC medications, medication list up to date. Blood tests were reviewed: Discussed what tests need to be updated. Labs were ordered, will have completed prior to next PCP visit. Labs to be completed with [facility]. No concerns with bowel/ bladder. Negative Cologuard 02/12/2024. Reviewed pain symptoms: joint pain. Patient denies pain today. Patient takes pregabalin and ibuprofen. Reviewed all outside providers that patient follows. Last visit summary notes available in chart and/or have been requested. Patient declines any signs or symptoms of depression at this time. 8 minutes spent with screening and documentation. PHQ2 screening score 1. Patient drinks alcohol 4 or more times weekly 1-2 drinks, denies concerns. 8 minutes spent with screening and documentation. Audit score 4. Follow up scheduled with PCP, 08/18/2025 AWV has been scheduled, 02/16/26 Medicare provides yearly screening for alcohol and depression concerns. This is completed during our Medicare wellness visit for those who do not have a current diagnosis of depression or concerns with alcohol use. I spent a total of 17 minutes on this date of service which included preparing to see the patient, face to face patient care, completing clinical documentation, obtaining and/or reviewing separately obtained history, counseling and educating the patient with handouts. Explanations were provided with reviewing questionnaires. AUDIT risk assessment screening completed, risk score (4) with patient denying concerns with use. Completed PHQ-2 risk assessment for depression with risk score (1), negative findings. Patient has been reminded to notify the provider if there would be a change or concerns with symptoms with fear, unable to sleep, worrying too much or feeling down and/or sad with lost of interest with daily activities. Will continue to monitor with screening yearly during Medicare wellness visits. 2. Anxiety (F41.9: Anxiety disorder, unspecified) Patient takes citalopram daily as directed, voices effectiveness of medication. FANNY-7 screening completed today with a score of (8). Follows with PCP as directed for management and symptom control. Denies any suicidal ideations at this time. Education provided, stress management and relaxation techniques reviewed. Will continue to follow with PCP and communicate any changes of increased anxiety. Reviewed additional signs/symptoms to monitor for and report to provider. 3. HLD (hyperlipidemia) (E78.5: Hyperlipidemia, unspecified) Reviewed healthy lifestyle with low fat diet and exercise regimen. When you are overweight our body produces more lipids. Risk also increases with family history of hyperlipidemia and with monitoring alcohol use and avoid smoking. Pt voices understanding with importance of monitoring dietary intake to reduce risk factors associated with CVA. Patient uses diet control. Will continue to follow up with office visits. Ordered LIPID Panel. 4. HTN (hypertension) (I10: Essential (primary) hypertension) Patient is taking hctz and verapamil daily as directed. Does monitor BP pressure at home. HTN stoplight reviewed with BP goal to be <140/90. Reviewed different factors that can alter blood pressure readings. Education handout provided with s/s to monitor for and report to provider. Patient is encouraged to increase portions of fruit, vegetables, fiber and increase exercise as much as tolerable. Reviewed importance with monitoring foods high in salt content and encouraged to limit intake, if unsure encouraged to discuss with their PCP. Encouraged to eat more chicken, fish and lean white meats and limits red meats in diet. Discussed importance with keeping BP under good control to reduce CVA risk factors. Will continue to f/u with PCP during office visits and as needed. CMP ordered by pcp. 5. Obesity (BMI 30-39.9) (E66.9: Obesity, unspecified) A combination of diet and exercise can help you lose weight. Discussed weight loss benefits to dietary management and overall health with increased cardiovascular risks associated with waist measurement female>35 men>40. Patients waist measured . Reminded of importance to work on lowering current body weight with healthy dietary intake choices and portion control. Reviewed goals and patients readiness with needing to make a lifestyle change. Will work on increasing daily activity to prevent further weight gain. Will continue to monitor during office visits with progress. Discussed weight loss benefits, dietary management and overall health. An increased waistline may also increase your cardiovascular risks. Waist measurement, female>35 and men>40. Reminded of importance to work on lowering current body weight with healthy dietary intake choices and portion control. Encouraged to work on increasing daily activity to prevent further weight gain. Will continue to monitor during office visits with progress. 6. Statin intolerance (Z78.9: Other specified health status) Patient is unable to take statins due to stomach upset. 7. Breast cancer screening by mammogram (Z12.31: Encounter for screening mammogram for malignant neoplasm of breast) Recommended mammogram screening discussed with patient during today's Medicare Wellness visit. Patient reminded with the importance of continued Breast Self-Awareness at home. Easy to read demonstration on how to perform a self breast exam: What to look for and feel for was reviewed and provided to patient. Mammogram ordered and faxed to [facility]. Patient will call to schedule. Pt has been advised no deodorant, sprays or lotions. Follow-up No qualifying data available Patient Education Managing Anxiety, Adult High Cholesterol Heart Attack, Zfyv-oo-Fqcx DASH Eating Plan BMI for Adults Problem List/Past Medical History Ongoing Anxiety BMI 35.0-35.9,adult History of recent fall HLD (hyperlipidemia) HTN (hypertension) Neuropathy Nonsmoker Obesity (BMI 30-39.9) Rib pain on left side Statin intolerance [...] tab(s), Oral, Daily, 4 refills Allergies codeine statins (Stomach ache) sulfa drugs Social History Alcohol - Medium Risk, 02/12/2024 Current. Wine. 3-5 times per week., 08/31/2024 Substance Abuse - Denies Substance Abuse, 02/12/2024 Never., 08/31/2024 Tobacco Quit in 1994 Tobacco Use:. Never Smokeless Tobacco Use:. Household tobacco concerns: No. Yes, 02/17/2025 Family History Acute myocardial infarction: Father. Hypertension: Brother. Stroke: Mother. Immunizations Vaccine Date Status Comments influenza virus vaccine, inactivated - Not Given Patient Refuses pneumococcal 13-valent vaccine 09/09/2021 Recorded influenza virus vaccine, inactivated 10/05/2019 Recorded pneumococcal 23-valent vaccine 08/26/2014 Recorded pneumococcal 23-valent vaccine 08/23/2001 Recorded Result Comment: Electronical ly Signed By: Irving Clemens MD\.br\Date and Time Signed: 02/18/25 14:15 EDT\.br\Electronically Co-Signed By: Catherine Rivera\.br\Date and Time Co-Signed: 02/17/25 16:30 EDT AMBULATORY VISIT SUMMARY Observed: 02/17 1:30 PM Status: F Source: [facility] Ambulatory Visit Summary JOSE MANUEL CHICAS :1945 Visit Date:02/17/2025 Ambulatory Visit Instructions Your Diagnosis Encounter for subsequent annual wellness visit (AWV) in Medicare patient Anxiety HLD (hyperlipidemia) HTN (hypertension) Obesity (BMI 30-39.9) Statin intolerance Breast cancer screening by mammogram Tests Performed MA Mamm Screen w/CAD if perf and 3D Ahsan -- Results Pending -- Please visit your patient portal for your results or contact your primary care physician. Your Care Team Attending Physician - Irving Clemens MD Primary Care Physician - Irving Clemens MD This Is Your Medications List citalopram (citalopram 40 mg Tab) etodolac (etodolac 500 mg Tab) hydrochlorothiazide (hydrochlorothiazide 25 mg Tab) pregabalin (Lyrica 75 mg Cap) verapamil (verapamil 240 mg ER Tab) Procedures Performed Acoustic neuroma, Biopsy of breast, Hysterectomy. Discharge Vitals Heart Rate (Peripheral) 70 Blood Pressure 136/78 Height 161 cm Height 63 in Weight 92.6 kg Weight 204.148 lb BMI 35.72 What to do next Scheduled Follow-Up Appointments Monday 8:40 AM EDT With: Where: [address] [place] [address]- Monday 2:00 PM EDT With: Roberto Carlos MART, Irving Small Where: [address] [place] [address]- Monday2025 2:30 PM EDT With: Where: [address] [place] [address]- Someone Will Contact You Regarding These Appointments [facility] External Ambulatory Referral, Vascular Surgery, 02/17/25 14:13:00 EDT, PAD (peripheral artery disease) Anxiety HTN (hypertension) Neuropathy BMI 35.0-35.9,adult Medications What How Much When Instructions Unchanged [...] Tablets By Mouth Every day Allergies codeine statins (Stomach ache) sulfa drugs Problems Ongoing - Any problem that you are currently receiving treatment for. Anxiety BMI 35.0-35.9,adult History of recent fall HLD (hyperlipidemia) HTN (hypertension) Neuropathy Nonsmoker Obesity (BMI 30-39.9) Rib pain on left side Statin intolerance Patient Survey You may receive a survey via text or e-mail asking about your office visit. Please share your experience with us by completing your survey. We appreciate your feedback and thank you for choosing us for your care. Education Materials Managing Anxiety, Adult After being diagnosed with anxiety, you may be relieved to know why you have felt or behaved a certain way. You may also feel overwhelmed about the treatment ahead and what it will mean for your life. With care and support, you can manage your anxiety. How to manage lifestyle changes Understanding the difference between stress and anxiety Although stress can play a role in anxiety, it is not the same as anxiety. Stress is your body's reaction to life changes and events, both good and bad. Stress is often caused by something external, such as a deadline, test, or competition. It normally goes away after the event has ended and will last just a few hours. But, stress can be ongoing and can lead to more than just stress. Anxiety is caused by something internal, such as imagining a terrible outcome or worrying that something will go wrong that will greatly upset you. Anxiety often does not go away even after the event is over, and it can become a long-term (chronic) worry. Lowering stress and anxiety Talk with your health care provider or a counselor to learn more about lowering anxiety and stress. They may suggest tension-reduction techniques, such as: ??? Music. Spend time creating or listening to music that you enjoy and that inspires you. ??? Mindfulness-based meditation. Practice being aware of your normal breaths while not trying to control your breathing. It can be done while sitting or walking. ??? Centering prayer. Focus on a word, phrase, or sacred image that means something to you and brings you peace. ??? Deep breathing. Expand your stomach and inhale slowly through your nose. Hold your breath for 3???5 seconds. Then breathe out slowly, letting your stomach muscles relax. ??? Self-talk. Learn to notice and spot thought patterns that lead to anxiety reactions. Change those patterns to thoughts that feel peaceful. ??? Muscle relaxation. Take time to tense muscles and then relax them. Choose a tension-reduction technique that fits your lifestyle and personality. These techniques take time and practice. Set aside 5???15 minutes a day to do them. Specialized therapists can offer counseling and training in these techniques. The training to help with anxiety may be covered by some insurance plans. Other things you can do to manage stress and anxiety include: ??? Keeping a stress diary. This can help you learn what triggers your reaction and then learn ways to manage your response. ??? Thinking about how you react to certain situations. You may not be able to control everything, but you can control your response. ??? Making time for activities that help you relax and not feeling guilty about spending your time in this way. ??? Doing visual imagery. This involves imagining or creating mental pictures to help you relax. ??? Practicing yoga. Through yoga poses, you can lower tension and relax. Medicines Medicines for anxiety include: ??? Antidepressant medicines. These are usually prescribed for long-term daily control. ??? Anti-anxiety medicines. These may be added in severe cases, especially when panic attacks occur. When used together, medicines, psychotherapy, and tension-reduction techniques may be the most effective treatment. Relationships Relationships can play a big part in helping you recover. Spend more time connecting with trusted friends and family members. Think about going to couples counseling if you have a partner, taking family education classes, or going to family therapy. Therapy can help you and others better understand your anxiety. How to recognize changes in your anxiety Everyone responds differently to treatment for anxiety. Recovery from anxiety happens when symptoms lessen and stop interfering with your daily life at home or work. This may mean that you will start to: ??? Have better concentration and focus. Worry will interfere less in your daily thinking. ??? Sleep better. ??? Be less irritable. ??? Have more energy. ??? Have improved memory. Try to recognize when your condition is getting worse. Contact your provider if your symptoms interfere with home or work and you feel like your condition is not improving. Follow these instructions at home: Activity ??? Exercise. Adults should: ? Exercise for at least 150 minutes each week. The exercise should increase your heart rate and make you sweat (moderate-intensity exercise). ? Do strengthening exercises at least twice a week. ??? Get the right amount and quality of sleep. Most adults need 7???9 hours of sleep each night. Lifestyle ??? Eat a healthy diet that includes plenty of vegetables, fruits, whole grains, low-fat dairy products, and lean protein. ? Do not eat a lot of foods that are high in fats, added sugars, or salt (sodium). ??? Make choices that simplify your life. ??? Do not use any products that contain nicotine or tobacco. These products include cigarettes, chewing tobacco, and vaping devices, such as e-cigarettes. If you need help quitting, ask your provider. ??? Avoid caffeine, alcohol, and certain qdsy-rbz-jsviopc cold medicines. These may make you feel worse. Ask your pharmacist which medicines to avoid. General instructions ??? Take tlwn-gvb-utdwiki and prescription medicines only as told by your provider. ??? Keep all follow-up visits. This is to make sure you are managing your anxiety well or if you need more support. Where to find support You can get help and support from: ??? Self-help groups. ??? Online and community organizations. ??? A trusted spiritual leader. ??? Couples counseling. ??? Family education classes. ??? Family therapy. Where to find more information You may find that joining a support group helps you deal with your anxiety. The following sources can help you find counselors or support groups near you: ??? Mental Health [place]: mentalMONTAJamerica.net ??? Anxiety and Depression Association of [place] (ADAA): adaa.org ??? National [place] on Mental Illness (ELVIS): elvis.org Contact a health care provider if: ??? You have a hard time staying focused or finishing tasks. ??? You spend many hours a day feeling worried about everyday life. ??? You are very tired because you cannot stop worrying. ??? You start to have headaches or often feel tense. ??? You have chronic nausea or diarrhea. Get help right away if: ??? Your heart feels like it is racing. ??? You have shortness of breath. ??? You have thoughts of hurting yourself or others. Get help right away if you feel like you may hurt yourself or others, or have thoughts about taking your own life. Go to your nearest emergency room or: ??? Call 911. ??? Call the National Suicide Prevention Lifeline at or 358. This is open 24 hours a day. ??? Text the Crisis Text Line at 241601. This information is not intended to replace advice given to you by your health care provider. Make sure you discuss any questions you have with your health care provider. Document Revised: 07/18/2023 Document Reviewed: 01/30/2022 [employer] Patient Education ??? 2023 [employer] High Cholesterol High cholesterol is a condition in which the blood has high levels of a white, waxy substance similar to fat (cholesterol). The liver makes all the cholesterol that the body needs. The human body needs small amounts of cholesterol to help build cells. A person gets extra or excess cholesterol from the food that he or she eats. The blood carries cholesterol from the liver to the rest of the body. If you have high cholesterol, deposits (plaques) may build up on the zuniga of your arteries. Arteries are the blood vessels that carry blood away from your heart. These plaques make the arteries narrow and stiff. Cholesterol plaques increase your risk for heart attack and stroke. Work with your health care provider to keep your cholesterol levels in a healthy range. What increases the risk? The following factors may make you more likely to develop this condition: ??? Eating foods that are high in animal fat (saturated fat) or cholesterol. ??? Being overweight. ??? Not getting enough exercise. ??? A family history of high cholesterol (familial hypercholesterolemia). ??? Use of tobacco products. ??? Having diabetes. What are the signs or symptoms? In most cases, high cholesterol does not usually cause any symptoms. In severe cases, very high cholesterol levels can cause: ??? Fatty bumps under the skin (xanthomas). ??? A white or redman ring around the black center (pupil) of the eye. How is this diagnosed? This condition may be diagnosed based on the results of a blood test. ??? If you are older than 20 years of age, your health care provider may check your cholesterol levels every 4???6 years. ??? You may be checked more often if you have high cholesterol or other risk factors for heart disease. The blood test for cholesterol measures: ??? Bad cholesterol, or LDL cholesterol. This is the main type of cholesterol that causes heart disease. The desired level is less than 100 mg/dL (2.59 mmol/L). ??? Good cholesterol, or HDL cholesterol. HDL helps protect against heart disease by cleaning the arteries and carrying the LDL to the liver for processing. The desired level for HDL is 60 mg/dL (1.55 mmol/L) or higher. ??? Triglycerides. These are fats that your body can store or burn for energy. The desired level is less than 150 mg/dL (1.69 mmol/L). ??? Total cholesterol. This measures the total amount of cholesterol in your blood and includes LDL, HDL, and triglycerides. The desired level is less than 200 mg/dL (5.17 mmol/L). How is this treated? Treatment for high cholesterol starts with lifestyle changes, such as diet and exercise. ??? Diet changes. You may be asked to eat foods that have more fiber and less saturated fats or added sugar. ??? Lifestyle changes. These may include regular exercise, maintaining a healthy weight, and quitting use of tobacco products. ??? Medicines. These are given when diet and lifestyle changes have not worked. You may be prescribed a statin medicine to help lower your cholesterol levels. Follow these instructions at home: Eating and drinking ??? Eat a healthy, balanced diet. This diet includes: ? Daily servings of a variety of fresh, frozen, or canned fruits and vegetables. ? Daily servings of whole grain foods that are rich in fiber. ? Foods that are low in saturated fats and trans fats. These include poultry and fish without skin, lean cuts of meat, and low-fat dairy products. ? A variety of fish, especially oily fish that contain omega-3 fatty acids. Aim to eat fish at least 2 times a week. ??? Avoid foods and drinks that have added sugar. ??? Use healthy cooking methods, such as roasting, grilling, broiling, baking, poaching, steaming, and stir-frying. Do not burks your food except for stir-frying. ??? If you drink alcohol: ? Limit how much you have to: ? 0???1 drink a day for women who are not . ? 0???2 drinks a day for men. ? Know how much alcohol is in a drink. In the [place] one drink equals one 12 oz bottle of beer (355 mL), one 5 oz glass of wine (148 mL), or one 1??? oz glass of hard liquor (44 mL). Lifestyle ??? Get regular exercise. Aim to exercise for a total of 150 minutes a week. Increase your activity level by doing activities such as gardening, walking, and taking the stairs. ??? Do not use any products that contain nicotine or tobacco. These products include cigarettes, chewing tobacco, and vaping devices, such as e-cigarettes. If you need help quitting, ask your health care provider. General instructions ??? Take wpti-aro-lawsygq and prescription medicines only as told by your health care provider. ??? Keep all follow-up visits. This is important. Where to find more information ??? [place] Heart Association: www.heart.org ??? National Heart, Lung, and Blood [place]: www.nhlbi.nih.gov Contact a health care provider if: ??? You have trouble achieving or maintaining a healthy diet or weight. ??? You are starting an exercise program. ??? You are unable to stop smoking. Get help right away if: ??? You have chest pain. ??? You have trouble breathing. ??? You have discomfort or pain in your jaw, neck, back, shoulder, or arm. ??? You have any symptoms of a stroke. BE FAST is an easy way to remember the main warning signs of a stroke: ? B - Balance. Signs are dizziness, sudden trouble walking, or loss of balance. ? E - Eyes. Signs are trouble seeing or a sudden change in vision. ? F - Face. Signs are sudden weakness or numbness of the face, or the face or eyelid drooping on one side. ? A - Arms. Signs are weakness or numbness in an arm. This happens suddenly and usually on one side of the body. ? S - Speech. Signs are sudden trouble speaking, slurred speech, or trouble understanding what people say. ? T - Time. Time to call emergency services. Write down what time symptoms started. ??? You have other signs of a stroke, such as: ? A sudden, severe headache with no known cause. ? Nausea or vomiting. ? Seizure. These symptoms may represent a serious problem that is an emergency. Do not wait to see if the symptoms will go away. Get medical help right away. Call your local emergency services (911 in the [place] Do not drive yourself to the hospital. Summary ??? Cholesterol plaques increase your risk for heart attack and stroke. Work with your health care provider to keep your cholesterol levels in a healthy range. ??? Eat a healthy, balanced diet, get regular exercise, and maintain a healthy weight. ??? Do not use any products that contain nicotine or tobacco. These products include cigarettes, chewing tobacco, and vaping devices, such as e-cigarettes. ??? Get help right away if you have any symptoms of a stroke. This information is not intended to replace advice given to you by your health care provider. Make sure you discuss any questions you have with your health care provider. Document Revised: 05/12/2023 Document Reviewed: 12/13/2021 [employer] Patient Education ??? 2023 [employer] Heart Attack A heart attack occurs when blood and oxygen supply to the heart is cut off. A heart attack can cause damage to the heart that cannot be fixed. A heart attack is also called a myocardial infarction, or OH. If you think you are having a heart attack, do not wait to see if the symptoms will go away. Get medical help right away. What are the causes? This condition may be caused by: ??? A fatty substance (plaque) in the blood vessels (arteries). This can block the flow of blood to the heart. ??? A blood clot in the blood vessels that go to the heart. The blood clot blocks blood flow. ??? An abnormal heartbeat. ??? Some diseases, such as problems in red blood cells (anemia)orproblems in breathing (respiratory failure). ??? Tightening (spasm) of a blood vessel that cuts off blood to the heart. ??? A tear in a blood vessel of the heart. Other causes may include: ??? Using drugs such as cocaine or methamphetamine. ??? Low blood pressure. What increases the risk? Aging. The risk gets higher as you get older. ??? Having a personal or family history of chest pain, heart attack, stroke, or narrowing of the arteries in the legs, arms, head, or stomach (peripheral vascular disease). ??? Having taken chemotherapy or immune-suppressing medicines. ??? Being male. ??? Being overweight or obese. ??? Having any of these conditions: ? High blood pressure. ? High cholesterol. ? Diabetes. ??? Making lifestyle choices such as: ? Drinking too much alcohol. ? Not getting regular exercise. ? Smoking. What are the signs or symptoms? Chest pain. It may feel like: ? Crushing or squeezing. ? Tightness, pressure, fullness, or heaviness. ??? Pain in the arm, neck, jaw, back, or upper body. ??? Heartburn. ??? Upset stomach (indigestion). ??? Shortness of breath. ??? Feeling like you may vomit (nauseous). ??? Cold sweats. ??? Sudden light-headedness, dizziness, or passing out. ??? Feeling tired. How is this treated? A heart attack must be treated as soon as possible. Treatment may include: ??? Medicines to: ? Break up or dissolve blood clots. ? Thin your blood and help prevent blood clots. ? Treat blood pressure. ? Improve blood flow to the heart. ? Reduce pain. ? Reduce cholesterol. ??? Procedures to widen a blocked artery and keep it open. ??? Open heart surgery. ??? Making your heart strong again (cardiac rehabilitation) through exercise, education, and counseling. Follow these instructions at home: Medicines ??? Take nxwl-ctf-exnwovg and prescription medicines only as told by your doctor. ??? Do not take these medicines unless your doctor says it is okay: ? NSAIDs, such as ibuprofen, naproxen, or celecoxib. ? Any vitamins or supplements. ? Hormone replacement therapy that has estrogen with or without progestin. ??? If you are taking blood thinners: ? Talk with your doctor before taking any medicines that have aspirin or NSAIDs, such as ibuprofen. ? Take medicines exactly as told. Take them at the same time each day. ? Avoid doing things that could hurt or bruise you. Take action to prevent falls. ? Wear an alert bracelet or carry a card that shows you are taking blood thinners. Lifestyle ??? Do not smoke or use any products that contain nicotine or tobacco. If you need help quitting, ask your doctor. ??? Avoid secondhand smoke. ??? Exercise regularly. Ask your doctor about a cardiac rehab program. ??? Eat heart-healthy foods. Your doctor will tell you what foods to eat. ??? Stay at a healthy weight. ??? Learn ways to lower your stress level. ??? Do not use illegal drugs. Alcohol use ??? Do not drink alcohol if: ? Your doctor tells you not to drink. ? You are , may be , or are planning to become . ??? If you drink alcohol: ? Limit how much you have to: ? 0???1 drink a day for women. ? 0???2 drinks a day for men. ? Know how much alcohol is in your drink. In the [place] one drink equals one 12 oz bottle of beer (355 mL), one 5 oz glass of wine (148 mL), or one 1??? oz glass of hard liquor (44 mL). General instructions ??? Work with your doctor to treat other problems you may have, such as diabetes or high blood pressure. ??? Get screened for depression. Get treatment if needed. ??? Keep your vaccines up to date. Get the flu shot (influenza vaccine) every year. ??? Keep all follow-up visits. Contact a doctor if: ??? You feel very sad. ??? You have trouble doing your daily activities. ??? You get light-headed or dizzy. Get help right away if: ??? You have sudden, unexplained discomfort in your chest, arms, back, neck, jaw, or upper body. ??? You have shortness of breath. ??? You have sudden sweating or clammy skin. ??? You feel like you may vomit or you vomit. ??? You feel tired or weak. ??? You feel your heart beating fast. ??? You feel your heart skipping beats. ??? You have blood pressure that is higher than 180/120. These symptoms may be an emergency. Get help right away. Call your local emergency services (911 in the [place] ??? Do not wait to see if the symptoms will go away. ??? Do not drive yourself to the hospital. Summary ??? A heart attack occurs when blood and oxygen supply to the heart is cut off. ??? Do not take NSAIDs unless your doctor says it is okay. ??? Do not smoke. Avoid secondhand smoke. ??? Exercise regularly. Ask your doctor about a cardiac rehab program. This information is not intended to replace advice given to you by your health care provider. Make sure you discuss any questions you have with your health care provider. Document Revised: 03/31/2022 Document Reviewed: 03/31/2022 [employer] Patient Education ??? 2023 [employer] DASH Eating Plan DASH stands for Dietary Approaches to Stop Hypertension. The DASH eating plan is a healthy eating plan that has been shown to: ??? Lower high blood pressure (hypertension). ??? Reduce your risk for type 2 diabetes, heart disease, and stroke. ??? Help with weight loss. What are tips for following this plan? Reading food labels ??? Check food labels for the amount of salt (sodium) per serving. Choose foods with less than 5 percent of the Daily Value (DV) of sodium. In general, foods with less than 300 milligrams (mg) of sodium per serving fit into this eating plan. ??? To find whole grains, look for the word whole as the first word in the ingredient list. Shopping ??? Buy products labeled as low-sodium or no salt added. ??? Buy fresh foods. Avoid canned foods and pre-made or frozen meals. Cooking ??? Try not to add salt when you cook. Use salt-free seasonings or herbs instead of table salt or sea salt. Check with your health care provider or pharmacist before using salt substitutes. ??? Do not burks foods. Cook foods in healthy ways, such as baking, boiling, grilling, roasting, or broiling. ??? Cook using oils that are good for your heart. These include olive, canola, avocado, soybean, and sunflower oil. Meal planning ??? Eat a balanced diet. This should include: ? 4 or more servings of fruits and 4 or more servings of vegetables each day. Try to fill half of your plate with fruits and vegetables. ? 6???8 servings of whole grains each day. ? 6 or less servings of lean meat, poultry, or fish each day. 1 oz is 1 serving. A 3 oz (85 g) serving of meat is about the same size as the palm of your hand. One egg is 1 oz (28 g). ? 2???3 servings of low-fat dairy each day. One serving is 1 cup (237 mL). ? 1 serving of nuts, seeds, or beans 5 times each week. ? 2???3 servings of heart-healthy fats. Healthy fats called omega-3 fatty acids are found in foods such as walnuts, flaxseeds, fortified milks, and eggs. These fats are also found in cold-water fish, such as sardines, salmon, and mackerel. ??? Limit how much you eat of: ? Canned or prepackaged foods. ? Food that is high in trans fat, such as fried foods. ? Food that is high in saturated fat, such as fatty meat. ? Desserts and other sweets, sugary drinks, and other foods with added sugar. ? Full-fat dairy products. ??? Do not salt foods before eating. ??? Do not eat more than 4 egg yolks a week. ??? Try to eat at least 2 vegetarian meals a week. ??? Eat more home-cooked food and less restaurant, buffet, and fast food. Lifestyle ??? When eating at a restaurant, ask if your food can be made with less salt or no salt. ??? If you drink alcohol: ? Limit how much you have to: ? 0???1 drink a day if you are female. ? 0???2 drinks a day if you are male. ? Know how much alcohol is in your drink. In the [place] one drink is one 12 oz bottle of beer (355 mL), one 5 oz glass of wine (148 mL), or one 1??? oz glass of hard liquor (44 mL). General information ??? Avoid eating more than 2,300 mg of salt a day. If you have hypertension, you may need to reduce your sodium intake to 1,500 mg a day. ??? Work with your provider to stay at a healthy body weight or lose weight. Ask what the best weight range is for you. ??? On most days of the week, get at least 30 minutes of exercise that causes your heart to beat faster. This may include walking, swimming, or biking. ??? Work with your provider or dietitian to adjust your eating plan to meet your specific calorie needs. What foods should I eat? Fruits All fresh, dried, or frozen fruit. Canned fruits that are in their natural juice and do not have sugar added to them. Vegetables Fresh or frozen vegetables that are raw, steamed, roasted, or grilled. Low- sodium or reduced-sodium tomato and vegetable juice. Low-sodium or reduced-sodium tomato sauce and tomato paste. Low-sodium or reduced-sodium canned vegetables. Grains Whole-grain or whole-wheat bread. Whole-grain or whole-wheat pasta. Brown rice. Oatmeal. Quinoa. Bulgur. Whole-grain and low-sodium cereals. Jesika bread. Low- fat, low-sodium crackers. Whole-wheat flour tortillas. Meats and other proteins Skinless chicken or turkey. Ground chicken or turkey. Pork with fat trimmed off. Fish and seafood. Egg whites. Dried beans, peas, or lentils. Unsalted nuts, nut butters, and seeds. Unsalted canned beans. Lean cuts of beef with fat trimmed off. Low- sodium, lean precooked or cured meat, such as sausages or meat loaves. Dairy Low-fat (1%) or fat-free (skim) milk. Reduced-fat, low-fat, or fat-free cheeses. Nonfat, low-sodium ricotta or cottage cheese. Low-fat or nonfat yogurt. Low-fat, low-sodium cheese. Fats and oils Soft margarine without trans fats. Vegetable oil. Reduced-fat, low-fat, or light mayonnaise and salad dressings (reduced-sodium). Canola, safflower, olive, avocado, soybean, and sunflower oils. Avocado. Seasonings and condiments Herbs. Spices. Seasoning mixes without salt. Other foods Unsalted popcorn and pretzels. Fat-free sweets. The items listed above may not be all the foods and drinks you can have. Talk to a dietitian to learn more. What foods should I avoid? Fruits Canned fruit in a light or heavy syrup. Fried fruit. Fruit in cream or butter sauce. Vegetables Creamed or fried vegetables. Vegetables in a cheese sauce. Regular canned vegetables that are not marked as low-sodium or reduced-sodium. Regular canned tomato sauce and paste that are not marked as low-sodium or reduced-sodium. Regular tomato and vegetable juices that are not marked as low-sodium or reduced-sodium. Pickles. Olives. Grains Baked goods made with fat, such as croissants, muffins, or some breads. Dry pasta or rice meal packs. Meats and other proteins Fatty cuts of meat. Ribs. Fried meat. Hernandez. Bologna, salami, and other precooked or cured meats, such as sausages or meat loaves, that are not lean and low in sodium. Fat from the back of a pig (fatback). Bratwurst. Salted nuts and seeds. Canned beans with added salt. Canned or smoked fish. Whole eggs or egg yolks. Chicken or turkey with skin. Dairy Whole or 2% milk, cream, and iulp-txy-iigs. Whole or full-fat cream cheese. Whole-fat or sweetened yogurt. Full-fat cheese. Nondairy creamers. Whipped toppings. Processed cheese and cheese spreads. Fats and oils Butter. Stick margarine. Lard. Shortening. Ghee. Hernandez fat. Tropical oils, such as coconut, palm kernel, or palm oil. Seasonings and condiments Onion salt, garlic salt, seasoned salt, table salt, and sea salt. Worcestershire sauce. Tartar sauce. Barbecue sauce. Teriyaki sauce. Soy sauce, including reduced-sodium soy sauce. Steak sauce. Canned and packaged gravies. Fish sauce. Oyster sauce. Cocktail sauce. Store-bought horseradish. Ketchup. Mustard. Meat flavorings and tenderizers. Bouillon cubes. Hot sauces. Pre-made or packaged marinades. Pre-made or packaged taco seasonings. Relishes. Regular salad dressings. Other foods Salted popcorn and pretzels. The items listed above may not be all the foods and drinks you should avoid. Talk to a dietitian to learn more. Where to find more information ??? National Heart, Lung, and Blood [place] (NHLBI): nhlbi.nih.gov ??? [place] [employer] Heart Association (AHA): heart.org ??? Academy of Nutrition and Dietetics: eatright.org ??? National Kidney Foundation (NKF): kidney.org This information is not intended to replace advice given to you by your health care provider. Make sure you discuss any questions you have with your health care provider. Document Revised: 10/26/2023 Document Reviewed: 10/26/2023 [employer] Patient Education ??? 2023 [employer] BMI for Adults Body mass index (BMI) is a number found using a person's weight and height. BMI can help tell how much of a person's weight is made up of fat. BMI does not measure body fat directly. It is used instead of tests that directly measure body fat, which can be difficult and expensive. What are BMI measurements used for? BMI is useful to: ??? Find out if your weight puts you at higher risk for medical problems. ??? Help recommend changes, such as in diet and exercise. This can help you reach a healthy weight. BMI screening can be done again to see if these changes are working. How is BMI calculated? Your height and weight are measured. The BMI is found from those numbers. This can be done with [place] or metric measurements. Note that charts and online BMI calculators are available to help you find your BMI quickly and easily without doing these calculations. To calculate your BMI in [place] measurements: 1. Measure your weight in pounds (lb). 2. Multiply the number of pounds by 703. ??? So, for an adult who weighs 150 lb, multiply that number by 703: 150 x 703, which equals 105,450. 3. Measure your height in inches. Then multiply that number by itself to get a measurement called inches squared. ??? So, for an adult who is 70 inches tall, the inches squared measurement is 70 inches x 70 inches, which equals 4,900 inches squared. 4. Divide the total from step 2 (number of lb x 703) by the total from step 3 (inches squared): 105,450 ??? 4,900 = 21.5. This is your BMI. To calculate your BMI in metric measurements: 1. Measure your weight in kilograms (kg). ??? For this example, the weight is 70 kg. 2. Measure your height in meters (m). Then multiply that number by itself to get a measurement called meters squared. ??? So, for an adult who is 1.75 m tall, the meters squared measurement is 1.75 m x 1.75 m, which equals 3.1 meters squared. 3. Divide the number of kilograms (your weight) by the meters squared number. In this example: 70 ??? 3.1 = 22.6. This is your BMI. What do the results mean? BMI charts are used to see if you are underweight, normal weight, overweight, or obese. The following guidelines will be used: ??? Underweight: BMI less than 18.5. ??? Normal weight: BMI between 18.5 and 24.9. ??? Overweight: BMI between 25 and 29.9. ??? Obese: BMI of 30 or above. BMI is a tool and cannot diagnose a condition. Talk with your health care provider about what your BMI means for you. Keep these notes in mind: ??? Weight includes fat and muscle. Someone with a muscular build, such as an athlete, may have a BMI that is higher than 24.9. In cases like these, BMI is not a correct measure of body fat. ??? If you have a BMI of 25 or higher, your provider may need to do more testing to find out if excess body fat is the cause. ??? BMI is measured the same way for males and females. Females usually have more body fat than males of the same height and weight. Where to find more information For more information about BMI, including tools to quickly find your BMI, go to: ??? Centers for Disease Control and Prevention: cdc.gov ??? [place] [employer] Heart Association: heart.org ??? National Heart, Lung, and Blood [place]: nhlbi.nih.gov This information is not intended to replace advice given to you by your health care provider. Make sure you discuss any questions you have with your health care provider. Document Revised: 06/29/2023 Document Reviewed: 06/22/2023 [employer] Patient Education ??? 2023 [employer]. FAMILY MEDICINE OFFICE/CLINI C NOTE Observed: 02/17/2025 12:54 PM Status: F Source: [facility] Family Medicine Office/Clini c Note Chief Complaint Annual wellness HPI Staff 6m follow up Patient is here for follow up on hypertension. How often are you checking your blood pressure? _yes What are your average readings? _ 140/80 Yearly BMP: _ BUN: 15 mg/dL (11/14/23 14:04:00) Calcium Lvl: 8.6 mg/dL Low (11/14/23 14:04:00) Chloride: 106 mmol/L (11/14/23 14:04:00) CO2: 26 mmol/L (11/14/23 14:04:00) Creatinine: 0.8 mg/dL (11/14/23 14:04:00) eGFR: 75 mL/min/1.73 m2 (11/14/23 14:04:00) Glucose Lvl: 98 mg/dL (11/14/23 14:04:00) Potassium Lvl: 4.3 mmol/L (11/14/23 14:04:00) Sodium Lvl: 138 mmol/L (11/14/23 14:04:00) FANNY: 8 Nerve pain related to neuropathy... Tx'd w/Lyrica. Pt states it did help. Does need refill. History of Present Illness See staff HPI. Review of Systems PHQ Score Initial Depression Screen Score: 0 SCORE Physical Exam Vitals & Measurements T: 36.8 ???C(Tympanic) HR: 70(Peripheral) RR: 18 BP: 136/78 SpO2: 94% HT: 161 cm HT: 63 in WT: 92.6 kg WT: 204.148 lb BMI: 35.72 General: alert, no acute distress ENMT: oral mucosa moist, Cardiovascular: regular rate and rhythm, normal peripheral perfusion Respiratory: Lungs CTA, respirations non labored Extremities: no deformity, no trauma Neurological: oriented x 4, LOC appropriate for age, CN II-XII intact, motor strength equal & normal bilaterally, speech normal Abdomen: Soft, Nontender, Non-distended, + BS Assessment/Plan 1. PAD (peripheral artery disease) (I73.9: Peripheral vascular disease, unspecified) Could be some of the issues with the patient's feet at night. Will send to vascular. Continue Lyrica. Ordered: [facility] External Ambulatory Referral 2. Anxiety (F41.9: Anxiety disorder, unspecified) Well-controlled at this time. Ordered: [facility] External Ambulatory Referral 3. HTN (hypertension) (I10: Essential (primary) hypertension) Well-controlled on medication at this time. No concerns. Ordered: [facility] External Ambulatory Referral 4. Neuropathy (G62.9: Polyneuropathy, unspecified) Continue Lyrica for the pain. Concerned that maybe some of this pain is actually peripheral arterial disease. Again will send to vascular. Ordered: [facility] External Ambulatory Referral 5. BMI 35.0-35.9,adult (Z68.35: Body mass index [BMI] 35.0-35.9, adult) BMI education given Ordered: [facility] External Ambulatory Referral 6. Obesity (BMI 30-39.9) (E66.9: Obesity, unspecified) Diet and exercise advised 7. Nonsmoker (Z78.9: Other specified health status) Please continue not to smoke. Ordered: Body Mass Index (BMI) documented 3008F Current tobacco non-user 1036F Depression Screening Negative 3352F Discharge medications reconciled with current medications in outpatient record 1111F Influenza immunization status assessed 1030F Medication list documented in medical record 1159F Most recent diastolic blood pressure <80 mm Hg 3078F Patient screen for fall risk: no falls in last year or 1 fall with no injury in last year 1101F Review of all meds by a prescribing practitioner or clinical pharmacist documented in EHR 1160F Systolic BP 130-139 mm Hg (Most Recent) 3075F Orders: pregabalin, 75 mg = 1 cap(s), Oral, BID, # 180 cap(s), Refills(s) 1, Pharmacy: [facility], 161, cm, 02/17/25 13:03:00 EDT, Height/Length Dosing, 92.6, kg, 02/17/25 13:03:00 EDT, Weight Dosing Follow-up No qualifying data available Problem List/Past Medical History Ongoing Anxiety BMI 34.0-34.9,adult BMI 35.0-35.9,adult History of recent fall HLD (hyperlipidemia) HTN (hypertension) Neuropathy Nonsmoker Obesity (BMI 30-39.9) Rib pain on left side Statin intolerance [...] Denies Substance Abuse, 02/12/2024 Never., 08/31/2024 Tobacco Quit in 1994 Tobacco Use:. Never Smokeless Tobacco Use:. Household tobacco concerns: No. Yes, 02/17/2025 Family History Acute myocardial infarction: Father. Hypertension: Brother. Stroke: Mother. Immunizations Vaccine Date Status Comments influenza virus vaccine, inactivated - Not Given Patient Refuses pneumococcal 13-valent vaccine 09/09/2021 Recorded influenza virus vaccine, inactivated 10/05/2019 Recorded pneumococcal 23-valent vaccine 08/26/2014 Recorded pneumococcal 23-valent vaccine 08/23/2001 Recorded Result Comment: Electronical ly Signed By: Irving Clemens MD\.br\Date and Time Signed: 02/17/25 14:22 EDT AMBULATORY VISIT SUMMARY Observed: 02/17 12:54 PM Status: F Source: [facility] Ambulatory Visit Summary JOSE MANUEL CHICAS :1945 Visit Date:02/17/2025 Ambulatory Visit Instructions Your Diagnosis BMI 35.0-35.9,adult Obesity (BMI 30-39.9) Nonsmoker HTN (hypertension) Neuropathy Anxiety Your Care Team Attending Physician - Irving Clemens MD Primary Care Physician - Irving Clemens MD This Is Your Medications List citalopram (citalopram 40 mg Tab) etodolac (etodolac 500 mg Tab) hydrochlorothiazide (hydrochlorothiazide 25 mg Tab) pregabalin (Lyrica 75 mg Cap) verapamil (verapamil 240 mg ER Tab) Procedures Performed Acoustic neuroma, Biopsy of breast, Hysterectomy. Discharge Vitals Temperature (Tympanic) 36.8 ???C Heart Rate (Peripheral) 70 Respiratory Rate 18 Blood Pressure 136/78 Height 161 cm Height 63 in Weight 92.6 kg Weight 204.148 lb BMI 35.72 What to do next Scheduled Follow-Up Appointments Monday 2:30 PM EDT Where: [facility] [address] [address]- Medications What How Much When Instructions Unchanged [...] currently receiving treatment for. Anxiety BMI 34.0-34.9,adult BMI 35.0-35.9,adult History of recent fall HLD (hyperlipidemia) HTN (hypertension) Neuropathy Nonsmoker Obesity (BMI 30-39.9) Rib pain on left side Statin intolerance Patient Survey You may receive a survey via text or e-mail asking about your office visit. Please share your experience with us by completing your survey. We appreciate your feedback and thank you for choosing us for your care. FAMILY MEDICINE OFFICE/CLINI C NOTE Observed: 10/24/2024 10:59 AM Status: F Source: [facility] Family Medicine Office/Clini c Note HPI Staff Jose Manuel is a 79 year old female presenting with ER followup: Hospital: [facility] Visit date: 10/20/24 Symptoms the patient presented [...] q8hr, # 30 tab(s), Refills(s) 0, Pharmacy: [facility], 161, cm, 10/24/24 10:46:00 EST, Height/Length Dosing, 89.9, kg, 10/24/24 10:46:00 EST, Weight Dosing 2. History of recent fall (Z91.81: History of falling) see above Ordered: ibuprofen, 800 mg = 1 tab(s), Oral, q8hr, # 30 tab(s), Refills(s) 0, Pharmacy: [facility], 161, cm, 10/24/24 10:46:00 EST, Height/Length Dosing, 89.9, kg, 10/24/24 10:46:00 EST, Weight Dosing 3. Rib pain on left side (R07.81: Pleurodynia) see above Ordered: ibuprofen, 800 mg = 1 tab(s), Oral, q8hr, # 30 tab(s), Refills(s) 0, Pharmacy: [facility], 161, cm, 10/24/24 10:46:00 EST, Height/Length Dosing, 89.9, kg, 10/24/24 10:46:00 EST, Weight Dosing 4. Former smoker (Z87.891: Personal history of nicotine dependence) consider not smoking Ordered: ibuprofen, 800 mg = 1 tab(s), Oral, q8hr, # 30 tab(s), Refills(s) 0, Pharmacy: [facility], 161, cm, 10/24/24 10:46:00 EST, Height/Length Dosing, 89.9, kg, 10/24/24 10:46:00 EST, Weight Dosing 5. BMI 34.0-34.9,adult (Z68.34: Body mass index [BMI] 34.0-34.9, adult) BMI education given Ordered: ibuprofen, 800 mg = 1 tab(s), Oral, q8hr, # 30 tab(s), Refills(s) 0, Pharmacy: [facility], 161, cm, 10/24/24 10:46:00 EST, Height/Length Dosing, 89.9, kg, 10/24/24 10:46:00 EST, Weight Dosing 6. Exogenous obesity (E66.09: Other obesity due to excess calories) see above Ordered: ibuprofen, 800 mg = 1 tab(s), Oral, q8hr, # 30 tab(s), Refills(s) 0, Pharmacy: [facility], 161, cm, 10/24/24 10:46:00 EST, Height/Length [...] 08/26/2014 Recorded pneumococcal 23-valent vaccine 08/23/2001 Recorded Result Comment: Electronical ly Signed By: Johanna Floyd\.br\Date and Time Signed: 10/24/24 10:59 EST AMBULATORY VISIT SUMMARY Observed: 10/24 10:54 AM Status: F Source: [facility] Ambulatory Visit Summary JOSE MANUEL CHICAS :1945 Visit Date:10/24/2024 Ambulatory Visit Instructions Your Diagnosis Former smoker BMI 34.0-34.9,adult Exogenous obesity Your Care Team Attending Physician - Johanna Floyd Primary Care Physician - Irving Clemens MD [...] PM EDT With: Irving Clemens MD Where: [address] [address]- Monday 2:30 PM EDT With: Where: [address] [address]- Medications What How Much When [...] you for choosing us for your care. FAMILY MEDICINE OFFICE/CLINI C NOTE Observed: 09/05/2024 1:53 PM Status: F Source: [facility] Family Medicine Office/Clini c Note Chief Complaint 6m follow up to [...] and it was noted they are potentially nerve- related. The use of Lyrica has been instituted [...] level of consciousness appropriate for age, CN II- XII intact, motor strength equal & normal bilaterally, [...] BID, # 180 cap(s), Refills(s) 1, Pharmacy: [facility], 161, cm, 09/05/24 13:07:00 EST, Height/Length [...] 08/26/2014 Recorded pneumococcal 23-valent vaccine 08/23/2001 Recorded Result Comment: Electronical ly Signed By: Irving Clemens MD\.br\Date and Time Signed: 09/05/24 13:55 EST AMBULATORY VISIT SUMMARY Observed: 09/05 1:33 PM Status: F Source: [facility] Ambulatory Visit Summary JOSE MANUEL CHICAS :1945 [...] Follow-Up Appointments Monday 1:15 PM EDT With: Roberto Carlos MART, Irving Small Where: [address] [address]- Monday 2:30 PM EDT With: Where: [address] [address]- Medications What How Much When Instructions Unchanged [...] you for choosing us for your care. FAMILY MEDICINE OFFICE/CLINI C NOTE Observed: 07/29/2024 1:41 PM Status: F Source: [facility] Medicine Office/Clini c Note Chief Complaint The patient presents with [...] level of consciousness appropriate for age, CN II- XII intact, motor strength equal & normal bilaterally, [...] in this visit is the patient's neuropathy characterized by intense burning sensations and numbness in the feet. Past attempts to manage these symptoms with gabapentin have raised adverse effects, specifically swelling in the ankles. As discussed, switching to Lyrica (pregabalin) will be considered to mitigate pain without exacerbating edema. Furthermore, an electromyogram (EMG) is proposed to assess nerve conduction and elucidate the etiology of her nerve malfunction. Monitoring for symptom improvement and any new side effects will determine further course of treatment. Ordered: EMG Bilateral Lower Extremity (BLE) 5. Lymphedema, not elsewhere classified (I89.0) Lymphedema, as suggested by the patient?s non-pitting swelling, will be monitored. The differential diagnosis remains vascular or nerve-related swelling, with the existing knowledge that peripheral artery disease has been ruled out. Adjusting medications to observe any change in swelling levels will be part of the follow- up. Management may incorporate additional diuretic support if necessary. Ordered: EMG Bilateral Lower Extremity (BLE) Orders: pregabalin, 75 mg = 1 cap(s), Oral, BID, # 60 cap(s), Refills(s) 0, Pharmacy: [facility], 161, cm, 07/29/24 12:54:00 EDT, Height/Length Dosing, 90.6, kg, 07/29/24 12:54:00 EDT, Weight Dosing Follow-up No qualifying data available [...] mg Cap, 75 mg= 1 cap(s), Oral, BID verapamil 240 mg ER Tab, 240 mg= [...] age 18.0 Years. Stopped age 49 Years., 07/29/2024 Family History Acute myocardial infarction: Father. Hypertension: Brother. Stroke: Mother. Immunizations Vaccine Date Status Comments influenza virus vaccine, inactivated - Not Given Patient Refuses pneumococcal 13-valent vaccine 09/09/2021 Recorded influenza virus vaccine, inactivated 10/05/2019 Recorded pneumococcal 23-valent vaccine 08/26/2014 Recorded pneumococcal 23-valent vaccine 08/23/2001 Recorded Result Comment: Electronical ly Signed By: Roberto Carlos MART, Irving Small\.br\Date and Time Signed: 07/29/24 13:42 EDT ALLERGIES DATE TYPE / CODE NAME / CODE REACTION SEVERITY SOURCE [id number](SNOMED CT) codeine [facility] [id number](SNOMED CT) sulfa drugs [facility] [id number](SNOMED CT) statins [id number] [facility] ENCOUNTERS ADMIT/DISCHARGE ACCOUNT NUMBER ADMITTING ENCOUNTER CLASS LOCATION SOURCE 03/03/2025/03/03/20 [id number] Ambulatory Building:[facility] 02/24/2025 [id number] Irving Clemens Ambulatory FTBuildin g:FT LAB [facility] 02/24/2025/02/25/20 [id number] Irving Clemens Ambulatory [facility]Buildin g:[facility] 02/24/2025/02/25/20 [id number] [place] 02/17/2025/02/18/20 25 [id number] Ambulatory [facility] [place] 02/17/2025 [id number] Ambulatory [facility] [place] 02/17/2025/02/18/20 25 [id number] Ambulatory FT [place] [place]: CD:[id number] 83 [facility] 10/24/2024/10/24/19 25 [id number] Ambulatory FT [facility] [place] [place]: CD:[id number] 83 [facility] 09/05/2024/09/05/20 24 [id number] Ambulatory FT [facility] [place] [place]: CD:[id number] 83 [facility] 08/05/2024/08/05/20 24 [id number] Irving Clemens Ambulatory FTMCBuildin g:FT.Neurol ogy Clinic [facility] 07/29/2024/07/29/20 [id number] Ambulatory [facility] [place] [place]: CD:[id number] 85 [facility] PAYERS ENCOUNTER GUARANTOR PAYER SUBSCRIBER SOURCE 03/03/2025 JOSE MANUEL Walker ADAMOTHERSDOB: [id number] N STATE [address] [address]Ryy: (HP) Primary Insurance:MEDICAREPoli cy Number: [id number] Date:8773-54-81Okuw Name:Medicare JOSE MANUEL MEDINAOTHERSDOB: [id number] [address] [facility] EPIC 03/03/2025 Secondary Insurance:[facility] Number: [id number] Date:2009-03-23 JOSE MANUEL MEDINAOTHERSDOB: [id number], [place] [address] [facility] EPIC 02/24/2025 JOSE MANUEL ADAMOTHERSDOB: [id number] [address]Tel: ~~( 41 (HP) Primary Insurance:MEDICARE [place] [employer] ADVANTAGEPolicy Number: [id number] Date:2025-02-24 JOSE MANUEL MORENO [facility] 02/24/2025 Secondary Insurance:[employer] [place] Number: [id number] Date:0340-01-63INCATD [place] [address]NW: [facility] 02/24/2025 JOSE MANUEL CARROTHERSDOB: [id number] [address]Tel: ~~( 41 (HP) Primary Insurance:MEDICARE [facility] [place] [place] ADVANTAGEPolicy Number: [id number] Date:2024-10-23 [facility] 02/24/2025 Secondary Insurance:[employer] OF [place] Number: [id number] Date:8580-08-43JTZSVP [place] [address]MJ: [facility] 02/17/2025 JOSE MANUEL CARROTHERSDOB: [id number] [address]Tel: ~~( 41 (HP) Primary Insurance:MEDICARE [place] [employer] ADVANTAGEPolicy Number: [id number] Date:2024-10-23 [facility] 02/17/2025 Secondary Insurance:[employer] [place] Number: [id number] Date:3032-27-71KNWNQV OF [place], [place] [address]HY: [facility] 02/17/2025 JOSE MANUEL CARROTHERSDOB: [id number] [address]Tel: ~~( 41 (HP) Primary Insurance:[employer] [place] Number: [id number] Date:8533-43-51DPLDIL [place], [place] [address]UL: [facility] 02/17/2025 Secondary Insurance:MEDICAREPoli cy Number: [id number] Date:5693-95-79[address], [place] [address]IU: [facility] 02/17/2025 JOSE MANUEL CRESBARDOTHERSDOB: [address]Tel: ~~( 41 (HP) Primary Insurance:MEDICARE [employer] [employer] ADVANTAGEPolicy Number: [id number] Date:2024-10-23 [facility] 02/17/2025 Secondary Insurance:[employer] [place] Number: [id number] Date:0939-43-56BGBQHO OF [place], [place] [address]UX: [facility] 10/24/2024 JOSE MANUEL CARROTHERSDOB: [address]Tel: ~~( 41 (HP) Primary Insurance:MEDICARE [employer] [employer]ALTH[employer] ADVANTAGEPolicy Number: [id number] Date:2024-10-23 [facility] 10/24/2024 Secondary Insurance:[employer] [place] Number: [id number] Date:8036-84-60SHDGWJ OF [place], [place] [address]DK: [facility] 09/05/2024 JOSE MANUEL CARROTHERSDOB: [id number] [address]Tel: ~~( 41 (HP) Primary Insurance:MEDICAREPoli cy Number: [id number] Date:4181-06-46[address], [place] [address]RX: [facility] 09/05/2024 Secondary Insurance:[employer] [place] Number: [id number] Date:0884-17-15BFOTGW OF [place], [place] [address]RI: [facility] 08/05/2024 JOSE MANUEL CARROTHERSDOB: [address]Tel: (HP) Primary Insurance:MEDICAREPoli cy Number: [id number] Date:8936-44-04Q[address] [address], [place] [address]GM: [facility] 08/05/2024 Secondary Insurance:[employer] [place] Number: [id number] Date:1916-00-51ZVREOE OF [place] [address]LB: [facility] 07/29/2024 JOSE MANUEL CARROTHERSDOB: [address]Tel: (HP) Primary Insurance:MEDICAREPoli cy Number: [id number] Date:1940-78-[id number] [place] [address]JW: [facility] 07/29/2024 Secondary Insurance:[employer] OF [place] Number: [id number] Date:3899-38-36DPSPFR OF [place] [address]NE: [facility]
[2025-04-28 13:18] LABS: Hematocrit 45.0 % (36.0-48.0); Hemoglobin 15.2 g/dL (12.0-16.0); Immature Granulocytes Abs Auto 0.02 10^3/uL (0.00-0.03); Immature Granulocytes Pct Auto 0.3 % (0.0-0.5); Lymphocytes Absolute Auto 2.0 10^3/uL (1.2-3.8); Mean Corpuscular HGB Conc 33.8 g/dL (29.9-35.2); Mean Corpuscular Hemoglobin 32.6 pg (26.7-34.0); Mean Corpuscular Volume 96.6 fL (81.0-99.0); Platelet Count 248 10^3/uL (150-450); Red Blood Count 4.66 10^6/uL (4.20-5.40); White Blood Count 7.3 10^3/uL (4.0-11.0)
[2025-04-28 13:34] LABS: Alanine Aminotransferase 28 U/L (14-59); Albumin Globulin Ratio 1.1; Albumin Level 3.5 g/dL (3.4-5.0); Alkaline Phosphatase 80 U/L (46-116); Anion Gap 10.4; Aspartate Amino Transferase 20 U/L (15-37); Blood Urea Nitrogen 23.0 mg/dL (7.0-18.0); Calcium 9.1 mg/dL (8.5-10.1); Carbon Dioxide 30.8 mmol/L (21.0-32.0); Chloride 107 mmol/L (98-107); Estimated GFR (African America >60 (>=60 mL/min/1.73m^2); Estimated GFR (Non-African Ame 54 (>=60 mL/min/1.73m^2); Globulin 3.3 g/dL; Glucose 124 mg/dL (74-106); Potassium 4.2 mmol/L (3.5-5.1); Sodium 144 mmol/L (136-145); Total Protein 6.8 g/dL (6.4-8.2)
== END 2025-04-28 12:54 | disposition home or self-care (01) ==
PROVIDERS: PCP Family Medicine; Visit Provider Internal Medicine Rheumatology
DX: M15.0 Primary generalized (osteo)arthritis (principal); Z79.899 Other long term (current) drug therapy
CPT/HCPCS: 36415; 80053; 85025

== ENCOUNTER 2025-08-08 13:55 | Outpatient (OUT) | payer MEDICARE, OTHER, SELFPAY ==
--- OUTSIDE RECORDS SUMMARY | 2025-08-08 13:57 | XMS_ITS | Encounter Summary ---
Author Organization [facility] Address [address] [place] [address] Care Team Providers Care Head Boys Tennis Coach Name Role Phone Shantal Gamino DO Primary Care Provider [phone] Unallocated, [facility] Provider Primary Care Provi laurie Encounter Details Date Type Department Care Team (Late st Contact Info) Description 06/30/2023 Abstract [facility] [address] [place] [address] Shantal Gamino, DO [address] [facility] [address] [place] [address] Social History Tobacco Use Types Packs/Day Years Used Date Smoking Tobacco: Never Assessed Comments Unknown Sex and Gender Information Value Date Recorded Sex Assigned at Female 09/01/2023 9:51 AM EST Legal Sex Female 7:35 PM EDT Gender Identity Female 09/01/2023 9:51 AM EST Sexual Orientation Not on file documented as of this encounter Plan of Treatment Upcoming Encounters Date Type Department Care Team (Late st Contact Info) Description 04/14/2026 1:00 PM EDT Office Visit [facility] [address] [place] [id number] Osito Wiley DO [address] [place] [address] documented as of this encounter Visit Diagnoses Not on filedocumented in this encounter Care Teams Head Boys Tennis Coach Relationship Specialty Start Date End Date Shantal Gamino DO PCP - General Family Medicine 02/28/23 10/20/24 Unallocated, [facility] Provider, [address] [place] [address] PCP - General Family Medicine 10/21/24 documented as of this encounter
--- OUTSIDE RECORDS SUMMARY | 2025-08-08 13:57 | XMS_ITS | Clinical Summary ---
Author Organization [employer] [facility] Address [facility] [id number] [address] [place] [address] Care Team Providers Care Digital Analyst Name Role Phone Osito Davidson MD Primary Care Provider [phone] Family History Medical History Relation Name Comments Breast cancer Neg Hx Social History Tobacco Use Types Packs/Day Years Used Date Smoking Tobacco: Never Assessed Childcare Answer Date Recorded Childcare Unknown 04/03/2019 Employment Answer Date Recorded Employment Unknown 04/03/2019 Purpose - Life Answer Date Recorded Purpose and direction in life Unknown Comments No Sex and Gender Information Value Date Recorded Sex Assigned at Not on file Legal Sex Female 11:29 AM EDT Gender Identity Not on file Sexual Orientation Not on file Last Filed Vital Signs Vital Sign Reading Time Taken Comments Blood Pressure - - Pulse - - Temperature - - Respiratory Rate - - Oxygen Saturation - - Inhaled Oxygen Concentration - - Weight 86.2 kg (190 lb) 09/03/2018 2:32 PM EST Height 167.6 cm (5' 6 ) 09/03/2018 2:32 PM EST Body Mass Index 30.67 09/03/2018 2:32 PM EST Plan of Treatment Health Maintenance Due Date Last Done Comments Depression Screening 1957 Tobacco Screening 1957 DTaP,Tdap and Td Vaccines (1 - Tdap) 1963 Zoster (Shingles) Vaccine (1 of 2) 1994 Fall Risk Screening 2009 Influenza Vaccine 06/23/2025 Medical Devices Not on file Insurance MEDICARE [facility] [facility] Care Teams Digital Analyst Relationship Specialty Start Date End Date Osito Davidson MD [address] [place] [address] PCP - General Family Medicine 09/03/18
--- OUTSIDE RECORDS SUMMARY | 2025-08-08 13:59 | XMS_ITS | CCD ---
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 Name Role Phone MD Jason Goodwin Attending Provider REQUEST, NONE LISTED Attending Unavaila ble REQUEST, NONE LISTED Consulting Unavaila ble REQUEST, NONE LISTED Primary Care Unavaila ble REQUEST, NONE LISTED Admitting Unavaila ble Irving Clemens Primary Care Physician [phone] Irving Clemens Attending Unavailable Irving Clemens Attending Unavailable Irving Clemens Attending Unavailable Irving Clemens Attending Unavailable Irving Clemens Attending Unavailable Johanna Mata Attending Unavailable Irving Clemens Attending Unavailable Irving Clemens Attending Unavailable Irving Clemens Attending Unavailable Irving Clemens Admitting Unavailable Irving Clemens Attending Unavailable Irving Clemens Referring Unavailable Irving Clemens Admitting Unavailable Irving Clemens Attending Unavailable Irving Clemesn Attending Unavailable Irving Clemens Admitting Unavailable Irving Clemens Attending Unavailable Irving Clemens Attending Unavailable Unallocated , Noms Provider Primary Care Provi laurie IRVING CLEMENS Referring Unavailable SONU WILEY Attending Unavailable DELMI MURPHY Referring Unavailable Allergies Allergy Classification Reported Allergen(s) Allergy Type Date of Onset Reaction(s) Facility (4 sources) Codeine; Translations: [codeine] Drug Allergy 03-03-20 25 nausea [facility] Repository (1 source) Sulfonamides (Antibiotic) Drug allergy (disorder) [facility] (5 sources) Codeine; Translations: [codeine] Drug Allergy 09-05-20 23 Unknown [facility] [place] (5 sources) Sulfonamides (Antibiotic); Translations: [sulfa drugs] Propensity to adverse reactions to drug [facility] (3 sources) HMG-CoA reductase inhibitor; Translations: [statins] Drug allergy Stomach ache (finding) [facility] (1 source) Sulfacetamide Drug Allergy 03-03-20 [facility] (1 source) Sulfur Drug Allergy 03-03-20 [facility] (2 sources) Azithromycin Drug Allergy 09-05-20 Unknown [facility] (2 sources) Cholecalciferol Drug Allergy 09-05-20 GI intolerance [facility] (2 sources) Pseudoephedrine Drug Allergy 09-05-20 Palpitations [facility] (2 sources) Sulfonamides (Antibiotic) Drug Allergy 09-05-20 Unknown [facility] Medications Current Medications Medication Drug Class(es) Dates Sig (Normalized) Sig (Original) ascorbic acid 60 mg / beta carotene 5000 unt / copper sulfate 40 mg / dl-alpha tocopheryl acetate 30 unt / sodium selenite 0.04 mg / zinc oxide 40 mg oral tablet (2 sources) Vitamin C Multiple Vitamin (Multivitamin Adult) tablet Orally Active cholecalciferol 0.05 mg oral tablet (2 sources) Vitamin D cholecalciferol (Vitamin D-3) 50 MCG (1999 UT) tablet 1 (one) time each day at the same time. Active citalopram 40 mg oral tablet (6 sources) Serotonin Reuptake Inhibitor Start: 03-03-2025 Citalopram 40 mg tablet Active MG PO March 03, 2025 12:00am Start: 08-03-2023 take 1 tablet by jake once daily citalopram 40 mg Tab 40 mg = 1 tab(s), Oral, Daily, # 90 tab(s), Refills(s) 4, Pharmacy: [facility], 161, cm, 03/05/24 13:06:00 EDT, Height/Length Dosing, 88.6, kg, 03/05/24 13:06:00 EDT, Weight Dosing Start Date: 05/12/24 Status: Ordered Quantity: 90.0 Unit: tab(s) Repeat number: 5 etodolac 300 mg oral capsule (5 sources) Nonsteroidal Anti-inflammatory Drug Start: 03-03-2025 Etodolac 300 mg capsule Active MG PO March 03, 2025 12:00am Start: 02-12-2024 take [address] [facility] twice daily etodolac 500 mg Tab 500 mg = 1 tab(s), Oral, BID, take 1 tablet by mouth twice a day Start Date: 02/12/24 Status: Ordered Repeat number: 1 gabapentin 300 mg oral capsule (3 sources) Anti-epileptic Agent Start: 11-14-2023 take 1 capsule by mouth in the morning, then take 2 capsules by mouth at bedtime gabapentin 300 mg Cap See Instructions, 1 orally in the am and 2 at bedtime, Refills(s) 0 Start Date: 11/14/23 Status: Ordered hydroCHLOROthiazide 25 mg oral tablet (3 sources) Thiazide Diuretic Start: 11-14-2023 take 1 tablet by mouth once daily hydrochlorothiazide 25 mg Tab 25 mg = 1 tab(s), Oral, Daily, # 90 tab(s), Refills(s) 1, Pharmacy: [facility] #[id number], 159.5, cm, 11/14/23 13:11:00 EST, Height/Length Dosing, 90.2, kg, 11/14/23 13:11:00 EST, Weight Dosing Start Date: 11/14/23 Status: Ordered Quantity: 90.0 Unit: tab(s) Repeat number: 2 pregabalin 75 mg oral capsule (3 sources) Start: 03-03-2025 Pregabalin 75 mg capsule Active MG PO March 03, 2025 12:00am Start: 02-17-2025 take 1 capsule by [facility] twice daily Lyrica 75 mg Cap 75 mg = 1 cap(s), Oral, BID, # 180 cap(s), Refills(s) 1, Pharmacy: [facility], 161, cm, 02/17/25 13:03:00 EDT, Height/Length Dosing, 92.6, kg, 02/17/25 13:03:00 EDT, Weight Dosing Start Date: 02/17/25 Status: Ordered Quantity: 180.0 Unit: cap(s) Repeat number: 2 Start: 07-29-2024 take 1 capsule by [facility] twice daily Lyrica 75 mg Cap 75 mg = 1 cap(s), Oral, BID, # 60 cap(s), Refills(s) 0, Pharmacy: [facility], 161, cm, 07/29/24 12:54:00 EDT, Height/Length Dosing, 90.6, kg, 07/29/24 12:54:00 EDT, Weight Dosing Start Date: 07/29/24 Status: Ordered rosuvastatin calcium 20 mg oral tablet (2 sources) HMG-CoA Reductase Inhibitor Start: 09-06-2023 take 1 tablet by mouth in the morning rosuvastatin (Crestor) 20 MG tablet Indications: Mixed hyperlipidemia Take 1 tablet (20 mg) by mouth in the morning. 90 tablet 3 09/06/2023 Active verapamil hydrochloride 240 mg extended release oral tablet (6 sources) Calcium Channel Hero Start: 03-03-2025 Verapamil 240 mg tablet extended release Active MG PO March 03, 2025 12:00am Start: 11-14-2023 take 1 tablet by jake th once daily verapamil 240 mg ER Tab 240 mg = 1 tab(s), Oral, Daily, # 90 tab(s), Refills(s) 4, Pharmacy: [facility], 161, cm, 03/05/24 13:06:00 EDT, Height/Length Dosing, 88.6, kg, 03/05/24 13:06:00 EDT, Weight Dosing Start Date: 05/12/24 Status: Ordered Quantity: 90.0 Unit: tab(s) Repeat number: 5 Problems Active Problems Problem Classification Problem Date Documented Da te Episodic/Chronic Anxiety disorders (3 sources) Anxiety 11-14-2023 Chronic Cataract (2 sources) Bilateral age-related nuclear cataracts; Translations: [Age-related nuclear cataract, bilateral] Onset: 07-14-2025 07-14-2025 Chronic Disorders of lipid metabolism (5 sources) Hyperlipidemia; Translations: [Mixed hyperlipidemia] Onset: 09-05-2023 11-14-2023 Chronic Essential hypertension (5 sources) Hypertensive disorder; Translations: [Essential hypertension] Onset: 09-05-2023 11-14-2023 Chronic Glaucoma (2 sources) Preglaucoma, unspecified, bilateral; Translations: [Preglaucoma, unspecified] Onset: 07-14-2025 07-14-2025 Chronic Malaise and fatigue (2 sources) Chronic fatigue syndrome; Translations: [Chronic fatigue syndrome] Onset: 09-05-2023 09-05-2023 Chronic Mood disorders (2 sources) Recurrent major depression in partial remission; Translations: [Major depressive disorder, recurrent, in partial remission] Onset: 09-05-2023 09-05-2023 Chronic Nutritional deficiencies (2 sources) Vitamin D deficiency; Translations: [Vitamin D deficiency, unspecified] Onset: 09-05-2023 09-05-2023 Chronic Osteoarthritis (4 sources) Primary generalized (osteo)arthritis; Translations: [PRIMARY GENERALIZED OSTEOARTHRITIS] Onset: 10-31-2022 Chronic Other aftercare (1 source) Other fci (current) drug therapy; Translations: [OTH ALF CURRENT DRUG THERAPY] Onset: 11-03-2022 Episodic Other and unspecified benign neoplasm (2 sources) Acoustic neuroma; Translations: [Benign neoplasm of cranial nerves] Onset: 09-05-2023 09-05-2023 Chronic Other injuries and conditions due to external causes (1 source) History of fall 10-24-2024 Episodic Other lower respiratory disease (1 source) Rib pain 10-24-2024 Episodic Other nervous system disorders (3 sources) Neuropathy 11-14-2023 Chronic Other nervous system disorders (2 sources) Idiopathic peripheral neuropathy; Translations: [Hereditary and idiopathic neuropathy, unspecified] Onset: 09-05-2023 09-05-2023 Chronic Other nutritional; endocrine; and metabolic disorders (3 sources) Body mass index 30+ - obesity 02-12-2024 Chronic Other nutritional; endocrine; and metabolic disorders (2 sources) Obese class I; Translations: [Obesity (BMI 30.0-34.9)] Onset: 09-05-2023 09-05-2023 Chronic Unclassified (3 sources) Statin not tolerated (context-dependent category) 11-14-2023 Unclassified (1 source) Non-smoker 02-17-2025 Past or Other Problems Problem Classification Problem Date Documented Da te Episodic/Chronic Other and unspecified benign neoplasm (2 sources) Benign neoplasm of left breast; Translations: [Benign neoplasm of breast] Onset: 09-05-2023 09-05-2023 Episodic Other and unspecified benign neoplasm (2 sources) Intraductal papilloma of left breast; Translations: [Benign neoplasm of left breast] Onset: 09-05-2023 09-05-2023 Episodic Other bone disease and musculoskeletal deformities (2 sources) Osteopenia; Translations: [Other specified disorders of bone density and structure, unspecified site] Onset: 09-05-2023 09-05-2023 Episodic Spondylosis; intervertebral disc disorders; other back problems (4 sources) Lumbago with sciatica; Translations: [Lumbago with sciatica, left side] Onset: 09-05-2023 09-05-2023 Episodic Results Test Name Value Interpretation Reference Range Facil ity Ophthalmic OCT panelon 07-14 [facility] Right Eye Images reviewed and comparison made to baseline, Images reviewed. To assess optic nerve function and for use in future follow-up. Reliability: good and adequate. Left Eye Images reviewed and comparison made to baseline, Images reviewed. To assess optic nerve function and for use in future follow-up. Reliability: good and adequate. Notes Mild nerve fiber layer (NFL) thinning right eye (OD). Stable. [facility] Radiology Study observation (narrative) [facility] BI MAMMOGRAM SCREENING TOMOS YNTHESIS BILATERALon 03-03-2025 BI MAMMOGRAM SCREENING TOMOSYNTHESIS BILATERAL This is [...] Mammogram ELECTRONICALLY SIGNED BY: Chau Sage M.D. Normal Not Available CHEMISTRYOrdered By: SYSTEM SYSTEM on 02-24-2025 Albumin [Mass/Vol] 4.0 g/dL Normal 3.3 - 5.0 gm/dL R emisol Chem Albumin/Globulin [Mass ratio] 1.7 {ratio} Normal 1.1 - 2.2 [facility] ALP [Catalytic activity/Vol] 74 [iU]/d Normal 21 - 98 Int._Unit/L [facility] ALT No additional P-5'-P [Catalytic activity/Vol] 19 [iU]/d Normal 6 - 46 Int._Unit/L [facility] Anion gap [Moles/Vol] 10 mmol/L Normal 6 - 16 mEq/L [facility] AST [Catalytic activity/Vol] 19 [iU]/d Normal 5 - 43 Int._Unit/L [facility] Bilirubin [Mass/Vol] 0.7 mg/dL Normal 0.0 - 1.1 mg/dL [facility] Calcium [Mass/Vol] 8.9 mg/dL Normal 8.9 - 11.1 mg/dL [facility] Chloride [Moles/Vol] 107 mmol/L Normal 101 - 111 mmol/L [facility] Cholesterol [Mass/Vol] 248 mg/dL High 120 - 200 mg/dL [facility] Cholesterol in HDL [Mass/Vol] 51 mg/dL Invalid Interpretation Code [facility] Comment on above: Result Comment: '>= 60 LOW RISK' '<= 40 HIGH RISK' Cholesterol in LDL [Mass/Vol] 169 mg/dL High <=129mg/dL [facility] Cholesterol in VLDL [Mass/Vol] 29 mg/dL Normal 7 - 40 mg/dL [facility] Creatinine [Mass/Vol] 1.1 mg/dL Normal 0.5 - 1.3 mg/dL [facility] eGFR 50 mL/min/1.73 m2 Low >=59mL/min/1.73 m2 [facility] Globulin (S) [Mass/Vol] 2.3 g/dL Normal 1.4 - 4.0 gm/dL [facility] Glucose [Mass/Vol] 117 mg/dL Normal 55 - 199 mg/dL Re misol Chem Potassium [Moles/Vol] 4.5 mmol/L Normal 3.5 - 5.3 mmol/L [facility] Protein [Mass/Vol] 6.3 g/dL Normal 6.0 - 7.8 gm/dL R em[facility] Chem Sodium [Moles/Vol] 140 mmol/L Normal 135 - 145 mmol/L [facility] Triglyceride [Mass/Vol] 145 mg/dL Normal <=149mg/dL [facility] Urea nitrogen [Mass/Vol] 29 mg/dL High 5 - 21 mg/dL [facility] Urea nitrogen/Creatinine [Mass ratio] 26 mg/mg High 10 - 20 [facility] CHEMISTRYOrdered By: Laly Chase on 02-24-2025 CO2 [Moles/Vol] 28 mmol/L Normal 21 - 31 mmol/L [facility] Chem S CMPon 02-24-2025 CO2 [Moles/Vol] 28 mmol/L Normal 21-31 [facility] Comment on above: Performed By: #### 2 [id number] #### [facility] [address] [place] [address] Albumin [Mass/Vol] 4.0 g/dL Normal 3.3-5.0 [facility] Comment on above: Performed By: #### 2 [id number] #### [facility] [address] [place] [address] Albumin/Globulin (S) [Mass conc ratio] 1.7 Normal 1.1-2.2 [facility] Comment on above: Performed By: #### 2 [id number] #### [facility] [address] [place] [address] ALP [Catalytic activity/Vol] 74 Int._Unit/L Normal 21-98 [facility] Comment on above: Performed By: #### 2 [id number] #### [facility] [address] [place] [address] ALT No additional P-5'-P [Catalytic activity/Vol] 19 Int._Unit/L Normal 6-46 [facility] Comment on above: Performed By: #### 2 [id number] #### [facility] [address] [place] [address] Anion gap [Moles/Vol] 10 mmol/L Normal 6-16 [facility] Comment on above: Performed By: #### 2 [id number] #### [facility] [address] [place] [address] AST [Catalytic activity/Vol] 19 Int._Unit/L Normal 5-43 [facility] Comment on above: Performed By: #### 2 [id number] #### [facility] [address] [place] [address] Bilirubin [Mass/Vol] 0.7 mg/dL Normal 0.0-1.1 [facility] Comment on above: Performed By: #### 2 [id number] #### [facility] [address] [place] [address] Calcium [Mass/Vol] 8.9 mg/dL Normal 8.9-11.1 [facility] Comment on above: Performed By: #### 2 [id number] #### [facility] [address] [place] [address] Chloride [Moles/Vol] 107 mmol/L Normal 101-111 [facility] Comment on above: Performed By: #### 2 [id number] #### [facility] [address] [place] [address] Creatinine [Mass/Vol] 1.1 mg/dL Normal 0.5-1.3 [facility] Comment on above: Performed By: #### 2 [id number] #### [facility] [address] [place] [address] Globulin (S) [Mass/Vol] 2.3 g/dL Normal 1.4-4.0 [facility] Comment on above: Performed By: #### 2 [id number] #### [facility] [address] [place] [address] Glucose [Mass/Vol] 117 mg/dL Normal 55-199 [facility] Comment on above: Performed By: #### 2 [id number] #### [facility] [address] [place] [address] Potassium [Moles/Vol] 4.5 mmol/L Normal 3.5-5.3 [facility] Comment on above: Performed By: #### 2 [id number] #### [facility] [address] [place] [address] Protein [Mass/Vol] 6.3 g/dL Normal 6.0-7.8 [facility] Comment on above: Performed By: #### 2 [id number] #### [facility] [address] [place] [address] Sodium [Moles/Vol] 140 mmol/L Normal 135-145 [facility] Comment on above: Performed By: #### 2 [id number] #### [facility] [address] [place] [address] Urea nitrogen [Mass/Vol] 29 mg/dL High 5-21 [facility] Comment on above: Performed By: #### 2 [id number] #### [facility] [address] [place] [address] Urea nitrogen/Creatinine [Mass ratio] 26 No Units High 10-20 [facility] Comment on above: Performed By: #### 2 [id number] #### [facility] [address] [place] [address] Lipid Panelon 02-24-2025 Cholesterol [Mass/Vol] 248 mg/dL High 120-200 [facility] Comment on above: Performed By: #### 2 [id number] #### [facility] [address] [place] [address] Cholesterol in HDL [Mass/Vol] 51 mg/dL Invalid Interpretation Code [facility] Comment on above: Result Comment: '>= 60 LOW RISK' '<= 40 HIGH RISK' Performed By: #### 2 [id number] #### [facility] [address] [place] [address] Cholesterol in LDL [Mass/Vol] 169 mg/dL High <=129 [facility] Comment on above: Performed By: #### 2 [id number] #### [facility] [address] [place] [address] Cholesterol in VLDL [Mass/Vol] 29 mg/dL Normal 7-40 [facility] Comment on above: Performed By: #### 2 [id number] #### [facility] [address] [place] [address] Triglyceride [Mass/Vol] 145 mg/dL Normal <=149 [facility] Comment on above: Performed By: #### 2 [id number] #### [facility] [address] [place] [address] eGFRon 02-24-2025 eGFR 50 mL/min/1.73 m2 Low >=59 [facility] Comment on above: Performed By: #### 1 [id number] #### [facility] [address] [place] [address] Ambulatory Visit Summaryon 0 02-18-2025 Ambulatory Visit Summary Ambulatory Visit Summary JOSE [...] Appointments Monday 8:40 AM EDT With: Where: [address] [phone]- Monday 2:00 PM EDT With: Irving Clemens MD Where: [address] [address]- Monday2025 2:30 PM EDT With: Where: [facility] [address] [id number]- Someone Will Contact You Regarding These Appointments [facility] External Ambulatory Referral, Vascular Surgery, 02/17/25 14:13:00 [...] time to tense muscles and then relax the (more content not included)... Normal [facility] Family Medicine Office/Clini c Noteon 02-18-2025 Family Medicine Office/Clinic Note Family Medicine Office/Clinic Note Chief Complaint Subsequent Medicare Wellness History [...] pain Numeric Rating Pain Score : 5 Miguel Catherine Aaron - 02/17/2025 14:14 EDT Hearing and Vision Screening FT FT Whisper Test Comments : no hearing in right ear. Vision Screen Comments : wears glasses. [facility] Catherine Ritchie - 02/17/2025 14:14 EDT Advance Directive FT Advance Directive : Yes Type of Advance Directive : Living will, Medical durable power of back tender cylinder Location of Advance Directive : Family to bring in copy from home Organ Donation Consent : Yes Catherine Rivera - 02/17/2025 14:14 EDT Procedures / Surgeries FT - Procedure History (As Of: 02/17/2025 14:26:25 EDT) Anesthesia Minutes: 0 ; Procedure Name: Acoustic neuroma ; Procedure Minutes: 0 ; Comments: 11/14/2023 13:07 Laly Velasquez LPN [facility] 1995 ; Last Reviewed Dt/Tm: 02/17/2025 14:17:09 [...] referral to the Chronic Care Navigators : [place] What is your housing situation today? : I have housing You or Family Gone Without Household Needs Past Year : No, I choose not to answer this question No Transport to Med Appts/Meetings/Work/ Meds/Necessities : I choose not to answer this question Currently Live in Physical and Emotional Saf (more content not included)... Normal [facility] Comment on above: Result Comment: Elec tronically Signed By: Roberto Carlos MART, Irving Small\.br\Date and Time Signed: 02/18/25 14:15 EDT\.br\Electronically Co-Signed By: Catherine Rivera\.br\Date and Time Co-Signed: 02/17/25 16:30 EDT Ambulatory Visit Summaryon 0 02-17-2025 Ambulatory Visit Summary Ambulatory Visit Summary JOSE [...] Follow-Up Appointments Monday 2:30 PM EDT Where: [place] [phone]- Medications What How Much When Instructions Unchanged [...] you for choosing us for your care. Nevin Oconnell [facility] Family Medicine Office/Clini c Noteon 02-17-2025 Family Medicine Office/Clinic Note Family Medicine Office/Clinic Note Chief Complaint Annual wellness HPI Staff [...] Will send to vascular. Continue Lyrica. Ordered: [facility] External Ambulatory Referral 2. Anxiety (F41.9: Anxiety disorder, unspecified) Well-controlled at this time. Ordered: [facility] External Ambulatory Referral 3. HTN (hypertension) (I10: Essential (primary) hypertension) Well-controlled on medication at this time. No concerns. Ordered: [facility] External Ambulatory Referral 4. Neuropathy (G62.9: Polyneuropathy, unspecified) Continue Lyrica for the pain. Concerned that maybe some of this pain is actually peripheral arterial disease. Again will send to vascular. Ordered: [facility] External Ambulatory Referral 5. BMI 35.0-35.9,adult (Z68.35: Body mass index [BMI] 35.0-35.9, adult) BMI education given Ordered: [facility] External Ambulatory Referral 6. Obesity (BMI 30-39.9) [...] BID, # 180 cap(s), Refills(s) 1, Pharmacy: [facility], 161, cm, 02/17/25 13:03:00 EDT, Height/Length [...] pneumococcal 23-valent vaccine 08/23/2001 Recorded Normal [facility] Comment on above: Result Comment: Elec tronically Signed By: Irving Clemens MD\.br\Date and Time Signed: 02/17/25 14:22 EDT Ambulatory Visit Summaryon 0 10-24-2024 Ambulatory Visit [...] With: Roberto Carlos MART, Irving Small Where: [address] [address]- Monday 2:30 PM EDT With: Where: [address] [address]- Medications What How Much When [...] for choosing us for your care. Normal [facility] Family Medicine Office/Clini c Noteon 10-24-2024 Family Medicine Office/Clinic Note Family Medicine Office/Clinic Note HPI Staff Jose Manuel is a 79 year old female presenting with ER followup: Hospital: [facility] Visit date: 10/20/24 Symptoms the patient [...] q8hr, # 30 tab(s), Refills(s) 0, Pharmacy: [facility], 161, cm, 10/24/24 10:46:00 EST, Height/Length Dosing, 89.9, kg, 10/24/24 10:46:00 EST, Weight Dosing 2. History of recent fall (Z91.81: History of falling) see above Ordered: ibuprofen, 800 mg = 1 tab(s), Oral, q8hr, # 30 tab(s), Refills(s) 0, Pharmacy: [facility], 161, cm, 10/24/24 10:46:00 EST, Height/Length Dosing, 89.9, kg, 10/24/24 10:46:00 EST, Weight Dosing 3. Rib pain on left side (R07.81: Pleurodynia) see above Ordered: ibuprofen, 800 mg = 1 tab(s), Oral, q8hr, # 30 tab(s), Refills(s) 0, Pharmacy: [facility], 161, cm, 10/24/24 10:46:00 EST, Height/Length Dosing, 89.9, kg, 10/24/24 10:46:00 EST, Weight Dosing 4. Former smoker (Z87.891: Personal history of nicotine dependence) consider not smoking Ordered: ibuprofen, 800 mg = 1 tab(s), Oral, q8hr, # 30 tab(s), Refills(s) 0, Pharmacy: [facility], 161, cm, 10/24/24 10:46:00 EST, Height/Length Dosing, 89.9, kg, 10/24/24 10:46:00 EST, Weight Dosing 5. BMI 34.0-34.9,adult (Z68.34: Body mass index [BMI] 34.0-34.9, adult) BMI education given Ordered: ibuprofen, 800 mg = 1 tab(s), Oral, q8hr, # 30 tab(s), Refills(s) 0, Pharmacy: [facility], 161, cm, 10/24/24 10:46:00 EST, Height/Length Dosing, 89.9, kg, 10/24/24 10:46:00 EST, Weight Dosing 6. Exogenous obesity (E66.09: Other obesity due to excess calories) see above Ordered: ibuprofen, 800 mg = 1 tab(s), Oral, q8hr, # 30 tab(s), Refills(s) 0, Pharmacy: [facility], 161, cm, 10/24/24 10:46:00 EST, Height/Length [...] pneumococcal 23-ju (more content not included)... Normal [facility] Comment on above: Result Comment: Elec tronically Signed By: Johanna Floyd\.[place]\Date and Time Signed: 10/24/24 10:59 EST Ambulatory Visit Summaryon 11-05-2023 Ambulatory Visit Summary Ambulatory Visit Summary [...] With: Roberto Carlos MART, Irving Small Where: [address] [phone]- Monday 2:30 PM EDT With: Where: [address] [phone]- Medications What How Much When Instructions Unchanged [...] for choosing us for your care. Normal [facility] Medicine Office/Clini c Noteon 09-05-2024 Family Medicine [...] BID, # 180 cap(s), Refills(s) 1, Pharmacy: [facility], 161, cm, 09/05/24 13:07:00 EST, Height/Length [...] Recorded pneumococcal 23-valent vaccine 08/23/2001 Recorded Normal [facility] Comment on above: Result Comment: [...] c (more content not included)... Normal [facility] Comment on above: Result Comment: [...] PM EST With: Irving Clemens MD Where: [facility] Normal [address] [place] [address]- \.br\ Medications\.br\ What How Much When Instructions\.br\ [...] choosing us for your care.\.br\ \.br\ [facility] Family Medicine Office/Clini c Noteon [...] pneumococcal 23-valent vaccine 08/23/2001 Recorded Normal [facility] Comment on above: Result Comment: Elec tronically Signed By: Roberto Carlos MART, Irving Jansenbr\Date and Time Signed: 03/05/24 13:36 EDT Living Will/POAon 03-05-2024 Living Will/POA [phone] [id number] #[id number] Normal [facility] CHEMISTRYOrdered By: SYSTEM SYSTEM on 11-14-2023 Albumin [...] mg/mg Normal 10 - 20 Remisol Chem HEMATOLOGYOrdered By: SYSTEM SYSTEM on 11-14-2023 Basophil [...] Normal 80.0 - 100.0 fL Remisol Heme [place] Absolute 0.7 E9/L Normal 0.2 - 1.0 [...] Normal 4.0 - 11.0 E9/L Remisol Heme CBC AUTO DIFFon 10-31-2022 BASO # 0.1 103/ul Normal 0.0-0.1 [facility] Comment on above: Performed By: #### C BC #### [facility] [address] [place] [address] Dr. Ernestina Peters Basophils/100 WBC (Bld) 0.8 % Normal 0.2-2.0 [facility] Comment on above: Performed By: #### C BC #### [facility] [address] [address] [address] Ernestina Peters EO # 0.3 103/ul Normal 0.0-0.7 [facility] Comment on above: Performed By: #### C BC #### [facility] [address] [address] [address] Ernestina Peters Eosinophils/100 WBC (Bld) 3.7 % Normal 0.9-7.0 [facility] Comment on above: Performed By: #### C BC #### [facility] [address] [place] [address] Dr. Ernestina Peters Erythrocyte distribution width (RBC) [Ratio] 12.3 % Normal 11.0-15.0 [facility] Comment on above: Performed By: #### C BC #### [facility] [address] [place] [address] Dr. Ernestina Peters Hematocrit (Bld) [Volume fraction] 41.8 % Normal 36.0-48.0 [facility] Comment on above: Performed By: #### C BC #### [facility] [address] [place] [address] Dr. Ernestina Peters Hemoglobin (Bld) [Mass/Vol] 14.9 g/dL Normal 12.0-16.0 [facility] Comment on above: Performed By: #### C BC #### [facility] [address] [place] [address] Dr. Ernestina Peters IG # 0.03 10e3/ul Normal 0.00-0.03 [facility] Comment on above: Performed By: #### C BC #### [facility] [address] [place] [address] Dr. Ernestina Peters IG % 0.4 % Normal 0.0-0.5 [facility] Comment on above: Performed By: #### C BC #### [facility] [address] [place] [address] Dr. Ernestina Peters LYMPH # 1.4 103/ul Normal 1.2-3.8 [facility] Comment on above: Performed By: #### C BC #### [facility] [address] [place] [address] Dr. Ernestina Peters Lymphocytes/100 WBC (Bld) 19.8 % Critically low 20.5-60.0 [facility] Comment on above: Performed By: #### C BC #### [facility] [address] [place] [address] Dr. Ernestina Peters MANUAL DIFF REQ NO Normal [facility] Comment on above: Performed By: #### C BC #### [facility] [address] [place] [address] Dr. Ernestina Peters MCH (RBC) [Entitic mass] 31.5 pg Normal 26.7-34.0 [facility] Comment on above: Performed By: #### C BC #### [facility] [address] [place] [address] Dr. Ernestina Peters MCHC (RBC) [Mass/Vol] 35.6 g/dL Critically high 29.9-35.2 [facility] Comment on above: Performed By: #### C BC #### [facility] [address] [place] [address] Dr. Ernestina Peters MCV (RBC) [Entitic vol] 88.4 fL Normal 81.0-99.0 [facility] Comment on above: Performed By: #### C BC #### [facility] [address] [place] [address] Dr. Ernestina Peters MONO # 0.6 103/ul Normal 0.3-0.8 [facility] Comment on above: Performed By: #### C BC #### [facility] [address] [place] [address] Dr. Ernestina Peters Monocytes/100 WBC (Bld) 8.1 % Normal 1.7-12.0 [facility] Comment on above: Performed By: #### C BC #### [facility] [address] [place] [address] Dr. Ernestina Peters NEUT # 4.8 103/ul Normal 1.4-6.5 [facility] Comment on above: Performed By: #### C BC #### [facility] [address] [place] [address] Dr. Ernestina Peters Neutrophils/100 WBC (Bld) 67.2 % Normal 43.0-75.0 [facility] Comment on above: Performed By: #### C BC #### [facility] [address] [place] [address] Dr. Ernestina Peters Platelet mean volume (Bld) [Entitic vol] 8.9 fL Critically low 9.5-13.5 [facility] Comment on above: Performed By: #### C BC #### [facility] [address] [place] [address] Dr. Ernestina Peters PLT 242 103/ul Normal 150-450 [facility] Comment on above: Performed By: #### C BC #### [facility] [address] [place] [address] Dr. Ernestina Peters RBC 4.73 106/ul Normal 4.20-5.40 [facility] Comment on above: Performed By: #### C BC #### [facility] [address] [place] [address] Dr. Ernestina Peters WBC 7.1 103/ul Normal 4.0-11.0 [facility] Comment on above: Performed By: #### C BC #### [facility] [address] [place] [address] Dr. Ernestina Peters PROF 14(COMP METB)on 023 Albumin [Mass/Vol] 3.5 g/dL Normal 3.4-5.0 [facility] Comment on above: Performed By: #### C MP #### [facility] [address] [place] [address] Dr. Ernestina Peters Albumin/Globulin [Mass ratio] 1.2 {ratio} Normal [facility] Comment on above: Performed By: #### C MP #### [facility] [address] [place] [address] Dr. Ernestina Peters ALP [Catalytic activity/Vol] 88 U/L Normal 46-116 [facility] Comment on above: Performed By: #### C MP #### [facility] [address] [place] [address] Dr. Ernestina Peters ALT [Catalytic activity/Vol] 19 U/L Normal 14-59 [facility] Comment on above: Performed By: #### C MP #### [facility] [address] [place] [address] Dr. Ernestina Peters Anion gap [Moles/Vol] 11.0 mmol/L Normal [facility] Comment on above: Performed By: #### C MP #### [facility] [address] [address] [address] Ernestina Peters AST [Catalytic activity/Vol] 18 U/L Normal 15-37 [facility] Comment on above: Performed By: #### C MP #### [facility] [address] [address] [address] Ernestina Peters Bilirubin [Mass/Vol] 1.0 mg/dL Normal 0.2-1.0 [facility] Comment on above: Performed By: #### C MP #### [facility] [address] [address] [address] Ernestina Peters Calcium [Mass/Vol] 9.2 mg/dL Normal 8.5-10.1 [facility] Comment on above: Performed By: #### C MP #### [facility] [address] [place] [address] Dr. Ernestina Peters Chloride [Moles/Vol] 104 mmol/L Normal 98-107 [facility] Comment on above: Performed By: #### C MP #### [facility] [address] [place] [address] Dr. Ernestina Peters CO2 [Moles/Vol] 30.0 mmol/L Normal 21.0-32.0 [facility] Comment on above: Performed By: #### C MP #### [facility] [address] [place] [address] Dr. Ernestina Peters Creatinine [Mass/Vol] 0.76 mg/dL Normal 0.55-1.02 [facility] Comment on above: Performed By: #### C MP #### [facility] [address] [place] [address] Dr. Ernestina Peters EGFR-AF SINGAPOREAN >60 Normal >=60 [facility] Comment on above: Performed By: #### C MP #### [facility] [address] [place] [address] Dr. Ernestina Peters EGFR-NON AF SINGAPOREAN >60 Normal >=60 [facility] Comment on above: Performed By: #### C MP #### [facility] [address] [place] [address] Dr. Ernestina Peters Globulin (S) [Mass/Vol] 3.0 g/dL Normal [facility] Comment on above: Performed By: #### C MP #### [facility] [address] [address] [address] Ernestina Peters Glucose [Mass/Vol] 133 mg/dL Critically high 74-106 T [facility] Comment on above: Performed By: #### C MP #### [facility] [address] [address] [address] Ernestina Peters Potassium [Moles/Vol] 4.0 mmol/L Normal 3.5-5.1 [facility] Comment on above: Performed By: #### C MP #### [facility] [address] [address] [address] Ernestina Peters Protein [Mass/Vol] 6.5 g/dL Normal 6.4-8.2 [facility] Comment on above: Performed By: #### C MP #### [facility] [address] [address] [address] Ernestina Peters Sodium [Moles/Vol] 141 mmol/L Normal 136-145 [facility] Comment on above: Performed By: #### C MP #### [facility] [address] [address] [address] Ernestina Peters Urea nitrogen [Mass/Vol] 17.0 mg/dL Normal 7.0-18.0 [facility] Comment on above: Performed By: #### C MP #### [facility] [address] [address] [address] Ernestina Peters Urea nitrogen/Creatinine [Mass ratio] 22.4 mg/mg Normal [facility] Comment on above: Performed By: #### C MP #### [facility] [address] [address] [address] Ernestina Peters SABRINA Antinuclear Antibodieson 01-31-2022 Antinuclear Abs, IFA Negative Normal . [facility] Comment on above: Result Comment: Nega tive <1:80 Borderline 1:80 Positive >1:80 ICAP nomenclature: AC-0 For more information about Hep-2 cell patterns use ANApatterns.org, the official website for the International Consensus on Antinuclear Antibody (SABRINA) Patterns (ICAP). Performed at: [address] [id number] Collection Supervisor: Chu Dewey PhD, Phone: [phone] Performed By: #### T SH3, CBC, ESR, ADDONUAPLUS, CK, T4F, CRP, CMP, LDH, PTH #### [address] #### JEWEL,URINE, JEWEL SERUM, MYOG, SABRINA, UPE RAND, SPE #### [facility] , Albumin [Mass/volume] in Ser um or PlasmaOrdered By: Ham Goodwin on 01-31-2022 Albumin [Mass/Vol] 4.2 g/dL 3.2-5.5 [facility] Aldolaseon 01-31-2022 Aldolase 3.8 U/L Normal 3.3-10.3 [facility] Comment on above: Result Comment: Perf ormed at: [address] [id number] Collection Supervisor: Chu Dewey PhD, Phone: [phone] PERFORMED BY: [place] [address] PATHOLOGIST CLIENT RESOURCE SPECIALIST SAE GOMEZ M.D. Performed By: #### T SH3, CBC, ESR, ADDONUAPLUS, CK, T4F, CRP, CMP, LDH, PTH #### [address] #### JEWEL,URINE, JEWEL SERUM, MYOG, SABRINA, UPE RAND, SPE #### [facility] , Automated erythrocytes count in urine sediment (number/area)Ordered By: Ham Goodwin on 01-31-2022 RBC Auto (Urine sed) [#/Area] None seen [HPF] [facility] Automated leukocytes count i n urine sediment (number/area)Ordered By: Ham Goodwin on 01-31-2022 WBC Auto (Urine sed) [#/Area] 3-4 [HPF] [facility] Basophils Auto (Bld) [#/Vol] Ordered By: Ham Goodwin on 01-31-2022 Basophils (Bld) [#/Vol] 0.1 10*3/uL 0.0-0.2 [facility] Basophils/100 WBC Auto (Bld) Ordered By: Ham Goodwin on 01-31-2022 Basophils/100 WBC (Bld) 0.9 % [facility] Bilirubin Test strip Ql (U)O rdered By: Ham Goodwin on 01-31-2022 Bilirubin Ql (U) Negative Negative [facility] Blood hemoglobin measurement (mass/volume)Ordered By: Ham Goodwin on 01-31-2022 Hemoglobin (Bld) [Mass/Vol] 15.8 g/dL 11.8-15.4 [facility] Blood leukocytes automated c ount (number/volume)Ordered By: Ham Goodwin on 01-31-2022 WBC (Bld) [#/Vol] 8.3 10*3/uL 4.5-11.0 [facility] C-Reactive Proteinon 022 C-Reactive Protein 0.8 mg/dL Normal 0.0-1.0 [facility] Comment on above: Performed By: #### T SH3, CBC, ESR, ADDONUAPLUS, CK, T4F, CRP, CMP, LDH, PTH #### [facility] [address] [place] [address] [place] #### JEWEL,URINE, JEWEL SERUM, MYOG, SABRINA, UPE RAND, SPE #### [facility] , Color Auto (U)Ordered By: John Goodwin on 01-31-2022 Color (U) Dark yellow Yellow [facility] Complete Blood Count Auto Di ffon 01-31-2022 Basophils (Bld) [#/Vol] 0.1 10*3/uL Normal 0.0-0.2 [facility] Comment on above: Performed By: #### T SH3, CBC, ESR, ADDONUAPLUS, CK, T4F, CRP, CMP, LDH, PTH #### [facility] [address] [place] [address] [place] #### JEWEL,URINE, JEWEL SERUM, MYOG, SABRINA, UPE RAND, SPE #### [facility] , Basophils/100 WBC (Bld) 0.9 % Normal . [facility] Comment on above: Performed By: #### T SH3, CBC, ESR, ADDONUAPLUS, CK, T4F, CRP, CMP, LDH, PTH #### [facility] [address] [place] [address] #### JEWEL,URINE, JEWEL SERUM, MYOG, SABRINA, UPE RAND, SPE #### [facility] , Eosinophils (Bld) [#/Vol] 0.2 10*3/uL Normal 0.0-0.45 [facility] Comment on above: Performed By: #### T SH3, CBC, ESR, ADDONUAPLUS, CK, T4F, CRP, CMP, LDH, PTH #### [facility] [address] [place] [address] #### JEWEL,URINE, JEWEL SERUM, MYOG, SABRINA, UPE RAND, SPE #### [facility] , Eosinophils/100 WBC (Bld) 2.0 % Normal . [facility] Comment on above: Performed By: #### T SH3, CBC, ESR, ADDONUAPLUS, CK, T4F, CRP, CMP, LDH, PTH #### [facility] [address] [place] [address] #### JEWEL,URINE, JEWEL SERUM, MYOG, SABRINA, UPE RAND, SPE #### [facility] , Erythrocyte distribution width (RBC) [Ratio] 12.8 % Normal 11.9-15.3 [facility] Comment on above: Performed By: #### T SH3, CBC, ESR, ADDONUAPLUS, CK, T4F, CRP, CMP, LDH, PTH #### [facility] [address] [place] [address] [place] #### JEWEL,URINE, JEWEL SERUM, MYOG, SABRINA, UPE RAND, SPE #### [facility] , Hematocrit (Bld) [Volume fraction] 46.2 % Normal 34.0-46.4 [facility] Comment on above: Performed By: #### T SH3, CBC, ESR, ADDONUAPLUS, CK, T4F, CRP, CMP, LDH, PTH #### [facility] [address] [place] [address] #### JEWEL,URINE, JEWEL SERUM, MYOG, SABRINA, UPE RAND, SPE #### [facility] , Hemoglobin (Bld) [Mass/Vol] 15.8 g/dL High 11.8-15.4 [facility] Comment on above: Performed By: #### T SH3, CBC, ESR, ADDONUAPLUS, CK, T4F, CRP, CMP, LDH, PTH #### [address] #### JEWEL,URINE, JEWEL SERUM, MYOG, SABRINA, UPE RAND, SPE #### [facility] , Lymphocytes (Bld) [#/Vol] 1.6 10*3/uL Normal 1.00-4.8 [facility] Comment on above: Performed By: #### T SH3, CBC, ESR, ADDONUAPLUS, CK, T4F, CRP, CMP, LDH, PTH #### [address] #### JEWEL,URINE, JEWEL SERUM, MYOG, SABRINA, UPE RAND, SPE #### [facility] , Lymphocytes/100 WBC (Bld) 19.6 % Normal . [facility] Comment on above: Performed By: #### T SH3, CBC, ESR, ADDONUAPLUS, CK, T4F, CRP, CMP, LDH, PTH #### [facility] [address] [place] [address] [place] #### JEWEL,URINE, JEWEL SERUM, MYOG, SABRINA, UPE RAND, SPE #### [facility] , MCH (RBC) [Entitic mass] 32.4 pg Normal 24.7-34.3 [facility] Comment on above: Performed By: #### T SH3, CBC, ESR, ADDONUAPLUS, CK, T4F, CRP, CMP, LDH, PTH #### [facility] [address] [place] [address] #### JEWEL,URINE, JEWEL SERUM, MYOG, SABRINA, UPE RAND, SPE #### [facility] , MCV (RBC) [Entitic vol] 94.7 fL Normal 80-100 [facility] Comment on above: Performed By: #### T SH3, CBC, ESR, ADDONUAPLUS, CK, T4F, CRP, CMP, LDH, PTH #### [address] #### JEWEL,URINE, JEWEL SERUM, MYOG, SABRINA, UPE RAND, SPE #### [facility] , Mean Corpuscular HGB Conc 34.2 g/dL Normal 32.0-35.0 [facility] Comment on above: Performed By: #### T SH3, CBC, ESR, ADDONUAPLUS, CK, T4F, CRP, CMP, LDH, PTH #### [address] #### JEWEL,URINE, JEWEL SERUM, MYOG, SABRINA, UPE RAND, SPE #### [facility] , Monocytes (Bld) [#/Vol] 0.7 10*3/uL Normal 0.0-0.8 [facility] Comment on above: Performed By: #### T SH3, CBC, ESR, ADDONUAPLUS, CK, T4F, CRP, CMP, LDH, PTH #### [facility] [address] [place] [address] #### JEWEL,URINE, JEWEL SERUM, MYOG, SABRINA, UPE RAND, SPE #### [facility] , Monocytes/100 WBC (Bld) 8.9 % Normal . [facility] Comment on above: Performed By: #### T SH3, CBC, ESR, ADDONUAPLUS, CK, T4F, CRP, CMP, LDH, PTH #### [address] #### JEWEL,URINE, JEWEL SERUM, MYOG, SABRINA, UPE RAND, SPE #### [facility] , Neutrophils (Bld) [#/Vol] 5.7 10*3/uL Normal 1.8-7.7 [facility] Comment on above: Performed By: #### T SH3, CBC, ESR, ADDONUAPLUS, CK, T4F, CRP, CMP, LDH, PTH #### [address] #### JEWEL,URINE, JEWEL SERUM, MYOG, SABRINA, UPE RAND, SPE #### [facility] , Neutrophils/100 WBC (Bld) 68.6 % Normal . [facility] Comment on above: Performed By: #### T SH3, CBC, ESR, ADDONUAPLUS, CK, T4F, CRP, CMP, LDH, PTH #### [address] #### JEWEL,URINE, JEWEL SERUM, MYOG, SABRINA, UPE RAND, SPE #### [facility] , Nucleated RBC/100 WBC (Bld) [Ratio] 0.1 % Normal 0-0.5 [facility] Comment on above: Performed By: #### T SH3, CBC, ESR, ADDONUAPLUS, CK, T4F, CRP, CMP, LDH, PTH #### [place] [address] [place] #### JEWEL,URINE, JEWEL SERUM, MYOG, SABRINA, UPE RAND, SPE #### [facility] , Platelet mean volume (Bld) [Entitic vol] 8.0 fL Normal 6.3-10.7 [facility] Comment on above: Performed By: #### T SH3, CBC, ESR, ADDONUAPLUS, CK, T4F, CRP, CMP, LDH, PTH #### [place] [address] [place] #### JEWEL,URINE, JEWEL SERUM, MYOG, SABRINA, UPE RAND, SPE #### [facility] , Platelets (Bld) [#/Vol] 293 10*3/uL Normal 150-450 [facility] Comment on above: Performed By: #### T SH3, CBC, ESR, ADDONUAPLUS, CK, T4F, CRP, CMP, LDH, PTH #### [facility] [address] [place] [address] [place] #### JEWEL,URINE, JEWEL SERUM, MYOG, SABRINA, UPE RAND, SPE #### [facility] , RBC (Bld) [#/Vol] 4.88 10*6/uL Normal 3.60-5.00 [facility] Comment on above: Performed By: #### T SH3, CBC, ESR, ADDONUAPLUS, CK, T4F, CRP, CMP, LDH, PTH #### [place] [address] [place] #### JEWEL,URINE, JEWEL SERUM, MYOG, SABRINA, UPE RAND, SPE #### [facility] , WBC (Bld) [#/Vol] 8.3 10*3/uL Normal 4.5-11.0 [facility] Comment on above: Performed By: #### T SH3, CBC, ESR, ADDONUAPLUS, CK, T4F, CRP, CMP, LDH, PTH #### [place] [address] [place] #### JEWEL,URINE, JEWEL SERUM, MYOG, SABRINA, UPE RAND, SPE #### [facility] , Comprehensive Metabolic Pane anum 01-31-2022 Albumin [Mass/Vol] 4.2 g/dL Normal 3.2-5.5 [facility] Comment on above: Performed By: #### T SH3, CBC, ESR, ADDONUAPLUS, CK, T4F, CRP, CMP, LDH, PTH #### [place] [address] [place] #### JEWEL,URINE, JEWEL SERUM, MYOG, SABRINA, UPE RAND, SPE #### [facility] , Albumin/Globulin [Mass ratio] 1.8 {ratio} Normal [facility] Comment on above: Performed By: #### T SH3, CBC, ESR, ADDONUAPLUS, CK, T4F, CRP, CMP, LDH, PTH #### [facility] [address] [place] [address] #### JEWEL,URINE, JEWEL SERUM, MYOG, SABRINA, UPE RAND, SPE #### [facility] , ALP [Catalytic activity/Vol] 75 U/L Normal 32- [facility] Comment on above: Performed By: #### T SH3, CBC, ESR, ADDONUAPLUS, CK, T4F, CRP, CMP, LDH, PTH #### [facility] [address] [place] [address] #### JEWEL,URINE, JEWEL SERUM, MYOG, SABRINA, UPE RAND, SPE #### [facility] , ALT [Catalytic activity/Vol] 27 U/L Normal 10 [facility] Comment on above: Performed By: #### T SH3, CBC, ESR, ADDONUAPLUS, CK, T4F, CRP, CMP, LDH, PTH #### [address] #### JEWEL,URINE, JEWEL SERUM, MYOG, SABRINA, UPE RAND, SPE #### [facility] , AST [Catalytic activity/Vol] 26 U/L Normal 10 [facility] Comment on above: Performed By: #### T SH3, CBC, ESR, ADDONUAPLUS, CK, T4F, CRP, CMP, LDH, PTH #### [facility] [address] [place] [address] [place] #### JEWEL,URINE, JEWEL SERUM, MYOG, SABRINA, UPE RAND, SPE #### [facility] , Bilirubin [Mass/Vol] 0.9 mg/dL Normal 0.3-1.2 [facility] Comment on above: Performed By: #### T SH3, CBC, ESR, ADDONUAPLUS, CK, T4F, CRP, CMP, LDH, PTH #### [address] #### JEWEL,URINE, JEWEL SERUM, MYOG, SABRINA, UPE RAND, SPE #### [facility] , Calcium [Mass/Vol] 9.7 mg/dL Normal 8.2-10.2 [facility] Comment on above: Performed By: #### T SH3, CBC, ESR, ADDONUAPLUS, CK, T4F, CRP, CMP, LDH, PTH #### [address] #### JEWEL,URINE, JEWEL SERUM, MYOG, SABRINA, UPE RAND, SPE #### [facility] , Chloride [Moles/Vol] 101 mmol/L Normal 95-114 [facility] Comment on above: Performed By: #### T SH3, CBC, ESR, ADDONUAPLUS, CK, T4F, CRP, CMP, LDH, PTH #### [facility] [address] [place] [address] #### JEWEL,URINE, JEWEL SERUM, MYOG, SABRINA, UPE RAND, SPE #### [facility] , CO2 [Moles/Vol] 24.9 mmol/L Normal 22.0-30.0 [facility] Comment on above: Performed By: #### T SH3, CBC, ESR, ADDONUAPLUS, CK, T4F, CRP, CMP, LDH, PTH #### [facility] [address] [place] [address] [place] #### JEWEL,URINE, JEWEL SERUM, MYOG, SABRINA, UPE RAND, SPE #### [facility] , Creatinine [Mass/Vol] 0.84 mg/dL Normal 0.44-1.03 [facility] Comment on above: Performed By: #### T SH3, CBC, ESR, ADDONUAPLUS, CK, T4F, CRP, CMP, LDH, PTH #### [address] #### JEWEL,URINE, JEWEL SERUM, MYOG, SABRINA, UPE RAND, SPE #### [facility] , Estimated GFR ( Manisha > 60 [facility] Comment on above: Result Comment: GFR estimated reference range: According to KDOQI guidelines, <60 ml/min/1.73m2 is sufficient to diagnose a patient with chronic kidney disease. Performed By: #### T SH3, CBC, ESR, ADDONUAPLUS, CK, T4F, CRP, CMP, LDH, PTH #### [address] #### JEWEL,URINE, JEWEL SERUM, MYOG, SABRINA, UPE RAND, SPE #### [facility] , Estimated GFR (Non- Am > 60 [facility] Comment on above: Performed By: #### T SH3, CBC, ESR, ADDONUAPLUS, CK, T4F, CRP, CMP, LDH, PTH #### [place] [address] [place] #### JEWEL,URINE, JEWEL SERUM, MYOG, SABRINA, UPE RAND, SPE #### [facility] , Globulin (S) [Mass/Vol] 2.4 g/dL Normal [facility] Comment on above: Performed By: #### T SH3, CBC, ESR, ADDONUAPLUS, CK, T4F, CRP, CMP, LDH, PTH #### [address] #### JEWEL,URINE, JEWEL SERUM, MYOG, SABRINA, UPE RAND, SPE #### [facility] , Glucose [Mass/Vol] 97 mg/dL Normal 70-100 [facility] Comment on above: Result Comment: [facility] Glucose Reference Range is dependent on time and content of last meal. Glucose of more than 200 mg/dL in a nonstressed, ambulatory subject supports the diagnosis of Diabetes Mellitus. ADA recommended reference range Performed By: #### T SH3, CBC, ESR, ADDONUAPLUS, CK, T4F, CRP, CMP, LDH, PTH #### [facility] [address] [place] [address] #### JEWEL,URINE, JEWEL SERUM, MYOG, SABRINA, UPE RAND, SPE #### [facility] , Potassium [Moles/Vol] 4.0 mmol/L Normal 3.5-5.1 [facility] Comment on above: Performed By: #### T SH3, CBC, ESR, ADDONUAPLUS, CK, T4F, CRP, CMP, LDH, PTH #### [address] #### JEWEL,URINE, JEWEL SERUM, MYOG, SABRINA, UPE RAND, SPE #### [facility] , Protein [Mass/Vol] 6.6 g/dL Normal 6.1-7.9 [facility] Comment on above: Performed By: #### T SH3, CBC, ESR, ADDONUAPLUS, CK, T4F, CRP, CMP, LDH, PTH #### [address] #### JEWEL,URINE, JEWEL SERUM, MYOG, SABRINA, UPE RAND, SPE #### [facility] , Sodium [Moles/Vol] 137 mmol/L Normal 136-146 [facility] Comment on above: Performed By: #### T SH3, CBC, ESR, ADDONUAPLUS, CK, T4F, CRP, CMP, LDH, PTH #### [facility] [address] [place] [address] #### JEWEL,URINE, JEWEL SERUM, MYOG, SABRINA, UPE RAND, SPE #### [facility] , Urea nitrogen [Mass/Vol] 14 mg/dL Normal 9-23 [facility] Comment on above: Performed By: #### T SH3, CBC, ESR, ADDONUAPLUS, CK, T4F, CRP, CMP, LDH, PTH #### [facility] [address] [place] [address] #### JEWEL,URINE, JEWEL SERUM, MYOG, SABRINA, UPE RAND, SPE #### [facility] , Creatine Kinaseon 01-31-2022 CK [Catalytic activity/Vol] 26 U/L Normal [facility] Comment on above: Result Comment: PERF ORMED BY: [place] [address] PATHOLOGIST CLIENT RESOURCE SPECIALIST SAE GOMEZ M.D. Performed By: #### T SH3, CBC, ESR, ADDONUAPLUS, CK, T4F, CRP, CMP, LDH, PTH #### [address] #### JEWEL,URINE, JEWEL SERUM, MYOG, SABRINA, UPE RAND, SPE #### [facility] , Creatine kinase [Enzymatic a ctivity/volume] in Serum or PlasmaOrdered By: Ham Goodwin on 01-31-2022 CK [Catalytic activity/Vol] 26 U/L [facility] Creatinine and Glomerular fi ltration rate.predicted panel (S/P/Bld)Ordered By: Ham Goodwin on 01-31-2022 Creatinine [Mass/Vol] 0.84 mg/dL 0.44-1.03 [facility] Dipstick and Microscopicon 0 01-31-2022 Appearance (U) Clear Normal Clear [facility] Comment on above: Order Comment: Name Collection Type:: Clean-Voided Midstream Performed By: #### T SH3, CBC, ESR, ADDONUAPLUS, CK, T4F, CRP, CMP, LDH, PTH #### [facility] [address] [place] [address] #### JEWEL,URINE, JEWEL SERUM, MYOG, SABRINA, UPE RAND, SPE #### [facility] , Bacteria,Urine 2+ High None Seen [facility] Comment on above: Order Comment: Name Collection Type:: Clean-Voided Midstream Performed By: #### T SH3, CBC, ESR, ADDONUAPLUS, CK, T4F, CRP, CMP, LDH, PTH #### [facility] [address] [place] [address] #### JEWEL,URINE, JEWEL SERUM, MYOG, SABRINA, UPE RAND, SPE #### [facility] , Bilirubin,Urine Negative Normal Negative [facility] Comment on above: Order Comment: Name Collection Type:: Clean-Voided Midstream Performed By: #### T SH3, CBC, ESR, ADDONUAPLUS, CK, T4F, CRP, CMP, LDH, PTH #### [address] #### JEWEL,URINE, JEWEL SERUM, MYOG, SABRINA, UPE RAND, SPE #### [facility] , Color (U) Dark Yellow Critically abnormal Yellow [facility] Comment on above: Order Comment: Name Collection Type:: Clean-Voided Midstream Performed By: #### T SH3, CBC, ESR, ADDONUAPLUS, CK, T4F, CRP, CMP, LDH, PTH #### [address] #### JEWEL,URINE, JEWEL SERUM, MYOG, SABRINA, UPE RAND, SPE #### [facility] , Glucose Ql (U) Normal Normal Normal [facility] Comment on above: Order Comment: Name Collection Type:: Clean-Voided Midstream Performed By: #### T SH3, CBC, ESR, ADDONUAPLUS, CK, T4F, CRP, CMP, LDH, PTH #### [address] #### JEWEL,URINE, JEWEL SERUM, MYOG, SABRINA, UPE RAND, SPE #### [facility] , Hyaline Casts,Urine 0-8 Normal 0-8 [facility] Comment on above: Order Comment: Name Collection Type:: Clean-Voided Midstream Performed By: #### T SH3, CBC, ESR, ADDONUAPLUS, CK, T4F, CRP, CMP, LDH, PTH #### [facility] [address] [place] [address] #### JEWEL,URINE, JEWEL SERUM, MYOG, SABRINA, UPE RAND, SPE #### [facility] , Ketones Ql (U) Trace High Negative [facility] Comment on above: Order Comment: Name Collection Type:: Clean-Voided Midstream Performed By: #### T SH3, CBC, ESR, ADDONUAPLUS, CK, T4F, CRP, CMP, LDH, PTH #### [facility] [address] [place] [address] #### JEWEL,URINE, JEWEL SERUM, MYOG, SABRINA, UPE RAND, SPE #### [facility] , Leukocyte esterase Test strip Ql (U) 1+ High Negative [facility] Comment on above: Order Comment: Name Collection Type:: Clean-Voided Midstream Performed By: #### T SH3, CBC, ESR, ADDONUAPLUS, CK, T4F, CRP, CMP, LDH, PTH #### [address] #### JEWEL,URINE, JEWEL SERUM, MYOG, SABRINA, UPE RAND, SPE #### [facility] , Mucus,Urine 2+ Critically abnormal [facility] Comment on above: Order Comment: Name Collection Type:: Clean-Voided Midstream Result Comment: PERF ORMED BY: [place] [address] PATHOLOGIST CLIENT RESOURCE SPECIALIST SAE GOMEZ M.D. Performed By: #### T SH3, CBC, ESR, ADDONUAPLUS, CK, T4F, CRP, CMP, LDH, PTH #### [address] #### JEWEL,URINE, JEWEL SERUM, MYOG, SABRINA, UPE RAND, SPE #### [facility] , Nitrite,Urine Negative Normal Negative [facility] Comment on above: Order Comment: Name Collection Type:: Clean-Voided Midstream Performed By: #### T SH3, CBC, ESR, ADDONUAPLUS, CK, T4F, CRP, CMP, LDH, PTH #### [facility] [address] [place] [address] #### JEWEL,URINE, JEWEL SERUM, MYOG, SABRINA, UPE RAND, SPE #### [facility] , Occult Blood,Urine Negative Normal Negative [facility] Comment on above: Order Comment: Name Collection Type:: Clean-Voided Midstream Performed By: #### T SH3, CBC, ESR, ADDONUAPLUS, CK, T4F, CRP, CMP, LDH, PTH #### [address] #### JEWEL,URINE, JEWEL SERUM, MYOG, SABRINA, UPE RAND, SPE #### [facility] , pH (U) 7.5 [pH] Normal 5.0-9.0 [facility] Comment on above: Order Comment: Name Collection Type:: Clean-Voided Midstream Performed By: #### T SH3, CBC, ESR, ADDONUAPLUS, CK, T4F, CRP, CMP, LDH, PTH #### [address] #### JEWEL,URINE, JEWEL SERUM, MYOG, SABRINA, UPE RAND, SPE #### [facility] , Protein,Urine Trace High Negative [facility] Comment on above: Order Comment: Name Collection Type:: Clean-Voided Midstream Performed By: #### T SH3, CBC, ESR, ADDONUAPLUS, CK, T4F, CRP, CMP, LDH, PTH #### [facility] [address] [place] [address] #### JEWEL,URINE, JEWEL SERUM, MYOG, SABRINA, UPE RAND, SPE #### [facility] , RBC,Urine None Seen Normal 0-4 [facility] Comment on above: Order Comment: Name Collection Type:: Clean-Voided Midstream Performed By: #### T SH3, CBC, ESR, ADDONUAPLUS, CK, T4F, CRP, CMP, LDH, PTH #### [address] #### JEWEL,URINE, JEWEL SERUM, MYOG, SABRINA, UPE RAND, SPE #### [facility] , Specificy [place],Urine 1.024 Normal 1.001-1.030 [facility] Comment on above: Order Comment: Name Collection Type:: Clean-Voided Midstream Performed By: #### T SH3, CBC, ESR, ADDONUAPLUS, CK, T4F, CRP, CMP, LDH, PTH #### [address] #### JEWEL,URINE, JEWEL SERUM, MYOG, SABRINA, UPE RAND, SPE #### [facility] , Squamous Epithelial Cell,Urine 5-9 High 0-2 [facility] Comment on above: Order Comment: Name Collection Type:: Clean-Voided Midstream Performed By: #### T SH3, CBC, ESR, ADDONUAPLUS, CK, T4F, CRP, CMP, LDH, PTH #### [address] #### JEWEL,URINE, JEWEL SERUM, MYOG, SABRINA, UPE RAND, SPE #### [facility] , Urobilinogen,Urine Normal Normal Normal [facility] Comment on above: Order Comment: Name Collection Type:: Clean-Voided Midstream Performed By: #### T SH3, CBC, ESR, ADDONUAPLUS, CK, T4F, CRP, CMP, LDH, PTH #### [address] #### JEWEL,URINE, JEWEL SERUM, MYOG, SABRINA, UPE RAND, SPE #### [facility] , WBC,Urine 3-4 Normal 0-4 [facility] Comment on above: Order Comment: Name Collection Type:: Clean-Voided Midstream Performed By: #### T SH3, CBC, ESR, ADDONUAPLUS, CK, T4F, CRP, CMP, LDH, PTH #### [facility] [address] [place] [address] #### JEWEL,URINE, JEWEL SERUM, MYOG, SABRINA, UPE RAND, SPE #### [facility] , Eosinophils Auto (Bld) [#/Vo l]Ordered By: Ham Goodwin on 01-31-2022 Eosinophils (Bld) [#/Vol] 0.2 10*3/uL 0.0-0.45 [facility] Eosinophils/100 WBC Auto (Bl d)Ordered By: Ham Goodwin on 01-31-2022 Eosinophils/100 WBC (Bld) 2.0 % [facility] Erythrocyte Sedimentation Ra anthony 01-31-2022 ESR (Bld) [Velocity] 15 mm/h Normal 0-29 [facility] Comment on above: Result Comment: PERF ORMED BY: [place] [address] PATHOLOGIST CLIENT RESOURCE SPECIALIST SAE GOMEZ M.D. Performed By: #### T SH3, CBC, ESR, ADDONUAPLUS, CK, T4F, CRP, CMP, LDH, PTH #### [address] #### JEWEL,URINE, JEWEL SERUM, MYOG, SABRINA, UPE RAND, SPE #### [facility] , Erythrocyte distribution wid th Auto (RBC) [Ratio]Ordered By: Ham Goodwin on 01-31-2022 Erythrocyte distribution width (RBC) [Ratio] 12.8 % 11.9-15.3 [facility] Erythrocyte sedimentation ra te by Photometric methodOrdered By: Ham Goodwin on 01-31-2022 ESR Photometric method (Bld) [Velocity] 15 mm/hr 0-29 [facility] Estimated glomerular filtrat ion rate (GFR) non- AmericanOrdered By: Ham Goodwin on 01-31-2022 GFR/1.73 sq M.predicted among non-blacks MDRD (S/P/Bld) [Vol rate/Area] > 60 mL/Min [facility] Free T4 (Free Thyroxine)on 0 01-31-2022 Free T4 [Mass/Vol] 0.87 ng/dL Normal 0.61-1.12 [facility] Comment on above: Performed By: #### T SH3, CBC, ESR, ADDONUAPLUS, CK, T4F, CRP, CMP, LDH, PTH #### [facility] [address] [place] [address] #### JEWEL,URINE, JEWEL SERUM, MYOG, SABRINA, UPE RAND, SPE #### [facility] , Globulin Calc (S) [Mass/Vol] Ordered By: Ham Goodwin on 01-31-2022 Globulin (S) [Mass/Vol] 2.4 g/dL [facility] Hematocrit Auto (Bld) [Volum e fraction]Ordered By: Ham Goodwin on 01-31-2022 Hematocrit (Bld) [Volume fraction] 46.2 % 34.0-46.4 [facility] Immunofixation, (JEWEL), Urine on 01-31-2022 Immunofixation, (JEWEL), Urine Normal . [facility] Comment on above: Result Comment: No m onoclonality detected. Performed at: - [facility] [address] [id number] Collection Supervisor: Chu Dewey PhD, Phone: [phone] Performed By: #### T SH3, CBC, ESR, ADDONUAPLUS, CK, T4F, CRP, CMP, LDH, PTH #### [facility] [address] [place] [address] [place] #### JEWEL,URINE, JEWEL SERUM, MYOG, SABRINA, UPE RAND, SPE #### [facility] , Immunofixation,Serumon 01-31 Immunofixation, Serum Normal . [facility] Comment on above: Result Comment: No m onoclonality detected. Performed By: #### T SH3, CBC, ESR, ADDONUAPLUS, CK, T4F, CRP, CMP, LDH, PTH #### [facility] [address] [place] [address] [place] #### JEWEL,URINE, JEWEL SERUM, MYOG, SABRINA, UPE RAND, SPE #### [facility] , Immunoglobulin A, Serum 125 mg/dL Normal 64-422 [facility] Comment on above: Performed By: #### T SH3, CBC, ESR, ADDONUAPLUS, CK, T4F, CRP, CMP, LDH, PTH #### [facility] [address] [place] [address] #### JEWEL,URINE, JEWEL SERUM, MYOG, SABRINA, UPE RAND, SPE #### [facility] , Immunoglobulin G 941 mg/dL Normal 586-1602 [facility] Comment on above: Performed By: #### T SH3, CBC, ESR, ADDONUAPLUS, CK, T4F, CRP, CMP, LDH, PTH #### [facility] [address] [place] [address] #### JEWEL,URINE, JEWEL SERUM, MYOG, SABRINA, UPE RAND, SPE #### [facility] , Immunoglobulin M, Serum 88 mg/dL Normal 26-217 [facility] Comment on above: Result Comment: Perf ormed at: - [facility] [address] [id number] Collection Supervisor: Chu Dewey PhD, Phone: [phone] Performed By: #### T SH3, CBC, ESR, ADDONUAPLUS, CK, T4F, CRP, CMP, LDH, PTH #### [facility] [address] [place] [address] [place] #### JEWEL,URINE, JEWEL SERUM, MYOG, SABRINA, UPE RAND, SPE #### [facility] , Ketones Auto test strip (U) [Mass/Vol]Ordered By: Ham Goodwin on 01-31-2022 Ketones (U) [Mass/Vol] Trace Negative [facility] LDH Lactate Dehydrogenaseon 01-31-2022 LDH Lactate Dehydrogenase 135 U/L Normal 45-190 [facility] Comment on above: Performed By: #### T SH3, CBC, ESR, ADDONUAPLUS, CK, T4F, CRP, CMP, LDH, PTH #### [facility] [address] #### JEWEL,URINE, JEWEL SERUM, MYOG, SABRINA, UPE RAND, SPE #### [facility] , Laboratory - Hematology and Cell countsOrdered By: Ham Goodwin on 01-31-2022 Nucleated RBC/100 WBC (Bld) [Ratio] 0.1 % 0-0.5 [facility] Laboratory - UrinalysisOrder ed By: Ham Goodwin on 01-31-2022 Hyaline casts LM Ql (Urine sed) 0-8 [LPF] [facility] Lactate dehydrogenase measur ement (enzymatic activity/volume)Ordered By: Ham Goodwin on 01-31-2022 LDH (Unsp spec) [Catalytic activity/Vol] 135 U/L 45-190 [facility] Lymphocytes Auto (Bld) [#/Vo l]Ordered By: Ham Goodwin on 01-31-2022 Lymphocytes (Bld) [#/Vol] 1.6 10*3/uL 1.00-4.8 [facility] Lymphocytes/100 WBC Auto (Bl d)Ordered By: Ham Goodwin on 01-31-2022 Lymphocytes/100 WBC (Bld) 19.6 % [facility] MCH Auto (RBC) [Entitic mass ]Ordered By: Ham Goodwin on 01-31-2022 MCH (RBC) [Entitic mass] 32.4 pg 24.7-34.3 [facility] MCHC Auto (RBC) [Mass/Vol]Or dered By: Ham Goodwin on 01-31-2022 MCHC (RBC) [Mass/Vol] 34.2 g/dL 32.0-35.0 [facility] MCV Auto (RBC) [Entitic vol] Ordered By: Ham Goodwin on 01-31-2022 MCV (RBC) [Entitic vol] 94.7 fL 80-100 [facility] Monocytes Auto (Bld) [#/Vol] Ordered By: Ham Goodwin on 01-31-2022 Monocytes (Bld) [#/Vol] 0.7 10*3/uL 0.0-0.8 [facility] Monocytes/100 WBC Auto (Bld) Ordered By: Ham Goodwin on 01-31-2022 Monocytes/100 WBC (Bld) 8.9 % [facility] Mucus LM Ql (Urine sed)Order ed By: Ham Goodwin on 01-31-2022 Mucus Ql (Urine sed) 2+ [LPF] [facility] Myoglobinon 01-31-2022 Myoglobin [Mass/Vol] ng/mL Low 25-58 [facility] Comment on above: Result Comment: Perf ormed at: - [facility] [address] [id number] Collection Supervisor: Chu Dewey PhD, Phone: [phone] Performed By: #### T SH3, CBC, ESR, ADDONUAPLUS, CK, T4F, CRP, CMP, LDH, PTH #### [facility] [address] [place] [address] #### JEWEL,URINE, JEWEL SERUM, MYOG, SABRINA, UPE RAND, SPE #### [facility] , Neutrophils Auto (Bld) [#/Vo l]Ordered By: Ham Goodwin on 01-31-2022 Neutrophils (Bld) [#/Vol] 5.7 10*3/uL 1.8-7.7 [facility] Neutrophils/100 WBC Auto (Bl d)Ordered By: Ham Goodwin on 01-31-2022 Neutrophils/100 WBC (Bld) 68.6 % [facility] Nitrite Test strip Ql (U)Ord ered By: Ham Goodwin on 01-31-2022 Nitrite Ql (U) Negative Negative [facility] No Panel InformationOrdered By: Ham Goodwin on 01-31-2022 Estimated GFR () > 60 mL/Min [facility] Comment on above: GFR estimated refere nce range: According to KDOQI guidelines, <60 ml/min/1.73m2 is sufficient to diagnose a patient with chronic kidney disease. Pharmacy Creatinine Clearance (Chem N/A [facility] Parathyroid Hormone Intacton 01-31-2022 Parathyroid Hormone Intact 87.4 pg/mL Normal 12-88 [facility] Comment on above: Result Comment: PERF ORMED BY: [place] [address] PATHOLOGIST CLIENT RESOURCE SPECIALIST SAE GOMEZ M.D. Performed By: #### T SH3, CBC, ESR, ADDONUAPLUS, CK, T4F, CRP, CMP, LDH, PTH #### [facility] [address] [place] [address] #### JEWEL,URINE, JEWEL SERUM, MYOG, SABRINA, UPE RAND, SPE #### [facility] , Platelet mean volume Auto (B ld) [Entitic vol]Ordered By: Ham Goodwin on 01-31-2022 Platelet mean volume (Bld) [Entitic vol] 8.0 fL 6.3-10.7 [facility] Platelets Auto (Bld) [#/Vol] Ordered By: Ham Goodwin on 01-31-2022 Platelets (Bld) [#/Vol] 293 10*3/uL 150-450 [facility] Protein Auto test strip (U) [Mass/Vol]Ordered By: Ham Goodwin on 01-31-2022 Protein (U) [Mass/Vol] Trace mg/dL Negative [facility] Protein Electro, Random Urin abbey 01-31-2022 Albumin, Urine 29.3 % Normal . [facility] Comment on above: Performed By: #### T SH3, CBC, ESR, ADDONUAPLUS, CK, T4F, CRP, CMP, LDH, PTH #### [facility] [address] [place] [address] [place] #### JEWEL,URINE, JEWEL SERUM, MYOG, SABRINA, UPE RAND, SPE #### [facility] , Lpmtj-1-Ylbsthip, Urine 4.8 % Normal . [facility] Comment on above: Performed By: #### T SH3, CBC, ESR, ADDONUAPLUS, CK, T4F, CRP, CMP, LDH, PTH #### [address] #### JEWEL,URINE, JEWEL SERUM, MYOG, SABRINA, UPE RAND, SPE #### [facility] , Cwxdt-9-Hoyhvpmr, Urine 20.1 % Normal . [facility] Comment on above: Performed By: #### T SH3, CBC, ESR, ADDONUAPLUS, CK, T4F, CRP, CMP, LDH, PTH #### [address] #### JEWEL,URINE, JEWEL SERUM, MYOG, SABRINA, UPE RAND, SPE #### [facility] , Beta Globulin, Urine 35.6 % Normal . [facility] Comment on above: Performed By: #### T SH3, CBC, ESR, ADDONUAPLUS, CK, T4F, CRP, CMP, LDH, PTH #### [address] #### JEWEL,URINE, JEWEL SERUM, MYOG, SABRINA, UPE RAND, SPE #### [facility] , Gamma Globulin, Urine 10.2 % Normal . [facility] Comment on above: Performed By: #### T SH3, CBC, ESR, ADDONUAPLUS, CK, T4F, CRP, CMP, LDH, PTH #### [address] #### JEWEL,URINE, JEWEL SERUM, MYOG, SABRINA, UPE RAND, SPE #### [facility] , M-Sonny % Not Observed Normal Not Observed [facility] Comment on above: Performed By: #### T SH3, CBC, ESR, ADDONUAPLUS, CK, T4F, CRP, CMP, LDH, PTH #### [address] #### JEWEL,URINE, JEWEL SERUM, MYOG, SABRINA, UPE RAND, SPE #### [facility] , Please Note: Normal . [facility] Comment on above: Result Comment: Prot ein electrophoresis scan will follow via computer, mail, or cutter barrel drum delivery. PERFORMED BY: [place] [address] PATHOLOGIST CLIENT RESOURCE SPECIALIST SAE GOMEZ M.D. Performed By: #### T SH3, CBC, ESR, ADDONUAPLUS, CK, T4F, CRP, CMP, LDH, PTH #### [facility] [address] [place] [address] #### JEWEL,URINE, JEWEL SERUM, MYOG, SABRINA, UPE RAND, SPE #### [facility] , Protein (U) [Mass/Vol] 17.4 mg/dL Normal Not Estab. [facility] Comment on above: Performed By: #### T SH3, CBC, ESR, ADDONUAPLUS, CK, T4F, CRP, CMP, LDH, PTH #### [facility] [address] [place] [address] #### JEWEL,URINE, JEWEL SERUM, MYOG, SABRINA, UPE RAND, SPE #### [facility] , Protein Electrophoresis, Ser umon 01-31-2022 Albumin [Mass/Vol] 3.8 g/dL Normal 2.9-4.4 [facility] Comment on above: Performed By: #### T SH3, CBC, ESR, ADDONUAPLUS, CK, T4F, CRP, CMP, LDH, PTH #### [facility] [address] [place] [address] [place] #### JEWEL,URINE, JEWEL SERUM, MYOG, SABRINA, UPE RAND, SPE #### [facility] , Albumin/Globulin [Mass ratio] 1.2 {ratio} Normal 0.7-1.7 [facility] Comment on above: Performed By: #### T SH3, CBC, ESR, ADDONUAPLUS, CK, T4F, CRP, CMP, LDH, PTH #### [facility] [address] [place] [address] [place] #### JEWEL,URINE, JEWEL SERUM, MYOG, SABRINA, UPE RAND, SPE #### [facility] , Ovwzy-7-Lbmtqrke 0.3 g/dL Normal 0.0-0.4 [facility] Comment on above: Performed By: #### T SH3, CBC, ESR, ADDONUAPLUS, CK, T4F, CRP, CMP, LDH, PTH #### [facility] [address] [place] [address] #### JEWEL,URINE, JEWEL SERUM, MYOG, SABRINA, UPE RAND, SPE #### [facility] , Cniea-7-Dobarksv 0.8 g/dL Normal 0.4-1.0 [facility] Comment on above: Performed By: #### T SH3, CBC, ESR, ADDONUAPLUS, CK, T4F, CRP, CMP, LDH, PTH #### [facility] [address] [place] [address] #### JEWEL,URINE, JEWEL SERUM, MYOG, SABRINA, UPE RAND, SPE #### [facility] , Beta Globulin 1.1 g/dL Normal 0.7-1.3 [facility] Comment on above: Performed By: #### T SH3, CBC, ESR, ADDONUAPLUS, CK, T4F, CRP, CMP, LDH, PTH #### [address] #### JEWEL,URINE, JEWEL SERUM, MYOG, SABRINA, UPE RAND, SPE #### [facility] , Gamma Globulin 0.9 g/dL Normal 0.4-1.8 [facility] Comment on above: Performed By: #### T SH3, CBC, ESR, ADDONUAPLUS, CK, T4F, CRP, CMP, LDH, PTH #### [facility] [address] [place] [address] [place] #### JEWEL,URINE, JEWEL SERUM, MYOG, SABRINA, UPE RAND, SPE #### [facility] , Globulin (S) [Mass/Vol] 3.1 g/dL Normal 2.2-3.9 [facility] Comment on above: Performed By: #### T SH3, CBC, ESR, ADDONUAPLUS, CK, T4F, CRP, CMP, LDH, PTH #### [address] #### JEWEL,URINE, JEWEL SERUM, MYOG, SABRINA, UPE RAND, SPE #### [facility] , M-Sonny Not Observed Normal Not Observed [facility] Comment on above: Performed By: #### T SH3, CBC, ESR, ADDONUAPLUS, CK, T4F, CRP, CMP, LDH, PTH #### [facility] [address] [place] [address] #### JEWEL,URINE, JEWEL SERUM, MYOG, SABRINA, UPE RAND, SPE #### [facility] , Protein [Mass/Vol] 6.9 g/dL Normal 6.0-8.5 [facility] Comment on above: Performed By: #### T SH3, CBC, ESR, ADDONUAPLUS, CK, T4F, CRP, CMP, LDH, PTH #### [facility] [address] [place] [address] #### JEWEL,URINE, JEWEL SERUM, MYOG, SABRINA, UPE RAND, SPE #### [facility] , SPE-Note Normal . [facility] Comment on above: Result Comment: Prot ein electrophoresis scan will follow via computer, mail, or cutter barrel drum delivery. PERFORMED BY: [place] [address] PATHOLOGIST CLIENT RESOURCE SPECIALIST SAE GOMEZ M.D. Performed By: #### T SH3, CBC, ESR, ADDONUAPLUS, CK, T4F, CRP, CMP, LDH, PTH #### [address] #### JEWEL,URINE, JEWEL SERUM, MYOG, SABRINA, UPE RAND, SPE #### [facility] , Protein [Mass/volume] in Ser um or PlasmaOrdered By: Ham Goodwin on 01-31-2022 Protein [Mass/Vol] 6.6 g/dL 6.1-7.9 [facility] RBC Auto (Bld) [#/Vol]Ordere d By: Ham Goodwin on 01-31-2022 RBC (Bld) [#/Vol] 4.88 10*6/uL 3.60-5.00 [facility] Serum or plasma C reactive p rotein measurement (mass/volume)Ordered By: Ham Goodwin on 01-31-2022 CRP [Mass/Vol] 0.8 mg/dL 0.0-1.0 [facility] Serum or plasma alanine meyers otransferase measurement without P-5'-P (enzymatic activiOrdered By: Ham Goodwin on 01-31-2022 ALT No additional P-5'-P [Catalytic activity/Vol] 27 U/L 10-60 [facility] Serum or plasma albumin/glob ulin mass ratioOrdered By: Ham Goodwin on 01-31-2022 Albumin/Globulin [Mass ratio] 1.8 {ratio} [facility] Serum or plasma alkaline milo sphatase measurement (enzymatic activity/volume)Ordered By: Ham Goodwin on 01-31-2022 ALP [Catalytic activity/Vol] 75 U/L 32-92 [facility] Serum or plasma aspartate am inotransferase measurement (enzymatic activity/volume)Ordered By: Ham Goodwin on 01-31-2022 AST [Catalytic activity/Vol] 26 U/L 10-42 [facility] Serum or plasma calcium miriam urement (mass/volume)Ordered By: Ham Goodwin on 01-31-2022 Calcium [Mass/Vol] 9.7 mg/dL 8.2-10.2 [facility] Serum or plasma chloride ray surement (moles/volume)Ordered By: Ham Goodwin on 01-31-2022 Chloride [Moles/Vol] 101 mmol/L 95-114 [facility] Serum or plasma glucose miriam urement (mass/volume)Ordered By: Ham Goodwin on 01-31-2022 Glucose [Mass/Vol] 97 mg/dL 70-100 [facility] Comment on above: ADA recommended refe rence rangeRandom Glucose Reference Range is dependent on time and content of last meal. Glucose of more than 200 mg/dL in a nonstressed, ambulatory subject supports the diagnosis of Diabetes Mellitus. Serum or plasma intact parat hyroid hormone measurement (mass/volume)Ordered By: Ham Goodwin on 01-31-2022 Parathyrin.intact [Mass/Vol] 87.4 pg/mL [facility] Serum or plasma potassium me asurement (moles/volume)Ordered By: Ham Goodwin on 01-31-2022 Potassium [Moles/Vol] 4.0 mmol/L 3.5-5.1 [facility] Serum or plasma sodium measu rement (moles/volume)Ordered By: Ham Goodwin on 01-31-2022 Sodium [Moles/Vol] 137 mmol/L 136-146 [facility] Serum or plasma total biliru bin measurement (mass/volume)Ordered By: Ham Goodwin on 01-31-2022 Bilirubin [Mass/Vol] 0.9 mg/dL 0.3-1.2 [facility] Serum or plasma total carbon dioxide measurement (moles/volume)Ordered By: Ham Goodwin on 01-31-2022 CO2 [Moles/Vol] 24.9 mmol/L 22.0-30.0 [facility] Serum or plasma urea nitroge n measurement (mass/volume)Ordered By: Ham Goodwin on 01-31-2022 Urea nitrogen [Mass/Vol] 14 mg/dL 9-23 [facility] Specific gravity Auto test s trip (U) [Rel density]Ordered By: Ham Goodwin on 01-31-2022 Specific gravity (U) [Rel density] 1.024 1.001-1.030 [facility] Squamous epithelial cells de tection in urine sediment by light microscopyOrdered By: Ham Goodwin on 01-31-2022 Epithelial cells.squamous LM Ql (Urine sed) 5-9 [HPF] [facility] TSH DL <= 0.005 mIU/L QnOrde red By: Ham Goodwin on 01-31-2022 TSH Qn 2.89 m[IU]/L 0.45-5.33 [facility] Thyroid Stimulating Hormoneo n 01-31-2022 TSH Qn 2.89 m[IU]/L Normal 0.45-5.33 [facility] Comment on above: Performed By: #### T SH3, CBC, ESR, ADDONUAPLUS, CK, T4F, CRP, CMP, LDH, PTH #### [facility] [address] #### JEWEL,URINE, JEWEL SERUM, MYOG, SABRINA, UPE RAND, SPE #### [facility] , Thyroxine (T4) free [Mass/vo lume] in Serum or PlasmaOrdered By: Ham Goodwin on 01-31-2022 Free T4 [Mass/Vol] 0.87 ng/dL 0.61-1.12 [facility] Urine bacteria detection by automated methodOrdered By: Ham Goodwin on 01-31-2022 Bacteria Auto Ql (U) 2+ None Seen [facility] Urine clarity by refractomet ry automatedOrdered By: Ham Goodwin on 01-31-2022 Clarity Refractometry automated (U) Clear Clear [facility] Urine glucose measurement by automated test strip (mass/volume)Ordered By: Ham Goodwin on 01-31-2022 Glucose Auto test strip (U) [Mass/Vol] Normal mg/dL Normal [facility] Urine hemoglobin detection b y automated test stripOrdered By: Ham Goodwin on 01-31-2022 Hemoglobin Auto test strip Ql (U) Negative Negative [facility] Urine leukocyte esterase det ection by automated test stripOrdered By: Ham Goodwin on 01-31-2022 Leukocyte esterase Auto test strip Ql (U) 1+ Negative [facility] Urobilinogen Auto test strip (U) [Mass/Vol]Ordered By: Ham Goodwin on 01-31-2022 Urobilinogen (U) [Mass/Vol] Normal mg/dL Normal [facility] pH Auto test strip (U)Ordere d By: Ham Goodwin on 01-31-2022 pH (U) 7.5 [pH] 5.0-9.0 [facility] XR Bone Density (DEXA)on XR Bone Density (DEXA) RegionBMDYoung-Adult Age-Matched Total(g/cm2)(%)T-Sco re(%)Z-Score Femur.85246-7.2990.0 Impression: The mean BMD and corresponding T-score indicated above indicate Low Bone Mass (Osteopenia) and places the patient at a mild to moderate increased risk for fracture. There may be a future risk of developing osteoporosis. Recommend follow-up exam in 1 year, sooner as clinically necessary. RegionBMDYoung-Adult Age-Matched Total(g/cm2)(%)T-Sco re(%)Z-Score L1-L41.929946+1.1152 +3.6 Impression: The mean BMD and corresponding [...] by Andrae Ewing on 12/28/2021 1342 Normal [facility] Specialist SCREENING MAMMOGRAM W/SUZI, BILATERAL*on [...] VERY IMPORTANT TO YOUR HEALTH. THE CURRENT [place] [employer]WORK GUIDELINES RECOMMENDS ANNUAL MAMMOGRAPHY BEGINNING AT AGE 40 THIS FACILITY USES A REMINDER SYSTEM TO ENSURE ALL PATIENTS RECEIVE REMINDER NOTIFICATIONS AT THE APPROPRIATE TIME BASED ON THE RECOMMENDATIONS OF THIS EXAM. Report reported and signed by Andrae Ewing on 11/08/2021 1643 Normal [facility] [employer] Vital Signs Date Time Vital Sign Value Performing Clinician Faci lity 03-03-2025 15:10-0400 Body height 167.64 cm [facility] 03-03-2025 15:10-0400 Body mass index (BMI) [Ratio] 29 kg/m2 [facility] 03-03-2025 15:10-0400 Body temperature 97.8 [degF] [facility] 03-03-2025 15:10-0400 Body weight 81.64 kg [facility] 03-03-2025 15:10-0400 Diastolic blood pressure 72 mm[Hg] [facility] 03-03-2025 15:10-0400 Heart rate 65 /min [facility] 03-03-2025 15:10-0400 SaO2% (BldA) [Mass fraction] 95 % [facility] 03-03-2025 15:10-0400 Systolic blood pressure 160 mm[Hg] [facility] Encounters Encounter Date Encounter Type Care Provider Facility Start: 02-16-2026 ambulatory Irving Clemens Facility :[facility] [place] Start: 08-18-2025 ambulatory Irving Clemens Facility :[facility] [place] Start: 07-14-2025 End: 07-14-2025 ambulatory SONU WILEY Not Available Start: 07-14-2025 End: 07-14-2025 Bamboo flowsheet Sonu Wiley DO Work Phone: [facility] Start: 07-14-2025 End: 07-14-2025 Bamboo flowsheet Sonu Wiley DO Work Phone: [facility] Start: 06-02-2025 ambulatory Irving Clemens Facility :[facility] [place] Start: 03-03-2025 End: 03-03-[address] [facility] Work Phone: Start: 03-03-2025 End: 03-03-2025 Patient encounter procedure Formerly [facility] Physician [facility] [facility] [employer] [place] Work Phone: Start: 03-03-2025 End: 03-03-2025 ambulatory IRVING CLEMENS Not Available Start: 02-24-2025 End: 02-24-2025 Lab Drop off Irving Clemens [facility] Start: 02-24-2025 End: 02-24-2025 ambulatory Irving Clemens Facility:[facility] [place] Start: 02-17-2025 End: 02-17-2025 ambulatory Irving Clemens Facility: [facility] [place] Start: 10-24-2024 End: 10-24-2024 ambulatory Johanna Mata Facility: [facility] [place] Start: 09-05-2024 End: 09-05-2024 ambulatory Irving Clemens Facility: [facility] [place] Start: 08-05-2024 End: 08-05-2024 ambulatory Irving Clemens Facility:[facility] Start: 08-05-2024 End: 08-05-2024 Patient encounter procedure Irving Clemens [facility] Start: 07-29-2024 End: 07-29-2024 ambulatory Irving Clemens Facility:[facility] [place] Start: 03-05-2024 End: 03-05-2024 ambulatory Irving Clemens Facility:[facility] [place] Start: 11-14-2023 End: 11-14-2023 Lab Drop off Irving Clemens 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 eyes Sonu Wiley DO Work Phone: Comment on above: Age-related nuclear cataract of both eyes (Primary Dx); Glaucoma suspect of both eyes Start: 09-05-2023 H/O: hysterectomy H/O: hysterectomy Sonu Wiley DO Work Phone: Acoustic neuroma (disorder) Irving Clemens Comment on above: [facility] 1994 Biopsy of breast Irving Clemens Comment on above: several biopsies, eaton s dense breasts Hysterectomy Irving Clemens Plan of Treatment Date Care Activity Detail Author Start: 04-14-2026 End: 04-14-2026 Patient encounter procedure 04/14/2026 1:00 PM EDT Office Visit [facility] [address] [place] [address] Sonu Wiley DO [address] [place] [address] [facility] Start: 02-17-2026 Medicare Annual Well ness (AWV) Medicare Annual Wellness (AWV) [facility] Start: 07-14-2025 End: 07-14-2025 Patient encounter procedure 07/14/2025 2:45 PM EDT Office Visit [facility] [address] [place] [address] Sonu Wiley DO [address] [place] [address] Arrived [facility] Comment on above: Arrived Start: 06-23-2025 Influenza vaccination Influenz a Vaccine (#1) [facility] 24 hour [facility] Work Phone: Albumin [Mass/volume ] in Serum or Plasma [facility] Work Phone: Albumin/Globulin ratio [facility] Work Phone: Aldolase measurement [facility] Work Phone: Electrophoresis: [id number] [facility] Work Phone: Electrophoresis: [id number] [facility] Work Phone: Electrophoresis: beta-globulin [facility] Work Phone: Electrophoresis: frantz ma globulin [facility] Work Phone: Globulin [Mass/volum e] in Serum [facility] Work Phone: Homogenous nuclear A b pattern [Titer] in Serum [facility] Work Phone: IgA [Mass/volume] in Serum or Plasma [facility] Work Phone: IgG [Mass/volume] in Serum or Plasma [facility] Work Phone: IgM [Mass/volume] in Serum or Plasma [facility] Work Phone: Immunofixation for Urine [facility] Work Phone: Measurement of monoc lonal protein concentration [facility] Work Phone: Myoglobin [Mass/volu me] in Serum or Plasma [facility] Work Phone: Nuclear Ab [Titer] i n Serum [facility] Work Phone: Protein [Mass/volume ] in Serum or Plasma [facility] Work Phone: Protein [Mass/volume ] in Urine [facility] Work Phone: Serum immunofixation [facility] Work Phone: Immunizations Immunization Date Immunization Notes Care Provider Fa ema 09-09-2021 pneumococcal conjuga te vaccine, 13 valent Irving Clemens [facility] 10-05-2019 influenza virus vaccine, unspecified formulation Irving Clemens [facility] 10-05-2019 influenza, high dose seasonal, preservative-free Sonu Wiley DO Work Phone: [facility] 12-26-2016 pneumococcal conjuga te vaccine, 13 valent Sonu Zahler DO Work Phone: [facility] 08-26-2014 pneumococcal polysaccharide vaccine, 23 valent Irving Ross [facility] 08-23-2001 pneumococcal polysaccharide vaccine, 23 valent Irving Clemens [facility] NEGATED: Highlighted row has not occurred!07-29-2024 influenza virus vaccine, unspecified formulation Irving Clemens [facility] Payers Date Payer Category Payer Medicare [id number] 2024 Unknown [id number] 2009 Medicare [id number] 2009 Private Health Insurance [facility] [id number] 5 2009 Unknown [id number] 1959 Medicare [id number] 1959 Unknown [id number] 1944 Unknown [id number] [id number] .2.593 1944 Unknown [id number] 2.16.840.1.176760.3.579 .2.72 1944 Unknown [id number] 2.16.840.1.157948.3.579 .2.72 1944 Unknown [id number] 2.16.840.1.148518.3.579 .2.727 1944 Unknown [id number] 2.16.840.1.388009.3.579 .2.727 1944 Unknown [id number] 2.16.840.1.769592.3.579 .2.727 1944 Unknown [id number] 2.16.840.1.933377.3.579 .2.727 1944 Unknown [id number] 2.16.840.1.735127.3.579 .2.727 1944 Unknown [id number] 2.16.840.1.108585.3.579 .2.727 1944 Unknown [id number] 2.16.840.1.371404.3.579 .2.727 1944 Unknown [id number] 2.16.840.1.460085.3.579 .2.727 1944 Unknown [id number] 2.16.840.1.009070.3.579 .2.727 1944 Unknown [id number] 2.16.840.1.297418.3.579 .2.727 1944 Unknown [id number] 2.16.840.1.568306.3.579 .2.727 1944 Unknown [id number] 2.16.840.1.028441.3.579 .2.1259 1944 Unknown [id number] 2.16.840.1.121610.3.579 .2.1259 Medicare Medicare [id number] Self-pay Self Pay [id number] Social History Date Type Detail Facility Tobacco smoking stat [facility] Unknown if ever smoked [facility] Work Phone: Start: 1945 Sex Assigned At Female [facility] Start: 09-05-2023 End: 11-14-2023 Tobacco smoking status Ex-smoker (finding) [facility] Start: 02-17-2025 Tobacco smoking status Never [facility] Start: 09-01-2023 End: 09-05-2023 Sex Assigned At Female [facility] Sexual Orientation [facility] Start: 09-08-2017 End: 03-03-2025 Sex Female (finding) [facility] End: 01-19-1985 History of tobacco use Current smoker [facility] End: 01-19-1985 History of tobacco use Cigarette Smoker [facility] Start: 09-05-2023 Tobacco use and exposure Smoke less tobacco non-user [facility] Start: 09-05-2023 End: 07-14-2025 Alcoholic beverage intake Current drinker of alcohol (finding) [facility] Start: 09-01-2023 End: 09-05-2023 Alcoholic beverage intake [facility] Within the last year , have you been afraid of your partner or ex-partner? No [facility] Are you now , , , , never or living with a partner? [facility] How often to you hav e a drink containing alcohol? 2-4 times a month [facility] How many standard dr inks containing alcohol do you have on a typical day? 1 or 2 [facility] How often do you hav e 6 or more drinks on 1 occasion? Never [facility] Do you feel stress - tense, restless, nervous, or anxious, or unable to sleep at night because your mind is troubled all the time - these days [OSQ] Very much [facility] (I/We) worried [facility] er (my/our) food would run out before (I/we) got money to buy more. Never true [facility] Start: 09-04-2023 Alcohol Comment caffeine: 1-2 cups per day [facility] Start: 09-01-2023 Gender identity Identifies as female gender (finding) [facility] Clinical Notes 08-20-2021 to 07-14-2025 Sonu Wiley, - 07/14/2025 2:45 PM EDT Note Date & Type Note Facility 07-14-2025 History of Present illness Narrative Images from the original note were not included. Assessment/Plan Diagnoses and all orders for this visit: Age-related nuclear cataract of both eyes - Cataract, OU: Observe for now without intervention. The patient was advised to contact us if any change or worsening of vision. - Ms. Chicas wishes to defer any management at this time. OK to update Rx. Glaucoma suspect of both eyes - Glaucoma suspect OU - Continue observation, following the findings of IOP, C/D ratio, HVF and OCT ONH. Encouraged patient compliance. - Ms. Chicas intraocular pressure (IOP) was 21/ with some thinning of the temporal optic nerve (ON). documented in this encounter [facility] 02-24-2025 Note Nurse Consultation N ote Reason for Visit patient came IO for [...] 08/26/2014 Recorded pneumococcal 23-valent vaccine 08/23/2001 Recorded [facility] 02-17-2025 Note Patient Education Emergency Medicine Heart Attack A heart attack occurs when blood and oxygen supply to the heart is cut off. A heart attack can cause damage to the heart that cannot be fixed. A heart attack is also called a myocardial infarction, or LA. If you think you are having a [...] these instructions at home: Medicines ??? Take [id number] and prescription medicines only as told by [...] may vomit or you vomit. ??? You fe (more content not included)... [facility] 12-06-2021 Note HISTORY: Pain, lifti ng injury (several months) PROCEDURE: GE Signa HDXT 1.5. Sagittal T1, T2, STIR [...] signed by Andrae Ewing on 12/06/2021 1515 [facility] [employer] Operator 08-20-2021 Note Patient Education Ma terials Name: Martinsada Jose Manuel Po Current Date: 08/20/2021 14:09:26 [place] : 1945 [...] breast self-examination (BSE). These experts include the [employer], the U.S. Preventive Services Task Force, and the [place] [employer]etric[employer] Gynecologists. Some experts [...] This means they are not cancer. ? [id number] [employer]. [address] [place] [address], [place] [address]. All rights reserved. This information is not intended as a substitute for professional medical care. Always follow your healthcare professional's instructions. [facility] Evaluation + Plan note No data available for this section [facility] Evaluation + Plan note Future Appointments Appointment Date:09/05/2024 01:00:00 PM Scheduled Provider:Irving Clemens MD Location:[facility] [place] Appointment Type:FM Open Appointment Date:02/17/2025 02:30:00 PM Scheduled Provider: Location:[facility] [place] Appointment Type:FM Medicare Wellness Subsequent [facility] Evaluation + Plan note Future Appointments Appointment Date:08/18/2025 02:00:00 PM Scheduled Provider:Irving Clemens MD Location:[facility] [place] Appointment Type:FM Open Appointment Date:02/16/2026 02:30:00 PM Scheduled Provider: [facility] Appointment Type:FM Medicare Wellness Subsequent [facility] Evaluation note No assessment inform ation available [facility] Work Phone: Evaluation note Diagnosis Age-related nuclear cataract of both eyes- Primary Glaucoma suspect of both eyes Unspecified preglaucoma documented in this encounter [facility] No data available [facility] this [facility] No data available for this section [facility] Summary Purpose Family History No Family History Records Found Relationship Condition Age at Onset Recorded Date/T faisal father Unknown Heart disease Unknown mother History of stroke Unknown Unknown Advance Directives No Advanced Directives Records Found Advance Directive Response Recorded Date/ Time Advance Directives No February 04 11:18am Chief Complaint and Reason for Visit Chief Complaint Admit Date Refer: PVD, HTN March 03, 2025 2:37p m Additional Source Comments INFORMATION SOURCE (unrecogn ized section and content) DATE CREATED AUTHOR 08/27/2021 [facility] DATE CREATED AUTHOR AUTHOR'S ORGANIZ ATION 12/30/2021 [facility] dical Specialist DATE CREATED AUTHOR AUTHOR'S ORGANIZ ATION 02/17/2022 [facility] DATE CREATED AUTHOR AUTHOR'S ORGANIZ ATION 11/03/2022 [facility] DATE CREATED AUTHOR AUTHOR'S ORGANIZ ATION 02/27/2025 [facility] ical Center DATE CREATED AUTHOR AUTHOR'S ORGANIZ ATION 02/28/2025 [facility] ical Center DATE CREATED AUTHOR AUTHOR'S ORGANIZ ATION 07/15/2025 [facility] dical Specialists EPIC Care Teams (unrecognized sec tion and content) Team Status: Inactive Member Role Status Dates Jason Goodwin MD Attending Provider Active Team Status: Active Member Role Status Dates Irving Clemens MD Primary Care Provider Active Team Status: Inactive Member Role Status Dates Irving Clemens MD Primary Care Provider Active Start: March 03, 2025 End: March 03, 2025 Carmine Cadena MD Attending Provider Active S tart: March 03, 2025 End: March 03, 2025 [employer] T[employer] Relationship Specialty Start Date End Date Unallocated, Amrik Man MD [facility] [place] [address] PCP - General Family Medicine 10/21/24 [employer] Tender Relationship Specialty Start Date End Date Unallocated, Amrik Man MD [facility] [place] [address] PCP - General Family Medicine 10/21/24 Goals (unrecognized section and content) Goals may be documented in a n alternate section No data available for this section No data available for this section No data available for this sectionGoals may be documented in an alternate section Reason for Visit (unrecogniz ed section and content) Reason Comments Eye Exam Cataract FOR RECORDS PERTAINING TO PATIENTS WHO ARE [...] BE BASED ON THE PRIMARY CLINICAL RECORDS. [employer] [facility]. provides no warranty or guarantee of the accuracy or completeness of information in this document.
[2025-08-08 14:45] LABS: Blood Urea Nitrogen 21.0 mg/dL (7.0-18.0); Estimated GFR (African America >60 (>=60 mL/min/1.73m^2); Estimated GFR (Non-African Ame >60 (>=60 mL/min/1.73m^2)
== END 2025-08-08 13:56 | disposition home or self-care (01) ==
PROVIDERS: PCP Family Medicine; Visit Provider Registered Nurse
DX: R94.4 Abnormal results of kidney function studies (principal); E55.9 Vitamin D deficiency, unspecified
CPT/HCPCS: 36415; 82306; 82565; 84520